=== PATIENT | female | born 1960 | race Caucasian/White ===

== ENCOUNTER → 2017-07-13 12:03 | Outpatient (CLI) | payer OTHER, SELFPAY ==
[2017-07-13 12:30] LABS: Basophils % 0.5 % (0.1-2.0); Eosinophils # 0.1 K/mm3 (0.0-0.4); Hematocrit 41.3 % (37.0-47.0); Hemoglobin 13.8 g/dL (12.2-16.2); Lymphocytes % 30.8 K/mm3 (10-50); Mean Corpuscular HGB Conc 33.4 g/dL (31.8-35.4); Mean Corpuscular Hemoglobin 30.6 pg (27.0-31.2); Mean Corpuscular Volume 91.6 fl (81-99); Monocytes # 0.4 K/mm3 (0.1-1.0); Monocytes % 10.6 % (1.7-9.3); Neutrophils # 1.9 K/mm3 (1.8-7.8); Platelet Count 224 K/mm3 (142-424); Red Blood Count 4.51 M/mm3 (4.20-5.40); Red Cell Distribution Width 12.8 % (11.5-17.5); White Blood Count 3.4 K/mm3 (4.8-10.8)
[2017-07-13 15:01] LABS: Alanine Aminotransferase 35 U/L (12-78); Albumin Level 4.2 gm/dL (3.4-5.0); Albumin/Globulin Ratio 1.5 (1.1-1.8); Alkaline Phosphatase 48 U/L (46-116); Anion Gap 11.4 mEq/L (5-15); Aspartate Amino Transferase 16 U/L (15-37); Bilirubin,Total 0.5 mg/dL (0.2-1.0); Blood Urea Nitrogen 19 mg/dL (7-18); Calcium 9.2 mg/dL (8.5-10.1); Carbon Dioxide 30 mmol/L (21.0-32.0); Chloride 105 mmol/L (98-107); Creatinine,Serum 0.75 mg/dL (0.55-1.02); Estimated Glomerular Filt Rate 79 ml/min (>60); GFR (African American) 96 ML/MIN (>60); Globulin 2.8 gm/dl (1.3-3.2); Glucose 97 mg/dL (74-106); Potassium 4.4 mmoL/L (3.5-5.1); Sodium 142 mmol/L (136-145)
== END ==
PROVIDERS: PCP Internal Medicine; Visit Provider Internal Medicine
DX: G35 Multiple sclerosis (principal)
CPT/HCPCS: 36415; 80053; 85025

== ENCOUNTER → 2021-03-17 18:43 | Outpatient (CLI) | payer OTHER, SELFPAY ==
[2021-03-17 19:17] LABS: Basophils % 0.7 % (0.1-2.0); Eosinophils # 0.1 K/mm3 (0.0-0.4); Eosinophils % 0.9 % (0.1-12.0); Hematocrit 43.1 % (37.0-47.0); Hemoglobin 14.5 g/dL (12.2-16.2); Lymphocytes # 0.9 K/mm3 (0.7-4.5); Lymphocytes % 17.7 % (10-50); Mean Corpuscular HGB Conc 33.6 g/dL (31.8-35.4); Mean Corpuscular Hemoglobin 31.1 pg (27.0-31.2); Mean Corpuscular Volume 92.5 fl (81-99); Mean Platelet Volume 9.4 fl (7.4-10.4); Monocytes # 0.4 K/mm3 (0.1-1.0); Neutrophils # 3.5 K/mm3 (1.8-7.8); Neutrophils % 71.6 % (37.0-80.0); Platelet Count 269 K/mm3 (142-424); Red Blood Count 4.66 M/mm3 (4.20-5.40); White Blood Count 4.9 K/mm3 (4.8-10.8)
[2021-03-17 21:32] LABS: Chloride 96 mmol/L (98-107)
[2021-03-17 21:33] LABS: Potassium 3.4 mmoL/L (3.5-5.1); Sodium 139 mmol/L (136-145)
[2021-03-17 21:35] LABS: Alanine Aminotransferase 18 U/L (12-78); Alkaline Phosphatase 53 U/L (38-126); Aspartate Amino Transferase 23 U/L (14-36); Bilirubin,Total 0.3 mg/dl (0.2-1.3); Blood Urea Nitrogen 16 mg/dl (7-17); Estimated Glomerular Filt Rate 63 ml/min (>60); GFR (African American) 77 ML/MIN (>60)
[2021-03-17 21:36] LABS: Albumin Level 4.5 g/dl (3.5-5.0); Albumin/Globulin Ratio 1.8 (1.1-1.8); Anion Gap 15.4 mEq/L (5-15); Calcium 9.6 mg/dl (8.4-10.2); Carbon Dioxide 31 mmol/L (22.0-30.0); Globulin 2.5 g/dL (1.3-3.2); Glucose 88 mg/dl (74-100)
[2021-03-17 22:17] LABS: Thyroid Stimulating Hormone 1.82 uIU/mL (0.465-4.68)
[2021-03-17 22:28] LABS: Hemoglobin A1C 5.8 % (4.0-6.0)
[2021-03-17 23:10] LABS: Vitamin B12 200 pg/mL (239-931)
== END ==
PROVIDERS: Visit Provider Internal Medicine
DX: G35 Multiple sclerosis (principal); E78.5 Hyperlipidemia, unspecified; E55.9 Vitamin D deficiency, unspecified; R60.9 Edema, unspecified; N39.0 Urinary tract infection, site not specified; M54.50 Low back pain, unspecified; B02.29 Other postherpetic nervous system involvement
CPT/HCPCS: 80053; 82607; 82746; 83036; 84443; 85025; 87086; 87088; 87186

== ENCOUNTER → 2021-06-15 12:14 | Outpatient (CLI) | payer OTHER, SELFPAY ==
[2021-06-15 14:58] LABS: Basophils % 0.9 % (0.1-2.0); Eosinophils # 0.1 K/mm3 (0.0-0.4); Eosinophils % 1.7 % (0.1-12.0); Hematocrit 42.2 % (37.0-47.0); Hemoglobin 13.9 g/dL (12.2-16.2); Lymphocytes # 0.9 K/mm3 (0.7-4.5); Lymphocytes % 19.9 % (10-50); Mean Corpuscular HGB Conc 32.9 g/dL (31.8-35.4); Mean Corpuscular Hemoglobin 30.6 pg (27.0-31.2); Mean Corpuscular Volume 93.1 fl (81-99); Monocytes # 0.4 K/mm3 (0.1-1.0); Monocytes % 9.3 % (1.7-9.3); Neutrophils % 68.2 % (37.0-80.0); Platelet Count 273 K/mm3 (142-424); Red Blood Count 4.54 M/mm3 (4.20-5.40); Red Cell Distribution Width 13.6 % (11.5-17.5); White Blood Count 4.4 K/mm3 (4.8-10.8)
[2021-06-15 15:01] LABS: Chloride 95 mmol/L (98-107); Potassium 3.9 mmoL/L (3.5-5.1); Sodium 134 mmol/L (136-145)
[2021-06-15 15:04] LABS: Alanine Aminotransferase 16 U/L (12-78); Albumin Level 4.6 g/dl (3.5-5.0); Alkaline Phosphatase 43 U/L (38-126); Anion Gap 8.9 mEq/L (5-15); Aspartate Amino Transferase 28 U/L (14-36); Bilirubin,Total 0.4 mg/dl (0.2-1.3); Blood Urea Nitrogen 25 mg/dl (7-17); Carbon Dioxide 34 mmol/L (22.0-30.0); Estimated Glomerular Filt Rate 63 ml/min (>60); GFR (African American) 77 ML/MIN (>60); Globulin 2.3 g/dL (1.3-3.2); Total Protein,Serum 6.9 g/dl (6.3-8.2)
[2021-06-15 15:05] LABS: Calcium 9.6 mg/dl (8.4-10.2); Glucose 84 mg/dl (74-100)
[2021-06-15 16:03] LABS: INR 0.95 (0.9-1.1); Prothrombin Time 10.8 seconds (10.1-12.5)
== END ==
PROVIDERS: Visit Provider Internal Medicine
DX: G35 Multiple sclerosis (principal); G60.9 Hereditary and idiopathic neuropathy, unspecified; E53.8 Deficiency of other specified B group vitamins; R53.82 Chronic fatigue, unspecified
CPT/HCPCS: 80053; 85025; 85610; 85730

== ENCOUNTER → 2022-01-05 11:40 | Outpatient (CLI) | payer OTHER, SELFPAY ==
[2022-01-05 12:08] LABS: Basophils % 0.8 % (0.1-2.0); Eosinophils # 0.1 K/mm3 (0.0-0.4); Eosinophils % 1.2 % (0.1-12.0); Hematocrit 44.4 % (37.0-47.0); Hemoglobin 14.5 g/dL (12.2-16.2); Lymphocytes % 19.8 % (10-50); Mean Corpuscular HGB Conc 32.6 g/dL (31.8-35.4); Mean Corpuscular Hemoglobin 30.4 pg (27.0-31.2); Mean Corpuscular Volume 93.2 fl (81-99); Mean Platelet Volume 9.5 fl (7.4-10.4); Monocytes # 0.4 K/mm3 (0.1-1.0); Monocytes % 7.1 % (1.7-9.3); Neutrophils # 3.7 K/mm3 (1.8-7.8); Platelet Count 305 K/mm3 (142-424); Red Blood Count 4.77 M/mm3 (4.20-5.40); Red Cell Distribution Width 13.8 % (11.5-17.5); White Blood Count 5.2 K/mm3 (4.8-10.8)
[2022-01-05 12:47] LABS: Alanine Aminotransferase 21 U/L (12-78); Albumin Level 4.4 g/dl (3.5-5.0); Albumin/Globulin Ratio 1.8 (1.1-1.8); Alkaline Phosphatase 58 U/L (38-126); Anion Gap 12.4 mEq/L (5-15); Aspartate Amino Transferase 26 U/L (14-36); Bilirubin,Total 0.2 mg/dl (0.2-1.3); Blood Urea Nitrogen 17 mg/dl (7-17); Calcium 10.1 mg/dl (8.4-10.2); Carbon Dioxide 28 mmol/L (22.0-30.0); Chloride 103 mmol/L (98-107); Chol/HDL Ratio 4.6 (1-3.5); Cholesterol 279 mg/dl (140-200); Estimated Glomerular Filt Rate 56 ml/min (>60); GFR (African American) 68 ML/MIN (>60); Globulin 2.4 g/dL (1.3-3.2); Glucose 114 mg/dl (74-100); HDL Cholesterol 61 mg/dl (40-60); Potassium 3.4 mmoL/L (3.5-5.1); Sodium 140 mmol/L (136-145); Total Protein,Serum 6.8 g/dl (6.3-8.2); Triglycerides 240 mg/dl (30-150); VLDL Cholesterol 48 mg/dL (0-40)
[2022-01-05 13:36] LABS: Vitamin B12 > 1000 pg/mL (239-931)
[2022-01-06 15:21] LABS: Direct LDL Cholesterol 175 mg/dL (100-129)
== END ==
PROVIDERS: PCP Internal Medicine; Visit Provider Internal Medicine
DX: G35 Multiple sclerosis (principal); R53.82 Chronic fatigue, unspecified; E53.8 Deficiency of other specified B group vitamins; R23.8 Other skin changes; E78.5 Hyperlipidemia, unspecified; G60.9 Hereditary and idiopathic neuropathy, unspecified
CPT/HCPCS: 36415; 80053; 80061; 82607; 85025

== ENCOUNTER → 2022-02-14 12:43 | Outpatient (CLI) | payer OTHER, SELFPAY | PROVIDERS: PCP Internal Medicine; Visit Provider Internal Medicine | DX: N39.0 Urinary tract infection, site not specified (principal); B96.1 Klebsiella pneumoniae [K. pneumoniae] as the cause of diseases classified elsewhere | CPT/HCPCS: 87086; 87088; 87186 ==

== ENCOUNTER → 2022-09-28 12:06 | Outpatient (CLI) | payer OTHER, SELFPAY ==
[2022-09-28 14:16] LABS: Basophils % 0.6 % (0.1-2.0); Eosinophils # 0.1 K/mm3 (0.0-0.4); Eosinophils % 1.8 % (0.1-12.0); Hematocrit 42.8 % (37.0-47.0); Hemoglobin 14.2 g/dL (12.2-16.2); Lymphocytes # 1.1 K/mm3 (0.7-4.5); Lymphocytes % 20.4 % (10-50); Mean Corpuscular HGB Conc 33.1 g/dL (31.8-35.4); Mean Corpuscular Hemoglobin 30.6 pg (27.0-31.2); Mean Corpuscular Volume 92.3 fl (81-99); Mean Platelet Volume 10.4 fl (7.4-10.4); Monocytes # 0.5 K/mm3 (0.1-1.0); Monocytes % 8.9 % (1.7-9.3); Neutrophils # 3.7 K/mm3 (1.8-7.8); Neutrophils % 68.3 % (37.0-80.0); Platelet Count 284 K/mm3 (142-424); Red Blood Count 4.64 M/mm3 (4.20-5.40); Red Cell Distribution Width 13.8 % (11.5-17.5); White Blood Count 5.4 K/mm3 (4.8-10.8)
[2022-09-28 14:20] LABS: Alanine Aminotransferase 49 U/L (12-78); Albumin Level 4.3 g/dl (3.5-5.0); Albumin/Globulin Ratio 1.9 (1.1-1.8); Alkaline Phosphatase 53 U/L (38-126); Anion Gap 16.5 mEq/L (5-15); Aspartate Amino Transferase 48 U/L (14-36); Bilirubin,Total 0.6 mg/dl (0.2-1.3); Blood Urea Nitrogen 18 mg/dl (7-17); Calcium 9.2 mg/dl (8.4-10.2); Carbon Dioxide 32 mmol/L (22.0-30.0); Chloride 92 mmol/L (98-107); Chol/HDL Ratio 4.7 (1-3.5); Cholesterol 242 mg/dl (140-200); Estimated Glomerular Filt Rate 63 ml/min (>60); GFR (African American) 76 ML/MIN (>60); Globulin 2.3 g/dL (1.3-3.2); Glucose 102 mg/dl (74-100); HDL Cholesterol 52 mg/dl (40-60); Potassium 3.5 mmoL/L (3.5-5.1); Sodium 137 mmol/L (136-145); Total Protein,Serum 6.6 g/dl (6.3-8.2); Triglycerides 240 mg/dl (30-150); VLDL Cholesterol 48 mg/dL (0-40)
[2022-09-28 14:31] LABS: Direct LDL Cholesterol 160.69 mg/dL (100-129)
[2022-09-28 15:10] LABS: Vitamin B12 225 pg/mL (239-931)
[2022-09-28 22:36] LABS: Thyroid Stimulating Hormone 1.66 uIU/mL (0.465-4.68)
== END ==
PROVIDERS: PCP Internal Medicine; Visit Provider Internal Medicine
DX: E55.9 Vitamin D deficiency, unspecified (principal); E78.5 Hyperlipidemia, unspecified; E53.8 Deficiency of other specified B group vitamins; G60.9 Hereditary and idiopathic neuropathy, unspecified; G35 Multiple sclerosis; R53.82 Chronic fatigue, unspecified
CPT/HCPCS: 80053; 80061; 82306; 82607; 84443; 85025

== ENCOUNTER 2023-03-19 12:04 | Emergency (ER) | payer MEDICARE, SELFPAY ==
[2023-03-19 12:06] VITALS: BP 163/78; PULSE 89; RESP 18; TEMP 36.8; O2SAT 97; BMI 27.4
--- NOTE | 2023-03-19 12:10 | PC.NURSE ---
DR PALACIOS AT BEDSIDE
--- NOTE | 2023-03-19 12:31 | HMH.EDGENADL ---
Discharge Plan Disposition Patient Disposition: Home, Self-Care Prescriptions Prescriptions: New ketoconazole 2 % shampoo 1 applic topical Q14D Qty: 120 0RF triamcinolone acetonide 0.1 % ointment 1 applic topical BID Qty: 453.6 0RF No Action Tecfidera 240 mg capsule,delayed release(DR/EC) 240 mg PO BID acyclovir 800 MG tablet 800 mg PO 5XDAY 7 Days Qty: 35 0RF Referrals Follow up/Referrals: Rosette Bose MD [Referring] - See instructions Provider,MD Chelsea [Primary Care Provider] - See instructions Woody De Anda DO [Staff Physician] - See instructions Activity Restrictions/Add. Instructions Additional Instructions/Restrictions: At this time it was felt you are safe to be discharged home. If new or worsening symptoms please do not hesitate to return the emergency department. Please call and schedule an appointment with Dr. De Anda to establish care this week for continued prolonged care. Please use your medication as prescribed. If we are able to secure a dermatology appointment we will contact you tomorrow. Clinical Impressions Clinical Impression: Psoriasis Instructions Patient Instructions: DI for Psoriasis Discharge ED Provider: Tray Fitzgerald General Adult HPI General Chief complaint: Skin/Abscess/Foreign Body Stated complaint: right swollen foot, blisters Time Seen by Provider: 03/19/23 12:10 Mode of Arrival: Wheelchair Limitations: No Limitations Description of Symptoms (Recalled from ER Triage Doc. by RN): PT REPORTS RASH THAT STARTED ON BLE, STARTED AROUND ANKLES AND HAS SPREAD UP LEGS. REPORTS RASH TO FOREARMS AND SOME ON TRUNK. SWELLING TO RIGHT LE THAT STARTED THIS AM. RASH DOES ITCH History of Present Illness HPI narrative: Patient is a 62-year-old female with past medical history of previous diagnosis of multiple sclerosis, not currently on any medications who presents emergency department for evaluation of rash. Onset was subacute, over the last 2 weeks patient has had a eruption that began about her bilateral ankles after shaving and spread proximally up her legs to her thighs, involvement of the extensor surfaces of her arms. Originally they were erythematous and itchy, there has been progressive scaling of the bilateral lower extremities, swelling of the right ankle. Due to persistent symptoms she presents here for continued evaluation. Patient denies new detergents, new clothes, new medications, other acute complaints at this time. Related Data Home Medications Medication Instructions Recorded Confirmed dimethyl fumarate 240 mg 240 mg PO BID 03/22/18 03/22/18 capsule,delayed release (Tecfidera) Previous Rx's Medication Instructions Recorded acyclovir 800 mg tablet 800 mg PO 5XDAY 7 days #35 tabs 02/03/19 ketoconazole 2 % shampoo 1 applic topical Q14D #120 mL 03/19/23 triamcinolone acetonide 0.1 % 1 applic topical BID #453.6 grams 03/19/23 topical ointment Allergies Allergy/AdvReac Type Severity Reaction Status Date / Time No Known Allergies Allergy Verified 03/22/18 11:25 [facility] Disclaimer: The information contained in this section may have been updated after the patient was seen, as this information can be updated by other users. Social History Smoking Status: Never smoker alcohol intake: current current occupational status: disabled Travel in the last 8 weeks: None ROS Obtained: Yes Systems reviewed as appropriate & no additional complaints except as documented Physical Exam General General appearance: alert and in no apparent distress Head Head exam: atraumatic and normocephalic Eye Eye exam: Present PERRL and EOMI ENT ENT exam: Present mucous membranes moist Neck Neck exam: Present normal inspection Chest Chest inspection: Present normal inspection and symmetric chest wall rise Respiratory Respiratory exam: Absent respiratory distress Cardiovascular Cardiovascular exam: Present regular rate and normal rhy
[2023-03-19 12:54] LABS: Basophils % 0.4 % (0.1-2.0); Eosinophils # 0.5 K/mm3 (0.0-0.4); Eosinophils % 6.2 % (0.1-12.0); Hematocrit 38.9 % (37.0-47.0); Hemoglobin 13.7 g/dL (12.2-16.2); Lymphocytes # 1.6 K/mm3 (0.7-4.5); Lymphocytes % 21.9 % (10-50); Mean Corpuscular HGB Conc 35.2 g/dL (31.8-35.4); Mean Corpuscular Volume 93.9 fl (81-99); Mean Platelet Volume 8.3 fl (7.4-10.4); Monocytes # 0.4 K/mm3 (0.1-1.0); Monocytes % 5.9 % (1.7-9.3); Neutrophils # 4.8 K/mm3 (1.8-7.8); Neutrophils % 65.4 % (37.0-80.0); Platelet Count 280 K/mm3 (142-424); Red Blood Count 4.15 M/mm3 (4.20-5.40); Red Cell Distribution Width 13.7 % (11.5-17.5); White Blood Count 7.4 K/mm3 (4.8-10.8)
[2023-03-19 13:00] VITALS: BP 140/82; PULSE 86; RESP 18; O2SAT 96
[2023-03-19 13:02] LABS: Alanine Aminotransferase 32 U/L (12-78); Albumin Level 4.1 g/dl (3.5-5.0); Albumin/Globulin Ratio 1.5 (1.1-1.8); Alkaline Phosphatase 44 U/L (38-126); Anion Gap 10.6 mEq/L (5-15); Aspartate Amino Transferase 33 U/L (14-36); Bilirubin,Total 0.2 mg/dl (0.2-1.3); Blood Urea Nitrogen 20 mg/dl (7-17); Calcium 9.2 mg/dl (8.4-10.2); Carbon Dioxide 30 mmol/L (22.0-30.0); Chloride 105 mmol/L (98-107); Creatinine Clearance Estimated 69 mL/min (50-200); Estimated Glomerular Filt Rate 63 ml/min (>60); GFR (African American) 76 ML/MIN (>60); Globulin 2.7 g/dL (1.3-3.2); Glucose 116 mg/dl (74-100); Potassium 3.6 mmoL/L (3.5-5.1); Sodium 142 mmol/L (136-145); Total Protein,Serum 6.8 g/dl (6.3-8.2)
[2023-03-19 13:03] LABS: INR 0.96 (0.9-1.1); Prothrombin Time 10.4 seconds (10.1-12.5)
[2023-03-19 13:51] VITALS: BP 117/72; PULSE 87; O2SAT 97
[2023-03-19 13:51] LABS: Microscopic, Urine URINE MICROSCOPIC (MICROSCOPIC)
[2023-03-19 13:56] LABS: Erythrocyte Sedimentation Rate 112 mm/hr (0-30)
[2023-03-19 13:57] LABS: Appearance,Urine SL CLOUDY (Clear); Bilirubin,Urine Negative (Negative); Blood, Urine Negative (Negative); Color,Urine YELLOW (Yellow); Glucose,Urine (UA) Negative (Negative); Ketones,Urine Negative (Negative); Leukocyte Esterase,Urine 2+ (Negative); Nitrate,Urine Negative (Negative); Protein,Urine Negative (Negative); Specific Gravity, Urine 1.025 (1.005-1.030); Urobilinogen,Urine 0.2 EU/dl (0.2)
[2023-03-19 13:59] VITALS: BP 122/74; PULSE 68; RESP 20; TEMP 36.8; O2SAT 96
[2023-03-19 14:02] VITALS: BP 127/75; PULSE 66; O2SAT 98
[2023-03-19 14:09] LABS: Bacteria,Urine 1+ /lpf
--- NOTE | 2023-03-20 09:18 | PC.NURSE ---
APPOINTMENT MADE FOR DR ASHLEY 05/16/2023 AT 2:10, PT NOTIFIED AT THIS TIME
== END 2023-03-19 14:30 | disposition home or self-care (01) ==
PROVIDERS: Emergency Provider Emergency Medicine
DX: L40.9 Psoriasis, unspecified (principal)
CPT/HCPCS: 80053; 81001; 85025; 85610; 85651; 87086; 96361; 99285

== ENCOUNTER 2024-08-16 09:57 | Outpatient (CLI) | payer MEDICARE, SELFPAY ==
[2024-08-16 14:28] LABS: Basophils % 0.6 % (0.1-2.0); Eosinophils # 0.1 K/mm3 (0.0-0.4); Eosinophils % 2.4 % (0.1-12.0); Hematocrit 42.2 % (37.0-47.0); Lymphocytes # 1.4 K/mm3 (0.7-4.5); Lymphocytes % 28.4 % (10-50); Mean Corpuscular HGB Conc 30.8 g/dL (31.8-35.4); Mean Corpuscular Hemoglobin 26.9 pg (27.0-31.2); Mean Corpuscular Volume 87.4 fl (81-99); Mean Platelet Volume 12.4 fl (7.4-10.4); Monocytes # 0.5 K/mm3 (0.1-1.0); Monocytes % 10.5 % (1.7-9.3); Neutrophils # 2.9 K/mm3 (1.8-7.8); Neutrophils % 57.9 % (37.0-80.0); Platelet Count 288 K/mm3 (142-424); Red Blood Count 4.83 M/mm3 (4.20-5.40); Red Cell Distribution Width 13.1 % (11.5-17.5); White Blood Count 5.1 K/mm3 (4.8-10.8)
[2024-08-16 15:05] LABS: Alanine Aminotransferase 21 U/L (12-78); Albumin Level 3.9 g/dl (3.5-5.0); Albumin/Globulin Ratio 1.7 (1.1-1.8); Alkaline Phosphatase 93 U/L (38-126); Anion Gap 13.7 mEq/L (5-15); Aspartate Amino Transferase 23 U/L (14-36); Bilirubin,Total 0.5 mg/dl (0.2-1.3); Blood Urea Nitrogen 14 mg/dl (7-17); Calcium 10.3 mg/dl (8.4-10.2); Carbon Dioxide 29 mmol/L (22.0-30.0); Chloride 103 mmol/L (98-107); Cholesterol 166 mg/dl (140-200); Estimated Glomerular Filt Rate 84 ml/min (>60); GFR (African American) 101 ML/MIN (>60); Globulin 2.3 g/dL (1.3-3.2); Glucose 89 mg/dl (74-100); HDL Cholesterol 56 mg/dl (40-60); Hemoglobin A1C 5.4 % (4.0-6.0); Potassium 4.7 mmoL/L (3.5-5.1); Sodium 141 mmol/L (136-145); Total Protein,Serum 6.2 g/dl (6.3-8.2); Triglycerides 152 mg/dl (30-150); VLDL Cholesterol 30 mg/dL (0-40)
[2024-08-16 15:16] LABS: Direct LDL Cholesterol 75.89 mg/dL (100-129)
[2024-08-16 15:47] LABS: HIV Combo NEGATIVE (Negative)
[2024-08-16 15:55] LABS: Hepatitis C Ab Qual. W/ RFX NEGATIVE (Negative)
[2024-08-19 11:23] LABS: Anti-Centromere B Antibodies <0.2 AI (0.0-0.9); Anti-DNA (DS) Ab Qn <1 IU/mL (0-9); Anti-Jo-1 <0.2 AI (0.0-0.9); Anti-Smith Antibody <0.2 AI (0.0-0.9); Antichromatin Antibodies <0.2 AI (0.0-0.9); Antiscleroderma-70 Antibodies <0.2 AI (0.0-0.9); RNP Antibodies <0.2 AI (0.0-0.9); Sjogren's Anti-SS-A <0.2 AI (0.0-0.9); Sjogren's Anti-SS-B 1.7 AI (0.0-0.9)
--- OUTSIDE RECORDS SUMMARY | 2024-08-22 19:45 | XMS_ITS | Data Portability ---
Author Organization [facility] Neeraj c, [facility] Address [address] [place] [address] Assessment Encounter Date Assessment Date Assessment LastModified by Organization Details LastModified Time 12/21/2021 12/21/2021 1.Multiple sclerosis, diagnosis made in 2002 ([place]), moved to [place] 2. Followed by Dr. Milton Jones, [facility], last visit in 2020, had MRI 2020 3. Current med Vumerity, on this Rx x 2 or 3 yrs, she stopped Vumerity 10 days ago 4. She says stopped Vumerity because she had a fall 5. Free of exacerbations, Last exacerbation approx 10 years ago, in 2010 or 2011 6. Takes supplemental vitamin D3 Plan 1. I encouraged patient continue care with Dr. Jones 2. I said every MS clinic , every neurology practice is very busy due to shortage of neurologists 3. I encouraged she is in a very good program with very good doctor there is no reason to switch hoping for a less busy practice 4. She needs to make discussion with Dr. Jones about current med Vumerity she says no cost issue/ company provides med for free 5. I encouraged continue vitamin D3 6. No changes needed/ no diagnostic tests needed. 7. I need for appointment here in our clinic [email or web address] Not available 04/03/2022 12:20:44 Plan of Treatment Reminders Order Date Submit Date Provider Last Modified By Organization Details Last Modified Time Details Appointments None record ed. Lab None record ed. Referral None record ed. Procedures None record ed. Surgeries None record ed. Imaging None record ed. Medication Orders None record ed. Patient TargetsNo targets recorded. Patient Instructions Encounter Date Encounter Id Patient Instructions Last Modified By Organization Details Last Modified Time 12/21/2021 [id number] CATEGORY DESCRIPTION MINUTES Prepare to see the patient (e.g. review of tests) Obtain/review separately obtained history Perform medically appropriate exam/evaluation 20 Order medications, tests, or procedures Correspondence Transcriber/educate the patient/family/car egiver 20 Refer/communicate w/other healthcare professionals Document clinical information into health record 10 Non-billable independent interp of results Non-billable care coordination TOTAL TIME 50 [id number] (15-29) 22780 (30-44) 27860 (45-59) 73684 (60-74) 78776 (10-19) 93802 (20-29) 84767 (30-39) 80991 (40-54) [email or web address] Not available 04/03/2022 12:21:41 Reason for Referral None Reported. Problems No Known Problems Procedures Surgical History Date Name Laterality Status Provider Name and Address Organization Details Recorded Time 05/15/19 10 Nipple/areola reconstruction completed [facility] 12/21/2021 10:03:23 05/15/19 09 Nipple/areola reconstruction completed [facility] 12/21/2021 10:03:18 05/15/19 08 Bilateral mastectomy completed [facility] 12/21/2021 10:02:56 05/15/19 07 Total Hysterectomy completed [facility] 12/21/2021 10:02:45 05/15/18 63 Tonsillectomy completed [facility] 12/21/2021 10:02:33 Imaging Results None recorded. Procedure Notes None recorded. Medical Equipment None Reported. Allergies No known drug allergies Medications Name Sig Start Date Stop Date Status Note LastModified by Organization Details LastModified Time triamterene active Not Available Not A vailable Not Available Vitals Date Recorded Body weight Body mass index (BMI) Body height Provider Name and Address Organization Details Last Updated DateTime 12/21/2021 98790.11 g 27.3 kg/m2 167.64 cm [facility] 12/21/2021 09:54:56 Social History Question Answer Notes LastModified by Organizat ion Details LastModified Time Tobacco Smoking Status [facility]/21/2021 10:02:20 What Is Your Level Of Alcohol Consumption? None Information not available 12/21/2021 What Was The Date Of Your Most Recent Tobacco Screening? 12/21/2021 Information not available 12/21/2021 Do You Use Any Illicit Or Recreational Drugs? No Information not available 12/21/2021 Has Tobacco Cessation Counseling Been Provided? No Information not available 12/21/2021 Do You Or Have You Ever Used Any Other Forms Of Tobacco Or Nicotine? No Information not available 12/21/2021 Sex: Unknown Functional Status None recorded. Mental Status None recorded. Family History Relationship Description Onset Age of this Age Resolved Age Notes LastModified by Organization Details LastModified Time Mother Hypertensive disorder Not available 12/21 10:01:19 Mother Diabetes mellitus Not available 12/21 10:01:49 Mother Kidney disease Not available 12/21 10:02:04 Father Heart disease Not available 12/21 10:01:24 Father Diabetes mellitus Not available 12/21 10:01:49 Unspecified Relation Diabetes mellitus GF Not available 12/21 10:01:49 Unspecified Relation Diabetes mellitus GM x2 Not available 12/21 10:01:49 Medical History Condition Response Cancer Y Migraines Y Neurological Problems Y Gynecological HistoryNo gynecological history recorded. Obstetrics History GPAL:G 0 P 0 0 0 0 Immunizations Vaccine Type Date Status Note Provider Nam e and Address Organization Details Recorded Time SARS-COV-2 (COVID-19) vaccine, UNSPECIFIED 07/22/2020 [facility]2021 10:01:03 SARS-COV-2 (COVID-19) vaccine, UNSPECIFIED 03/19/2021 jenny Terrazas [facility] 12/21/2021 10:01:08 Past Encounters Encounter ID Performer Location Encounter Start Date Encounter Closed Date Diagnosis/Indication Diagnosis SNOMED-CT Code Diagnosis ICD10 Code Diagnosis Note [id number] SUSANNAH DELUNA MD NEUROLOGY [address] [place] [address] 12/21/2021 09:32:40 12/21/2021 10:47:26 Multiple sclerosis 72419724 G35 Health Concerns Section Related Observation LastModified by Organization Detai ls LastModified Time None Recorded Concern Status LastModified by Organization Details LastModified Time None Recorded Advance Directives Directive None Recorded Payers Encounter Date Sequence Insurance Name Policy Number Policy Mccloud Covered Member ID Mccloud Member ID Guarantor Name 12/21/2021 1 [place] [id number] Yen Perez [id number] Yen Perez Notes Date Note Type Note Provider Name and Address Organization Details Recorded Time 12/21/2021 text/html initial consult6 1 year old womanseen at the request of Dr. Zan Jackson cc: multiple sclerosis dx in 2002, diagnosis made in [place] to [place] in [place] some time followed with Dr. Madison Jones follows with Dr. Jones at [facility] for 2 [facility] 3 years currently has Vumeritybut she has fallen while on Vumeritywas last seen in April, days ago stopped Vumerity She takes vitamin D last exacerbation was about 10 years ago Vumerity is not working, quit taking itsays she falls over frequently previous meds tried: Avonex, Rebif, Copaxone, Tysabri, Plegridy, Tecfiderashe says switched meds due to exacerbations she says loved Tecfidera, stopped when generic came availablebecame unaffordable cost is difficult issueshe gets Vumerity as free drug from company Last MRI was 2019 in [place] last exacerbation of MS 2010 or 2011 She says her disease improved when her stress level at work decreased 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
--- OUTSIDE RECORDS SUMMARY | 2024-08-22 19:45 | XMS_ITS ---
Author Organization Unknown TREATMENT PLAN Planned Care Start Date Provider Encounter for Check-up [id number] [facility]
--- OUTSIDE RECORDS SUMMARY | 2024-08-22 19:45 | XMS_ITS ---
Laboratory report Created on: August 21, 2024 KD ROBIN : 1960 Sex: Female Author Organization Unknown PROBLEMS Problems List Code Description RESULTS Laboratory Orders Date Order Code Test 2024-08-16 [id number] ANTINUCLEAR AB 9 BY MULTIPLEX Laboratory Results Date LOINC Test Value Unit Reference Range Interpre tation 2024-08-16 5130-0 ANTI-DNA (DS) AB QN <1 IU/ML 0-9 2024-08-16 07749-1 CERAMIC COATER MACHINE ANTIBODIES <0.2 AI 0.0-0.9 2024-08-16 15454-7 LEVI ANTIBODIES <0.2 AI 0.0-0.9 2024-08-16 61701-7 ANTISCLERODERMA- 70 ANTIBODIES <0.2 AI 0.0-0.9 2024-08-16 [id number] SJOGREN'S ANTI-SS-A <0.2 AI 0.0-0.9 2024-08-16 [id number] SJOGREN'S ANTI-SS-B 1.7 AI 0.0-0.9 H 2024-08-16 [id number] ANTICHROMATIN ANTIBODIES <0.2 AI 0.0-0.9 2024-08-16 27950-1 ANTI-MAUREEN-1 <0.2 AI 0.0-0.9 2024-08-16 [id number] ANTI-CENTROMERE B ANTIBODIES <0.2 AI 0.0-0.9
== END 2024-08-16 23:59 | disposition home or self-care (01) ==
LOC: LAB.DROPOF 08-17 10:56
PROVIDERS: PCP Internal Medicine; Visit Provider Internal Medicine
DX: E78.5 Hyperlipidemia, unspecified (principal); R21 Rash and other nonspecific skin eruption; Z13.1 Encounter for screening for diabetes mellitus; R53.83 Other fatigue; R60.9 Edema, unspecified; Z11.4 Encounter for screening for human immunodeficiency virus [HIV]; Z11.59 Encounter for screening for other viral diseases
CPT/HCPCS: 80053; 80061; 83036; 85025; 86225; 86235; 86803; 87389

== ENCOUNTER 2025-02-11 14:25 | Outpatient (CLI) | payer MEDICARE, SELFPAY ==
--- OUTSIDE RECORDS SUMMARY | 2010-06-07 20:00 | XMS_ITS | Continuity of Care Document ---
Author Organization [facility] Address [address] [place] [address] Phone Care Team Providers Care Director Of Marketing Name Role Phone No Information Unavailable Unavailable Advance Directives Directive Yes / No Effective Date File Name No Information Encounters Encounter Description Practice Location Reason(s) For Visit Diagnoses Date Provider Providers Copied on Encounter [facility], [address] [place] [address], [place], [address], [place] tel:[phone] No Location No Information No Information Family History Family Member Type Diagnosis Age At Onset No Information Payers Payer name Insurance type Covered republican ID Authoriza tion(s) No Information Social History Type Description Quantity Date Captured Comments Sex Female Smoking Status No Information Chief Complaint And Reason For Visit No Information Reason For Referral Reason For Referral No Information History Of Present Illness Encounter Date Complaint History Of Prese nt Illness No Information Functional Status Date Functional Assessmen t No Information Instructions Date Instruction Additional Infor mation No Information Assessments Type Assessment Date No Information Patient Care Teams Name Effective Dates (start - stop) Status Members No Information
--- OUTSIDE RECORDS SUMMARY | 2012-02-13 11:45 | XMS_ITS | Continuity of Care Document ---
Author Organization [facility] Address [address] [place] [address] Phone Care Team Providers Care Bicycle Courier Name Role Phone Jerry Amaya MD Unavailable Unavailable Allergies, Adverse Reactions, Alerts Substance Reaction Status Criticality No Known Drug Allergies Active No I nformation Medications Medication Instructions Dosage Effective Dates (start - stop) Status Comments meloxicam 7.5 mg tablet 1 tab po bid x 7-10 days then qd prn - Active Provigil 100 mg tablet - Active Anastrozole - Active BuPROPion HBr - Active Rebif 22 mcg/0.5 mL Sub-Q Syringe - Active Procedures Procedure Date POSTOP FOLLOW-UP VISIT BOOT WALKER SHORT STYLE OR DIABETIC TREATMENT OF TOE FRACTURE X-RAY EXAM OF FOOT OFFICE/OUTPATIENT VISIT, EST DRAIN/INJECT, JOINT/BURSA KENALOG (TRIAMCINOLONE) PER 10 MG MARCAINE 30 ML X-RAY EXAM, KNEE, 4 OR MORE POSTOP FOLLOW-UP VISIT X-RAY EXAM OF ELBOW Advance Directives Directive Yes / No Effective Date File Name No Information Encounters Encounter Description Practice Location Reason(s) For Visit Diagnoses Date Provider Providers Copied on Encounter [facility], [address] [place] [address], [place], [address], [place] tel:[phone] [facility] No Information 1-201 2 Jose Luis Edwards. [address] [place], [place], [id number], [place]. tel:[phone] [facility], [address] [place] [address], [address], [place] tel:[phone] No Location No Information Oct0 1-201 2 Jose Luis Edwards. [address], [place], [id number], [place]. tel:[phone] [facility], [address] [place] [address], [address], [place] tel:[phone] [facility] No Information Sep- 2 2 Jose Luis Edwards. [address], [place], [id number], [place]. tel:[phone] Referring Provider: Jerry Sierra, [address] [place] [address], [address]. tel:[phone] [facility], [address] [place] [address], [address], [place] tel:[phone] [facility] No Information Sep- 0 2 Jose Luis Edwards. [address], [place], [id number], [place]. tel:[phone] [facility], [address] [place] [address], [address], [place] tel:[phone] No Location No Information Sep- 0- 2 No Information OFFICE/OUTPA TIENT VISIT, EST [facility], [address] [place] [address], [address], [place] tel:[phone] [facility] No Information 2 Sarah Meek. [address] [place] [address], [place], [place], [id number], [place]. tel:[phone] Referring Provider: Fantasma Dawson, [address] [place] [address], [place], [address]. tel:[phone] [facility], [address] [place] [address], [place], [address], tel:[phone] [facility] Marco A No Information Miranda Crandall [address] [facility], [place], [place], [id number], . tel:[phone] [facility], [address] [place] [address], [place], [place], [facility], tel:[phone] No Location No Information No Information Family History Family Member Type Diagnosis Age At Onset No Information Payers Payer name Insurance type Covered constitution party ID Willy carmona(s) [facility] Network S [id number] Social History Type Description Quantity Date Captured [...]
--- OUTSIDE RECORDS SUMMARY | 2024-12-10 15:51 | XMS_ITS | Encounter Summary ---
Author Organization [facility] Address [address] [place] [address] Care Team Providers Care [employer] Name Role Phone Pcp, No Primary Care Provider Unavailabl e Reason for Referral * Referral to Case Management (Routine) - Authorized Specialty Diagnoses / Procedures Referred By Sabrina loera Referred To Contact Primary Care Diagnoses Hyperthyroidism Elham Cruz APRN [address] [place] [address] Phone: tel: fax: Referral ID Status Reason Start Date Expiration Date Visits Requested Visits Authorized [id number] Authorized Other Co-Managemen t of Problem 12/27/2024 06/28/2026 1 1 * Consultation (Routine) - Authorized Specialty Diagnoses / Procedures Referred By Sabrina loera Referred To Contact Cardiology Diagnoses Paroxysmal atrial fibrillation (CMS/HCC) Elham Cruz APRN [address] [place] [address] Phone: tel: fax: Referral ID Status Reason Start Date Expiration Date Visits Requested Visits Authorized [id number] Authorized Specialty Services Required 12/27/2024 06/28/2026 1 1 Scheduling Instructions New diagnosed atrial fib * Consultation (Routine) - Closed Specialty Diagnoses / Procedures Referred By Sabrina loera Referred To Contact Neurology Diagnoses Altered mental status, unspecified altered mental status type Cerebral ventriculomegaly MS (multiple sclerosis) Elham Cruz APRN [address] [place] [address] Phone: tel: fax: Referral ID Status Reason Start Date Expiration Date V isits Requested Visits Authorized [id number] Closed Specialty Services Required 12/27/2024 06/28/2026 1 1 Scheduling Instructions For ventriculomegaly and NPH * Consultation (Routine) - Authorized Specialty Diagnoses / Procedures Referred By Contac t Referred To Contact Diagnoses MS (multiple sclerosis) Elham Cruz APRN [address] [place] [address] Phone: tel: fax: Referral ID Status Reason Start Date Expiration Date V isits Requested Visits Authorized [id number] Authorized 12/27/2024 06/28/2026 1 1 * Consultation (Routine) - Authorized Specialty Diagnoses / Procedures Referred By Contac t Referred To Contact Endocrinology Diagnoses Hyperthyroidism Wu Newby MD [address] [place] [address] Phone: tel: fax: Referral ID Status Reason Start Date Expiration Date Visits Requested Visits Authorized [id number] Authorized Specialty Services Required 12/15/2024 06/16/2026 1 1 Scheduling Instructions For Graves disease * Consultation (Routine) - Authorized Specialty Diagnoses / Procedures Referred By Contac t Referred To Contact Neurology Diagnoses Cerebral ventriculomegaly Addie Vazquez, [address] [place] [address] Phone: tel: fax: [facility] [address] [place] [address] Phone: tel: fax: Referral ID Status Reason Start Date Expiration Date Visits Requested Visits Authorized [id number] Authorized Specialty Services Required 12/11/2024 06/12/2026 1 1 Scheduling Instructions Follow-up in NPH clinic with first available appointment Reason for Visit * Reason Comments Altered Mental Status * Auth/Cert (Routine) Specialty Diagnoses / Procedures Referred By Sabrina t Referred To Contact Diagnoses Acute encephalopathy Altered Mental Status and A.fib Addie Vazquez DO [address] [place] [address] Phone: tel: fax: [facility] [address] [place] [address] Phone: tel: Referral ID Status Reason Start Date Expiration Date Visits Re quested Visits Authorized [id number] 1 1 Encounter Details Date Type Department Care Team (Latest Contact Info) Description 12/10/2024 3:51 PM EDT - 12/28/2024 2:40 PM EDT Hospital Encounter [facility] [address] [place] [address] Desi Kent MD [address] [place] [address] Addie Vazquez DO [address] [place] [address] Wu Newby MD [address] [place] [address] Loi Guzman MD [address] [place] [address] Kajal Ferrera MD [address] [place] [address] Erik Caban MD [address] [place] [address] Altered mental status, unspecified altered mental status type (Primary Dx); Hyperthyroidism; Elevated troponin; Cerebral ventriculomegaly; MS (multiple sclerosis) (CMS/HCC); Paroxysmal atrial fibrillation (CMS/HCC) Discharge Disposition: Home or Self Care Social History Tobacco Use Types Packs/Day Years Used Date Smoking Tobacco: Former Cigarettes Smokeless Tobacco: Never Tobacco Cessation:Counseling Given: Not Answered Alcohol Use Standard Drinks/Week Comments Yes 0 (1 standard drink = 0.6 oz pur e alcohol) rarely on social occasions CAGE ASSESSMENT Answer Date Recorded Cage unable to access Not on file 12/10/2024 Maximum number of drinks you had on a given occasion in the last month? 1 drink 12/10/2024 How many alcoholic Beverages do you typically drink in a week? 0 - 7 per week 12/10/2024 Have you ever felt you should CUT down on your d rinking? 0 12/10/2024 Have you been ANNOYED by peo ple criticizing your drinking? 0 12/10/2024 Have you felt GUILTY about your drinking? 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 0 12/10/2024 CAGE Questionnaire Score 0 025 Comments No Sex and Gender Information Value Date Recorded Sex Assigned at Not on file Legal Sex Female 5:41 AM EDT Gender Identity Not on file Sexual Orientation Not on file documented as of this encounter Last Filed Vital Signs Vital Sign Reading Time Taken Comments Blood Pressure 110/57 12/28/2024 12:10 PM EDT Pulse 65 12/28/2024 12:10 PM EDT Temperature 36.7 C (98.1 F) 12/28/2024 12:10 PM EDT Respiratory Rate 15 12/28/2024 12:1 0 PM EDT Oxygen Saturation 99% 12/28/2024 12: 10 PM EDT Inhaled Oxygen Concentration - - Weight 63.5 kg (139 lb 15.9 oz) 12/23/2024 3:00 AM EDT Height 160 cm (5' 3 ) 12/12/2024 5:12 PM EDT Body Mass Index 24.8 12/21/2024 7:36 AM EDT documented in this encounter Functional Status * Calculated C-SSRS Risk Score (Lifetime/Recent) Answer Date of Assessment Author No Risk Indicated 12/28/2024 8:00 AM EDT Cathleen Mason RN * Question Answer Date of Assessment Author 1. Wish to be (Past 1 Month) No 025 8:00 AM Cathleen Kelly, OG 2. Non-Specific Active Suici niurka Thoughts (Past 1 Month) No 12/28/2024 8:00 AM EDT Vivi Bonilla RN 6. Suicidal Behavior (Lifetime) No 8:00 AM EDT Cathleen Bonilla RN documented as of this encounter Medications at Time of Discharge acetaminophen (Tylenol) 325 MG tablet Take 2 tablets by mouth every 8 hours as needed for pain. Under [place] law, monthly prescriptions (30 days) can be refilled at 25 days and three-month prescriptions (90 days) at 80 days. Please contact the insurance company with questions if refills are denied. 12/27/2024 apixaban (Eliquis) 5 MG tablet Take 1 tablet by mouth 2 times a day. 60 tablet 12/27/2024 melatonin tablet Take 2 tablets by mouth at night as needed for sleep. 12/27/2024 methIMAzole (Tapazole) 10 MG tablet Take 1 tablet by mouth 2 times a day. 120 tablet 12/27/2024 propranolol (Inderal) 10 MG tablet Take 1 tablet by mouth 2 times a day. 60 tablet 12/27/2024 senna (Senokot) 8.6 MG tablet Take 1 tablet by mouth nightly. 30 tablet 12/27/2024 traZODone (Desyrel) 50 MG tablet Take 1 tablet by mouth at night as needed for sleep. 14 tablet 12/27/2024 triamcinolone (Kenalog) 0.1 % cream 01/25/2024 documented as of this encounter Miscellaneous Notes * Discharge Summary - Elham Cruz APRN - 12/28/2024 9:00 AM EDT Hospitalization Admit Date/Time: 12/10/2024 3:51 PM Admitting Attending: Addie Vazquez Discharge Date: 12/28/24 Discharge Attending Physician: Kajal Ferrera MD PCP name and Address: Pcp, No [address] [facility] [id number] Referring provider name and address: Irma Rivera PA [address] [place] [address] Chief Concern, Brief History of Present Illness, and Hospital Course Yen Perez is a 64 y.o. female with a history of MS, 2014 bilateral breast cancer with mastectomy 2006 who presented 12/10/2024 to [facility] ED from [facility] for possible Afib. She was at [facility] for AMS initially and was placed on a 72 hour hold. Pt was admitted for medical management ofnew onset Afib likely secondary to hyperthyroidism contributing to her irritability and confusion. MRI from 12/21 showed moderate brain atrophy and out of proportion prominence of the lateral ventricles which might represent a component of normal pressure hydrocephalus. When initially evaluated in hospital by neuropsychology, Ms. Perez did not have medical capacity. Her mental status improved and shepassed capacity examination on 12/27. Chronic Metabolic Encephalopathy -Encephalopathy is likely multifactorial in the setting of untreated NPH and Graves disease. -Presented to [facility] ED from [facility] for AMS and cardiac concerns - MRI (12/21) with and w/o IV contrast showed moderate brain atrophy. Out of proportion prominence ofthe lateral ventricles might represent a component of normal pressure hydrocephalus. -Of note, patient last saw Dr. Jones in 2020. At that time, she had MRI imaging which showed enlarged ventricles. Documentation notes issues with gait instability and cognitive decline at that time. -Ethanol (12/10) level normal -ESR, CRP, procal, PTH, Cortisol, B1, Folate : Normal. UDS: Negative (12/13) - Delirium/fall precautions - Neuropsychology evaluated her on 12/19 and found her memory to be impaired. They reevaluated and recommend she does have capacity back on 12/27 - f/u with neurology as outpatient requested Relapsing - Remitting MS (Multiple Sclerosis) ([facility]) -Reports that she was following Dr. Jones from 2013 to 2020 and then they stopped giving her medication because they told her there was no one else in [place] that treated multiple sclerosis. Shedoes not take any medication at home at this time. -Neurology recommended follow-up with neuro criminal defense attorney for MS Acute non ST-segment elevation myocardial infarction, suspect type 2 -7/29: Initial troponin 122, uptrended to 134, delta 12 -12/10: Collator Operator consulted who said that most likely it is type 2 NSTEMI -12/11: Echo showed normal EF with no acute abnormalities Paroxysmal atrial fibrillation without RVR -likely secondary to acute illness (hyperthyroidism) - VANESSA?DS?-VASc score: 2 - Rate controlled, on propranolol - continue on apixaban - Per Cardiology: Obtain a 14 day Holter monitor on discharge to evaluate for Afib burden. She would like to follow up with Dr. Monsalve in [place] and patient can obtain holter at that time. - Patient to follow up in outpatient cardiology clinic-referral placed - Consider outpatient sleep study to evaluate for underlying sleep apnea Hyperthyroidism - Consulted Endocrinology considering low TSH as this could be the cause of acute confusion - (12/10)TSH <0.01,(12/11)TPO antibodies neg, TSI and TRAB elevated pointing towards Graves disease. - Continue methimazole and she will follow up with Endocrinology outpatient for Graves disease. F/uappt made. Insomnia - trazodone PRN Medication List .. acetaminophen 325 MG tablet Commonly known as: Tylenol Take 2 tablets by mouth every 8 hours as needed for pain. Under [place] law, monthly prescriptions(30 days) can be refilled at 25 days and three-month prescriptions (90 days) at 80 days. Please contact the insurance company with questions if refills are denied. apixaban 5 MG tablet Commonly known as: Eliquis Take 1 tablet by mouth 2 times a day. melatonin tablet Take 2 tablets by mouth at night as needed for sleep. methIMAzole 10 MG tablet Commonly known as: Tapazole Take 1 tablet by mouth 2 times a day. propranolol 10 MG tablet Commonly known as: Inderal Take 1 tablet by mouth 2 times a day. senna 8.6 MG tablet Commonly known as: Senokot Take 1 tablet by mouth nightly. traZODone 50 MG tablet Commonly known as: Desyrel Take 1 tablet by mouth at night as needed for sleep. Where to Get Your Medications These medications were sent to [facility] - [place], [place] - [address] [facility] [address] apixaban 5 MG tablet methIMAzole 10 MG tablet propranolol 10 MG tablet senna 8.6 MG tablet traZODone 50 MG tablet Information about where to get these medications is not yet available Ask your nurse or doctor about these medications acetaminophen 325 MG tablet melatonin tablet Discharge Diagnosis Medical Problems Active and Resolved Hospital Problems Hospital MS (multiple sclerosis) ([facility]) Hyperthyroidism Eczema * (Principal) RESOLVED: Altered mental status RESOLVED: Abnormal finding on urinalysis RESOLVED: Altered mental status, unspecified altered mental status type Outpatient Follow-Up Future Appointments Date Time Provider Department Center 01/23/2025 12:20 PM Minerva Conrad [facility] P[facility] At Discharge Pending Labs Order Current Status Drug Screen, Research Purposes - ED Only Collected (12/10/24 1643) Pertinent Physical Exam At Time of Discharge She is doing well this morning sitting up by the window. Per RN reportedly she slept well. Says shewas hot and woke up sweaty. Vital signs stable. Patient has a PCP she with schedule with. We reviewed all her medications and answered any questions. She is alert, oriented x3, lungs are clear, CV RRR, no edema Spoke with patient's family member Rupinder and she will be picking up patient to take her home today. She will provide patient assistance. We spoke about her needed f/u appointments and would like to have her PCP arrange those in [place]. We also discussed her medications. Discharge Disposition/Condition Disposition: Home Condition: Stable (s/sx potential problems absent or manageable) I spent >30 minutes of patient care and instruction time in preparation for this discharge. * Care Plan - Radha Serrano RN - 12/28/2024 1:07 AM EDT Problem: Adult Inpatient Plan of Care Goal: Plan of Care Review Outcome: Met Flowsheets (Taken 12/28/2024101) Progress: no change Outcome Evaluation: pt is discharged Plan of Care Reviewed With: patient Goal: Patient-Specific Goal (Individualized) Outcome: Met Flowsheets (Taken 12/28/2024101) Patient/Family-Specific Goals (Include Timeframe): pt will have ride in AM Individualized Care Needs: ride home Anxieties, Fears or Concerns: none Note: Pt is discharged Goal: Absence of Hospital-Acquired Illness or Injury Outcome: Met Note: Pt will have no falls this evening Intervention: Identify and Manage Fall Risk Flowsheets (Taken 12/27/2024 1600 by Gabriel Sadler, RN) Safety Promotion/Fall Prevention: activity supervised assistive device/personal items within reach clutter-free environment maintained lighting adjusted room organization consistent nonskid shoes/slippers when out of bed mobility aid in reach safety round/check completed Goal: Optimal Comfort and Wellbeing Outcome: Met Note: Pt is sleeping comfortably, and requests to be left alone until her ride arrives Intervention: Monitor Pain and Promote Comfort Flowsheets (Taken 12/28/2024101) Pain Management Interventions: rest Goal: Readiness for Transition of Care Outcome: Met Note: Pt is discharged Problem: Mobility Impairment Goal: Optimal Mobility Outcome: Met Note: Pt is independent Intervention: Optimize Mobility Flowsheets Taken 12/28/2024101 by Radha Serrano, OG Activity Management: activity encouraged Taken 12/27/2024 1138 by Gabriel Sadler, RN Assistive Device Utilized: front wheel walker Problem: Fall Injury Risk Goal: Absence of Fall and Fall-Related Injury Outcome: Met Note: Pt will not fall before ride arrives Intervention: Promote Injury-Free Environment Flowsheets (Taken 12/27/2024 1600 by Gabriel Sadler, RN) Safety Promotion/Fall Prevention: activity supervised assistive device/personal items within reach clutter-free environment maintained lighting adjusted room organization consistent nonskid shoes/slippers when out of bed mobility aid in reach safety round/check completed Problem: Pain Acute Goal: Optimal Pain Control and Function Outcome: Met Note: Pt states she has no pain Intervention: Prevent or Manage Pain Flowsheets Taken 12/28/2024101 Sensory Stimulation Regulation: care clustered Taken 12/26/2024 2340 Bowel Elimination Promotion: adequate fluid intake promoted ambulation promoted Sleep/Rest Enhancement: awakenings minimized consistent schedule promoted regular sleep/rest pattern promoted room darkened Medication Review/Management: medications reviewed high-risk medications identified Problem: Confusion Acute Goal: Optimal Cognitive Function Outcome: Met Note: Pt is cleared for discharge, awaiting ride, sleeping comfortably Problem: Skin Injury Risk Increased Goal: Skin Health and Integrity Outcome: Met Note: Pt has cream for leg, pt applies herself Intervention: Optimize Skin Protection Flowsheets (Taken 12/28/2024 0102) Activity Management: activity encouraged Head of Bed (HOB) Positioning: HOB at 20 degrees * Elham Hein APRN - 12/27/2024 4:45 PM EDT Images from the original note were not included. [id number] Methimazole WHY is this medicine prescribed? Methimazole is used to treat hyperthyroidism, a condition that occurs when the thyroid gland produces too much thyroid hormone. It is also taken before thyroid surgery or radioactive iodine therapy. This medication is sometimes prescribed for other uses; ask your doctor or pharmacist for more information. HOW should this medicine be used? Methimazole comes as a tablet and usually is taken three times a day, approximately every 8 hours, with food. Follow the directions on your prescription label carefully, and ask your doctor or pharmacist to explain any part you do not understand. What SPECIAL PRECAUTIONS should I follow? Before taking methimazole, ? tell your doctor and pharmacist if you are allergic to methimazole, lactose, or any other drugs. ? tell your doctor and pharmacist what prescription and nonprescription medications, vitamins, nutritional supplements, and herbal products you are taking or plan to take while taking methimazole. Your doctor may need to change the doses of your medications or monitor you carefully for side effects. ? tell your doctor if you have or have ever had any blood disease, such as decreased white blood cells (leukopenia), decreased platelets (thrombocytopenia), or aplastic anemia, or liver disease (hepatitis, jaundice). ? tell your doctor if you are , plan to become , or are breast- feeding. Methimazoleshould not be used during or breast-feeding. If you become while taking methimazole, call your doctor immediately. Methimazole may harm the fetus. ? if you are having surgery, including dental surgery, tell the doctor or dentist that you are taking methimazole. What SPECIAL DIETARY instructions should I follow? Methimazole may cause an upset stomach. Take methimazole with food or milk. What should I do IF I FORGET to take a dose? Take the missed dose as soon as you remember it. However, if it is almost time for the next dose, skip the missed dose and continue your regular dosing schedule at evenly spaced, 8-hour intervals. Donot take a double dose to make up for a missed one. What SIDE EFFECTS can this medicine cause? If you experience any of the following symptoms, call your doctor immediately: ? sore throat ? fever ? headache ? chills ? unusual bleeding or bruising ? right-sided abdominal pain with decreased appetite ? yellowing of the skin or eyes ? skin eruptions If you experience a serious side effect, you or your doctor may send a report to the Food and Drug Administration's (FDA) MedWatch Adverse Event Reporting program online (https://www.fda.gov/Safety/MedWatch) or by phone ( ). What should I know about STORAGE and DISPOSAL of this medication? Keep this medication in the container it came in, tightly closed, and out of reach of children. Store it at room temperature and away from excess heat and moisture (not in the bathroom). Dispose of unneeded medications in a way so that pets, children, and other people cannot take them.Do not flush this medication down the toilet. Use a medicine take-back program. Talk to your pharmacist about take-back programs in your community. Visit the FDA's Safe Disposal of Medicines website h ttps://goo.gl/c4Rm4p for more information. Keep all medication out of sight and reach of children as many containers are not child-resistant. Always lock safety caps. Place the medication in a safe location - one that is up and away and out of their sight and reach. https://www.upandaway.org What should I do in case of OVERDOSE? In case of overdose, call the poison control helpline at . Information is also available online at https://www.poisonhelp.org/help. If the victim has collapsed, had a seizure, has trouble breathing, or can't be awakened, immediately call emergency services at 911. What OTHER INFORMATION should I know? Keep all appointments with your doctor and the laboratory. Do not let anyone else take your medication. Ask your pharmacist any questions you have about refilling your prescription. Keep a written list of all of the prescription and nonprescription (inca-eir-rasdiqi) medicines, vitamins, minerals, and dietary supplements you are taking. Bring this list with you each time you visit a doctor or if you are admitted to the hospital. You should carry the list with you in case of ben rgencies. Brand Name(s): ? Tapazole?? also available generically This report on medications is for your information only, and is not considered individual patient advice. Because of the changing nature of drug information, please consult your physician or pharmacist about specific clinical use. The [employer] [employer] represents that the information provided hereunder was formulated with a reasonable standard of care, and in conformity with professional standards in the field. The [employer] makes no representations or warranties, express or implied, including, but not limited to, any implied warranty of merchantability and/or fitness for a particular purpose, with respect to such information and specifically disclaims all such warranties. Users are advised that decisions regarding drug therapy are complex medical decisions requiring the independent, informed decision of an appropriate health director critical care, and the information is provided for informational purposes only. The entire monograph for a drug should be reviewed for a thorough understanding of the drug's actions, uses and side effects. The [employer] does not endorse or recommend the use of any drug.The information is not a substitute for medical care. AHFS?? Patient Medication Information?. ?? Copyright, 2023. The [employer]??, [address], [address], [place], [place]. All Rights Reserved. Duplication for commercial use must be authorized by [facility]. Selected Revisions: November 26, 2016. AHFS?? Patient Medication Information?. ?? Copyright, 2024 * Justin [employer] - Elham Cruz APRN - 12/27/2024 4:45 PM EDT Images from the original note were not included. [id number] Hyperthyroidism You have been diagnosed with hyperthyroidism. This means you have a thyroid gland that makes too much thyroid hormone. This hormone helps with body growth and metabolism. If you make too much thyroidhormone, many body processes speed up. They may not work right. This can cause symptoms. Hyperthyroidism can be caused by: ? Graves' disease. This is the most common cause. This is when the body?s immune system stimulates the thyroid to make more hormone than is needed. This happens more often in women than in men. ? thyroiditis. This is an inflammation of the thyroid gland. It occurs shortly after childbirth. At first, it causes hyperthyroidism. Over time, it leads to an underactive thyroid gland. This is called hypothyroidism. Symptoms of hyperthyroidism include: ? Nervousness, anxiety, and irritability ? Shaking (tremors) that affects the hands and fingers ? Weight loss even though you have a normal or increased appetite ? Low tolerance to heat ? Sweating more than normal ? Fast or irregular heartbeat, or bounding pulses ? Primary Care Sales Representative or irregular periods ? More frequent bowel movements ? Enlarged thyroid gland (goiter) ? Bulging eyes, double vision, or eye irritation ? Problems sleeping ? Muscle weakness ? Extreme tiredness (fatigue) ? Swelling of the hands, ankles, or feet (older adults only) Your healthcare provider will need to do some tests to see which form of hyperthyroidism you have. The types of treatment are different. Treatment may include taking medicines. For instance, antithyroid medicines may be prescribed. These help lower the amount of thyroid hormone made by the thyroid gland. You may also need to take beta-blockers, which treat symptoms such as shakiness, nervousness,and rapid heart rate. Beta-blockers may be taken until the thyroid hormone levels have improved. Tips for taking medicines are given below. Radioactive iodine treatment or surgery may also be advised. Your healthcare provider will tell youmore about these if needed. Home care Tips for taking medicines ? Take any medicines you?re prescribed as directed. ? Take your medicine at the same time each day. ? Check with your pharmacist or healthcare provider before using any other medicines. This [id number] medicines, vitamins, supplements, and herbs. This will help prevent medicine interactions. ? Use a pillbox labeled with the days of the week. This will help you make sure to take your medicine each day. ? Ask your healthcare provider about any side effects that may occur and when to report them. ? Never stop taking medicines on your own. Your symptoms will come back if you do. General care ? Always talk with your healthcare provider before trying other treatments for your thyroid. ? Tell all of your other healthcare providers that you have hyperthyroidism and what treatment you are receiving. Follow-up care See your healthcare provider for checkups as advised. You'll need regular follow-up tests to check the level of thyroid hormone in your blood. When to get medical care Call your healthcare provider right away if you have any of these: ? New symptoms ? Symptoms return, continue, or get worse even with treatment ? Extreme tiredness ? Puffy hands, face, or feet ? Confusion Call 911 Call 911 if any of these occur: ? Fainting ? Chest pain ? Shortness of breath or trouble breathing Last Reviewed Date: 2024 00:00:00 ?? [id number] [employer]. All rights reserved. This information is not intended as a substitute for professional medical care. Always follow your healthcare professional's instructions. * [facility] - Elham Cruz APRN - 12/27/2024 4:40 PM EDT Images from the original note were not included. [id number] Atrial Fibrillation Atrial fibrillation is a condition in which the heart beats in an irregular pattern. It is the mostcommon abnormal heart rhythm. It is caused by a problem in the heart's electrical pathways within the muscle of the upper chambers of the heart (atria). It can be a sign of heart disease or other health problems that affect the heart. Heart palpitations are a common symptom of atrial fibrillation. This is the feeling that your heartis fluttering, or beating fast, hard, or irregular. When the heart beats too fast, it doesn't pump blood very well. This can cause other symptoms, such as anxiety, fatigue, shortness of breath, chestpain, dizziness, or fainting. Atrial fibrillation may come and go on its own, which is known as paroxysmal atrial fibrillation. It can last from a few hours to a couple of days. Or it may become persistent, lasting for weeks or months at a time. It can even become lifelong (permanent). Some symptoms of atrial fibrillation are hard to notice. For instance, some people develop subtle fatigue. Others notice a reduced ability to exercise. Some people have no symptoms. Atrial fibrillation is more common in older adults. It may be caused by heart disease or other conditions in the body that affect the heart. They include: ? Coronary artery disease (atherosclerosis), sometimes called blocked arteries. ? High blood pressure. ? Disease of the heart valves. ? An enlarged heart. ? Heart failure. Atrial fibrillation can also occur without heart disease because of: ? Overactive thyroid (hyperthyroid). ? Chronic lung disease (COPD, emphysema, or bronchitis). ? Heavy alcohol use. ? Heart stimulants, such as cocaine, amphetamines, diet pills, certain decongestant cold medicines,or nicotine. ? Infection. ? Blood clot in the lung (pulmonary embolus). ? Diabetes. ? Chronic kidney disease. ? Obesity. ? Obstructive sleep apnea. ? Extreme and continued athletic conditioning. ? Certain genetic diseases. Treating or removing these causes will help your treatment for atrial fibrillation. It will also make it less likely for it to come back. Atrial fibrillation can alternate back and forth with another abnormal rhythm called atrial flutter. Atrial flutter is a more regular heart rhythm. It is also linked to an increased risk for stroke. Correct treatment of these arrhythmias can lower your risk for stroke. Home care Follow these guidelines when caring for yourself at home: ? Go back to your usual activities as soon as you are feeling back to normal. ? If you smoke, stop smoking. Contact your doctor or a local stop-smoking program for help. ? Don't use stimulants like alcohol, cocaine, amphetamines, diet pills, certain decongestant cold medicines, or nicotine. ? If your doctor prescribed medicine to stop atrial fibrillation from coming back, take it exactly as directed. Some medicines must be taken every day, not just when you have symptoms. This will helpthem work as they should. ? If you were prescribed a blood-thinning medicine, take it exactly as prescribed. One of these medicines, called warfarin, needs your blood to be tested regularly as advised by your doctor. This will make sure you are getting the dose that is right for you. It also lowers your risk for side effects. You may have been prescribed other blood-thinning medicines that don't need regular testing. Follow-up care Follow up with your doctor as advised. When to get medical care Contact your doctor ifyou have: ? Swelling in the legs that gets worse. ? Unexpected weight gain. Call 911 Calling 911 is the fastest and safest way to get the emergency department. The paramedics can also start treatment on the way to the hospital, if needed. Call 911 or get medical help right away if you have: ? Weakness of an arm, leg, or one side of the face. ? Chest pain. ? Shortness of breath, or feeling that you can't get enough air. ? Feeling lightheaded, faint, or dizzy. ? A heartbeat that is very fast, slow, or irregular compared with your regular heartbeat. ? Uncontrolled bleeding. ? Trouble with speech or vision. ? Extreme drowsiness, confusion, dizziness, or fainting. Last Reviewed Date: 2024 00:00:00 ?? [id number] [employer]. All rights reserved. This information is not intended as a substitute for professional medical care. Always follow your healthcare professional's instructions. * [facility] - Elham Cruz APRN - 12/27/2024 4:38 PM EDT Images from the original note were not included. [id number] Atrial Fibrillation Atrial fibrillation is a condition in which the heart beats in an irregular pattern. It is the mostcommon abnormal heart rhythm. It is caused by a problem in the heart's electrical pathways within the muscle of the upper chambers of the heart (atria). It can be a sign of heart disease or other health problems that affect the heart. Heart palpitations are a common symptom of atrial fibrillation. This is the feeling that your heartis fluttering, or beating fast, hard, or irregular. When the heart beats too fast, it doesn't pump blood very well. This can cause other symptoms, such as anxiety, fatigue, shortness of breath, chestpain, dizziness, or fainting. Atrial fibrillation may come and go on its own, which is known as paroxysmal atrial fibrillation. It can last from a few hours to a couple of days. Or it may become persistent, lasting for weeks or months at a time. It can even become lifelong (permanent). Some symptoms of atrial fibrillation are hard to notice. For instance, some people develop subtle fatigue. Others notice a reduced ability to exercise. Some people have no symptoms. Atrial fibrillation is more common in older adults. It may be caused by heart disease or other conditions in the body that affect the heart. They include: ? Coronary artery disease (atherosclerosis), sometimes called blocked arteries. ? High blood pressure. ? Disease of the heart valves. ? An enlarged heart. ? Heart failure. Atrial fibrillation can also occur without heart disease because of: ? Overactive thyroid (hyperthyroid). ? Chronic lung disease (COPD, emphysema, or bronchitis). ? Heavy alcohol use. ? Heart stimulants, such as cocaine, amphetamines, diet pills, certain decongestant cold medicines,or nicotine. ? Infection. ? Blood clot in the lung (pulmonary embolus). ? Diabetes. ? Chronic kidney disease. ? Obesity. ? Obstructive sleep apnea. ? Extreme and continued athletic conditioning. ? Certain genetic diseases. Treating or removing these causes will help your treatment for atrial fibrillation. It will also make it less likely for it to come back. Atrial fibrillation can alternate back and forth with another abnormal rhythm called atrial flutter. Atrial flutter is a more regular heart rhythm. It is also linked to an increased risk for stroke. Correct treatment of these arrhythmias can lower your risk for stroke. Home care Follow these guidelines when caring for yourself at home: ? Go back to your usual activities as soon as you are feeling back to normal. ? If you smoke, stop smoking. Contact your doctor or a local stop-smoking program for help. ? Don't use stimulants like alcohol, cocaine, amphetamines, diet pills, certain decongestant cold medicines, or nicotine. ? If your doctor prescribed medicine to stop atrial fibrillation from coming back, take it exactly as directed. Some medicines must be taken every day, not just when you have symptoms. This will helpthem work as they should. ? If you were prescribed a blood-thinning medicine, take it exactly as prescribed. One of these medicines, called warfarin, needs your blood to be tested regularly as advised by your doctor. This will make sure you are getting the dose that is right for you. It also lowers your risk for side effects. You may have been prescribed other blood-thinning medicines that don't need regular testing. Follow-up care Follow up with your doctor as advised. When to get medical care Contact your doctor ifyou have: ? Swelling in the legs that gets worse. ? Unexpected weight gain. Call 911 Calling 911 is the fastest and safest way to get the emergency department. The paramedics can also start treatment on the way to the hospital, if needed. Call 911 or get medical help right away if you have: ? Weakness of an arm, leg, or one side of the face. ? Chest pain. ? Shortness of breath, or feeling that you can't get enough air. ? Feeling lightheaded, faint, or dizzy. ? A heartbeat that is very fast, slow, or irregular compared with your regular heartbeat. ? Uncontrolled bleeding. ? Trouble with speech or vision. ? Extreme drowsiness, confusion, dizziness, or fainting. Last Reviewed Date: 2024 00:00:00 ?? [id number] [employer]. All rights reserved. This information is not intended as a substitute for professional medical care. Always follow your healthcare professional's instructions. * Progress Notes - Maura Bailey, PhD - 12/27/2024 2:46 PM EDT Yen Perez is a 64 year-old woman who was admitted to the hospital from [facility] due to A Fib and AMS. Hertreatment team requested a re-evaluation for decisional capacity. Ms. Perez was alert and responsive. She was oriented to person, place, time and situation. Per JAKE/APA medical decision making capacity assessment guidelines, four criteria were assessed, and Ms. Perez was currently: 1. Able to express a choice. 2. Able to demonstrate an understanding of her current medical state. 3. Able to demonstrate an appropriate level of appreciation regarding her current medical state. 4. Able to demonstrate an appropriate level of reasoning ability regarding her current medical treatment. SUMMARY: Yen Perez is a 64 year-old woman whose medical history is significant for MS, and bilateral breast cancer s/p double mastectomy. She is currently being treated for chronic encephalopathy which may be due to untreated NPH or Grave's disease, relapsing/remitting MS, acute NSTEMI type 2, paroxymal A Fib without RVR, hyperthyroidism, insomnia and irritability with paranoia of unknown cause. Ms. Perez stated that she is in the hospital due to confusion, ventricles that were twice the size they should have been, and fluid on her brain. Ms. Perez said that she feels less confused now. Ms. Perez said that she didn't take any medications at home. She said that the MS medication was stopped several years ago because it didn't seem to be helping with symptom control. Ms. Perez said that she will be discharged with medications for her thyroid, something to keep her heart beat from going too fast, and possible medication to prevent blood clots and something for depression. Ms. Perez has a PCP. Ms. Perez said that she needs to use a walker when she is outside her house, but can hold onto furniture and brown in the house. She said that she can do ADLs on her own. Ms. Perez stated that she plans to go home onceshe is discharged. She said that she has friends and family who will help her as needed. She said that she still drives, but generally only drives in [place] and she doesn't drive at night. If she needs to go to [place], she rides with a friend. Ms. ePrez stated that her memory isn't as good as it used to be and she has to write things on her calendar or put up sticky notes so that she doesn't forget appointments or other things. Ms. Perez stated that if she doesn't take the medication that is going to be prescribed to her, her thyroid would go out of wack because it runs fast. She said that her heart beat might also go into a different gear and go too fast as well. Ms. Perez makes a few odd comments and notes in her chart indicate that her nurse has some concerns about her behavior (was packing up clothes and said she was going to work). Ms. Perez denies making these comments. Ms. Perez grasps her current medical state and she understands the potential consequences of decisions she makes. Her current medical decisional capacity is not compromised per JAKE/APA guidelines. Neurobehavioral status exam = 35 minutes. * Care Plan - Gabriel Sadler, RN - 12/27/2024 11:40 AM EDT Problem: Adult Inpatient Plan of Care Goal: Plan of Care Review Outcome: Ongoing, Progressing Flowsheets (Taken 12/27/2024 1138) Progress: improving Outcome Evaluation: patient waiting for placement Plan of Care Reviewed With: patient Goal: Patient-Specific Goal (Individualized) Outcome: Ongoing, Progressing Goal: Absence of Hospital-Acquired Illness or Injury Outcome: Ongoing, Progressing Intervention: Prevent Skin Injury Flowsheets Taken 12/27/2024 1138 Skin Protection: skin sealant/moisture barrier applied Taken 12/27/2024 0800 Body Position: weight shifting Goal: Optimal Comfort and Wellbeing Outcome: Ongoing, Progressing Intervention: Provide Person-Centered Care Flowsheets (Taken 12/27/2024 1138) Trust Relationship/Rapport: care explained questions answered Goal: Readiness for Transition of Care Outcome: Ongoing, Progressing Intervention: Mutually Develop Transition Plan Flowsheets (Taken 12/27/2024 1138) Equipment Currently Used at Home: walker, rolling Current Outpatient/Agency/Support Group: long-term acute care facility Transportation Anticipated: medical transport Transportation Concerns: no car Concerns to be Addressed: decision-making Readmission Within the Last 30 Days: no previous admission in last 30 days Patient/Family Anticipated Services at Transition: mental health services Problem: Mobility Impairment Goal: Optimal Mobility Outcome: Ongoing, Progressing Intervention: Optimize Mobility Flowsheets Taken 12/27/2024 1138 Assistive Device Utilized: front wheel walker Positioning/Transfer Devices: pillows Taken 12/27/2024 0800 Activity Management: activity adjusted per tolerance activity encouraged Problem: Fall Injury Risk Goal: Absence of Fall and Fall-Related Injury Outcome: Ongoing, Progressing Intervention: Promote Injury-Free Environment Flowsheets (Taken 12/27/2024 0800) Safety Promotion/Fall Prevention: activity supervised assistive device/personal items within reach clutter-free environment maintained lighting adjusted mobility aid in reach nonskid shoes/slippers when out of bed room organization consistent safety round/check completed Problem: Pain Acute Goal: Optimal Pain Control and Function Outcome: Ongoing, Progressing Intervention: Develop Pain Management Plan Flowsheets (Taken 12/27/2024 1138) Pain Management Interventions: rest Problem: Confusion Acute Goal: Optimal Cognitive Function Outcome: Ongoing, Progressing Intervention: Minimize Contributing Factors Flowsheets (Taken 12/27/2024 1138) Sensory Stimulation Regulation: care clustered television on Reorientation Measures: clock in view reorientation provided Environment Familiarity/Consistency: daily routine followed Communication Support Strategies: active listening utilized Problem: Skin Injury Risk Increased Goal: Skin Health and Integrity Outcome: Ongoing, Progressing Intervention: Promote and Optimize Oral Intake Flowsheets (Taken 12/26/2024 1117) Oral Nutrition Promotion: rest periods promoted Nutrition Interventions: frequent small meals provided * Progress Notes - Asia Benson - 12/27/2024 11:06 AM EDT [facility] Medicine Progress Note (12/27/2024) Overnight/Subjective Ms. Perez was up walking the hallways when we were on morning rounds dressed in nice clothes. She states that she was able to sleep well last night and is walking around the room and hallways with no issue. She states she ate breakfast last week. She denied any active complaints, needs or pain. When discussing leaving the hospital, she was very adamant on not being placed in a halfway/assisted living/family's house. She grasps her medical condition but is wary about some of her diagnoses. She states she would take her thyroid medication if she was given a prescription. She seemed coherent throughout the conversation, but the nursing staff has worries about her behavior. They statedlast night that she started packing up her stuff and was on her way to work . They were able to convince her to take a shower and get back into bed. Nursing staff this morning states that she thought she saw a flying mushroom with construction across the street. When questioning her about these incidents, she gets very defensive and denies everything stating that the staff is spreading lies. We are planning on having another decisional capacity evaluation done today to assess if she is fitto be discharged home. Review of Systems Review of Systems Constitutional: Negative for activity change and appetite change. Respiratory: Negative for shortness of breath. Cardiovascular: Negative for chest pain. Gastrointestinal: Negative for abdominal pain and constipation. Neurological: Negative for headaches. Objective Temp: [36.4 ??C (97.6 ??F)-36.8 ??C (98.3 ??F)] 36.8 ??C (98.3 ??F) Heart Rate: [64-78] 78 Resp: [16] 16 BP: (100-126)/(59-68) 100/63 SpO2: [91 %-97 %] 96 % Body mass index is 24.8 kg/m??. Intake/Output Summary (Last 24 hours) at 12/27/2024 1106 Last data filed at 12/27/2024 0500 Gross per 24 hour Intake 780 ml Output -- Net 780 ml Physical Exam Constitutional: Appearance: Normal appearance. Cardiovascular: Rate and Rhythm: Normal rate and regular rhythm. Pulses: Normal pulses. Heart sounds: No murmur heard. No friction rub. No gallop. Pulmonary: Effort: Pulmonary effort is normal. Breath sounds: Normal breath sounds. Abdominal: Tenderness: There is no abdominal tenderness. Skin: General: Skin is warm and dry. Neurological: Mental Status: She is alert. Mental status is at baseline. Psychiatric: Attention and Perception: Attention and perception normal. Mood and Affect: Mood normal. Speech: Speech normal. Thought Content: Thought content is paranoid. Recent Labs Lab Results Component Value Date WBC 5.67 12/18/2024 HGB 12.0 12/18/2024 HCT 36.1 12/18/2024 MCV 84 12/18/2024 PLT 224 12/18/2024 Lab Results Component Value Date NA 140 12/18/2024 K 3.9 12/18/2024 CL 105 12/18/2024 CO2 26 12/18/2024 Lab Results Component Value Date GLUCOSE 129 (H) 12/18/2024 BUN 21 12/18/2024 CREATININE 0.74 12/18/2024 BCR 28 12/18/2024 NA 140 12/18/2024 K 3.9 12/18/2024 CL 105 12/18/2024 CO2 26 12/18/2024 ALBUMIN 4.0 12/10/2024 ALKPHOS 79 12/10/2024 BILITOT 0.3 12/10/2024 Lab Results Component Value Date HGBA1C 5.9 (H) 12/10/2024 Current Medications Current Scheduled Medications[1] Current Continuous Medications[2] Current PRN Medications[3] Allergies[4] Assessment and Plan Yen Perez is a 64 y.o. female with a history of MS, 2014 bilateral breast cancer with mastectomy 2006 who presented 12/10/2024 to [facility] ED from [facility] for possible Afib. She was at [facility] for AMS initially and was placed on a 72 hour hold. Upon arrival at the ED she was hemodynamically stable, EKG showed sinus arrhythmia with PACs, no Afib. Pt was altered in ED and labs showed new hyperthyroidism. Pt was admitted for medical management of new onset Afib likely secondary to hyperthyroidism contributing to her irritability and confusion. MRI from 12/21 showed moderate brain atrophy and out of proportion prominence of the lateral ventricles which might represent a component of normal pressure hydrocephalus.Treatment is a RAILROAD CONDUCTOR shunt which she is unable to consent for. When evaluated in hospital by neuropsychology, Ms. Perez grasps her current medical state, but her insight and judgment are impaired. She needs further evaluation to see if she is fit to be discharged home by herself with home health visits. Principal Problem: Altered mental status Active Problems: MS (multiple sclerosis) (CMS/HCC) Abnormal finding on urinalysis Hyperthyroidism Eczema Altered mental status, unspecified altered mental status type Chronic Metabolic Encephalopathy -Encephalopathy is likely multifactorial in the setting of untreated NPH and Graves disease. -Presented to [facility] ED from [facility] for AMS and cardiac concerns - MRI (12/21) with and w/o IV contrast showed moderate brain atrophy. Out of proportion prominence ofthe lateral ventricles might represent a component of normal pressure hydrocephalus. -Of note, patient last saw Dr. Jones in 2020. At that time, she had MRI imaging which showed enlarged ventricles. Documentation notes issues with gait instability and cognitive decline at that time. -Ethanol (12/10) level normal -ESR, CRP, procal, PTH, Cortisol, B1, Folate : Normal. UDS: Negative (12/13) - Delirium/fall precautions - Neuropsychology evaluated her on 12/19 and found her memory to be impaired. They stated that she grasps her current medical state, but her insight and judgment are impaired. Her current medical decisional capacity is compromised per JAKE/APA guidelines. We requested a new evaluation from Neuropsychology yesterday (12/26). - The last IM team requested Neurology for inpatient follow up as outpatient clinic follow up seemsunlikely at this point due to disposition problems. Neurology to decide on RAILROAD CONDUCTOR shunt benefit for NPH. However, pt is unable to make medical decisions about the RAILROAD CONDUCTOR shunt at this time. Relapsing - Remitting MS (Multiple Sclerosis) ([facility] [facility] [place] -Reports that she was following Dr. Jones from 2013 to 2020 and then they stopped giving her medication because they told her there was no one else in [place] that treated multiple sclerosis. Shedoes not take any medication at home. -Neuro consulted in ED (12/10) and performed exam -Neurology recommended follow-up with neuro criminal defense attorney for MS. Neurology said that psychosis withno neurological deficits is unlikely presentation of MS. Acute non ST-segment elevation myocardial infarction, suspect type 2 -12/10: Initial troponin 122, uptrended to 134, delta 12 -12/10: Collator Operator consulted who said that most likely it is type 2 NSTEMI -12/11: Echo showed normal EF with no acute abnormalities -No acute intervention needed at this time Paroxysmal atrial fibrillation without RVR -Cardiology consulted on patient in ED (12/10) and discussed it may be secondary to acute illness (hyperthyroidism) - VANESSA?DS?-VASc score: 2 - Rate controlled, on propranolol - Embolic prevention: ON DOAC - Per Cardiology: Obtain a 14 day Holter monitor on discharge to evaluate for Afib burden - Patient to follow up in outpatient cardiology clinic - Consider outpatient sleep study to evaluate for underlying sleep apnea Hyperthyroidism - Consulted Endocrinology considering low TSH as this could be the cause of acute confusion - (12/10)TSH <0.01,(12/11)TPO antibodies neg, TSI and TRAB elevated pointing towards Graves disease. - Continue methimazole and she will follow up with Endocrinology outpatient for Graves disease -Patient reports no known history of this, but recalled taking medication for her thyroid as a teenbut could not remember what or why. Eczema -Triamcinolone to rash BID Insomnia - Melatonin nightly - Begin trazodone (12/24) to help with insomnia. - Nonpharmacologic sleep orders given. Disposition Not medically ready for discharge, still irritable with paranoia with unknown cause. Discussed w/ nursing and preceptor. I personally spent a total of 30 minutes on this encounter. This time includes face to face with patient, counseling and discussion and/or coordination of care. Asia PINTO-S2 Secure chat via [employer] preferred 12/27/2024 [1] apixaban, 5 mg, Oral, BID hydrOXYzine pamoate, 25 mg, Oral, Once melatonin, 6 mg, Oral, Nightly methIMAzole, 10 mg, Oral, BID propranolol, 10 mg, Oral, BID senna, 8.6 mg, Oral, Nightly triamcinolone, 1 Application, Topical, BID [2] [3] PRN medications: acetaminophen, bisacodyl, traZODone [4] No Known Allergies Cosigned by Elham Cruz APRN at 12/27/2024 5:14 PM EDT Associated attestation - Elham Cruz APRN - 12/27/2024 5:14 PM EDT I saw and evaluated the patient with the medical/CLASSIFICATION ANALYST/PA student. I discussed the case with the medical/CLASSIFICATION ANALYST/PA student and agree with the findings and plan as documented. I personally performed the Examand Medical Decision Making. She is alert and oriented ambulating with rolator in halls. She is happy to know she will get another capacity assessment today. Review of systems negative for dyspnea, chest pain, nausea, constipation, swelling, dizziness Physical exam: Alert and oriented x3, in no distress, lying in bed, HR RRR, Lungs are clear to auscultation, abdomen is soft, active bowel sounds, no peripheral edema Assessment and Plan: Encephalopathy: known hx of enlarging ventricles. Will f/u as outpatient with neuro (referral placed). Unclear at this time if any intervention would prove helpful including shunt placement. Will need to evaluate as outpatient. -repeat capacity evaluation today and patient deemed to have capacity Afib-controlled on propranol, continue Apixaban Hyperthyroidism -we discussed her diagnosis and use of methimazole Will plan for discharge home likely tomorrow. * Care Plan - Radha Serrano RN - 12/26/2024 11:56 PM EDT Problem: Adult Inpatient Plan of Care Goal: Plan of Care Review Outcome: Ongoing, Progressing Flowsheets (Taken 12/26/20242339) Progress: improving Outcome Evaluation: Pt awaiting placement, goal tonight is rest with clustered care Plan of Care Reviewed With: patient Goal: Patient-Specific Goal (Individualized) Outcome: Ongoing, Progressing Flowsheets (Taken 12/26/20242339) Patient/Family-Specific Goals (Include Timeframe): pt will have care clustered, DND 2960-6110 Individualized Care Needs: rest Anxieties, Fears or Concerns: none Goal: Absence of Hospital-Acquired Illness or Injury Outcome: Ongoing, Progressing Intervention: Identify and Manage Fall Risk Flowsheets (Taken 12/26/20242339) Safety Promotion/Fall Prevention: assistive device/personal items within reach clutter-free environment maintained lighting adjusted mobility aid in reach nonskid shoes/slippers when out of bed safety round/check completed room organization consistent Note: Pt is now independent with personal walker, back to baseline Intervention: Prevent Skin Injury Flowsheets (Taken 12/26/20242339) Skin Protection: skin sealant/moisture barrier applied hydrocolloids used Goal: Optimal Comfort and Wellbeing Outcome: Ongoing, Progressing Note: Pt states no pain, wishes to be left to sleep Intervention: Monitor Pain and Promote Comfort Flowsheets (Taken 12/26/20242339) Pain Management Interventions: rest ambulation/increased activity care clustered Note: DND [id number] Goal: Readiness for Transition of Care Outcome: Ongoing, Progressing Note: Pt is medically ready, but requires placement and guardianship Intervention: Mutually Develop Transition Plan Flowsheets (Taken 12/26/20242339) Equipment Needed After Discharge: walker, rolling Equipment Currently Used at Home: walker, rolling Current Outpatient/Agency/Support Group: long-term acute care facility psychiatric facility Anticipated Changes Related to Illness: inability to care for self Transportation Anticipated: medical transport Outpatient/Agency/Support Group Needs: psychiatric facility long-term acute care facility Transportation Concerns: no car Current Discharge Risk: lack of support system/caregiver cognitively impaired psychiatric illness Concerns to be Addressed: discharge planning cognitive/perceptual Readmission Within the Last 30 Days: no previous admission in last 30 days Patient/Family Anticipated Services at Transition: mental health services Patient/Family Anticipates Transition to: other (see comments) Problem: Mobility Impairment Goal: Optimal Mobility Outcome: Ongoing, Progressing Note: Pt is back to baseline, is independent with rolling walker, not hooked to any lines, no IV Problem: Fall Injury Risk Goal: Absence of Fall and Fall-Related Injury Outcome: Ongoing, Progressing Note: Pt is back to baseline independent Intervention: Promote Injury-Free Environment Flowsheets (Taken 12/26/20242339) Safety Promotion/Fall Prevention: assistive device/personal items within reach clutter-free environment maintained lighting adjusted mobility aid in reach nonskid shoes/slippers when out of bed safety round/check completed room organization consistent Problem: Pain Acute Goal: Optimal Pain Control and Function Outcome: Ongoing, Progressing Note: Pt states no pain Intervention: Prevent or Manage Pain Flowsheets (Taken 12/26/20242339) Sensory Stimulation Regulation: care clustered visual stimulation minimized tactile stimulation minimized quiet environment promoted auditory stimulation minimized lighting decreased Bowel Elimination Promotion: adequate fluid intake promoted ambulation promoted Sleep/Rest Enhancement: awakenings minimized consistent schedule promoted regular sleep/rest pattern promoted room darkened Medication Review/Management: medications reviewed high-risk medications identified Note: Pt has night light, DND 9859-9925 Problem: Confusion Acute Goal: Optimal Cognitive Function Outcome: Ongoing, Not Progressing Note: Pt seems to be in and out of confusion. Pt understands most medications she takes. Pt educated on how a single tylenol does not cause overdose. Pt refused and stated she felt fine. Pt states only crazy people take Trazadone, but pt was re-educated on it being a sleep med. Intervention: Minimize Contributing Factors Flowsheets (Taken 12/26/20242339) Sensory Stimulation Regulation: care clustered visual stimulation minimized tactile stimulation minimized quiet environment promoted auditory stimulation minimized lighting decreased Reorientation Measures: clock in view glasses use encouraged reorientation provided Environment Familiarity/Consistency: daily routine followed familiar objects from home provided personal clothing/items utilized Communication Support Strategies: active listening utilized actively observed nonverbal cues extra time allowed for response nonconfrontational techniques utilized nonverbal strategies used simple statements used Problem: Skin Injury Risk Increased Goal: Skin Health and Integrity Outcome: Ongoing, Progressing Note: Pt has some healing scrapes on legs, pt states its from hospital razors. Informed pt we have shaving cream, and can assist in their use. Pt declined. Pt applied cream to skin, and states it feels better. Intervention: Optimize Skin Protection Flowsheets (Taken 12/26/2024 8510) Activity Management: activity adjusted per tolerance activity encouraged ambulated in room ambulated to bathroom back to bed up ad michelle Pressure Reduction Techniques: frequent weight shift encouraged Skin Protection: skin sealant/moisture barrier applied hydrocolloids used Head of Bed (HOB) Positioning: HOB at 20 degrees * Progress Notes - Asia Benson - 12/26/2024 12:12 PM EDT [facility] Medicine Progress Note (12/26/2024) Overnight/Subjective Ms. Perez was sitting comfortably in bed after having breakfast this morning. She states that she wasable to sleep well last night and is walking around the room and hallways with no issue. She deniedany active complaints, needs or pain. When discussing leaving the hospital, she was very adamant on not being placed in a halfway/assisted living/family's house. She is very paranoid that the people in her community, including her family, are interested in spreading gossip about her around her hometown. Her friend, Yen, is takingcare of her finances while she is in the hospital. She grasps her medical condition but is wary about some of her diagnoses. She denies having a.fib and we are concerned she would not take her medication for that. She states that she gets confused sometimes, but when she is in familiar places she does not. She seemed coherent throughout most of the conversation, but then stated at the end that she was talking to a nurse who worked for the [employer] sports teams. The nurse and staff around did not know who she was talking about. She then became frustrated that we were not understanding her. She is interested in having another decisional capacity evaluation to assess if she is fit to be discharged home. Review of Systems Review of Systems Constitutional: Negative for activity change and appetite change. Respiratory: Negative for shortness of breath. Cardiovascular: Negative for chest pain. Gastrointestinal: Negative for abdominal pain and constipation. Neurological: Negative for headaches. Objective Temp: [36.6 ??C (97.9 ??F)-36.8 ??C (98.3 ??F)] 36.8 ??C (98.3 ??F) Heart Rate: [62-76] 65 Resp: [16-18] 17 BP: (112-144)/(61-73) 113/61 SpO2: [94 %-96 %] 95 % Body mass index is 24.8 kg/m??. Intake/Output Summary (Last 24 hours) at 12/26/2024 1212 Last data filed at 12/26/2024 0800 Gross per 24 hour Intake 840 ml Output -- Net 840 ml Physical Exam Constitutional: Appearance: Normal appearance. Cardiovascular: Rate and Rhythm: Normal rate and regular rhythm. Pulses: Normal pulses. Heart sounds: No murmur heard. No friction rub. No gallop. Pulmonary: Effort: Pulmonary effort is normal. Breath sounds: Normal breath sounds. Abdominal: Palpations: Abdomen is soft. Tenderness: There is no abdominal tenderness. Musculoskeletal: General: Swelling present. Skin: General: Skin is warm and dry. Neurological: Mental Status: She is alert. Mental status is at baseline. Psychiatric: Attention and Perception: Attention and perception normal. Mood and Affect: Mood normal. Speech: Speech normal. Thought Content: Thought content is paranoid. Recent Labs Lab Results Component Value Date WBC 5.67 12/18/2024 HGB 12.0 12/18/2024 HCT 36.1 12/18/2024 MCV 84 12/18/2024 PLT 224 12/18/2024 Lab Results Component Value Date NA 140 12/18/2024 K 3.9 12/18/2024 CL 105 12/18/2024 CO2 26 12/18/2024 Lab Results Component Value Date GLUCOSE 129 (H) 12/18/2024 BUN 21 12/18/2024 CREATININE 0.74 12/18/2024 BCR 28 12/18/2024 NA 140 12/18/2024 K 3.9 12/18/2024 CL 105 12/18/2024 CO2 26 12/18/2024 ALBUMIN 4.0 12/10/2024 ALKPHOS 79 12/10/2024 BILITOT 0.3 12/10/2024 Lab Results Component Value Date HGBA1C 5.9 (H) 12/10/2024 Current Medications Current Scheduled Medications[1] Current Continuous Medications[2] Current PRN Medications[3] Allergies[4] Assessment and Plan Yen Perez is a 64 y.o. female with a history of MS, 2014 bilateral breast cancer with mastectomy 2006 who presented 12/10/2024 to [facility] ED from [facility] for possible Afib. She was at [facility] for AMS initially and was placed on a 72 hour hold. Upon arrival at the ED she was hemodynamically stable, EKG showed sinus arrhythmia with PACs, no Afib. Pt was altered in ED and labs showed new hyperthyroidism. Pt was admitted for medical management of new onset Afib likely secondary to hyperthyroidism contributing to her irritability and confusion. MRI from 12/21 showed moderate brain atrophy and out of proportion prominence of the lateral ventricles which might represent a component of normal pressure hydrocephalus.Treatment is a RAILROAD CONDUCTOR shunt which she is unable to consent for. When evaluated in hospital by neuropsychology, Ms. Perez grasps her current medical state, but her insight and judgment are impaired. She needs further evaluation to see if she is fit to be discharged home by herself with home health visits. Principal Problem: Altered mental status Active Problems: MS (multiple sclerosis) (CMS/HCC) Abnormal finding on urinalysis Hyperthyroidism Eczema Altered mental status, unspecified altered mental status type Chronic Metabolic Encephalopathy -Encephalopathy is likely multifactorial in the setting of untreated NPH and Graves disease. -Presented to [facility] ED from [facility] for AMS and cardiac concerns -CT head reported (12/10): Enlarged ventricles including lateral, third, and fourth ventricles. Prominence of the sulci. Enlarged ventricles may be due to volume loss. Possibility of normal pressure hydrocephalus could not be excluded. - MRI (12/21) with and w/o IV contrast showed moderate brain atrophy. Out of proportion prominence ofthe lateral ventricles might represent a component of normal pressure hydrocephalus. Mild to moderate white matter disease, nonspecific but likely representing chronic small vessel ischemia. -Of note, patient last saw Dr. Jones in 2020. At that time, she had MRI imaging which showed enlarged ventricles. Documentation notes issues with gait instability and cognitive decline at that time. -CXR (12/10) negative for acute findings -Ethanol (12/10) level normal -Resp panel (12/10) negative -ESR, CRP, procal, PTH, Cortisol, B1, Folate : Normal. UDS: Negative (12/13) - Delirium/fall precautions - Avoid anticholinergics, antihistamines, benzodiazepines, and opioids if able - Neuropsychology evaluated her on 12/19 and found her memory to be impaired. They stated that she grasps her current medical state, but her insight and judgment are impaired. Her current medical decisional capacity is compromised per JAKE/APA guidelines. We requested a new evaluation from Neuropsychology today (12/26). - The last IM team requested Neurology for inpatient follow up as outpatient clinic follow up seemsunlikely at this point due to disposition problems. Neurology to decide on RAILROAD CONDUCTOR shunt benefit for NPH. However, pt is unable to make medical decisions about the RAILROAD CONDUCTOR shunt at this time. Relapsing - Remitting MS (Multiple Sclerosis) ([facility] [place] -Reports that she was following Dr. Jones from 2013 to 2020 and then they stopped giving her medication because they told her there was no one else in [place] that treated multiple sclerosis. Shedoes not take any medication at home. -Neuro consulted in ED (12/10) and performed exam -Neurology recommended follow-up with neuro criminal defense attorney for MS. Neurology said that psychosis withno neurological deficits is unlikely presentation of MS. Acute non ST-segment elevation myocardial infarction, suspect type 2 -12/10: Initial troponin 122, uptrended to 134, delta 12 -12/10: Collator Operator consulted who said that most likely it is type 2 NSTEMI -12/11: Echo showed normal EF with no acute abnormalities -No acute intervention needed at this time Paroxysmal atrial fibrillation without RVR -Cardiology consulted on patient in ED (12/10) and discussed it may be secondary to acute illness (hyperthyroidism) - VANESSA?DS?-VASc score: 2 - Rate controlled, on propranolol - Embolic prevention: ON DOAC - Per Cardiology: Obtain a 14 day Holter monitor on discharge to evaluate for Afib burden - Patient to follow up in outpatient cardiology clinic - Consider outpatient sleep study to evaluate for underlying sleep apnea Hyperthyroidism - Consulted Endocrinology considering low TSH as this could be the cause of acute confusion - (12/10)TSH <0.01,(12/11)TPO antibodies neg, TSI and TRAB elevated pointing towards Graves disease. - Continue methimazole and she will follow up with Endocrinology outpatient for Graves disease -Patient reports no known history of this Eczema -Triamcinolone to rash BID Insomnia - Per nursing staff, pt is continuously up and down throughout the night. - Melatonin nightly - Begin trazodone (12/24) to help with insomnia. - Nonpharmacologic sleep orders given. Disposition Not medically ready for discharge, still irritable with paranoia with unknown cause. Patient has no close family. She has few cousins and a close friend who lives nearby, Yen Collins. Friend stated that she has had gait instability for about a month as well as dementia. Patient's cousin, Rupinder, may be interested in obtaining guardianship, but would not be able to take Ms. Perez home. She requests to be sent to her home and does not want to be placed in a facility. Neuropsychology is evaluating her again today about her decisional capacity. Discussed w/ nursing and preceptor. I personally spent a total of 50 minutes on this encounter. This time includes face to face with patient, counseling and discussion and/or coordination of care. Asia PINTO-S2 Secure chat via [employer] preferred 12/26/2024 [1] apixaban, 5 mg, Oral, BID hydrOXYzine pamoate, 25 mg, Oral, Once melatonin, 6 mg, Oral, Nightly methIMAzole, 10 mg, Oral, BID propranolol, 10 mg, Oral, BID senna, 8.6 mg, Oral, Nightly sodium chloride, 10 mL, Intravenous, q12h triamcinolone, 1 Application, Topical, BID [2] [3] PRN medications: acetaminophen, bisacodyl, Insert peripheral IV AND Saline lock IV AND sodium chloride AND sodium chloride, traZODone [4] No Known Allergies Cosigned by Elham Cruz APRN at 12/26/2024 4:44 PM EDT Associated attestation - Elham Cruz APRN - 12/26/2024 4:44 PM EDT I saw and evaluated the patient with the medical/CLASSIFICATION ANALYST/PA student. I discussed the case with the medical/CLASSIFICATION ANALYST/PA student and agree with the findings and plan as documented. I personally performed the Examand Medical Decision Making. Patient seems to have insight into her medical problems and history. Though she denies having atrial fibrillation but says I have had it in the past . Believes she was started on a medication for her thyroid when she was in her teens but very briefly and was taken off it. Tells me she was brought to [facility] as the police were convinced by a natural gas engineer that she was lost but adamant she was not. 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 Review of systems negative for dyspnea, chest pain, nausea, constipation, swelling, dizziness Physical exam: Alert and oriented x3, in no distress, lying in bed, HR RRR, Lungs are clear to auscultation, abdomen is soft, active bowel sounds, no peripheral edema Assessment and Plan: Encephalopathy: report of wandering confusion prior to admission and known hx of enlarging ventricles. Will f/u as outpatient with neuro. Unclear at this time if any intervention would prove helpful including shunt placement. Will need to evaluate as outpatient. -I think at this point given her improvement another capacity evaluation is acceptable Afib-controlled on propranol, continue Apixaban Hyperthyroidism -we discussed her diagnosis and use of methimazole * Care Plan - Gabriel Sadler RN - 12/26/2024 11:19 AM EDT Problem: Adult Inpatient Plan of Care Goal: Plan of Care Review Outcome: Ongoing, Progressing Flowsheets (Taken 12/26/2024 111) Progress: improving Outcome Evaluation: Patient will remain free of injury and find placement Plan of Care Reviewed With: patient Goal: Patient-Specific Goal (Individualized) Outcome: Ongoing, Progressing Goal: Absence of Hospital-Acquired Illness or Injury Outcome: Ongoing, Progressing Intervention: Prevent Skin Injury Flowsheets Taken 12/26/2024 1117 Skin Protection: protective footwear used Taken 12/26/2024 0900 Body Position: weight shifting Goal: Optimal Comfort and Wellbeing Outcome: Ongoing, Progressing Intervention: Monitor Pain and Promote Comfort Flowsheets (Taken 12/26/2024 1117) Pain Management Interventions: rest care clustered Goal: Readiness for Transition of Care Outcome: Ongoing, Progressing Intervention: Mutually Develop Transition Plan Flowsheets (Taken 12/26/2024 111) Equipment Currently Used at Home: walker, rolling Transportation Concerns: no car Readmission Within the Last 30 Days: no previous admission in last 30 days Problem: Mobility Impairment Goal: Optimal Mobility Outcome: Ongoing, Progressing Problem: Fall Injury Risk Goal: Absence of Fall and Fall-Related Injury Outcome: Ongoing, Progressing Intervention: Promote Injury-Free Environment Flowsheets (Taken 12/26/2024 0900) Safety Promotion/Fall Prevention: activity supervised assistive device/personal items within reach clutter-free environment maintained fall prevention program maintained mobility aid in reach nonskid shoes/slippers when out of bed room organization consistent safety round/check completed toileting scheduled Problem: Pain Acute Goal: Optimal Pain Control and Function Outcome: Ongoing, Progressing Intervention: Develop Pain Management Plan Flowsheets (Taken 12/26/2024 1117) Pain Management Interventions: rest care clustered Problem: Confusion Acute Goal: Optimal Cognitive Function Outcome: Ongoing, Progressing Intervention: Minimize Contributing Factors Flowsheets (Taken 12/26/2024 1117) Sensory Stimulation Regulation: care clustered Reorientation Measures: clock in view reorientation provided Environment Familiarity/Consistency: daily routine followed Communication Support Strategies: active listening utilized Problem: Skin Injury Risk Increased Goal: Skin Health and Integrity Outcome: Ongoing, Progressing Intervention: Promote and Optimize Oral Intake Flowsheets (Taken 12/26/2024 1117) Oral Nutrition Promotion: rest periods promoted Nutrition Interventions: frequent small meals provided * Consults - Kaelyn White RN - 12/26/2024 9:30 AM EDTAssociated Order(s): IP CONSULT TO BEHAVIORAL HEALTH SPECIALIST [facility] consult completed: 72 hour hold. No issues were identified at time of assessment * Progress Notes - Anshu Clark - 12/26/2024 8:51 AM EDT Case Management Adult Progress Note Yen Perez 64 y.o. female CSN: [id number] Admission: 12/10/2024 3:51 PM Primary Problem: Altered mental status Anticipated Discharge Date: TBD Plan of care reviewed with pt's care team; and per MD, pt is medically ready for discharge pending guardianship and placement. SW was provided a phone number by Yen Collins for a Cousin Name Rupinder Perez, Contact Information [phone]. Rupinder informed SW that she would discuss with her father which is patient brother about guardianship. Rupinder informed SW that she would informed SW if they are able to do guardianship or if patient would need a state guardian. SW has also informed [facility] SW in case patient would need state guardianship. SW will continue to follow-up with pt's MD and care team on their progress and discharge plan. ZAMZAM Grace, BILLING DEPARTMENT SUPERVISOR Senior Business Risk Consultant/Case Management [facility] [[email or web address]] * Consults - Ludivina Alfred RD - 12/26/2024 8:14 AM EDT Adult Nutrition Evaluation Note Yen Perez 64 y.o. female CSN: [id number] Room/Bed 130/130A Nutrition evaluation type: follow-up Reason for evaluation: Hospital course: 64 y/o F presented from [facility] for possible Afib. On 72 hour hold d/t trying to leave hospital with AMS. Lacks decisional capacity per neuro psych. Past medical/ surgical history: Past Medical History[1] Surgical History[2] Social history: Additional comments: 12/26: Pt seen at bedside. Endorses a good appetite. Doesn't really drink milk, prefers they not be sent on meal trays. No N/V/D/C. Reports having BM today. Vitals and Basic Assessment: BP: 112/62 Temp: 36.7 ??C (98.1 ??F) Oxygen Therapy: None (Room air) [place] Coma Scale Score: 14 Kal Scale Score: 20 Eloy/Cubbin Pressure Risk Score: 44 Most Recent BM Date: 12/25/24 GI Symptoms: None Edema: Right lower extremity Allergies: no known allergies Medications: Current Scheduled Medications[3] Current Continuous Medications[4] Current PRN Medications[5] Labs: Lab Results Component Value Date GLUCOSE 129 (H) 12/18/2024 CALCIUM 9.2 12/18/2024 NA 140 12/18/2024 K 3.9 12/18/2024 CO2 26 12/18/2024 CL 105 12/18/2024 BUN 21 12/18/2024 CREATININE 0.74 12/18/2024 MG 2.0 12/10/2024 HGBA1C 5.9 (H) 12/10/2024 Anthropometrics: Height: 160 cm (5' 3 ) Weight: 63.5 kg (139 lb 15.9 oz) BMI (Calculated): 24.8 Weight Evaluation: Overweight (BMI 25-29.9) [place] Body Weight (kg): 52.2 Percent [place] Body Weight: 125 Estimated Needs: Metabolic Cart Study Results: Current Nutrition Intake: Diet Supplements: Boost Plus Diet Order: Adult Diet Diet Texture: Regular Percent Meals Eaten (%): 95% avg x 10 meal intakes Diet Experience and Nutrition History: Diet Education Provided: Will monitor Pertinent home medications: none listed Spiritism needs: Nutrition Focused Physical Exam: Physical exam performed on (date): 12/13/24, 12/26/24 Temples (muscles): None Clavicle (muscle): None Shoulder (muscle): None Interosseous (muscle): None Calf (muscle): None Orbital (fat): None Triceps (fat): None Assessment of Malnutrition: Malnutrition Identified: No Nutrition Problem: Predicted suboptimal energy intake related to AMS as evidenced by reportedly missing meals. Status of Nutrition Diagnosis: Resolved No nutritional problem at this time. Nutrition Interventions and Recommendations: - Continue regular diet as tolerated - Pt preference to not receive milk on meal trays - Discontinuing Boost d/t excellent PO intakes Nutrition Monitoring and Goals: - Pt will tolerate >75% avg of meal intakes - Pt will maintain weight this admission Acuity Level: [address], LD [1] Past Medical History: Diagnosis Date Eczema Multiple sclerosis (CMS/HCC) [2] History reviewed. No pertinent surgical history. [3] apixaban, 5 mg, Oral, BID hydrOXYzine pamoate, 25 mg, Oral, Once melatonin, 6 mg, Oral, Nightly methIMAzole, 10 mg, Oral, BID propranolol, 10 mg, Oral, BID senna, 8.6 mg, Oral, Nightly sodium chloride, 10 mL, Intravenous, q12h triamcinolone, 1 Application, Topical, BID [4] [5] PRN medications: acetaminophen, bisacodyl, Insert peripheral IV AND Saline lock IV AND sodium chloride AND sodium chloride, traZODone * Care Plan - Kaelyn Canales - 12/25/2024 11:55 PM EDT Problem: Adult Inpatient Plan of Care Goal: Plan of Care Review Outcome: Ongoing, Progressing Flowsheets Taken 12/25/2024 1422 by Evelia Sinha RN Progress: improving Taken 12/21/2024 1235 by Magda Quintanilla RN Plan of Care Reviewed With: patient Taken 12/21/2024 0441 by Elham Tineo RN Outcome Evaluation: Patient will be able to find placement post discharge from the hospital Goal: Patient-Specific Goal (Individualized) Outcome: Ongoing, Progressing Flowsheets (Taken 12/25/20241999) Patient/Family-Specific Goals (Include Timeframe): Patient will remain injury and fall free throughout shift. Individualized Care Needs: safety Anxieties, Fears or Concerns: none stated Goal: Absence of Hospital-Acquired Illness or Injury Outcome: Ongoing, Progressing Intervention: Identify and Manage Fall Risk Flowsheets (Taken 12/25/20241999) Safety Promotion/Fall Prevention: activity supervised clutter-free environment maintained fall prevention program maintained lighting adjusted mobility aid in reach nonskid shoes/slippers when out of bed room organization consistent safety round/check completed Intervention: Prevent Skin Injury Flowsheets Taken 12/25/2024 2200 by Kaelyn Canales Body Position: weight shifting Taken 12/25/2024 1200 by Evelia Sinha RN Skin Protection: protective footwear used Intervention: Prevent and Manage VTE (Venous Thromboembolism) Risk Flowsheets (Taken 12/25/2024 1600 by Evelia Sinha RN) VTE Prevention/Management: medication Intervention: Prevent Infection Flowsheets (Taken 12/22/2024 1159 by Magda Quintanilla RN) Infection Prevention: environmental surveillance performed equipment surfaces disinfected hand hygiene promoted personal protective equipment utilized rest/sleep promoted Goal: Optimal Comfort and Wellbeing Outcome: Ongoing, Progressing Intervention: Monitor Pain and Promote Comfort Flowsheets (Taken 12/19/2024 0612 by Heriberto Poe RN) Pain Management Interventions: medication (see MAR) rest quiet environment facilitated Intervention: Provide Person-Centered Care Flowsheets (Taken 12/21/2024 1235 by Magda Quintanilla RN) Trust Relationship/Rapport: empathic listening provided emotional support provided questions answered questions encouraged Goal: Readiness for Transition of Care Outcome: Ongoing, Progressing Intervention: Mutually Develop Transition Plan Flowsheets Taken 12/22/2024 1159 by Magda Quintanilla RN Equipment Currently Used at Home: walker, rolling Taken 12/21/2024 1235 by Magda Quintanilla RN Anticipated Changes Related to Illness: none Transportation Concerns: no car Concerns to be Addressed: no discharge needs identified Readmission Within the Last 30 Days: no previous admission in last 30 days Offered/Gave Vendor List: no Taken 12/17/2024 0852 by Olamide Lucero RN Transportation Anticipated: other (see comments) Patient/Family Anticipates Transition to: other (see comments) Taken 12/15/2024 0959 by Magda Quintanilla RN Equipment Needed After Discharge: walker, rollator Taken 12/13/2024 2312 by Michelle Junior RN Patient/Family Anticipated Services at Transition: mental health services Problem: Mobility Impairment Goal: Optimal Mobility Outcome: Ongoing, Progressing Intervention: Optimize Mobility Flowsheets Taken 12/25/20241999 by Kaelyn Canales Activity Management: activity adjusted per tolerance activity encouraged ambulated in room Taken 12/25/2024 1000 by Evelia Sinha RN Assistive Device Utilized: four wheel walker Taken 12/22/20242229 by Delano Nash, OG Positioning/Transfer Devices: pillows Problem: Fall Injury Risk Goal: Absence of Fall and Fall-Related Injury Outcome: Ongoing, Progressing Intervention: Identify and Manage Contributors Flowsheets (Taken 12/22/20242229 by Delano Nash, RN) Medication Review/Management: medications reviewed Self-Care Promotion: independence encouraged BADL personal objects within reach Intervention: Promote Injury-Free Environment Flowsheets (Taken 12/25/20241999) Safety Promotion/Fall Prevention: activity supervised clutter-free environment maintained fall prevention program maintained lighting adjusted mobility aid in reach nonskid shoes/slippers when out of bed room organization consistent safety round/check completed Problem: Pain Acute Goal: Optimal Pain Control and Function Outcome: Ongoing, Progressing Intervention: Optimize Psychosocial Wellbeing Flowsheets Taken 12/22/2024 1159 by Magda Quintanilla RN Diversional Activities: television Taken 12/21/2024 1235 by Magda Quintanilla RN Supportive Measures: self-care encouraged self-responsibility promoted Taken 12/14/2024 2251 by Michelle Junior RN Spiritual Activities Assistance: personal rituals encouraged Intervention: Develop Pain Management Plan Flowsheets (Taken 12/19/2024 0612 by Heriberto Poe RN) Pain Management Interventions: medication (see MAR) rest quiet environment facilitated Intervention: Prevent or Manage Pain Flowsheets Taken 12/22/2024 223 by Delano Nash RN Sensory Stimulation Regulation: care clustered quiet environment promoted Medication Review/Management: medications reviewed Taken 12/21/2024 0441 by Elham Tineo RN Sleep/Rest Enhancement: awakenings minimized consistent schedule promoted Taken 12/16/2024 0007 by Michelle Junior RN Bowel Elimination Promotion: adequate fluid intake promoted Problem: Confusion Acute Goal: Optimal Cognitive Function Outcome: Ongoing, Progressing Intervention: Minimize Contributing Factors Flowsheets (Taken 12/22/20242229 by Delano Nash RN) Sensory Stimulation Regulation: care clustered quiet environment promoted Reorientation Measures: clock in view reorientation provided Environment Familiarity/Consistency: daily routine followed Communication Support Strategies: active listening utilized Problem: Skin Injury Risk Increased Goal: Skin Health and Integrity Outcome: Ongoing, Progressing Intervention: Optimize Skin Protection Flowsheets Taken 12/25/20241999 by Kaelyn Canales Activity Management: activity adjusted per tolerance activity encouraged ambulated in room Taken 12/25/2024 1600 by Evelia Sinha RN Head of Bed (HOB) Positioning: HOB elevated Taken 12/25/2024 1200 by Evelia Sinha RN Skin Protection: protective footwear used Intervention: Promote and Optimize Oral Intake Flowsheets (Taken 12/24/2024 0159 by Marilee Brunson RN) Oral Nutrition Promotion: rest periods promoted physical activity promoted * Progress Notes - Meghann Fu - 12/25/2024 11:00 AM EDT Art Therapy Note Session Information: IM Order: Yes Consult Requested By: Physician/ PA Reason for IM Consult: Emotional Symptoms Contact Location: Inpatient room Type of Contact: Initial visit Patient Communication: Art Therapy Comments: Pt declined services stating she is not interested in art, but when AT reported pt could be taken off the list pt declined to be taken off. Pt requested AT return to check in, in a week or two . AT reported to pt that AT attempts to come around once per week if possible. Pt stated, Come back in 2 weeks . AT made note of this request. Art Therapy Plan of Care: Will return at another time * Progress Notes - Asia Benson - 12/25/2024 10:45 AM EDT [facility] Medicine Progress Note (12/25/2024) Overnight/Subjective Ms. Perez was sitting comfortably in bed and was waiting for breakfast this morning. She states that she was able to sleep well last night and had to go around and ask for coffee this morning. She denied any active complaints, needs or pain. She states she had a bowel movement last night, and that she is able to get up and down to the bathroom without needing assistance. She says her friend came and visited her yesterday, and she seems to be in better spirits than previously. Review of Systems Review of Systems Constitutional: Negative for activity change and appetite change. Respiratory: Negative for shortness of breath. Cardiovascular: Negative for chest pain. Gastrointestinal: Negative for abdominal pain and constipation. Neurological: Negative for headaches. Objective Temp: [36.7 ??C (98 ??F)-36.8 ??C (98.3 ??F)] 36.7 ??C (98 ??F) Heart Rate: [65-94] 65 Resp: [16-18] 18 BP: (103-142)/(58-70) 109/61 SpO2: [94 %-96 %] 95 % Body mass index is 24.8 kg/m??. Intake/Output Summary (Last 24 hours) at 12/25/2024 1046 Last data filed at 12/25/2024 0000 Gross per 24 hour Intake 350 ml Output -- Net 350 ml Physical Exam Constitutional: Appearance: Normal appearance. Cardiovascular: Rate and Rhythm: Normal rate and regular rhythm. Pulses: Normal pulses. Heart sounds: No murmur heard. No friction rub. No gallop. Pulmonary: Effort: Pulmonary effort is normal. Breath sounds: Normal breath sounds. Abdominal: Palpations: Abdomen is soft. Tenderness: There is no abdominal tenderness. Musculoskeletal: General: Swelling present. Skin: General: Skin is warm and dry. Neurological: Mental Status: She is alert. Mental status is at baseline. Psychiatric: Attention and Perception: Attention normal. Mood and Affect: Mood normal. Speech: Speech normal. Behavior: Behavior normal. Behavior is cooperative. Recent Labs Lab Results Component Value Date WBC 5.67 12/18/2024 HGB 12.0 12/18/2024 HCT 36.1 12/18/2024 MCV 84 12/18/2024 PLT 224 12/18/2024 Lab Results Component Value Date NA 140 12/18/2024 K 3.9 12/18/2024 CL 105 12/18/2024 CO2 26 12/18/2024 Lab Results Component Value Date GLUCOSE 129 (H) 12/18/2024 BUN 21 12/18/2024 CREATININE 0.74 12/18/2024 BCR 28 12/18/2024 NA 140 12/18/2024 K 3.9 12/18/2024 CL 105 12/18/2024 CO2 26 12/18/2024 ALBUMIN 4.0 12/10/2024 ALKPHOS 79 12/10/2024 BILITOT 0.3 12/10/2024 Lab Results Component Value Date HGBA1C 5.9 (H) 12/10/2024 Current Medications Current Scheduled Medications[1] Current Continuous Medications[2] Current PRN Medications[3] Allergies[4] Assessment and Plan Yen Perez is a 64 y.o. female with a history of MS, 2014 bilateral breast cancer with mastectomy 2006 who presented 12/10/2024 to [facility] ED from [facility] for possible Afib. She was at [facility] for AMS initially and was placed on a 72 hour hold. Upon arrival at the ED she was hemodynamically stable, EKG showed sinus arrhythmia with PACs, no Afib. Pt was altered in ED and labs showed new hyperthyroidism. Pt was admitted for medical management of new onset Afib likely secondary to hyperthyroidism contributing to her irritability and confusion. MRI from 12/21 showed moderate brain atrophy and out of proportion prominence of the lateral ventricles which might represent a component of normal pressure hydrocephalus.Treatment is a RAILROAD CONDUCTOR shunt which she is unable to consent for. When evaluated in hospital by neuropsychology, Ms. Perez grasps her current medical state, but her insight and judgment are impaired. She needs state guardianship as she does not have decisional capacity. Principal Problem: Altered mental status Active Problems: MS (multiple sclerosis) (CMS/HCC) Abnormal finding on urinalysis Hyperthyroidism Eczema Altered mental status, unspecified altered mental status type Chronic Metabolic Encephalopathy -Encephalopathy is likely multifactorial in the setting of untreated NPH and Graves disease. -Presented to [facility] ED from [facility] for AMS and cardiac concerns -CT head reported (12/10): Enlarged ventricles including lateral, third, and fourth ventricles. Prominence of the sulci. Enlarged ventricles may be due to volume loss. Possibility of normal pressure hydrocephalus could not be excluded. - MRI (12/21) with and w/o IV contrast showed moderate brain atrophy. Out of proportion prominence ofthe lateral ventricles might represent a component of normal pressure hydrocephalus. Mild to moderate white matter disease, nonspecific but likely representing chronic small vessel ischemia. -Of note, patient last saw Dr. Jones in 2020. At that time, she had MRI imaging which showed enlarged ventricles. Documentation notes issues with gait instability and cognitive decline at that time. -CXR (12/10) negative for acute findings -Ethanol (12/10) level normal -Resp panel (12/10) negative -ESR, CRP, procal, PTH, Cortisol, B1, Folate : Normal. UDS: Negative (12/13) - Delirium/fall precautions - Avoid anticholinergics, antihistamines, benzodiazepines, and opioids if able - Neuropsychology evaluated her on 12/19 and found her memory to be impaired. They stated that she grasps her current medical state, but her insight and judgment are impaired. Her current medical decisional capacity is compromised per JAKE/APA guidelines. - The last IM team requested Neurology for inpatient follow up as [facility] due to disposition problems. Neurology to decide on RAILROAD CONDUCTOR shunt benefit for NPH. However, pt is unable to make medical decisions about the RAILROAD CONDUCTOR shunt at this time. Relapsing - Remitting MS (Multiple Sclerosis) ([facility]) -Reports that she was following Dr. Jones from 2013 to 2020 and then they stopped giving her medication because they told her there was no one else in [place] that treated multiple sclerosis. Shedoes not take any medication at home. -Neuro consulted in ED (12/10) and performed exam -Neurology recommended follow-up with neuro criminal defense attorney for MS. Neurology said that psychosis withno neurological deficits is unlikely presentation of MS. Acute non ST-segment elevation myocardial infarction, suspect type 2 -12/10: Initial troponin 122, uptrended to 134, delta 12 -12/10: Collator Operator consulted who said that most likely it is type 2 NSTEMI -12/11: Echo showed normal EF with no acute abnormalities -No acute intervention needed at this time Paroxysmal atrial fibrillation without RVR -Cardiology consulted on patient in ED (12/10) and discussed it may be secondary to acute illness (hyperthyroidism) - VANESSA?DS?-VASc score: 2 - Rate controlled, on propranolol - Embolic prevention: ON DOAC - Per Cardiology: Obtain a 14 day Holter monitor on discharge to evaluate for Afib burden - Patient to follow up in outpatient cardiology clinic - Consider outpatient sleep study to evaluate for underlying sleep apnea Abnormal finding on Urinalysis -UA (12/10) suggestive of infection, s/p 3 doses of ceftriaxone with mixed urinary milagros on culturesas it was contaminated Hyperthyroidism - Consulted Endocrinology considering low TSH as this could be the cause of acute confusion - (12/10)TSH <0.01,(12/11)TPO antibodies neg, TSI and TRAB elevated pointing towards Graves disease. - Continue methimazole and she will follow up with Endocrinology outpatient for Graves disease -Patient reports no known history of this Eczema -Triamcinolone to rash BID Insomnia - Per nursing staff, pt is continuously up and down throughout the night. - Melatonin nightly - Begin trazodone (12/24) to help with insomnia. - Nonpharmacologic sleep orders given. Disposition Not medically ready for discharge, still irritable and previous paranoia with unknown cause. Patient has no close family. She has few cousins and a close friend who lives nearby, Yen Collins. Friend stated that she has had gait instability for about a month as well as dementia. Patient's cousin, Rupinder, may be interested in obtaining guardianship. We are waiting for SW to confirm if this could be an option instead of pursuing state guardianship. For now ruling out medical case of personality change, irritability and paranoia. Discussed w/ nursing and preceptor. I personally spent a total of 30 minutes on this encounter. This time includes face to face with patient, counseling and discussion and/or coordination of care. Asia PINTO-S2 Secure chat via [employer] preferred 12/25/2024 [1] apixaban, 5 mg, Oral, BID hydrOXYzine pamoate, 25 mg, Oral, Once melatonin, 6 mg, Oral, Nightly methIMAzole, 10 mg, Oral, BID propranolol, 10 mg, Oral, BID senna, 8.6 mg, Oral, Nightly sodium chloride, 10 mL, Intravenous, q12h triamcinolone, 1 Application, Topical, BID [2] [3] PRN medications: acetaminophen, bisacodyl, Insert peripheral IV AND Saline lock IV AND sodium chloride AND sodium chloride, traZODone [4] No Known Allergies Cosigned by Elham Cruz APRN at 12/25/2024 2:07 PM EDT Associated attestation - Elham Cruz APRN - 12/25/2024 2:07 PM EDT I saw and evaluated the patient with the medical/CLASSIFICATION ANALYST/PA student. I discussed the case with the medical/CLASSIFICATION ANALYST/PA student and agree with the findings and plan as documented. I personally performed the Examand Medical Decision Making. Patient in good mood feeling well today. Asking about breakfast and it showed up as we were leaving. She had no complaints. Ambulating. +BM yesterday. Review of systems negative for dyspnea, chest pain, nausea, constipation, swelling, dizziness Physical exam: Alert and oriented x3, in no distress, lying in bed, HR RRR, Lungs are clear to auscultation, abdomen is soft, active bowel sounds, no peripheral edema Assessment and Plan: Encephalopathy: appears chronic as reports of wandering confusion hx and enlarging ventricles. Willf/u as outpatient with neuro. Unclear at this time if any intervention would prove helpful including shunt placement. Will need to evaluate as outpatient. Afib-controlled on propranol, continue Apixaban Rupinder called and all questions answered. Time Spent: I personally spent a total of 50 minutes on this encounter. This time includes face to face with patient, counseling and discussion and/or coordination of care. Specifically, this time was spent examining patient, counseling on treatments and risk of no treatment, as well as reviewing old records. Discussing over the phone coordination of care with family, including guardianship. * Care Plan - Marilee Brunson RN - 12/25/2024 12:43 AM EDT Problem: Adult Inpatient Plan of Care Goal: Plan of Care Review Outcome: Ongoing, Progressing Flowsheets Taken 12/22/2024 1159 by Magda Quintanilla RN Progress: improving Taken 12/21/2024 1235 by Magda Quintanilla RN Plan of Care Reviewed With: patient Taken 12/21/2024 0441 by Elham Tineo RN Outcome Evaluation: Patient will be able to find placement post discharge from the hospital Note: Pt will be free from fall during my shift Goal: Patient-Specific Goal (Individualized) Outcome: Ongoing, Progressing Flowsheets (Taken 12/25/2024 0000) Patient/Family-Specific Goals (Include Timeframe): Pt will remain free from falls throughout entireshift Individualized Care Needs: Safety Anxieties, Fears or Concerns: none stated Goal: Absence of Hospital-Acquired Illness or Injury Outcome: Ongoing, Progressing Intervention: Identify and Manage Fall Risk Flowsheets (Taken 12/25/2024 0000) Safety Promotion/Fall Prevention: activity supervised Intervention: Prevent Skin Injury Flowsheets Taken 12/25/2024 0000 by Marilee Brunson RN Body Position: sitting up in bed weight shifting Taken 12/23/2024 1400 by Amena Hess RN Skin Protection: protective footwear used Intervention: Prevent and Manage VTE (Venous Thromboembolism) Risk Flowsheets (Taken 12/25/2024 0000) VTE Prevention/Management: medication Intervention: Prevent Infection Flowsheets (Taken 12/22/2024 1159 by Magda Quintanilla RN) Infection Prevention: environmental surveillance performed equipment surfaces disinfected hand hygiene promoted personal protective equipment utilized rest/sleep promoted Goal: Optimal Comfort and Wellbeing Outcome: Ongoing, Progressing Intervention: Monitor Pain and Promote Comfort Flowsheets (Taken 12/19/2024 0612 by Heriberto Poe, RN) Pain Management Interventions: medication (see MAR) rest quiet environment facilitated Intervention: Provide Person-Centered Care Flowsheets (Taken 12/21/2024 1235 by Magda Quintanilla, RN) Trust Relationship/Rapport: empathic listening provided emotional support provided questions answered questions encouraged Goal: Readiness for Transition of Care Outcome: Ongoing, Progressing Intervention: Mutually Develop Transition Plan Flowsheets Taken 12/22/2024 1159 by Magda Quintanilla RN Equipment Currently Used at Home: walker, rolling Taken 12/21/2024 1235 by Magda Quintanilla RN Anticipated Changes Related to Illness: none Transportation Concerns: no car Concerns to be Addressed: no discharge needs identified Readmission Within the Last 30 Days: no previous admission in last 30 days Offered/Gave Vendor List: no Taken 12/17/2024 0852 by Olamide Lucero RN Transportation Anticipated: other (see comments) Patient/Family Anticipates Transition to: other (see comments) Taken 12/15/2024 0959 by Magda Quintanilla RN Equipment Needed After Discharge: walker, rollator Taken 12/13/2024 2312 by Michelle Junior RN Patient/Family Anticipated Services at Transition: mental health services Problem: Mobility Impairment Goal: Optimal Mobility Outcome: Ongoing, Progressing Intervention: Optimize Mobility Flowsheets Taken 12/25/2024 0000 by Marilee Brunson RN Activity Management: activity adjusted per tolerance Assistive Device Utilized: four wheel walker Taken 12/22/20242229 by Delano Nash, RN Positioning/Transfer Devices: pillows Problem: Fall Injury Risk Goal: Absence of Fall and Fall-Related Injury Outcome: Ongoing, Progressing Intervention: Identify and Manage Contributors Flowsheets (Taken 12/22/20242229 by Delano Nash, RN) Medication Review/Management: medications reviewed Self-Care Promotion: independence encouraged BADL personal objects within reach Intervention: Promote Injury-Free Environment Flowsheets (Taken 12/25/2024 0000) Safety Promotion/Fall Prevention: activity supervised Problem: Pain Acute Goal: Optimal Pain Control and Function Outcome: Ongoing, Progressing Intervention: Optimize Psychosocial Wellbeing Flowsheets Taken 12/22/2024 1159 by Magda Quintanilla RN Diversional Activities: television Taken 12/21/2024 1235 by Magda Quintanilla RN Supportive Measures: self-care encouraged self-responsibility promoted Taken 12/14/2024 2251 by Michelle Junior RN Spiritual Activities Assistance: personal rituals encouraged Intervention: Develop Pain Management Plan Flowsheets (Taken 12/19/2024 0612 by Heriberto Poe RN) Pain Management Interventions: medication (see MAR) rest quiet environment facilitated Intervention: Prevent or Manage Pain Flowsheets Taken 12/22/2024 2230 by Delano Nash RN Sensory Stimulation Regulation: care clustered quiet environment promoted Medication Review/Management: medications reviewed Taken 12/21/2024 0441 by Elham Tineo RN Sleep/Rest Enhancement: awakenings minimized consistent schedule promoted Taken 12/16/2024 0007 by Michelle Junior RN Bowel Elimination Promotion: adequate fluid intake promoted Problem: Confusion Acute Goal: Optimal Cognitive Function Outcome: Ongoing, Progressing Intervention: Minimize Contributing Factors Flowsheets (Taken 12/22/2024 223 by Delano Nash RN) Sensory Stimulation Regulation: care clustered quiet environment promoted Reorientation Measures: clock in view reorientation provided Environment Familiarity/Consistency: daily routine followed Communication Support Strategies: active listening utilized Problem: Skin Injury Risk Increased Goal: Skin Health and Integrity Outcome: Ongoing, Progressing Intervention: Optimize Skin Protection Flowsheets Taken 12/25/2024 0000 by Marilee Brunson RN Activity Management: activity adjusted per tolerance Head of Bed (HOB) Positioning: HOB elevated Taken 12/23/2024 1400 by Amena Hess RN Skin Protection: protective footwear used Intervention: Promote and Optimize Oral Intake Flowsheets (Taken 12/24/2024 0159) Oral Nutrition Promotion: rest periods promoted physical activity promoted * Progress Notes - Asia Benson - 12/24/2024 1:09 PM EDT [facility] Medicine Progress Note (12/24/2024) Overnight/Subjective We met Ms. Perez on morning rounds. She was sitting comfortably in bed and was pleasant to talk with.She states that she was able to sleep well last night and had about 10 cups of coffee this morning.She denied any active complaints, needs or pain. She discussed that she has never gotten lost in her hometown, but has gotten lost in cities she was unfamiliar with. She seemed aware of her past medical conditions like her diagnosis of MS. When discussing with the nursing staff, they stated that she was up and down all night, had only 2-3 cups of coffee, and thought she had gotten her period when she had an episode of urinary incontinence. They requested changing her vitals to q8h and adding medication to supplement the melatonin to help her with sleep. Review of Systems Review of Systems Constitutional: Negative for fever. Respiratory: Negative for shortness of breath. Cardiovascular: Negative for chest pain. Gastrointestinal: Negative for abdominal pain and nausea. Musculoskeletal: Positive for arthralgias. Neurological: Negative for dizziness, light-headedness and headaches. Objective Temp: [36.4 ??C (97.6 ??F)-37.1 ??C (98.8 ??F)] 36.7 ??C (98 ??F) Heart Rate: [66-107] 69 Resp: [16-18] 18 BP: (108-128)/(53-74) 126/58 SpO2: [91 %-95 %] 95 % Body mass index is 24.8 kg/m??. Intake/Output Summary (Last 24 hours) at 12/24/2024 1309 Last data filed at 12/24/2024 0900 Gross per 24 hour Intake 670 ml Output -- Net 670 ml Physical Exam Constitutional: Appearance: Normal appearance. Eyes: Comments: Bilateral watery eyes Cardiovascular: Rate and Rhythm: Normal rate and regular rhythm. Pulses: Normal pulses. Heart sounds: No murmur heard. No friction rub. No gallop. Pulmonary: Effort: Pulmonary effort is normal. Breath sounds: Normal breath sounds. Abdominal: Palpations: Abdomen is soft. Musculoskeletal: General: No swelling. Skin: General: Skin is warm and dry. Neurological: Mental Status: She is alert. Psychiatric: Attention and Perception: Attention normal. Mood and Affect: Mood normal. Speech: Speech normal. Behavior: Behavior normal. Thought Content: Thought content normal. Recent Labs Lab Results Component Value Date WBC 5.67 12/18/2024 HGB 12.0 12/18/2024 HCT 36.1 12/18/2024 MCV 84 12/18/2024 PLT 224 12/18/2024 Lab Results Component Value Date NA 140 12/18/2024 K 3.9 12/18/2024 CL 105 12/18/2024 CO2 26 12/18/2024 Lab Results Component Value Date GLUCOSE 129 (H) 12/18/2024 BUN 21 12/18/2024 CREATININE 0.74 12/18/2024 BCR 28 12/18/2024 NA 140 12/18/2024 K 3.9 12/18/2024 CL 105 12/18/2024 CO2 26 12/18/2024 ALBUMIN 4.0 12/10/2024 ALKPHOS 79 12/10/2024 BILITOT 0.3 12/10/2024 Lab Results Component Value Date HGBA1C 5.9 (H) 12/10/2024 Current Medications Current Scheduled Medications[1] Current Continuous Medications[2] Current PRN Medications[3] Allergies[4] Assessment and Plan Yen Perez is a 64 y.o. female with a history of MS, 2014 bilateral breast cancer with mastectomy 2006 who presented 12/10/2024 to [facility] ED from [facility] for possible Afib. She was at [facility] for AMS initially and was placed on a 72 hour hold. Upon arrival at the ED she was hemodynamically stable, EKG showed sinus arrhythmia with PACs, no Afib. Pt was altered in ED and labs showed new hyperthyroidism. Pt was admitted for medical management of new onset Afib likely secondary to hyperthyroidism contributing her irritability and confusion. MRI from 12/21 showed moderate brain atrophyand out of proportion prominence of the lateral ventricles might represent a component of normal pre ssure hydrocephalus.Treatment is a RAILROAD CONDUCTOR shunt which she is unable to consent for. When evaluated in hospital by neuropsychology, Ms. Perez grasps her current medical state, but her insight and judgment are impaired. Her current medical decisional capacity is compromised per JAKE/APA guidelines. She needs state guardianship as she does not have decisional capacity. Principal Problem: Altered mental status Active Problems: MS (multiple sclerosis) (CMS/HCC) Abnormal finding on urinalysis Hyperthyroidism Eczema Altered mental status, unspecified altered mental status type Chronic Metabolic Encephalopathy -Encephalopathy is likely multifactorial in the setting of untreated NPH and Graves disease. -Presented to [facility] ED from [facility] for AMS and cardiac concerns -CT head reported (12/10): Enlarged ventricles including lateral, third, and fourth ventricles. Prominence of the sulci. Enlarged ventricles may be due to volume loss. Possibility of normal pressure hydrocephalus could not be excluded. - MRI (12/21) with and w/o IV contrast showed moderate brain atrophy. Out of proportion prominence ofthe lateral ventricles might represent a component of normal pressure hydrocephalus. Mild to moderate white matter disease, nonspecific but likely representing chronic small vessel ischemia. -Of note, patient last saw Dr. Jones in 2020. At that time, she had MRI imaging which showed enlarged ventricles. Documentation notes issues with gait instability and cognitive decline at that time. -CXR (12/10) negative for acute findings -Ethanol (12/10) level normal -Resp panel (12/10) negative -ESR, CRP, procal, PTH, Cortisol, B1, Folate : Normal. UDS: Negative (12/13) - Delirium/fall precautions - Avoid anticholinergics, antihistamines, benzodiazepines, and opioids if able - Neuropsychology evaluated her on 12/19 and found her memory to be impaired. They stated that she grasps her current medical state, but her insight and judgment are impaired. Her current medical decisional capacity is compromised per JAKE/APA guidelines. - The last IM team requested Neurology for inpatient follow up as outpatient clinic follow up seemsunlikely at this point due to disposition problems. Neurology to decide on RAILROAD CONDUCTOR shunt benefit for NPH. However, pt is unable to make medical decisions about the RAILROAD CONDUCTOR shunt at this time. Relapsing - Remitting MS (Multiple Sclerosis) (CMS/HCC) -Reports that she was following Dr. Jones from 2013 to 2020 and then they stopped giving her medication because they told her there was no one else in [place] that treated multiple sclerosis. Shedoes not take any medication at home. -Neuro consulted in ED (12/10) and performed exam -Neurology recommended follow-up with neuro criminal defense attorney for MS. Neurology said that psychosis withno neurological deficits is unlikely presentation of MS. Acute non ST-segment elevation myocardial infarction, suspect type 2 -12/10: Initial troponin 122, uptrended to 134, delta 12 -12/10: Collator Operator consulted who said that most likely it is type 2 NSTEMI -12/11: Echo showed normal EF with no acute abnormalities -No acute intervention needed at this time Paroxysmal atrial fibrillation without RVR -Cardiology consulted on patient in ED (12/10) and discussed it may be secondary to acute illness (hyperthyroidism) - VANESSA?DS?-VASc score: 2 - Rate controlled, on propranolol - Embolic prevention: ON DOAC - Per Cardiology: Obtain a 14 day Holter monitor on discharge to evaluate for Afib burden - Patient to follow up in outpatient cardiology clinic - Consider outpatient sleep study to evaluate for underlying sleep apnea Abnormal finding on Urinalysis -UA (12/10) suggestive of infection, s/p 3 doses of ceftriaxone with mixed urinary milagros on culturesas it was contaminated Hyperthyroidism - Consulted Endocrinology considering low TSH as this could be the cause of acute confusion - (12/10)TSH <0.01,(12/11)TPO antibodies neg, TSI and TRAB elevated pointing towards Graves disease. - Continue methimazole and she will follow up with Endocrinology outpatient for Graves disease -Patient reports no known history of this Eczema -Triamcinolone to rash BID Insomnia - Per nursing staff, pt is continuously up and down throughout the night. - Melatonin nightly - Begin trazodone (12/24) to help with insomnia. - Nonpharmacologic sleep orders given. Disposition Not medically ready for discharge, still irritable and paranoia with unknown cause. Patient has no close family. She has few cousins and a close friend who lives nearby, [place]. Friend stated that she has had gait instability for about a month as well as dementia. Considering she has no family makes it a complicated case if she does not have capacity and can't be discharged home alone. We will unfortunately have to get state guardianship and decide plan of care. For now ruling out medical case of personality change, irritability and paranoia. Discussed w/ nursing and preceptor. I personally spent a total of 60 minutes on this encounter. This time includes face to face with patient, counseling and discussion and/or coordination of care. Asia Benson PA-S2 Secure chat via [employer] preferred 12/24/2024 [1] apixaban, 5 mg, Oral, BID hydrOXYzine pamoate, 25 mg, Oral, Once melatonin, 6 mg, Oral, Nightly methIMAzole, 10 mg, Oral, BID propranolol, 10 mg, Oral, BID senna, 8.6 mg, Oral, Nightly sodium chloride, 10 mL, Intravenous, q12h triamcinolone, 1 Application, Topical, BID [2] [3] PRN medications: acetaminophen, bisacodyl, Insert peripheral IV AND Saline lock IV AND sodium chloride AND sodium chloride [4] No Known Allergies Cosigned by Ita Warner APRN at 12/24/2024 4:37 PM EDT Associated attestation - Ita Wanrer APRN - 12/24/2024 4:37 PM EDT I saw and evaluated the patient with the medical/CLASSIFICATION ANALYST/PA student. I discussed the case with the medical/CLASSIFICATION ANALYST/PA student and agree with the findings and plan as documented. I personally performed the Examand Medical Decision Making. Ms. Perez reports she is doing well. She has no specific physical complaints. She seems to have limited insight into her situation. At times, she has clear, goal- focused conversation. At other times, it seems she is confabulating. Per nursing, at times she will do things like get her purse and shoes and say she is going somewhere, but she is easily redirectable. General: no apparent distress; well-groomed Skin: warm and dry Respiratory: even and unlabored respirations Extremities: no cyanosis, clubbing, edema Neuro: alert and conversant Psych: appropriate mood and behavior Chronic encephalopathy--Progressive per collateral report. Suspect this is mostly in setting of NPH. Since it sounds like she has had cognitive changes, gait instability, and MRI changes as far back as 2020, she may not have optimal reversibility of symptoms with a shunt. Furthermore, she does not have a consenting green party for treatment at this time. Will need to ensure close neurology follow-up atdischarge for both NPH and MS. SW looking into guardianship/placement. * Care Plan - Amena Hess RN - 12/24/2024 10:02 AM EDT Problem: Adult Inpatient Plan of Care Goal: Plan of Care Review Outcome: Ongoing, Progressing Flowsheets Taken 12/22/2024 1159 by Magda Quintanilla, RN Progress: improving Taken 12/21/2024 1235 by Magda Quintanilla RN Plan of Care Reviewed With: patient Taken 12/21/2024 0441 by Elham Tineo RN Outcome Evaluation: Patient will be able to find placement post discharge from the hospital Goal: Patient-Specific Goal (Individualized) Outcome: Ongoing, Progressing Flowsheets (Taken 12/24/2024 08) Patient/Family-Specific Goals (Include Timeframe): Pt will remain free from falls throughout entireshift Individualized Care Needs: Safety Anxieties, Fears or Concerns: none stated Goal: Absence of Hospital-Acquired Illness or Injury Outcome: Ongoing, Progressing Intervention: Identify and Manage Fall Risk Flowsheets (Taken 12/24/2024 08) Safety Promotion/Fall Prevention: activity supervised Intervention: Prevent Skin Injury Flowsheets Taken 12/24/2024 0800 Body Position: sitting up in bed weight shifting Taken 12/23/2024 1400 Skin Protection: protective footwear used Intervention: Prevent and Manage VTE (Venous Thromboembolism) Risk Flowsheets (Taken 12/24/2024 0800) VTE Prevention/Management: medication Intervention: Prevent Infection Flowsheets (Taken 12/22/2024 1159 by Magda Quintanilla, RN) Infection Prevention: environmental surveillance performed equipment surfaces disinfected hand hygiene promoted personal protective equipment utilized rest/sleep promoted Goal: Optimal Comfort and Wellbeing Outcome: Ongoing, Progressing Intervention: Monitor Pain and Promote Comfort Flowsheets (Taken 12/19/2024 0612 by Heriberto Poe, RN) Pain Management Interventions: medication (see MAR) rest quiet environment facilitated Intervention: Provide Person-Centered Care Flowsheets (Taken 12/21/2024 1235 by Magda Quintanilla RN) Trust Relationship/Rapport: empathic listening provided emotional support provided questions answered questions encouraged Goal: Readiness for Transition of Care Outcome: Ongoing, Progressing Intervention: Mutually Develop Transition Plan Flowsheets Taken 12/22/2024 1159 by Magda Quintanilla RN Equipment Currently Used at Home: walker, rolling Taken 12/21/2024 1235 by Magda Quintanilla RN Anticipated Changes Related to Illness: none Transportation Concerns: no car Concerns to be Addressed: no discharge needs identified Readmission Within the Last 30 Days: no previous admission in last 30 days Offered/Gave Vendor List: no Taken 12/17/2024 0852 by Olamide Lucero RN Transportation Anticipated: other (see comments) Patient/Family Anticipates Transition to: other (see comments) Taken 12/15/2024 0959 by Magda Quintanilla RN Equipment Needed After Discharge: walker, rollator Taken 12/13/2024 2312 by Michelle Junior RN Patient/Family Anticipated Services at Transition: mental health services Problem: Mobility Impairment Goal: Optimal Mobility Outcome: Ongoing, Progressing Intervention: Optimize Mobility Flowsheets Taken 12/24/2024 0800 by Amena Hess RN Activity Management: activity adjusted per tolerance Assistive Device Utilized: four wheel walker Taken 12/22/20242229 by Delano Nash RN Positioning/Transfer Devices: pillows Problem: Fall Injury Risk Goal: Absence of Fall and Fall-Related Injury Outcome: Ongoing, Progressing Intervention: Identify and Manage Contributors Flowsheets (Taken 12/22/2024 2230 by Delano Nash, OG) Medication Review/Management: medications reviewed Self-Care Promotion: independence encouraged BADL personal objects within reach Intervention: Promote Injury-Free Environment Flowsheets (Taken 12/24/2024 0800) Safety Promotion/Fall Prevention: activity supervised Problem: Pain Acute Goal: Optimal Pain Control and Function Outcome: Ongoing, Progressing Intervention: Optimize Psychosocial Wellbeing Flowsheets Taken 12/22/2024 1159 by Magda Quintanilla RN Diversional Activities: television Taken 12/21/2024 1235 by Magda Quintanilla RN Supportive Measures: self-care encouraged self-responsibility promoted Taken 12/14/2024 225 by Michelle Junior RN Spiritual Activities Assistance: personal rituals encouraged Intervention: Develop Pain Management Plan Flowsheets (Taken 12/19/2024 0612 by Heriberto Poe RN) Pain Management Interventions: medication (see MAR) rest quiet environment facilitated Intervention: Prevent or Manage Pain Flowsheets Taken 12/22/20242229 by Delano Nash RN Sensory Stimulation Regulation: care clustered quiet environment promoted Medication Review/Management: medications reviewed Taken 12/21/2024 0441 by Elham Tineo, RN Sleep/Rest Enhancement: awakenings minimized consistent schedule promoted Taken 12/16/2024 0007 by Michelle Junior RN Bowel Elimination Promotion: adequate fluid intake promoted Problem: Confusion Acute Goal: Optimal Cognitive Function Outcome: Ongoing, Progressing Intervention: Minimize Contributing Factors Flowsheets (Taken 12/22/20242229 by Delano Nash RN) Sensory Stimulation Regulation: care clustered quiet environment promoted Reorientation Measures: clock in view reorientation provided Environment Familiarity/Consistency: daily routine followed Communication Support Strategies: active listening utilized Problem: Skin Injury Risk Increased Goal: Skin Health and Integrity Outcome: Ongoing, Progressing Intervention: Optimize Skin Protection Flowsheets Taken 12/24/2024 0800 Activity Management: activity adjusted per tolerance Head of Bed (HOB) Positioning: HOB elevated Taken 12/23/2024 1400 Skin Protection: protective footwear used Intervention: Promote and Optimize Oral Intake Flowsheets (Taken 12/24/2024 0159 by Marilee Brunson RN) Oral Nutrition Promotion: rest periods promoted physical activity promoted * Care Plan - Marilee Brunson RN - 12/24/2024 2:02 AM EDT Problem: Adult Inpatient Plan of Care Goal: Plan of Care Review Outcome: Ongoing, Progressing Flowsheets Taken 12/22/2024 1159 by Magda Quintanilla RN Progress: improving Taken 12/21/2024 1235 by Magda Quintanilla RN Plan of Care Reviewed With: patient Taken 12/21/2024 044 by Elham Tineo RN Outcome Evaluation: Patient will be able to find placement post discharge from the hospital Note: Pt will be free from injury during my shift Goal: Patient-Specific Goal (Individualized) Outcome: Ongoing, Progressing Flowsheets (Taken 12/24/2024 0000) Patient/Family-Specific Goals (Include Timeframe): Pt will remain free from falls throughout entireshift Individualized Care Needs: Safety Anxieties, Fears or Concerns: none stated Goal: Absence of Hospital-Acquired Illness or Injury Outcome: Ongoing, Progressing Intervention: Identify and Manage Fall Risk Flowsheets (Taken 12/24/2024 0000) Safety Promotion/Fall Prevention: activity supervised Intervention: Prevent Skin Injury Flowsheets Taken 12/24/2024 0000 by Marilee Brunson RN Body Position: sitting up in bed weight shifting Taken 12/23/2024 1400 by Amena Hess RN Skin Protection: protective footwear used Intervention: Prevent and Manage VTE (Venous Thromboembolism) Risk Flowsheets (Taken 12/24/2024 0000) VTE Prevention/Management: medication Intervention: Prevent Infection Flowsheets (Taken 12/22/2024 1159 by Magda Quintanilla RN) Infection Prevention: environmental surveillance performed equipment surfaces disinfected hand hygiene promoted personal protective equipment utilized rest/sleep promoted Goal: Optimal Comfort and Wellbeing Outcome: Ongoing, Progressing Intervention: Monitor Pain and Promote Comfort Flowsheets (Taken 12/19/2024 0612 by Heriberto Poe RN) Pain Management Interventions: medication (see MAR) rest quiet environment facilitated Intervention: Provide Person-Centered Care Flowsheets (Taken 12/21/2024 1235 by Magda Quintanilla RN) Trust Relationship/Rapport: empathic listening provided emotional support provided questions answered questions encouraged Goal: Readiness for Transition of Care Outcome: Ongoing, Progressing Intervention: Mutually Develop Transition Plan Flowsheets Taken 12/22/2024 1159 by Magda Quintanilla RN Equipment Currently Used at Home: walker, rolling Taken 12/21/2024 1235 by Magda Quintanilla RN Anticipated Changes Related to Illness: none Transportation Concerns: no car Concerns to be Addressed: no discharge needs identified Readmission Within the Last 30 Days: no previous admission in last 30 days Offered/Gave Vendor List: no Taken 12/17/2024 3880 by Olamide Lucero RN Transportation Anticipated: other (see comments) Patient/Family Anticipates Transition to: other (see comments) Taken 12/15/2024 0959 by Magda Quintanilla RN Equipment Needed After Discharge: walker, rollator Taken 12/13/2024 2312 by Michelle Junior RN Patient/Family Anticipated Services at Transition: mental health services Problem: Mobility Impairment Goal: Optimal Mobility Outcome: Ongoing, Progressing Intervention: Optimize Mobility Flowsheets Taken 12/24/2024 0000 by Marilee Brunson RN Activity Management: activity adjusted per tolerance Assistive Device Utilized: four wheel walker Taken 12/22/20242229 by Delano Nash RN Positioning/Transfer Devices: pillows Problem: Fall Injury Risk Goal: Absence of Fall and Fall-Related Injury Outcome: Ongoing, Progressing Intervention: Identify and Manage Contributors Flowsheets (Taken 12/22/20242229 by Delano Nash, RN) Medication Review/Management: medications reviewed Self-Care Promotion: independence encouraged BADL personal objects within reach Intervention: Promote Injury-Free Environment Flowsheets (Taken 12/24/2024 0000) Safety Promotion/Fall Prevention: activity supervised Problem: Pain Acute Goal: Optimal Pain Control and Function Outcome: Ongoing, Progressing Intervention: Optimize Psychosocial Wellbeing Flowsheets Taken 12/22/2024 1159 by Magda Quintanilla RN Diversional Activities: television Taken 12/21/2024 1235 by Magda Quintanilla RN Supportive Measures: self-care encouraged self-responsibility promoted Taken 12/14/2024 2251 by Michelle Junior RN Spiritual Activities Assistance: personal rituals encouraged Intervention: Develop Pain Management Plan Flowsheets (Taken 12/19/2024 0612 by Heriberto Poe RN) Pain Management Interventions: medication (see MAR) rest quiet environment facilitated Intervention: Prevent or Manage Pain Flowsheets Taken 12/22/20242229 by Delano Nash RN Sensory Stimulation Regulation: care clustered quiet environment promoted Medication Review/Management: medications reviewed Taken 12/21/2024 0441 by Elham Tineo RN Sleep/Rest Enhancement: awakenings minimized consistent schedule promoted Taken 12/16/2024 0007 by Michelle Junior RN Bowel Elimination Promotion: adequate fluid intake promoted Problem: Confusion Acute Goal: Optimal Cognitive Function Outcome: Ongoing, Progressing Intervention: Minimize Contributing Factors Flowsheets (Taken 12/22/20242229 by Delano Nash RN) Sensory Stimulation Regulation: care clustered quiet environment promoted Reorientation Measures: clock in view reorientation provided Environment Familiarity/Consistency: daily routine followed Communication Support Strategies: active listening utilized Problem: Skin Injury Risk Increased Goal: Skin Health and Integrity Outcome: Ongoing, Progressing Intervention: Optimize Skin Protection Flowsheets Taken 12/24/2024 0000 by Marilee Brunson RN Activity Management: activity adjusted per tolerance Head of Bed (HOB) Positioning: HOB elevated Taken 12/23/2024 1400 by Amena Hess RN Skin Protection: protective footwear used Intervention: Promote and Optimize Oral Intake Flowsheets (Taken 12/24/2024 0159) Oral Nutrition Promotion: rest periods promoted physical activity promoted * Progress Notes - Loi Guzman MD - 12/23/2024 4:16 PM EDT Images from the original note were not included. [facility] Medicine Inpatient Progress Note Patient: Yen Perez PCP: Sneha, No Date: 12/23/2024 Length of stay: 11 days Subjective Seen and examined at the bedside. Patient was sitting comfortably. Denied any active complaints or needs. Appeared tangential and did not have insight into her medical problems No other acute complaints Objective INPATENT MEDICATIONS Current Medications[1] ALLERGIES Allergies[2] 24 HOUR VITALS Temp: [36.3 ??C (97.4 ??F)-36.8 ??C (98.3 ??F)] 36.8 ??C (98.2 ??F) Heart Rate: [61-107] 107 Resp: [16-18] 18 BP: (101-132)/(55-70) 114/68 INTAKE/OUTPUT Intake/Output Summary (Last 24 hours) at 12/23/2024 1616 Last data filed at 12/23/2024 0800 Gross per 24 hour Intake 480 ml Output -- Net 480 ml Physical Exam - GENERAL: No acute distress. Well-nourished. Pleasantly confused, paranoia, elated mood, speech isfast - EYES: EOMI. Anicteric. No exophthalmos - HENT: Moist mucous membranes. No scleral icterus. No cervical lymphadenopathy. No palpable thyroid - PULMONARY: Clear to auscultation bilaterally. No accessory muscle use. - CARDIOVASCULAR: Regular rate and rhythm. No murmur. No JVD. - ABDOMEN: Soft, non-tender and non-distended. No palpable masses. - MSK: No edema. Non-tender.? - SKIN: No rashes or lesions. Warm. - NEUROLOGIC: Alert and oriented x 4. No focal neurological deficits. CN II-XII grossly intact, butnot individually tested. - PSYCHIATRIC: Semi Cooperative. Not appropriate mood and affect. Review of Systems REVIEW OF LABORATORY DATA Lab Results Component Value Date WBC 5.67 12/18/2024 HGB 12.0 12/18/2024 HCT 36.1 12/18/2024 MCV 84 12/18/2024 PLT 224 12/18/2024 Lab Results Component Value Date GLUCOSE 129 (H) 12/18/2024 CALCIUM 9.2 12/18/2024 NA 140 12/18/2024 K 3.9 12/18/2024 CO2 26 12/18/2024 CL 105 12/18/2024 BUN 21 12/18/2024 CREATININE 0.74 12/18/2024 Lab Results Component Value Date ALT 17 12/10/2024 AST 20 12/10/2024 ALKPHOS 79 12/10/2024 BILITOT 0.3 12/10/2024 No results found for: INR , PROTIME , PTT REVIEW OF IMAGING STUDIES MR Head w and wo IV Contrast Narrative: CLINICAL INDICATION: Mental status change, unknown cause TECHNIQUE: Multiplanar multiecho sequences were performed through the brain utilizing T1 and T2 weighting, as well as either axial susceptibility weighted or gradient echo sequences, and axial diffusion weighted images. Imaging was performed with and without contrast administration: 6 mL of Gadavist. COMPARISON: CT head from 12/18/2024 FINDINGS: Diagnostic Quality: Mildly limited by motion.. No definite acute areas of ischemia on diffusion-weighted images or areas of hemorrhage on susceptibility-weighted images. The montes-white matter differentiation is within normal limits. Moderate prominence of the cerebral sulci and moderate to severe enlargement of the lateral ventricles is redemonstrated, no significantly changed. Patchy and other confluent areas of hyperintense T2 signal in the subcortical and periventricular white matter are noted and patchy signal within the barb is also demonstrated, nonspecific but likelychronic small vessel ischemia. The intracranial flow voids appear within normal limits. No definite extra-axial lesions are seen. There are no definite areas of abnormal enhancement. The orbits appear unremarkable except for prior lens surgery, note that evaluation is limited by motion. Impression: 1. No definite acute ischemic or hemorrhagic changes. No definite areas of abnormal enhancement. 2. Moderate brain atrophy. Out of proportion prominence of the lateral ventricles might represent acomponent of normal pressure hydrocephalus. Correlate clinically. 3. Mild to moderate white matter disease, nonspecific but likely representing chronic small vessel ischemia. CRITICAL RESULT: No. COMMUNICATION: Per this written report. Drafted by Kendall Barber MD on 12/21/2024 6:43 PM Final report signed by Kendall Barber MD on 12/21/2024 6:49 PM REVIEW OF PROCEDURES Assessment and Plan: 64 y.o. year-old female with PMH of MS, 2013 and bilateral breast cancer with mastectomy 2006, who was sent her to [facility] ED from [facility] or possible AFib. Patient was admitted to [facility] for AMS initially and was on a 72 hour hold. No history of psych disorders per patient. In ED, hemodynamically stable. EKG showed sinus arrhythmia with PACs, no AFib. Patient was orientedto person, time and place but was altered. Labs showed new hyperthyroidism. CT head reported: Enlarged ventricles including lateral, third, and fourth ventricles. Prominence of the sulci. Enlarged ventricles may be due to volume loss. Also had elevated troponin with significant delta of 12. No ischemic EKG changes. Cardiology was consulted Her only known medical history is multiple sclerosis reports that she was following Dr. Jones from 2013 to 2020 and then they stopped giving her medication because they told her there was no one else in [place] that treated multiple sclerosis. She does not take any medication at home. Denies alcohol or drug use and has not smoked for the past 9 years. Admitted for medical management of New onset Afib likely secondary to hyperthyroidism: Graves disease contributing to her irritability and confusion. MRI completed successfully and shows signs of NPHand brain atrophy. Altered mental status in presence of NPH with concerns for urinary tract infection/Graves disease/Psychosis/ MS -Imroved -Presented to [facility] ED from [facility] for AMS and cardiac concerns -CT head reported: Enlarged ventricles including lateral, third, and fourth ventricles. Prominence of the sulci. Enlarged ventricles may be due to volume loss. Possibility of normal pressure hydrocephalus could not be excluded. - MRI- Moderate brain atrophy. Out of proportion prominence of the lateral ventricles might represent a component of normal pressure hydrocephalus. Mild to moderate white matter disease, nonspecific but likely representing chronic small vessel ischemia. -Of note, patient last saw Dr. Jones in 2020. At that time, she had MRI imaging which showed enlarged ventricles. Documentation notes issues with gait instability and cognitive decline at that time. -CXR negative for acute findings -Ethanol level normal -Resp panel negative -Neurology consulted who recommended outpatient MRI head with and without contrast and follow up inNPH clinic. Also recommended follow-up with neuro criminal defense attorney for MS. Neurology said that psychosis with no neurological deficits is unlikely presentation of MS -UA suggestive of infection, s/p 3 doses of ceftriaxone with mixed urinary milagros on cultures as it was contaminated -ESR, CRP, procal, PTH, Cortisol, B1, Folate : Normal. UDS: Negative - Consulted Endocrinology considering low TSH as this could be the cause of acute confusion - TPO antibodies neg, TSI and TRAB elevated pointing towards Graves disease. Plan: - Delirium/fall precautions - Avoid anticholinergics, antihistamines, benzodiazepines, and opioids if able - Continue methimazole and she will follow up with Endocrinology outpatient for Graves disease -Will exclude psychiatric causes of her paranoia and irritability and continue to treat for Graves disease -Since she lives alone will talk to about safe discharge planning, currently lacks capacity and no family to take her. - Requested Neurology for inpatient follow up as outpatient clinic follow up seems unlikely at thispoint due to disposition problems. Neurology to decide on RAILROAD CONDUCTOR shunt benefit. Acute non ST-segment elevation myocardial infarction, suspect type 2 -Initial troponin 122, uptrended to 134, delta 12 -Collator Operator consulted who said that most likely it is type 2 NSTEMI -Echo showed normal EF with no acute abnormalities -No acute intervention needed Paroxysmal atrial fibrillation without RVR -Cardiology consulted on patient in ED and recommendations as below: - May be secondary to acute illness (hyperthyroidism) - VANESSA?DS?-VASc score: 2 - Rate controlled, on propranolol - Embolic prevention: ON DOAC - Per Cardiology: Obtain a 14 day Holter monitor on discharge to evaluate for Afib burden - Patient to follow up in cardiology clinic - Consider outpatient sleep study to evaluate for underlying sleep apnea Graves disease -Could also be contributing to encephalopathy -Patient reports no known history of this -TSH <0.01, TSI and TRAB elevated showing Graves disease -On methimazole per Endocrinology #Relapsing-Remitting Multiple Sclerosis -Neuro consulted in ED and performed exam Plan: -Needs to have appointment made with Neuro immunology outpatient to continue to follow -No neurological deficits with psychosis unlikely sec to MS as per Neurology although she does haveworsening gait Chronic Medical Conditions: #) Eczema Plan: -Triamcinolone to rash bid Patient has no close family. She has few cousins and a close friend who lives nearby. Primary contact is friend who told me that patient had gait instability for a few months. She also had dementia. She would go to christianity on weekdays, get lost in her own home town. Considering she has no family makes it a complicated case if she does not have capacity and can't be discharged home alone. We will unfortunately have to get state guardianship and decide plan of care. For now ruling out medical caseof personality change, irritability and paranoia Inpatient Checklist: - Antimicrobial de-escalation: s/p Ceftriaxone x 3 - Bowel regimen: Senna - Code status: Full Code - Diet: regular - DVT prophylaxis: Apixaban - Electrolytes: Replete PRN - Ulcer prophylaxis: N/A - Disposition: Not medically ready, still irritable and paranoia with unknown cause CODE STATUS: Full Code EMERGENCY CONTACT: Extended Emergency Contact Information Primary Emergency Contact: Yen Collins Mobile Relation: Friend Dr. Guzman food science professor Hospitalist Medicine All images were reviewed. All changes discussed with consultants. Outside records reviewed as applicable. Secure chat preferred. Assessment & Plan Altered mental status MS (multiple sclerosis) (CMS/FORMERLY [facility]) Abnormal finding on urinalysis Hyperthyroidism Eczema Altered mental status, unspecified altered mental status type [1] Current Facility-Administered Medications: acetaminophen (Tylenol) tablet 650 mg, 650 mg, Oral, q8h PRN, Loi Guzman MD apixaban (Eliquis) tablet 5 mg, 5 mg, Oral, BID, Loi Guzman MD, 5 mg at 12/23/24 0826 bisacodyl (Dulcolax) EC tablet 10 mg, 10 mg, Oral, Daily PRN, Amanda Maddox APRN melatonin tablet 6 mg, 6 mg, Oral, Nightly, Wu Newby MD, 6 mg at 12/22/24 213 methIMAzole (Tapazole) tablet 10 mg, 10 mg, Oral, BID, Wu Newby MD, 10 mg at 12/23/24 08 propranolol (Inderal) tablet 10 mg, 10 mg, Oral, BID, Wu Newby MD, 10 mg at 12/23/24 08 senna (Senokot) tablet 8.6 mg, 8.6 mg, Oral, Nightly, Wu Newby MD, 8.6 mg at 12/22/24 213 Insert peripheral IV, , , Once AND Saline lock IV, , , Once AND sodium chloride 0.9 % flush10 mL, 10 mL, Intravenous, q12h, 10 mL at 12/22/24 1044 AND sodium chloride 0.9 % flush 10 mL, 10 mL, Intravenous, PRN, Amanda Maddox, BUFFING AND POLISHING WHEEL REPAIRER, 10 mL at 12/13/24 0838 triamcinolone (Kenalog) 0.1 % cream 1 Application, 1 Application, Topical, BID, Amanda Maddox, BUFFING AND POLISHING WHEEL REPAIRER, 1 Application at 12/23/24 1059 [2] No Known Allergies * Progress Notes - Analilia Hill - 12/23/2024 1:54 PM EDT Music Therapy Note Subjective: Patient Presented: Reclining in bed Initial Behavioral Presentation: Neutral Intrasession Behavioral Presentation: Neutral, Positive After Disposition/ Affect: Positive Treatment Goals & Interventions: Increase: Autonomy & control, Supportive environment, Socialization, Self-expression Decrease: Confusion, Impact of length of stay Music Therapy Interventions: Choice making, Information recall, Music-based discussion, Reminiscing Communications: Methods: Verbalizations Responses: Making choices, Positive comments about the music, Indifference, Memories Behavioral Observations: Responses: Active Listening, Engaging in discussion, Eye contact, Making choices, Smiling, Reminiscing Engagement Level: Active Engagement Musical Responses: Musical Responses: Mouthing lyrics Comments: Comments: Pt hesitantly accepted MT session and stated, I will be a good audience and clap for you. MT-BC provided treatment based education about MT services; pt acknowledged understanding. Pt shared about her long hospitalization and briefly discussed her frustration with losing her autonomy. Pt suggested MT sing and play oldies. While MT-BC played and sang songs chosen by pt, pt occasionally mouthed the lyrics and expressed much enjoyment of the music. Pt stated, I'm sorry I can not give you anything. I have a remberto to my name. Pt reminised about moving here 12 years ago after a divorce and indicated she is still in touch with her step daughter. Pt smiled briefly while recalling memories, especially when talking about her former two cats. Pt initiated end of session due to needing to use the bathroom. Pt stated, I am really glad you stopped by. Length of Visit: Length of Visit: 38 min Plan of Care: Plan of Care: Continue to address above goals and additional goals as appropriate during hospitalization * Care Plan - Amena Hess RN - 12/23/2024 11:37 AM EDT Problem: Adult Inpatient Plan of Care Goal: Plan of Care Review Outcome: Ongoing, Progressing Flowsheets Taken 12/22/2024 1159 by Magda Quintanilla RN Progress: improving Taken 12/21/2024 1235 by Magda Quintanilla RN Plan of Care Reviewed With: patient Taken 12/21/2024 0441 by Elham Tineo RN Outcome Evaluation: Patient will be able to find placement post discharge from the hospital Goal: Patient-Specific Goal (Individualized) Outcome: Ongoing, Progressing Flowsheets (Taken 12/23/2024 08) Patient/Family-Specific Goals (Include Timeframe): Pt will remain free from falls throughout entireshift Individualized Care Needs: Safety Anxieties, Fears or Concerns: none stated Goal: Absence of Hospital-Acquired Illness or Injury Outcome: Ongoing, Progressing Intervention: Identify and Manage Fall Risk Flowsheets (Taken 12/23/2024 0800) Safety Promotion/Fall Prevention: activity supervised Intervention: Prevent Skin Injury Flowsheets Taken 12/23/2024 08 by Amena Hess RN Body Position: sitting up in bed weight shifting Taken 12/22/2024 1159 by Magda Quintanilla RN Skin Protection: protective footwear used Intervention: Prevent and Manage VTE (Venous Thromboembolism) Risk Flowsheets (Taken 12/23/2024 0800) VTE Prevention/Management: medication Intervention: Prevent Infection Flowsheets (Taken 12/22/2024 1159 by Magda Quintanilla RN) Infection Prevention: environmental surveillance performed equipment surfaces disinfected hand hygiene promoted personal protective equipment utilized rest/sleep promoted Goal: Optimal Comfort and Wellbeing Outcome: Ongoing, Progressing Intervention: Monitor Pain and Promote Comfort Flowsheets (Taken 12/19/2024 0612 by Heriberto Poe RN) Pain Management Interventions: medication (see MAR) rest quiet environment facilitated Intervention: Provide Person-Centered Care Flowsheets (Taken 12/21/2024 1235 by Magda Quintanilla RN) Trust Relationship/Rapport: empathic listening provided emotional support provided questions answered questions encouraged Goal: Readiness for Transition of Care Outcome: Ongoing, Progressing Intervention: Mutually Develop Transition Plan Flowsheets Taken 12/22/2024 1159 by Magda Quintanilla RN Equipment Currently Used at Home: walker, rolling Taken 12/21/2024 1235 by Magda Quintanilla RN Anticipated Changes Related to Illness: none Transportation Concerns: no car Concerns to be Addressed: no discharge needs identified Readmission Within the Last 30 Days: no previous admission in last 30 days Offered/Gave Vendor List: no Taken 12/17/2024 0852 by Olamide Lucero RN Transportation Anticipated: other (see comments) Patient/Family Anticipates Transition to: other (see comments) Taken 12/15/2024 0959 by Magda Quintanilla RN Equipment Needed After Discharge: walker, rollator Taken 12/13/2024 2312 by Michelle Junior RN Patient/Family Anticipated Services at Transition: mental health services Problem: Mobility Impairment Goal: Optimal Mobility Outcome: Ongoing, Progressing Intervention: Optimize Mobility Flowsheets Taken 12/23/2024 08 by Amena Hess RN Activity Management: activity adjusted per tolerance Assistive Device Utilized: four wheel walker Taken 12/22/20242229 by Delano Nash RN Positioning/Transfer Devices: pillows Problem: Fall Injury Risk Goal: Absence of Fall and Fall-Related Injury Outcome: Ongoing, Progressing Intervention: Identify and Manage Contributors Flowsheets (Taken 12/22/20242229 by Delano Nash, RN) Medication Review/Management: medications reviewed Self-Care Promotion: independence encouraged BADL personal objects within reach Intervention: Promote Injury-Free Environment Flowsheets (Taken 12/23/2024 0800) Safety Promotion/Fall Prevention: activity supervised Problem: Pain Acute Goal: Optimal Pain Control and Function Outcome: Ongoing, Progressing Intervention: Optimize Psychosocial Wellbeing Flowsheets Taken 12/22/2024 1159 by Magda Quintanilla RN Diversional Activities: television Taken 12/21/2024 1235 by Magda Quintanilla RN Supportive Measures: self-care encouraged self-responsibility promoted Taken 12/14/2024 2251 by Michelle Junior RN Spiritual Activities Assistance: personal rituals encouraged Intervention: Develop Pain Management Plan Flowsheets (Taken 12/19/2024 0612 by Heriberto Poe, OG) Pain Management Interventions: medication (see MAR) rest quiet environment facilitated Intervention: Prevent or Manage Pain Flowsheets Taken 12/22/20242229 by Delano Nash RN Sensory Stimulation Regulation: care clustered quiet environment promoted Medication Review/Management: medications reviewed Taken 12/21/2024 0441 by Elham Tineo, OG Sleep/Rest Enhancement: awakenings minimized consistent schedule promoted Taken 12/16/2024 0007 by Michelle Junior RN Bowel Elimination Promotion: adequate fluid intake promoted Problem: Confusion Acute Goal: Optimal Cognitive Function Outcome: Ongoing, Progressing Intervention: Minimize Contributing Factors Flowsheets (Taken 12/22/20242229 by Delano Nash RN) Sensory Stimulation Regulation: care clustered quiet environment promoted Reorientation Measures: clock in view reorientation provided Environment Familiarity/Consistency: daily routine followed Communication Support Strategies: active listening utilized * Progress Notes - Maria R Babin RN - 12/23/2024 10:09 AM EDT Case Management Adult Progress Note Yen Perez 64 y.o. female CSN: [id number] Admission: 12/10/2024 3:51 PM Primary Problem: Altered mental status Anticipated Discharge Date: TBD Discussed with multidsicplinary team, per attending phyisician dr. Guzman pt is not medically readyto d/c. Discussed referral to [facility] as pt is pending improvement in cognition and will need decisional capacity re-eval once appropriate. Pt does not have any family that is able or willing to provide c are/assistance for the pt. RN CM will continue to follow and assist with d/c plan and as needed. Maria R Babin RN * Care Plan - Delano Nash RN - 12/22/2024 10:31 PM EDT Problem: Adult Inpatient Plan of Care Goal: Patient-Specific Goal (Individualized) Outcome: Ongoing, Progressing Flowsheets (Taken 12/22/20241999) Patient/Family-Specific Goals (Include Timeframe): pt will remain free from injury through shift using frequent rounding Individualized Care Needs: safety Anxieties, Fears or Concerns: none stated Problem: Mobility Impairment Goal: Optimal Mobility Outcome: Ongoing, Progressing Intervention: Optimize Mobility Flowsheets (Taken 12/22/20242229) Activity Management: activity adjusted per tolerance Assistive Device Utilized: front wheel walker Positioning/Transfer Devices: pillows Problem: Fall Injury Risk Goal: Absence of Fall and Fall-Related Injury Outcome: Ongoing, Progressing Intervention: Identify and Manage Contributors Flowsheets (Taken 12/22/20242229) Medication Review/Management: medications reviewed Self-Care Promotion: independence encouraged BADL personal objects within reach Intervention: Promote Injury-Free Environment Flowsheets (Taken 12/22/20242229) Safety Promotion/Fall Prevention: activity supervised Problem: Confusion Acute Goal: Optimal Cognitive Function Outcome: Ongoing, Progressing Intervention: Minimize Contributing Factors Flowsheets (Taken 12/22/20242229) Sensory Stimulation Regulation: care clustered quiet environment promoted Reorientation Measures: clock in view reorientation provided Environment Familiarity/Consistency: daily routine followed Communication Support Strategies: active listening utilized * Progress Notes - Loi Guzman MD - 12/22/2024 2:18 PM EDT Images from the original note were not included. [facility] Medicine Inpatient Progress Note Patient: Yen Perez PCP: Yen Hoover Date: 12/22/2024 Length of stay: 10 days Subjective Seen and examined at the bedside. Patient was sitting comfortably. Denied any active complaints or needs. Appeared tangential and did not have insight into her medical problems No other acute complaints Objective INPATENT MEDICATIONS Current Medications[1] ALLERGIES Allergies[2] 24 HOUR VITALS Temp: [36.4 ??C (97.5 ??F)-36.9 ??C (98.4 ??F)] 36.9 ??C (98.4 ??F) Heart Rate: [62-80] 80 Resp: [16-18] 16 BP: (94-138)/(53-65) 105/64 INTAKE/OUTPUT Intake/Output Summary (Last 24 hours) at 12/22/2024 1418 Last data filed at 12/22/2024 0800 Gross per 24 hour Intake 580 ml Output -- Net 580 ml Physical Exam - GENERAL: No acute distress. Well-nourished. Pleasantly confused, paranoia, elated mood, speech isfast - EYES: EOMI. Anicteric. No exophthalmos - HENT: Moist mucous membranes. No scleral icterus. No cervical lymphadenopathy. No palpable thyroid - PULMONARY: Clear to auscultation bilaterally. No accessory muscle use. - CARDIOVASCULAR: Regular rate and rhythm. No murmur. No JVD. - ABDOMEN: Soft, non-tender and non-distended. No palpable masses. - MSK: No edema. Non-tender.? - SKIN: No rashes or lesions. Warm. - NEUROLOGIC: Alert and oriented x 4. No focal neurological deficits. CN II-XII grossly intact, butnot individually tested. - PSYCHIATRIC: Semi Cooperative. Not appropriate mood and affect. Review of Systems REVIEW OF LABORATORY DATA Lab Results Component Value Date WBC 5.67 12/18/2024 HGB 12.0 12/18/2024 HCT 36.1 12/18/2024 MCV 84 12/18/2024 PLT 224 12/18/2024 Lab Results Component Value Date GLUCOSE 129 (H) 12/18/2024 CALCIUM 9.2 12/18/2024 NA 140 12/18/2024 K 3.9 12/18/2024 CO2 26 12/18/2024 CL 105 12/18/2024 BUN 21 12/18/2024 CREATININE 0.74 12/18/2024 Lab Results Component Value Date ALT 17 12/10/2024 AST 20 12/10/2024 ALKPHOS 79 12/10/2024 BILITOT 0.3 12/10/2024 No results found for: INR , PROTIME , PTT REVIEW OF IMAGING STUDIES MR Head w and wo IV Contrast Narrative: CLINICAL INDICATION: Mental status change, unknown cause TECHNIQUE: Multiplanar multiecho sequences were performed through the brain utilizing T1 and T2 weighting, as well as either axial susceptibility weighted or gradient echo sequences, and axial diffusion weighted images. Imaging was performed with and without contrast administration: 6 mL of Gadavist. COMPARISON: CT head from 12/18/2024 FINDINGS: Diagnostic Quality: Mildly limited by motion.. No definite acute areas of ischemia on diffusion-weighted images or areas of hemorrhage on susceptibility-weighted images. The montes-white matter differentiation is within normal limits. Moderate prominence of the cerebral sulci and moderate to severe enlargement of the lateral ventricles is redemonstrated, no significantly changed. Patchy and other confluent areas of hyperintense T2 signal in the subcortical and periventricular white matter are noted and patchy signal within the barb is also demonstrated, nonspecific but likelychronic small vessel ischemia. The intracranial flow voids appear within normal limits. No definite extra-axial lesions are seen. There are no definite areas of abnormal enhancement. The orbits appear unremarkable except for prior lens surgery, note that evaluation is limited by motion. Impression: 1. No definite acute ischemic or hemorrhagic changes. No definite areas of abnormal enhancement. 2. Moderate brain atrophy. Out of proportion prominence of the lateral ventricles might represent acomponent of normal pressure hydrocephalus. Correlate clinically. 3. Mild to moderate white matter disease, nonspecific but likely representing chronic small vessel ischemia. CRITICAL RESULT: No. COMMUNICATION: Per this written report. Drafted by Kendall Barber MD on 12/21/2024 6:43 PM Final report signed by Kendall Barber MD on 12/21/2024 6:49 PM REVIEW OF PROCEDURES Assessment and Plan: 64 y.o. year-old female with PMH of MS, 2013 and bilateral breast cancer with mastectomy 2006, who was sent her to [facility] ED from [facility] or possible AFib. Patient was admitted to [facility] for AMS initially and was on a 72 hour hold. No history of psych disorders per patient. In ED, hemodynamically stable. EKG showed sinus arrhythmia with PACs, no AFib. Patient was orientedto person, time and place but was altered. Labs showed new hyperthyroidism. CT head reported: Enlarged ventricles including lateral, third, and fourth ventricles. Prominence of the sulci. Enlarged ventricles may be due to volume loss. Also had elevated troponin with significant delta of 12. No ischemic EKG changes. Cardiology was consulted Her only known medical history is multiple sclerosis reports that she was following Dr. Jones from 2013 to 2020 and then they stopped giving her medication because they told her there was no one else in [place] that treated multiple sclerosis. She does not take any medication at home. Denies alcohol or drug use and has not smoked for the past 9 years. Admitted for medical management of New onset Afib likely secondary to hyperthyroidism: Graves disease contributing to her irritability and confusion. MRI completed successfully. Altered mental status in presence of NPH with concerns for urinary tract infection/Graves disease/Psychosis/ MS -Imroved -Presented to [facility] ED from [facility] for AMS and cardiac concerns -CT head reported: Enlarged ventricles including lateral, third, and fourth ventricles. Prominence of the sulci. Enlarged ventricles may be due to volume loss. Possibility of normal pressure hydrocephalus could not be excluded. - MRI- Moderate brain atrophy. Out of proportion prominence of the lateral ventricles might represent a component of normal pressure hydrocephalus. Mild to moderate white matter disease, nonspecific but likely representing chronic small vessel ischemia. -Of note, patient last saw Dr. Jones in 2020. At that time, she had MRI imaging which showed enlarged ventricles. Documentation notes issues with gait instability and cognitive decline at that time. -CXR negative for acute findings -Ethanol level normal -Resp panel negative -Neurology consulted who recommended outpatient MRI head with and without contrast and follow up inNPH clinic. Also recommended follow-up with neuro criminal defense attorney for MS. Neurology said that psychosis with no neurological deficits is unlikely presentation of MS -UA suggestive of infection, s/p 3 doses of ceftriaxone with mixed urinary milagros on cultures as it was contaminated -ESR, CRP, procal, PTH, Cortisol, B1, Folate : Normal. UDS: Negative - Consulted Endocrinology considering low TSH as this could be the cause of acute confusion - TPO antibodies neg, TSI and TRAB elevated pointing towards Graves disease. Plan: - Delirium/fall precautions - Avoid anticholinergics, antihistamines, benzodiazepines, and opioids if able - Continue methimazole and she will follow up with Endocrinology outpatient for Graves disease -Will exclude psychiatric causes of her paranoia and irritability and continue to treat for Graves disease -Since she lives alone will talk to CM about safe discharge planning, currently lacks capacity and no family to take her. Acute non ST-segment elevation myocardial infarction, suspect type 2 -Initial troponin 122, uptrended to 134, delta 12 -Collator Operator consulted who said that most likely it is type 2 NSTEMI -Echo showed normal EF with no acute abnormalities -No acute intervention needed Paroxysmal atrial fibrillation without RVR -Cardiology consulted on patient in ED and recommendations as below: - May be secondary to acute illness (hyperthyroidism) - VANESSA?DS?-VASc score: 2 - Rate controlled, on propranolol - Embolic prevention: ON DOAC - Per Cardiology: Obtain a 14 day Holter monitor on discharge to evaluate for Afib burden - Patient to follow up in cardiology clinic - Consider outpatient sleep study to evaluate for underlying sleep apnea Graves disease -Could also be contributing to encephalopathy -Patient reports no known history of this -TSH <0.01, TSI and TRAB elevated showing Graves disease -On methimazole per Endocrinology #Relapsing-Remitting Multiple Sclerosis -Neuro consulted in ED and performed exam Plan: -Needs to have appointment made with Neuro immunology outpatient to continue to follow -No neurological deficits with psychosis unlikely sec to MS as per Neurology although she does haveworsening gait Chronic Medical Conditions: #) Eczema Plan: -Triamcinolone to rash bid Patient has no close family. She has few cousins and a close friend who lives nearby. Primary contact is friend who told me that patient had gait instability for a few months. She also had dementia. She would go to christianity on weekdays, get lost in her own home town. Considering she has no family makes it a complicated case if she does not have capacity and can't be discharged home alone. We will unfortunately have to get state guardianship and decide plan of care. For now ruling out medical caseof personality change, irritability and paranoia Inpatient Checklist: - Antimicrobial de-escalation: s/p Ceftriaxone x 3 - Bowel regimen: Senna - Code status: Full Code - Diet: regular - DVT prophylaxis: Apixaban - Electrolytes: Replete PRN - Ulcer prophylaxis: N/A - Disposition: Not medically ready, still irritable and paranoia with unknown cause CODE STATUS: Full Code EMERGENCY CONTACT: Extended Emergency Contact Information Primary Emergency Contact: Yen Collins Mobile Relation: Friend Dr. Guzman food science professor Hospitalist Medicine All images were reviewed. All changes discussed with consultants. Outside records reviewed as applicable. Secure chat preferred. Assessment & Plan Altered mental status MS (multiple sclerosis) (CMS/HCC) Abnormal finding on urinalysis Hyperthyroidism Eczema Altered mental status, unspecified altered mental status type [1] Current Facility-Administered Medications: acetaminophen (Tylenol) tablet 650 mg, 650 mg, Oral, q8h PRN, Loi Guzman MD apixaban (Eliquis) tablet 5 mg, 5 mg, Oral, BID, Loi Guzman MD, 5 mg at 12/22/24913 bisacodyl (Dulcolax) EC tablet 10 mg, 10 mg, Oral, Daily PRN, Amanda Maddox, BU[employer]ING [employer]ING WHEEL REPAIRER melatonin tablet 6 mg, 6 mg, Oral, Nightly, Wu Newby MD, 6 mg at 12/21/242021 methIMAzole (Tapazole) tablet 10 mg, 10 mg, Oral, BID, Wu Newby MD, 10 mg at 12/22/24913 propranolol (Inderal) tablet 10 mg, 10 mg, Oral, BID, Wu Newby MD, 10 mg at 12/22/24913 senna (Senokot) tablet 8.6 mg, 8.6 mg, Oral, Nightly, Wu Newby MD, 8.6 mg at 12/21/242021 Insert peripheral IV, , , Once AND Saline lock IV, , , Once AND sodium chloride 0.9 % flush10 mL, 10 mL, Intravenous, q12h, 10 mL at 12/22/24 1044 AND sodium chloride 0.9 % flush 10 mL, 10 mL, Intravenous, PRN, Amanda Maddox, [employer]ING [employer]ING WHEEL REPAIRER, 10 mL at 12/13/24 0838 triamcinolone (Kenalog) 0.1 % cream 1 Application, 1 Application, Topical, BID, VarshaAmanda gallegos, BU[employer]ING AND [employer]ING WHEEL REPAIRER, 1 Application at 12/22/24 0915 [2] No Known Allergies * Care Plan - Magda Quintanilla RN - 12/22/2024 12:03 PM EDT Problem: Adult Inpatient Plan of Care Goal: Plan of Care Review Outcome: Ongoing, Progressing Flowsheets Taken 12/22/2024 115 Progress: improving Taken 12/21/2024 1235 Plan of Care Reviewed With: patient Goal: Patient-Specific Goal (Individualized) Outcome: Ongoing, Progressing Flowsheets (Taken 12/22/2024 08) Patient/Family-Specific Goals (Include Timeframe): patient will remain free from injury throughout shift Individualized Care Needs: safety Anxieties, Fears or Concerns: denies Goal: Absence of Hospital-Acquired Illness or Injury Outcome: Ongoing, Progressing Intervention: Identify and Manage Fall Risk Flowsheets (Taken 12/22/2024 08) Safety Promotion/Fall Prevention: activity supervised assistive device/personal items within reach clutter-free environment maintained fall prevention program maintained lighting adjusted mobility aid in reach nonskid shoes/slippers when out of bed room organization consistent Intervention: Prevent Skin Injury Flowsheets Taken 12/22/2024 115 Skin Protection: protective footwear used Taken 12/22/2024799 Body Position: sitting up in bed Intervention: Prevent and Manage VTE (Venous Thromboembolism) Risk Flowsheets (Taken 12/22/2024 115) VTE Prevention/Management: SCDs (sequential compression devices) off patient refused intervention Intervention: Prevent Infection Flowsheets (Taken 12/22/2024 115) Infection Prevention: environmental surveillance performed equipment surfaces disinfected hand hygiene promoted personal protective equipment utilized rest/sleep promoted Goal: Optimal Comfort and Wellbeing Outcome: Ongoing, Progressing Intervention: Monitor Pain and Promote Comfort Flowsheets (Taken 12/22/2024 1159) Pain Management Interventions: care clustered emotional support pillow support provided position adjusted Intervention: Provide Person-Centered Care Flowsheets (Taken 12/21/2024 1235) Trust Relationship/Rapport: empathic listening provided emotional support provided questions answered questions encouraged Goal: Readiness for Transition of Care Outcome: Ongoing, Progressing Intervention: Mutually Develop Transition Plan Flowsheets Taken 12/22/2024 1159 Equipment Currently Used at Home: walker, rolling Taken 12/21/2024 1235 Readmission Within the Last 30 Days: no previous admission in last 30 days Problem: Mobility Impairment Goal: Optimal Mobility Outcome: Ongoing, Progressing Intervention: Optimize Mobility Flowsheets Taken 12/22/2024 0800 Activity Management: activity adjusted per tolerance ambulated in room ambulated to bathroom Taken 12/21/2024 1235 Positioning/Transfer Devices: pillows repositioning sheet Problem: Fall Injury Risk Goal: Absence of Fall and Fall-Related Injury Outcome: Ongoing, Progressing Intervention: Identify and Manage Contributors Flowsheets (Taken 12/22/2024 1159) Medication Review/Management: medications reviewed Self-Care Promotion: independence encouraged BADL personal objects within reach meal set-up provided Intervention: Promote Injury-Free Environment Flowsheets (Taken 12/22/2024 0800) Safety Promotion/Fall Prevention: activity supervised assistive device/personal items within reach clutter-free environment maintained fall prevention program maintained lighting adjusted mobility aid in reach nonskid shoes/slippers when out of bed room organization consistent Problem: Pain Acute Goal: Optimal Pain Control and Function Outcome: Ongoing, Progressing Intervention: Optimize Psychosocial Wellbeing Flowsheets Taken 12/22/2024 1159 Diversional Activities: television Taken 12/21/2024 1235 Supportive Measures: self-care encouraged self-responsibility promoted Intervention: Develop Pain Management Plan Flowsheets (Taken 12/22/2024 1159) Pain Management Interventions: care clustered emotional support pillow support provided position adjusted Intervention: Prevent or Manage Pain Flowsheets (Taken 12/22/2024 1159) Sensory Stimulation Regulation: care clustered quiet environment promoted television on Medication Review/Management: medications reviewed Problem: Confusion Acute Goal: Optimal Cognitive Function Outcome: Ongoing, Progressing Intervention: Minimize Contributing Factors Flowsheets (Taken 12/22/2024 1159) Sensory Stimulation Regulation: care clustered quiet environment promoted television on Reorientation Measures: clock in view reorientation provided Environment Familiarity/Consistency: daily routine followed Communication Support Strategies: active listening utilized * Care Plan - Delano Nash RN - 12/21/2024 11:04 PM EDT Problem: Adult Inpatient Plan of Care Goal: Patient-Specific Goal (Individualized) Outcome: Ongoing, Progressing Flowsheets (Taken 12/21/20241999) Patient/Family-Specific Goals (Include Timeframe): pt will remain free from injury through shift using frequent rounding Individualized Care Needs: safety Anxieties, Fears or Concerns: none stated Problem: Fall Injury Risk Goal: Absence of Fall and Fall-Related Injury Outcome: Ongoing, Progressing Intervention: Identify and Manage Contributors Flowsheets (Taken 12/21/20242302) Medication Review/Management: medications reviewed Self-Care Promotion: independence encouraged BADL personal objects within reach Intervention: Promote Injury-Free Environment Flowsheets (Taken 12/21/2024 2303) Safety Promotion/Fall Prevention: activity supervised Problem: Confusion Acute Goal: Optimal Cognitive Function Outcome: Ongoing, Progressing Intervention: Minimize Contributing Factors Flowsheets (Taken 12/21/20242302) Sensory Stimulation Regulation: care clustered lighting decreased quiet environment promoted Reorientation Measures: clock in view reorientation provided Environment Familiarity/Consistency: daily routine followed familiar objects from home provided Communication Support Strategies: active listening utilized * Care Plan - Magda Quintanilla RN - 12/21/2024 12:40 PM EDT Problem: Adult Inpatient Plan of Care Goal: Plan of Care Review Outcome: Ongoing, Progressing Flowsheets (Taken 12/21/2024 1235) Progress: improving Plan of Care Reviewed With: patient Goal: Patient-Specific Goal (Individualized) Outcome: Ongoing, Progressing Flowsheets (Taken 12/21/2024 0845) Patient/Family-Specific Goals (Include Timeframe): provide education on MRI procedure before patient goes during shift Individualized Care Needs: educate r/t MRI Anxieties, Fears or Concerns: concerns with MRI procedure Goal: Absence of Hospital-Acquired Illness or Injury Outcome: Ongoing, Progressing Intervention: Identify and Manage Fall Risk Flowsheets (Taken 12/21/2024 0845) Safety Promotion/Fall Prevention: activity supervised assistive device/personal items within reach clutter-free environment maintained fall prevention program maintained lighting adjusted mobility aid in reach nonskid shoes/slippers when out of bed room organization consistent safety round/check completed toileting scheduled Goal: Optimal Comfort and Wellbeing Outcome: Ongoing, Progressing Intervention: Monitor Pain and Promote Comfort Flowsheets (Taken 12/21/2024 1235) Pain Management Interventions: medication (see MAR) quiet environment facilitated relaxation techniques promoted pillow support provided Intervention: Provide Person-Centered Care Flowsheets (Taken 12/21/2024 1235) Trust Relationship/Rapport: empathic listening provided emotional support provided questions answered questions encouraged Goal: Readiness for Transition of Care Outcome: Ongoing, Progressing Intervention: Mutually Develop Transition Plan Flowsheets (Taken 12/21/2024 1235) Anticipated Changes Related to Illness: none Transportation Concerns: no car Concerns to be Addressed: no discharge needs identified Readmission Within the Last 30 Days: no previous admission in last 30 days Offered/Gave Vendor List: no Problem: Mobility Impairment Goal: Optimal Mobility Outcome: Ongoing, Progressing Intervention: Optimize Mobility Flowsheets (Taken 12/21/2024 1235) Activity Management: activity adjusted per tolerance Positioning/Transfer Devices: pillows repositioning sheet Problem: Fall Injury Risk Goal: Absence of Fall and Fall-Related Injury Outcome: Ongoing, Progressing Intervention: Identify and Manage Contributors Flowsheets (Taken 12/21/2024 1235) Medication Review/Management: medications reviewed Self-Care Promotion: independence encouraged BADL personal objects within reach Intervention: Promote Injury-Free Environment Flowsheets (Taken 12/21/2024 0845) Safety Promotion/Fall Prevention: activity supervised assistive device/personal items within reach clutter-free environment maintained fall prevention program maintained lighting adjusted mobility aid in reach nonskid shoes/slippers when out of bed room organization consistent safety round/check completed toileting scheduled Problem: Pain Acute Goal: Optimal Pain Control and Function Outcome: Ongoing, Progressing Intervention: Optimize Psychosocial Wellbeing Flowsheets (Taken 12/21/2024 1235) Supportive Measures: self-care encouraged self-responsibility promoted Diversional Activities: television Intervention: Develop Pain Management Plan Flowsheets (Taken 12/21/2024 1235) Pain Management Interventions: medication (see MAR) quiet environment facilitated relaxation techniques promoted pillow support provided Intervention: Prevent or Manage Pain Flowsheets (Taken 12/21/2024 123) Sensory Stimulation Regulation: care clustered lighting decreased quiet environment promoted television on Medication Review/Management: medications reviewed Problem: Confusion Acute Goal: Optimal Cognitive Function Outcome: Ongoing, Progressing Intervention: Minimize Contributing Factors Flowsheets (Taken 12/21/2024 123) Sensory Stimulation Regulation: care clustered lighting decreased quiet environment promoted television on Environment Familiarity/Consistency: daily routine followed Communication Support Strategies: active listening utilized * Progress Notes - Loi Guzman MD - 12/21/2024 11:23 AM EDT Images from the original note were not included. [facility] Medicine Inpatient Progress Note Patient: Yen Perez PCP: Yen Hoover Date: 12/21/2024 Length of stay: 9 days Subjective Seen and examined at the bedside. Patient was sitting comfortably. Denied any active complaints or needs. Appeared tangential and did not have insight into her medical problems Mri findings shared with the patient No other acute complaints Objective INPATENT MEDICATIONS Current Medications[1] ALLERGIES Allergies[2] 24 HOUR VITALS Temp: [36.4 ??C (97.6 ??F)-36.9 ??C (98.5 ??F)] 36.6 ??C (97.9 ??F) Heart Rate: [60-82] 60 Resp: [16-20] 18 BP: (106-132)/(53-71) 106/53 INTAKE/OUTPUT Intake/Output Summary (Last 24 hours) at 12/21/2024 1123 Last data filed at 12/20/20241999 Gross per 24 hour Intake 480 ml Output -- Net 480 ml Physical Exam - GENERAL: No acute distress. Well-nourished. Pleasantly confused, paranoia, elated mood, speech isfast - EYES: EOMI. Anicteric. No exophthalmos - HENT: Moist mucous membranes. No scleral icterus. No cervical lymphadenopathy. No palpable thyroid - PULMONARY: Clear to auscultation bilaterally. No accessory muscle use. - CARDIOVASCULAR: Regular rate and rhythm. No murmur. No JVD. - ABDOMEN: Soft, non-tender and non-distended. No palpable masses. - MSK: No edema. Non-tender.? - SKIN: No rashes or lesions. Warm. - NEUROLOGIC: Alert and oriented x 4. No focal neurological deficits. CN II-XII grossly intact, butnot individually tested. - PSYCHIATRIC: Semi Cooperative. Not appropriate mood and affect. Review of Systems REVIEW OF LABORATORY DATA Lab Results Component Value Date WBC 5.67 12/18/2024 HGB 12.0 12/18/2024 HCT 36.1 12/18/2024 MCV 84 12/18/2024 PLT 224 12/18/2024 Lab Results Component Value Date GLUCOSE 129 (H) 12/18/2024 CALCIUM 9.2 12/18/2024 NA 140 12/18/2024 K 3.9 12/18/2024 CO2 26 12/18/2024 CL 105 12/18/2024 BUN 21 12/18/2024 CREATININE 0.74 12/18/2024 Lab Results Component Value Date ALT 17 12/10/2024 AST 20 12/10/2024 ALKPHOS 79 12/10/2024 BILITOT 0.3 12/10/2024 No results found for: INR , PROTIME , PTT REVIEW OF IMAGING STUDIES Imaging MRI Procedure Not Performed This procedure was not performed. Procedure: MR HEAD W AND WO IV CONTRAST Reason: Other Patient needs to be A&O for MRI due to FB in abd/pelvis. REVIEW OF PROCEDURES Assessment and Plan: 64 y.o. year-old female with PMH of MS, 2013 and bilateral breast cancer with mastectomy 2006, who was sent her to [facility] ED from [facility] or possible AFib. Patient was admitted to [facility] for AMS initially and was on a 72 hour hold. No history of psych disorders per patient. In ED, hemodynamically stable. EKG showed sinus arrhythmia with PACs, no AFib. Patient was orientedto person, time and place but was altered. Labs showed new hyperthyroidism. CT head reported: Enlarged ventricles including lateral, third, and fourth ventricles. Prominence of the sulci. Enlarged ventricles may be due to volume loss. Also had elevated troponin with significant delta of 12. No ischemic EKG changes. Cardiology was consulted Her only known medical history is multiple sclerosis reports that she was following Dr. Jones from 2013 to 2020 and then they stopped giving her medication because they told her there was no one else in [place] that treated multiple sclerosis. She does not take any medication at home. Denies alcohol or drug use and has not smoked for the past 9 years. Admitted for medical management of New onset Afib likely secondary to hyperthyroidism: Graves disease contributing to her irritability and confusion. MRI completed successfully. Altered mental status in presence of NPH with concerns for urinary tract infection/Graves disease/Psychosis/ MS -Imroved -Presented to [facility] ED from [facility] for AMS and cardiac concerns -CT head reported: Enlarged ventricles including lateral, third, and fourth ventricles. Prominence of the sulci. Enlarged ventricles may be due to volume loss. Possibility of normal pressure hydrocephalus could not be excluded. -Of note, patient last saw Dr. Jones in 2020. At that time, she had MRI imaging which showed enlarged ventricles. Documentation notes issues with gait instability and cognitive decline at that time. -CXR negative for acute findings -Ethanol level normal -Resp panel negative -Neurology consulted who recommended outpatient MRI head with and without contrast and follow up inNPH clinic. Also recommended follow-up with neuro criminal defense attorney for MS. Neurology said that psychosis with no neurological deficits is unlikely presentation of MS -UA suggestive of infection, s/p 3 doses of ceftriaxone with mixed urinary milagros on cultures as it was contaminated -ESR, CRP, procal, PTH, Cortisol, B1, Folate : Normal. UDS: Negative - Consulted Endocrinology considering low TSH as this could be the cause of acute confusion - TPO antibodies neg, TSI and TRAB elevated pointing towards Graves disease. Plan: - Delirium/fall precautions - Avoid anticholinergics, antihistamines, benzodiazepines, and opioids if able - Continue methimazole and she will follow up with Endocrinology outpatient for Graves disease -Will exclude psychiatric causes of her paranoia and irritability and continue to treat for Graves disease -Since she lives alone will talk to CM about safe discharge planning, currently lacks capacity and no family to take her. Acute non ST-segment elevation myocardial infarction, suspect type 2 -Initial troponin 122, uptrended to 134, delta 12 -Collator Operator consulted who said that most likely it is type 2 NSTEMI -Echo showed normal EF with no acute abnormalities -No acute intervention needed Paroxysmal atrial fibrillation without RVR -Cardiology consulted on patient in ED and recommendations as below: - May be secondary to acute illness (hyperthyroidism) - VANESSA?DS?-VASc score: 2 - Rate controlled, on propranolol - Embolic prevention: ON DOAC - Per Cardiology: Obtain a 14 day Holter monitor on discharge to evaluate for Afib burden - Patient to follow up in cardiology clinic - Consider outpatient sleep study to evaluate for underlying sleep apnea Graves disease -Could also be contributing to encephalopathy -Patient reports no known history of this -TSH <0.01, TSI and TRAB elevated showing Graves disease -On methimazole per Endocrinology #Relapsing-Remitting Multiple Sclerosis -Neuro consulted in ED and performed exam Plan: -Needs to have appointment made with Neuro immunology outpatient to continue to follow -No neurological deficits with psychosis unlikely sec to MS as per Neurology although she does haveworsening gait Chronic Medical Conditions: #) Eczema Plan: -Triamcinolone to rash bid Patient has no close family. She has few cousins and a close friend who lives nearby. Primary contact is friend who told me that patient had gait instability for a few months. She also had dementia. She would go to christianity on weekdays, get lost in her own home town. Considering she has no family makes it a complicated case if she does not have capacity and can't be discharged home alone. We will unfortunately have to get state guardianship and decide plan of care. For now ruling out medical caseof personality change, irritability and paranoia Inpatient Checklist: - Antimicrobial de-escalation: s/p Ceftriaxone x 3 - Bowel regimen: Senna - Code status: Full Code - Diet: regular - DVT prophylaxis: Apixaban - Electrolytes: Replete PRN - Ulcer prophylaxis: N/A - Disposition: Not medically ready, still irritable and paranoia with unknown cause CODE STATUS: Full Code EMERGENCY CONTACT: Extended Emergency Contact Information Primary Emergency Contact: Yen Collins Mobile Relation: Friend Dr. Guzman food science professor Hospitalist Medicine All images were reviewed. All changes discussed with consultants. Outside records reviewed as applicable. Secure chat preferred. Assessment & Plan Altered mental status MS (multiple sclerosis) (CMS/HCC) Abnormal finding on urinalysis Hyperthyroidism Eczema Altered mental status, unspecified altered mental status type [1] Current Facility-Administered Medications: acetaminophen (Tylenol) tablet 650 mg, 650 mg, Oral, q8h, Amnada Maddox APRN, 650 mg at 12/12/242021 [Held by provider] apixaban (Eliquis) tablet 5 mg, 5 mg, Oral, BID, Wu Newby MD, 5 mg at 12/19/242047 bisacodyl (Dulcolax) EC tablet 10 mg, 10 mg, Oral, Daily PRN, Amanda Maddox APRN melatonin tablet 6 mg, 6 mg, Oral, Nightly, Wu Newby MD, 6 mg at 12/20/242116 methIMAzole (Tapazole) tablet 10 mg, 10 mg, Oral, BID, Wu Newby MD, 10 mg at 12/21/24902 OLANZapine (ZyPREXA) tablet 5 mg, 5 mg, Oral, q8h PRN, Loi Guzman MD, 5 mg at propranolol (Inderal) tablet 10 mg, 10 mg, Oral, BID, Wu Newby MD, 10 mg at 12/21/24902 senna (Senokot) tablet 8.6 mg, 8.6 mg, Oral, Nightly, Wu Newby MD, 8.6 mg at 12/20/242116 Insert peripheral IV, , , Once AND Saline lock IV, , , Once AND sodium chloride 0.9 % flush10 mL, 10 mL, Intravenous, q12h, 10 mL at 12/21/24 0949 AND sodium chloride 0.9 % flush 10 mL, 10 mL, Intravenous, PRN, Amanda Maddox APRN, 10 mL at 12/13/24 0838 triamcinolone (Kenalog) 0.1 % cream 1 Application, 1 Application, Topical, BID, Amanda Maddox APRN, 1 Application at 12/21/24 0906 [2] No Known Allergies * Care Plan - Elham Tineo RN - 12/21/2024 4:44 AM EDT Problem: Adult Inpatient Plan of Care Goal: Plan of Care Review Outcome: Ongoing, Progressing Flowsheets (Taken 12/21/2024440) Progress: improving Outcome Evaluation: Patient will be able to find placement post discharge from the hospital Plan of Care Reviewed With: patient Goal: Patient-Specific Goal (Individualized) Outcome: Ongoing, Progressing Goal: Absence of Hospital-Acquired Illness or Injury Outcome: Ongoing, Progressing Goal: Optimal Comfort and Wellbeing Outcome: Ongoing, Progressing Goal: Readiness for Transition of Care Outcome: Ongoing, Progressing Problem: Mobility Impairment Goal: Optimal Mobility Outcome: Ongoing, Progressing Intervention: Optimize Mobility Flowsheets Taken 12/21/2024440 Positioning/Transfer Devices: pillows repositioning sheet Taken 12/21/2024 020 Activity Management: activity adjusted per tolerance Note: Patient will be able to ambulate independently safely before discharge from hospital Problem: Fall Injury Risk Goal: Absence of Fall and Fall-Related Injury Outcome: Ongoing, Progressing Intervention: Identify and Manage Contributors Flowsheets (Taken 12/21/2024440) Medication Review/Management: medications reviewed Self-Care Promotion: independence encouraged BADL personal objects within reach BADL personal routines maintained Note: Patient will remain free of falls during hospital stay Problem: Pain Acute Goal: Optimal Pain Control and Function Outcome: Ongoing, Progressing Intervention: Prevent or Manage Pain Flowsheets (Taken 12/21/2024440) Sensory Stimulation Regulation: auditory stimulation minimized care clustered Sleep/Rest Enhancement: awakenings minimized consistent schedule promoted Medication Review/Management: medications reviewed Note: Patient's pain will meet the patient' stated pain goal by the end of this shift Problem: Confusion Acute Goal: Optimal Cognitive Function Outcome: Ongoing, Progressing Intervention: Minimize Contributing Factors Flowsheets (Taken 12/21/2024440) Sensory Stimulation Regulation: auditory stimulation minimized care clustered Environment Familiarity/Consistency: daily routine followed Communication Support Strategies: active listening utilized Note: Patient will remain alert and oriented x4 during hospital stay * Care Plan - Olamide Lucero RN - 12/20/2024 4:35 PM EDT Problem: Adult Inpatient Plan of Care Goal: Plan of Care Review Outcome: Ongoing, Progressing Flowsheets Taken 12/20/2024 1633 by Olamide Lucero RN Progress: improving Taken 12/20/2024 0450 by Marilee Brunson RN Outcome Evaluation: pt free from injury while on my shift Taken 12/15/2024 0959 by Magda Quintanilla RN Plan of Care Reviewed With: patient Goal: Patient-Specific Goal (Individualized) Outcome: Ongoing, Progressing Flowsheets (Taken 12/20/2024 1600) Patient/Family-Specific Goals (Include Timeframe): pt will remain free of injury and falls throughout shift Individualized Care Needs: safety and comfort Anxieties, Fears or Concerns: none stated Goal: Absence of Hospital-Acquired Illness or Injury Outcome: Ongoing, Progressing Intervention: Identify and Manage Fall Risk Flowsheets (Taken 12/20/2024 1600) Safety Promotion/Fall Prevention: activity supervised assistive device/personal items within reach clutter-free environment maintained fall prevention program maintained lighting adjusted mobility aid in reach nonskid shoes/slippers when out of bed room organization consistent safety round/check completed Intervention: Prevent Skin Injury Flowsheets Taken 12/20/2024 1600 by Olamide Lucero RN Body Position: weight shifting Taken 12/18/2024 1444 by Harsha Dixon RN Skin Protection: incontinence pads utilized Intervention: Prevent and Manage VTE (Venous Thromboembolism) Risk Flowsheets (Taken 12/20/2024 1600) VTE Prevention/Management: bilateral SCDs (sequential compression devices) off Intervention: Prevent Infection Flowsheets (Taken 12/16/2024 0007 by Michelle Junior RN) Infection Prevention: rest/sleep promoted hand hygiene promoted Goal: Optimal Comfort and Wellbeing Outcome: Ongoing, Progressing Intervention: Monitor Pain and Promote Comfort Flowsheets (Taken 12/19/2024 0612 by Heriberto Poe, OG) Pain Management Interventions: medication (see MAR) rest quiet environment facilitated Intervention: Provide Person-Centered Care Flowsheets (Taken 12/19/2024 06 by Heriberto Poe, RN) Trust Relationship/Rapport: care explained reassurance provided emotional support provided questions answered Goal: Readiness for Transition of Care Outcome: Ongoing, Progressing Intervention: Mutually Develop Transition Plan Flowsheets Taken 12/17/2024 0852 by Olamide Lucero RN Transportation Anticipated: other (see comments) Concerns to be Addressed: denies needs/concerns at this time Patient/Family Anticipates Transition to: other (see comments) Taken 12/16/20246 by Michelle Junior RN Equipment Currently Used at Home: walker, rolling Transportation Concerns: no car Taken 12/15/2024 0959 by Magda Quintanilla RN Equipment Needed After Discharge: walker, rollator Readmission Within the Last 30 Days: no previous admission in last 30 days Taken 12/14/20242250 by Michelle Junior RN Anticipated Changes Related to Illness: inability to care for self Taken 12/13/2024 231 by Michelle Junior RN Patient/Family Anticipated Services at Transition: mental health services Problem: Mobility Impairment Goal: Optimal Mobility Outcome: Ongoing, Progressing Intervention: Optimize Mobility Flowsheets Taken 12/20/2024 1600 by Olamide Lucero RN Activity Management: activity adjusted per tolerance activity encouraged Taken 12/20/2024 06 by Dilcia Mendoza Assistive Device Utilized: four wheel walker Taken 12/16/20246 by Michelle Junior RN Positioning/Transfer Devices: in use pillows Problem: Fall Injury Risk Goal: Absence of Fall and Fall-Related Injury Outcome: Ongoing, Progressing Intervention: Identify and Manage Contributors Flowsheets (Taken 12/16/20246 by Michelle Junior RN) Medication Review/Management: medications reviewed Self-Care Promotion: independence encouraged BADL personal objects within reach Intervention: Promote Injury-Free Environment Flowsheets (Taken 12/20/2024 1600) Safety Promotion/Fall Prevention: activity supervised assistive device/personal items within reach clutter-free environment maintained fall prevention program maintained lighting adjusted mobility aid in reach nonskid shoes/slippers when out of bed room organization consistent safety round/check completed Problem: Pain Acute Goal: Optimal Pain Control and Function Outcome: Ongoing, Progressing Intervention: Optimize Psychosocial Wellbeing Flowsheets Taken 12/16/20246 by Michelle Junior RN Supportive Measures: active listening utilized verbalization of feelings encouraged positive reinforcement provided relaxation techniques promoted self-care encouraged decision-making supported Diversional Activities: television Taken 12/14/20242250 by Michelle Junior RN Spiritual Activities Assistance: personal rituals encouraged Intervention: Develop Pain Management Plan Flowsheets (Taken 12/19/2024611 by Heriberto Poe RN) Pain Management Interventions: medication (see MAR) rest quiet environment facilitated Intervention: Prevent or Manage Pain Flowsheets Taken 12/19/2024611 by Heriberto Poe RN Sleep/Rest Enhancement: noise level reduced awakenings minimized room darkened regular sleep/rest pattern promoted Taken 12/16/2024 000 by Michelle Junior RN Sensory Stimulation Regulation: auditory stimulation minimized visual stimulation minimized quiet environment promoted Bowel Elimination Promotion: adequate fluid intake promoted Medication Review/Management: medications reviewed Problem: Confusion Acute Goal: Optimal Cognitive Function Outcome: Ongoing, Progressing Intervention: Minimize Contributing Factors Flowsheets Taken 12/19/2024611 by Heriberto Poe RN Reorientation Measures: clock in view glasses use encouraged reorientation provided Taken 12/16/20246 by Michelle Junior RN Sensory Stimulation Regulation: auditory stimulation minimized visual stimulation minimized quiet environment promoted Environment Familiarity/Consistency: personal clothing/items utilized Communication Support Strategies: active listening utilized * Progress Notes - Loi Guzman MD - 12/20/2024 1:00 PM EDT Images from the original note were not included. [facility] Medicine Inpatient Progress Note Patient: Yen Perez PCP: Sneha, No Date: 12/20/2024 Length of stay: 8 days Subjective Seen and examined at the bedside. Patient was sitting comfortably. Denied any active complaints or needs. Appeared tangential and did not have insight into her medical problems Allowed inspection and palpation for gluteal foreign body Foreign body could not be palpated Pt could not recall injury despite retaining good long and short term memory Objective INPATENT MEDICATIONS Current Medications[1] ALLERGIES Allergies[2] 24 HOUR VITALS Temp: [36.4 ??C (97.6 ??F)-36.9 ??C (98.5 ??F)] 36.8 ??C (98.2 ??F) Heart Rate: [59-82] 81 Resp: [18-20] 18 BP: (111-132)/(62-71) 132/67 INTAKE/OUTPUT Intake/Output Summary (Last 24 hours) at 12/20/2024 2349 Last data filed at 12/20/20241999 Gross per 24 hour Intake 600 ml Output -- Net 600 ml Physical Exam - GENERAL: No acute distress. Well-nourished. Pleasantly confused, paranoia, elated mood, speech isfast - EYES: EOMI. Anicteric. No exophthalmos - HENT: Moist mucous membranes. No scleral icterus. No cervical lymphadenopathy. No palpable thyroid - PULMONARY: Clear to auscultation bilaterally. No accessory muscle use. - CARDIOVASCULAR: Regular rate and rhythm. No murmur. No JVD. - ABDOMEN: Soft, non-tender and non-distended. No palpable masses. - MSK: No edema. Non-tender.? - SKIN: No rashes or lesions. Warm. - NEUROLOGIC: Alert and oriented x 4. No focal neurological deficits. CN II-XII grossly intact, butnot individually tested. - PSYCHIATRIC: Semi Cooperative. Not appropriate mood and affect. Review of Systems REVIEW OF LABORATORY DATA Lab Results Component Value Date WBC 5.67 12/18/2024 HGB 12.0 12/18/2024 HCT 36.1 12/18/2024 MCV 84 12/18/2024 PLT 224 12/18/2024 Lab Results Component Value Date GLUCOSE 129 (H) 12/18/2024 CALCIUM 9.2 12/18/2024 NA 140 12/18/2024 K 3.9 12/18/2024 CO2 26 12/18/2024 CL 105 12/18/2024 BUN 21 12/18/2024 CREATININE 0.74 12/18/2024 Lab Results Component Value Date ALT 17 12/10/2024 AST 20 12/10/2024 ALKPHOS 79 12/10/2024 BILITOT 0.3 12/10/2024 No results found for: INR , PROTIME , PTT REVIEW OF IMAGING STUDIES Imaging MRI Procedure Not Performed This procedure was not performed. Procedure: MR HEAD W AND WO IV CONTRAST Reason: Other Patient needs to be A&O for MRI due to FB in abd/pelvis. REVIEW OF PROCEDURES Assessment and Plan: 64 y.o. year-old female with PMH of MS, 2013 and bilateral breast cancer with mastectomy 2006, who was sent her to [facility] ED from [facility] or possible AFib. Patient was admitted to [facility] for AMS initially and was on a 72 hour hold. No history of psych disorders per patient. In ED, hemodynamically stable. EKG showed sinus arrhythmia with PACs, no AFib. Patient was orientedto person, time and place but was altered. Labs showed new hyperthyroidism. CT head reported: Enlarged ventricles including lateral, third, and fourth ventricles. Prominence of the sulci. Enlarged ventricles may be due to volume loss. Also had elevated troponin with significant delta of 12. No ischemic EKG changes. Cardiology was consulted Her only known medical history is multiple sclerosis reports that she was following Dr. Jones from 2013 to 2020 and then they stopped giving her medication because they told her there was no one else in [place] that treated multiple sclerosis. She does not take any medication at home. Denies alcohol or drug use and has not smoked for the past 9 years. Admitted for medical management of New onset Afib likely secondary to hyperthyroidism: Graves disease contributing to her irritability and confusion. MRI could not be performed due to rads noting a density in her right side pelvis, Radiology in agreement to perform MRI as pt is alert enough to report pain and discomfort 12/20. Altered mental status in presence of NPH with concerns for urinary tract infection/Graves disease/Psychosis/ MS -Imroved -Presented to [facility] ED from [facility] for AMS and cardiac concerns -CT head reported: Enlarged ventricles including lateral, third, and fourth ventricles. Prominence of the sulci. Enlarged ventricles may be due to volume loss. Possibility of normal pressure hydrocephalus could not be excluded. -Of note, patient last saw Dr. Jones in 2020. At that time, she had MRI imaging which showed enlarged ventricles. Documentation notes issues with gait instability and cognitive decline at that time. -CXR negative for acute findings -Ethanol level normal -Resp panel negative -Neurology consulted who recommended outpatient MRI head with and without contrast and follow up inNPH clinic. Also recommended follow-up with neuro criminal defense attorney for MS. Neurology said that psychosis with no neurological deficits is unlikely presentation of MS -UA suggestive of infection, s/p 3 doses of ceftriaxone with mixed urinary milagros on cultures as it was contaminated -ESR, CRP, procal, PTH, Cortisol, B1, Folate : Normal. UDS: Negative - Consulted Endocrinology considering low TSH as this could be the cause of acute confusion - TPO antibodies neg, TSI and TRAB elevated pointing towards Graves disease. Plan: - Delirium/fall precautions - Avoid anticholinergics, antihistamines, benzodiazepines, and opioids if able - Continue methimazole and she will follow up with Endocrinology outpatient for Graves disease -Will exclude psychiatric causes of her paranoia and irritability and continue to treat for Graves disease -Since she lives alone will talk to CM about safe discharge planning, currently lacks capacity and no family to take her. Acute non ST-segment elevation myocardial infarction, suspect type 2 -Initial troponin 122, uptrended to 134, delta 12 -Collator Operator consulted who said that most likely it is type 2 NSTEMI -Echo showed normal EF with no acute abnormalities -No acute intervention needed Paroxysmal atrial fibrillation without RVR -Cardiology consulted on patient in ED and recommendations as below: - May be secondary to acute illness (hyperthyroidism) - VANESSA?DS?-VASc score: 2 - Rate controlled, on propranolol - Embolic prevention: ON DOAC - Per Cardiology: Obtain a 14 day Holter monitor on discharge to evaluate for Afib burden - Patient to follow up in cardiology clinic - Consider outpatient sleep study to evaluate for underlying sleep apnea Graves disease -Could also be contributing to encephalopathy -Patient reports no known history of this -TSH <0.01, TSI and TRAB elevated showing Graves disease -On methimazole per Endocrinology #Relapsing-Remitting Multiple Sclerosis -Neuro consulted in ED and performed exam Plan: -Needs to have appointment made with Neuro immunology outpatient to continue to follow -No neurological deficits with psychosis unlikely sec to MS as per Neurology although she does haveworsening gait Chronic Medical Conditions: #) Eczema Plan: -Triamcinolone to rash bid Patient has no close family. She has few cousins and a close friend who lives nearby. Primary contact is friend who told me that patient had gait instability for a few months. She also had dementia. She would go to christianity on weekdays, get lost in her own home town. Considering she has no family makes it a complicated case if she does not have capacity and can't be discharged home alone. We will unfortunately have to get state guardianship and decide plan of care. For now ruling out medical caseof personality change, irritability and paranoia Inpatient Checklist: - Antimicrobial de-escalation: s/p Ceftriaxone x 3 - Bowel regimen: Senna - Code status: Full Code - Diet: regular - DVT prophylaxis: Apixaban - Electrolytes: Replete PRN - Ulcer prophylaxis: N/A - Disposition: Not medically ready, still irritable and paranoia with unknown cause CODE STATUS: Full Code EMERGENCY CONTACT: Extended Emergency Contact Information Primary Emergency Contact: Yen Collins Mobile Relation: Friend Dr. Guzman food science professor Hospitalist Medicine All images were reviewed. All changes discussed with consultants. Outside records reviewed as applicable. Secure chat preferred. Assessment & Plan Altered mental status MS (multiple sclerosis) (CMS/HCC) Abnormal finding on urinalysis Hyperthyroidism Eczema Altered mental status, unspecified altered mental status type [1] Current Facility-Administered Medications: acetaminophen (Tylenol) tablet 650 mg, 650 mg, Oral, q8h, Amanda Maddox APRN, 650 mg at 12/12/242021 [Held by provider] apixaban (Eliquis) tablet 5 mg, 5 mg, Oral, BID, Wu Newby MD, 5 mg at 12/19/242047 bisacodyl (Dulcolax) EC tablet 10 mg, 10 mg, Oral, Daily PRN, Amanda Maddox APRN melatonin tablet 6 mg, 6 mg, Oral, Nightly, Wu Newby MD, 6 mg at 12/20/242116 methIMAzole (Tapazole) tablet 10 mg, 10 mg, Oral, BID, Wu Newby MD, 10 mg at 12/20/242116 propranolol (Inderal) tablet 10 mg, 10 mg, Oral, BID, Wu Newby MD, 10 mg at 12/20/242116 senna (Senokot) tablet 8.6 mg, 8.6 mg, Oral, Nightly, Wu Newby MD, 8.6 mg at 12/20/242116 Insert peripheral IV, , , Once AND Saline lock IV, , , Once AND sodium chloride 0.9 % flush10 mL, 10 mL, Intravenous, q12h, 10 mL at 12/20/242119 AND sodium chloride 0.9 % flush 10 mL, 10 mL, Intravenous, PRN, Amanda Maddox APRN, 10 mL at 08/01/25 0838 triamcinolone (Kenalog) 0.1 % cream 1 Application, 1 Application, Topical, BID, Amanda Maddox, BU[employer]ING [employer] WHEEL REPAIRER, 1 Application at 12/20/24 0917 [2] No Known Allergies * Progress Notes - Maria R Babin RN - 12/20/2024 11:13 AM EDT Case Management Adult Progress Note Yen Perez 64 y.o. female CSN: [id number] Admission: 12/10/2024 3:51 PM Primary Problem: Altered mental status Anticipated Discharge Date: TBD Pt was yesterday evaluated by neuropsych for decisional capacity and per their eval pt's current medical decisional capacity is compromised per JAKE/APA guidelines. Discussed with team, per attending physician dr. Guzman pt not medically ready. Per team pt has broken needle in pelvis that might needto be removed during this hospital stay so pt can have MRI of head. The plan is for pt to have decisional capacity re-eval. CM roofing supervisor aware of need for SW assistance in this case. RN CM will continue to follow and assist with d/c plan and as needed. Maria R Babin RN * Consults - Mago Church RD - 12/20/2024 9:49 AM EDT Adult Nutrition Evaluation Note Yen Perez 64 y.o. female CSN: [id number] Room/Bed 130/130A Nutrition evaluation type: follow-up Reason for evaluation: Hospital course: 64 y/o F presented from [facility] for possible Afib. On 72 hour hold d/t trying to leave hospital with AMS. Past medical/ surgical history: Past Medical History[1] Surgical History[2] Social history: Additional comments: 12/20: Visited pt in room this AM. Pt reports having a good appetite, no complaints or concerns at this time. Vitals and Basic Assessment: BP: 117/67 Temp: 36.6 ??C (97.8 ??F) Oxygen Therapy: None (Room air) [place] Coma Scale Score: 14 Kal Scale Score: 20 Most Recent BM Date: 12/17/24 (per pt report) GI Symptoms: None Edema: Right lower extremity, Left lower extremity Allergies: no known allergies Medications: Current Scheduled Medications[3] Current Continuous Medications[4] Current PRN Medications[5] Labs: Lab Results Component Value Date GLUCOSE 129 (H) 12/18/2024 CALCIUM 9.2 12/18/2024 NA 140 12/18/2024 K 3.9 12/18/2024 CO2 26 12/18/2024 CL 105 12/18/2024 BUN 21 12/18/2024 CREATININE 0.74 12/18/2024 MG 2.0 12/10/2024 HGBA1C 5.9 (H) 12/10/2024 Anthropometrics: Height: 160 cm (5' 3 ) Weight: 59.7 kg (131 lb 9.8 oz) BMI (Calculated): 23.32 Weight Evaluation: Overweight (BMI 25-29.9) [place] Body Weight (kg): 52.2 Percent [place] Body Weight: 125 Estimated Needs: Metabolic Cart Study Results: Current Nutrition Intake: Diet Supplements: Boost Plus Diet Order: Adult Diet Diet Texture: Regular Percent Meals Eaten (%): 77% x 1 week Diet Experience and Nutrition History: Diet Education Provided: Will monitor Pertinent home medications: none listed Spiritism needs: Nutrition Focused Physical Exam: Physical exam performed on (date): 12/13/24 Temples (muscles): None Clavicle (muscle): None Shoulder (muscle): None Interosseous (muscle): None Calf (muscle): None Orbital (fat): None Triceps (fat): None Assessment of Malnutrition: Malnutrition Identified: No Nutrition Problem: Predicted suboptimal energy intake related to AMS as evidenced by reportedly missing meals. Status of Nutrition Diagnosis: Resolved Nutrition Interventions and Recommendations: - Continue regular diet as tolerated - Boost Plus BID for supplementation Nutrition Monitoring and Goals: - Pt will tolerate >75% avg of meal intakes - Pt will maintain weight this admission Acuity Level: 1 Mago Pinedo, VISH, LD [1] Past Medical History: Diagnosis Date Eczema Multiple sclerosis (CMS/HCC) [2] History reviewed. No pertinent surgical history. [3] acetaminophen, 650 mg, Oral, q8h [Held by provider] apixaban, 5 mg, Oral, BID melatonin, 6 mg, Oral, Nightly methIMAzole, 10 mg, Oral, BID propranolol, 10 mg, Oral, BID senna, 8.6 mg, Oral, Nightly sodium chloride, 10 mL, Intravenous, q12h triamcinolone, 1 Application, Topical, BID [4] [5] PRN medications: bisacodyl, Insert peripheral IV AND Saline lock IV AND sodium chlorideAND sodium chloride * Care Plan - Marilee Brunson RN - 12/20/2024 4:51 AM EDT Problem: Adult Inpatient Plan of Care Goal: Plan of Care Review Outcome: Ongoing, Progressing Flowsheets Taken 12/20/2024 045 by Marilee Brunson Outcome Evaluation: pt free from injury while on my shift Taken 12/19/2024 0612 by Heriberto Poe RN Progress: no change Taken 12/15/2024 0959 by Magda Quintanilla RN Plan of Care Reviewed With: patient Goal: Patient-Specific Goal (Individualized) Outcome: Ongoing, Progressing Flowsheets (Taken 12/20/2024448) Patient/Family-Specific Goals (Include Timeframe): pt will remain free of injury and falls throughout shift Individualized Care Needs: safety and comfort Anxieties, Fears or Concerns: none stated Goal: Absence of Hospital-Acquired Illness or Injury Outcome: Ongoing, Progressing Intervention: Identify and Manage Fall Risk Flowsheets (Taken 12/20/2024448) Safety Promotion/Fall Prevention: activity supervised assistive device/personal items within reach clutter-free environment maintained fall prevention program maintained lighting adjusted mobility aid in reach nonskid shoes/slippers when out of bed room organization consistent safety round/check completed Intervention: Prevent Skin Injury Flowsheets Taken 12/20/2024 044 by Marilee Brunson Body Position: weight shifting Taken 12/18/2024 1444 by Harsha Dixon, RN Skin Protection: incontinence pads utilized Intervention: Prevent and Manage VTE (Venous Thromboembolism) Risk Flowsheets (Taken 12/20/2024 0449) VTE Prevention/Management: bilateral SCDs (sequential compression devices) off Intervention: Prevent Infection Flowsheets (Taken 12/16/20246 by Michelle Junior, OG) Infection Prevention: rest/sleep promoted hand hygiene promoted Goal: Optimal Comfort and Wellbeing Outcome: Ongoing, Progressing Intervention: Monitor Pain and Promote Comfort Flowsheets (Taken 12/19/2024611 by Heriberto Poe, RN) Pain Management Interventions: medication (see MAR) rest quiet environment facilitated Intervention: Provide Person-Centered Care Flowsheets (Taken 12/19/2024611 by Heriberto Poe, RN) Trust Relationship/Rapport: care explained reassurance provided emotional support provided questions answered Goal: Readiness for Transition of Care Outcome: Ongoing, Progressing Intervention: Mutually Develop Transition Plan Flowsheets Taken 12/17/2024 0852 by Olamide Lucero RN Transportation Anticipated: other (see comments) Concerns to be Addressed: denies needs/concerns at this time Patient/Family Anticipates Transition to: other (see comments) Taken 12/16/20246 by Michelle Junior RN Equipment Currently Used at Home: walker, rolling Transportation Concerns: no car Taken 12/15/2024 0959 by Magda Quintanilla RN Equipment Needed After Discharge: walker, rollator Readmission Within the Last 30 Days: no previous admission in last 30 days Taken 12/14/2024 2251 by Michelle Junior, OG Anticipated Changes Related to Illness: inability to care for self Taken 12/13/2024 2312 by Michelle Junior, OG Patient/Family Anticipated Services at Transition: mental health services Problem: Mobility Impairment Goal: Optimal Mobility Outcome: Ongoing, Progressing Intervention: Optimize Mobility Flowsheets Taken 12/20/2024448 by Marilee Brunson Activity Management: activity adjusted per tolerance activity encouraged Assistive Device Utilized: front wheel walker Taken 12/16/20246 by Michelle Junior RN Positioning/Transfer Devices: in use pillows Problem: Fall Injury Risk Goal: Absence of Fall and Fall-Related Injury Outcome: Ongoing, Progressing Intervention: Identify and Manage Contributors Flowsheets (Taken 12/16/20246 by Michelle Junior, RN) Medication Review/Management: medications reviewed Self-Care Promotion: independence encouraged BADL personal objects within reach Intervention: Promote Injury-Free Environment Flowsheets (Taken 12/20/2024 0449) Safety Promotion/Fall Prevention: activity supervised assistive device/personal items within reach clutter-free environment maintained fall prevention program maintained lighting adjusted mobility aid in reach nonskid shoes/slippers when out of bed room organization consistent safety round/check completed Problem: Pain Acute Goal: Optimal Pain Control and Function Outcome: Ongoing, Progressing Intervention: Optimize Psychosocial Wellbeing Flowsheets Taken 12/16/20246 by Michelle Junior RN Supportive Measures: active listening utilized verbalization of feelings encouraged positive reinforcement provided relaxation techniques promoted self-care encouraged decision-making supported Diversional Activities: television Taken 12/14/20242250 by Michelle Junior RN Spiritual Activities Assistance: personal rituals encouraged Intervention: Develop Pain Management Plan Flowsheets (Taken 12/19/2024611 by Heriberto Poe RN) Pain Management Interventions: medication (see MAR) rest quiet environment facilitated Intervention: Prevent or Manage Pain Flowsheets Taken 12/19/2024611 by Heriberto Poe RN Sleep/Rest Enhancement: noise level reduced awakenings minimized room darkened regular sleep/rest pattern promoted Taken 12/16/20246 by Michelle Junior RN Sensory Stimulation Regulation: auditory stimulation minimized visual stimulation minimized quiet environment promoted Bowel Elimination Promotion: adequate fluid intake promoted Medication Review/Management: medications reviewed Problem: Confusion Acute Goal: Optimal Cognitive Function Outcome: Ongoing, Progressing Intervention: Minimize Contributing Factors Flowsheets Taken 12/19/2024611 by Heriberto Poe RN Reorientation Measures: clock in view glasses use encouraged reorientation provided Taken 12/16/20246 by Michelle Junior RN Sensory Stimulation Regulation: auditory stimulation minimized visual stimulation minimized quiet environment promoted Environment Familiarity/Consistency: personal clothing/items utilized Communication Support Strategies: active listening utilized * Progress Notes - Maura Bailey, PhD - 12/19/2024 3:26 PM EDT Yen Perez is a 64 year-old woman who was admitted to the hospital from [facility] due to possible A Fib andAMS. She was referred by her treatment team for a decisional capacity evaluation. Ms. Perez was alert and responsive. She was oriented to person, place, time and situation. Per JAKE/APA medical decision making capacity assessment guidelines, four criteria were assessed, and Ms. Perez was currently: 1. Able to express a choice. 2. Able to demonstrate an understanding of her current medical state. 3. Unable to demonstrate an appropriate level of appreciation regarding her current medical state. 4. Unable to demonstrate an appropriate level of reasoning ability regarding her current medical treatment. SUMMARY: Yen Perez is a 64 year-old woman whose medical history is significant for MS and bilateral breast cancer with mastectomy. She is currently being treated for AMS with concern for UTI, Grave's disease/psychosis/MS, Type 2 NSTEMI, a fib without RVR, Grave's disease and relapsing-remitting MS. Ms. Perez stated that she is in the hospital because a police worker decided that she shouldn't be out after mi dnight. She said that the doctors are trying to find out what is wrong with her. She said that theyeliminated heart problems and are now looking at her thyroid. Asked Ms. Perez if she remembered goingto [facility] and she said that she was there, but that she did not have any problems with remembering whoshe was or where she lives. She denies any psychiatric history. Ms. Perez said that she doesn't take a ny medications at home, walks with a walker and completes ADLs on her own. Ms. Perez said that she can go home once she leaves the hospital. Asked Ms. Perez about MS and she said that she stopped taking medication because her neurologist said that there weren't any other neurologists to send her to. I asked her if she wanted a referral to a neurologist and she said she didn't. She later stated that the psychiatrist who had talked to her earlier today told her she was going to see a neurologist, gregorioluda didn't know what that meant. Ms. Perez said that she is not interested in MS medications because she doesn't see the benefit of them and feels that they have caused her to have memory problems. Asked her if the psychiatrist had given her a MoCA (showed her what it looked like) and she said that they had. She said that her memory is a problem, but when asked how she coped with it, she said that she didn't know what I meant. Explained further and she said that she doesn't really deal with memory problems and that is just life . Notes in her chart indicate that her friend has been concerned about Ms. Perez and that her memory is increasingly impaired. Asked Ms. Perez why there was a sign on Mus[employer] Sne[employer] for no sharp objects. She said that she didn't know, but that it wasn't just her, it was everyone. There were no other rooms that had that sign on the door. Ms. Perez grasps her current medical state, but her insight and judgment are impaired. Her current medical decisional capacity is compromised per JAKE/APA guidelines. Neurobehavioral status exam = 35 minutes. * Progress Notes - Loi Guzman MD - 12/19/2024 3:14 PM EDT Images from the original note were not included. [facility] Medicine Inpatient Progress Note Patient: Yen Perez PCP: Yen Hoover Date: 12/19/2024 Length of stay: 7 days Subjective Seen and examined at the bedside. Patient was sitting comfortably. Denied any active complaints or needs. Appeared tangential and did not have insight into her medical problems Objective INPATENT MEDICATIONS Current Medications[1] ALLERGIES Allergies[2] 24 HOUR VITALS Temp: [36.3 ??C (97.4 ??F)-36.7 ??C (98.1 ??F)] 36.4 ??C (97.6 ??F) Heart Rate: [61-86] 72 Resp: [17] 17 BP: (92-113)/(51-65) 112/51 INTAKE/OUTPUT Intake/Output Summary (Last 24 hours) at 12/19/2024 1514 Last data filed at 12/18/2024 1700 Gross per 24 hour Intake 240 ml Output -- Net 240 ml Physical Exam - GENERAL: No acute distress. Well-nourished. Pleasantly confused, paranoia, elated mood, speech isfast - EYES: EOMI. Anicteric. No exophthalmos - HENT: Moist mucous membranes. No scleral icterus. No cervical lymphadenopathy. No palpable thyroid - PULMONARY: Clear to auscultation bilaterally. No accessory muscle use. - CARDIOVASCULAR: Regular rate and rhythm. No murmur. No JVD. - ABDOMEN: Soft, non-tender and non-distended. No palpable masses. - MSK: No edema. Non-tender.? - SKIN: No rashes or lesions. Warm. - NEUROLOGIC: Alert and oriented x 4. No focal neurological deficits. CN II-XII grossly intact, butnot individually tested. - PSYCHIATRIC: Semi Cooperative. Not appropriate mood and affect. Review of Systems REVIEW OF LABORATORY DATA Lab Results Component Value Date WBC 5.67 12/18/2024 HGB 12.0 12/18/2024 HCT 36.1 12/18/2024 MCV 84 12/18/2024 PLT 224 12/18/2024 Lab Results Component Value Date GLUCOSE 129 (H) 12/18/2024 CALCIUM 9.2 12/18/2024 NA 140 12/18/2024 K 3.9 12/18/2024 CO2 26 12/18/2024 CL 105 12/18/2024 BUN 21 12/18/2024 CREATININE 0.74 12/18/2024 Lab Results Component Value Date ALT 17 12/10/2024 AST 20 12/10/2024 ALKPHOS 79 12/10/2024 BILITOT 0.3 12/10/2024 No results found for: INR , PROTIME , PTT REVIEW OF IMAGING STUDIES XR Pelvis 1 or 2 Views Narrative: CLINICAL INDICATION: mri clearance. concern for metal needle on previous scan. non palpable on exam TECHNIQUE: XR PELVIS 1 OR 2 VIEWS COMPARISON: None. FINDINGS: Linear radiopaque density overlying the right obturator ring with subtle break centrally. Moderate osteoarthrosis of the bilateral hips. Pelvic ring appears grossly intact. Femoral heads are well-seated within the acetabulum. Impression: Radiopaque metallic appearing density overlying the right obturator ring with subtle central break could represent foreign body such as broken needle. CRITICAL RESULT: No. COMMUNICATION: Per this written report. Drafted by Paolo Lovelace on 12/19/2024 12:02 PM Final report signed by Paolo Lovelace on 12/19/2024 12:03 PM REVIEW OF PROCEDURES Assessment and Plan: 64 y.o. year-old female with PMH of MS, 2013 and bilateral breast cancer with mastectomy 2006, who was sent her to [facility] ED from [facility] or possible AFib. Patient was admitted to [facility] for AMS initially and was on a 72 hour hold. No history of psych disorders per patient. In ED, hemodynamically stable. EKG showed sinus arrhythmia with PACs, no AFib. Patient was orientedto person, time and place but was altered. Labs showed new hyperthyroidism. CT head reported: Enlarged ventricles including lateral, third, and fourth ventricles. Prominence of the sulci. Enlarged ventricles may be due to volume loss. Also had elevated troponin with significant delta of 12. No ischemic EKG changes. Cardiology was consulted Her only known medical history is multiple sclerosis reports that she was following Dr. Jones from 2013 to 2020 and then they stopped giving her medication because they told her there was no one else in [place] that treated multiple sclerosis. She does not take any medication at home. Denies alcohol or drug use and has not smoked for the past 9 years. Admitted for medical management of New onset Afib likely secondary to hyperthyroidism: Graves disease contributing to her irritability and confusion. MRI could not be performed due to rads noting a density in her right side pelvis Altered mental status with concerns for urinary tract infection/Graves disease/Psychosis/ MS -Presented to [facility] ED from [facility] for AMS and cardiac concerns -CT head reported: Enlarged ventricles including lateral, third, and fourth ventricles. Prominence of the sulci. Enlarged ventricles may be due to volume loss. Possibility of normal pressure hydrocephalus could not be excluded. -Of note, patient last saw Dr. Jones in 2020. At that time, she had MRI imaging which showed enlarged ventricles. Documentation notes issues with gait instability and cognitive decline at that time. -CXR negative for acute findings -Ethanol level normal -Resp panel negative -Neurology consulted who recommended outpatient MRI head with and without contrast and follow up inNPH clinic. Also recommended follow-up with neuro criminal defense attorney for MS. Neurology said that psychosis with no neurological deficits is unlikely presentation of MS -UA suggestive of infection, s/p 3 doses of ceftriaxone with mixed urinary milagros on cultures as it was contaminated -ESR, CRP, procal, PTH, Cortisol, B1, Folate : Normal. UDS: Negative - Consulted Endocrinology considering low TSH as this could be the cause of acute confusion - TPO antibodies neg, TSI and TRAB elevated pointing towards Graves disease. Plan: - Delirium/fall precautions - Avoid anticholinergics, antihistamines, benzodiazepines, and opioids if able - Continue methimazole and she will follow up with Endocrinology outpatient for Graves disease -Will exclude psychiatric causes of her paranoia and irritability and continue to treat for Graves disease -Since she lives alone will talk to CM about safe discharge planning Acute non ST-segment elevation myocardial infarction, suspect type 2 -Initial troponin 122, uptrended to 134, delta 12 -Collator Operator consulted who said that most likely it is type 2 NSTEMI -Echo showed normal EF with no acute abnormalities -No acute intervention needed Paroxysmal atrial fibrillation without RVR -Cardiology consulted on patient in ED and recommendations as below: - May be secondary to acute illness (hyperthyroidism) - VANESSA?DS?-VASc score: 2 - Rate controlled, on propranolol - Embolic prevention: ON DOAC - Per Cardiology: Obtain a 14 day Holter monitor on discharge to evaluate for Afib burden - Patient to follow up in cardiology clinic - Consider outpatient sleep study to evaluate for underlying sleep apnea Graves disease -Could also be contributing to encephalopathy -Patient reports no known history of this -TSH <0.01, TSI and TRAB elevated showing Graves disease -On methimazole per Endocrinology #Relapsing-Remitting Multiple Sclerosis -Neuro consulted in ED and performed exam Plan: -Needs to have appointment made with Neuro immunology outpatient to continue to follow -No neurological deficits with psychosis unlikely sec to MS as per Neurology although she does haveworsening gait Chronic Medical Conditions: #) Eczema Plan: -Triamcinolone to rash bid Patient has no close family. She has few cousins and a close friend who lives nearby. Primary contact is friend who told me that patient had gait instability for a few months. She also had dementia. She would go to christianity on weekdays, get lost in her own home town. Considering she has no family makes it a complicated case if she does not have capacity and can't be discharged home alone. We will unfortunately have to get state guardianship and decide plan of care. For now ruling out medical caseof personality change, irritability and paranoia Inpatient Checklist: - Antimicrobial de-escalation: s/p Ceftriaxone x 3 - Bowel regimen: Senna - Code status: Full Code - Diet: regular - DVT prophylaxis: Apixaban - Electrolytes: Replete PRN - Ulcer prophylaxis: N/A - Disposition: Not medically ready, still irritable and paranoia with unknown cause CODE STATUS: Full Code EMERGENCY CONTACT: Extended Emergency Contact Information Primary Emergency Contact: Yen Collins Mobile Relation: Friend Dr. Guzman food science professor Hospitalist Medicine All images were reviewed. All changes discussed with consultants. Outside records reviewed as applicable. Secure chat preferred. Assessment & Plan Altered mental status MS (multiple sclerosis) (CMS/HCC) Abnormal finding on urinalysis Hyperthyroidism Eczema Altered mental status, unspecified altered mental status type [1] Current Facility-Administered Medications: acetaminophen (Tylenol) tablet 650 mg, 650 mg, Oral, q8h, Amanda Maddox APRN, 650 mg at 12/12/242021 apixaban (Eliquis) tablet 5 mg, 5 mg, Oral, BID, Wu Newby MD, 5 mg at 12/19/24823 bisacodyl (Dulcolax) EC tablet 10 mg, 10 mg, Oral, Daily PRN, Amanda Maddox APRN melatonin tablet 6 mg, 6 mg, Oral, Nightly, Wu Newby MD, 6 mg at 12/18/242148 methIMAzole (Tapazole) tablet 10 mg, 10 mg, Oral, BID, Wu Newby MD, 10 mg at 12/19/24823 propranolol (Inderal) tablet 10 mg, 10 mg, Oral, BID, Wu Newby MD, 10 mg at 12/19/24823 senna (Senokot) tablet 8.6 mg, 8.6 mg, Oral, Nightly, Wu Newby MD, 8.6 mg at 12/18/242148 Insert peripheral IV, , , Once AND Saline lock IV, , , Once AND sodium chloride 0.9 % flush10 mL, 10 mL, Intravenous, q12h, 10 mL at 12/19/24 0741 AND sodium chloride 0.9 % flush 10 mL, 10 mL, Intravenous, PRN, Amanda Maddox BUFFING AND POLISHING WHEEL REPAIRER, 10 mL at 12/13/24 0838 triamcinolone (Kenalog) 0.1 % cream 1 Application, 1 Application, Topical, BID, Amanda Maddox, BUFFING AND POLISHING WHEEL REPAIRER, 1 Application at 12/19/24 0827 [2] No Known Allergies * Progress Notes - Maria R Babin RN - 12/19/2024 1:24 PM EDT Case Management Adult Progress Note Yen Perez 64 y.o. female CSN: [id number] Admission: 12/10/2024 3:51 PM Primary Problem: Altered mental status Anticipated Discharge Date: TBD Discussed with multidsicplinary team, per attending phyisician dr. Guzman pt is not medically readyto d/c. The plan is for pt to be evaluated by neuropscy for decisional capacity. RN CM visited with the pt discuss d/c plan. At the time of the visit pt was able to answer all the questions appropriately and even went to the BR independently using her rollator that was at bedside. Pt reported that she has been living alone for over 30 years and is planning on d/c home once medically appropriate.Team updated. RN CM will continue to follow and assist with d/c plan and as needed. Maria R Babin RN * Progress Notes - Cassidy Layne MD - 12/19/2024 7:18 AM EDT Images from the original note were not included. Psychiatry Consult Follow Up Note 12/19/2024 Subjective Subjective: Overnight events documented include: None reported. PRNs received: No psychotropic prns required. Patient has been seen by PT. They signed off, noting that her gate is rigid with no loss of balance, and able to perform all mobility independently. Patient has also been seen by OT, and they feel there is no indication for skilled OT at this time. Primary team believes the patient's altered mental status is related to UTI v. Graves v. MS. They are continuing to treat with methimazole. The patient is scheduled for outpatient follow-up with endocrinology for Graves. Neurology consulted and wants her to follow-up in NPH clinic, and a neuroimmunologist for her MS. Patient unable to get MRI due to due to a broken needle in pelvis. Cardiology consulted and feel that the patient's arrhythmia is related to underlying hyperthyroidism. They recommend continued treatment with DOAC for embolic prevention and propanalol for rate control. Patient was seen and evaluated this morning. She was up walking from the bathroom at the time afterjust getting dressed. Mood was described as okay . Said she's been eating and sleeping well. Endorses no new concerns today. Discussed plan for day and answered all questions. Denied SI/HI/AVH. Patient was pleasant and actively participated when with her Tariq Cognitive Assessment (MOCA) this afternoon. She scored a 26/30 with deficits noted in visuospatial areas likely due to patient not having her glasses. She also had trouble with the memory section, only recalling 2/5 words after 5min. Vitals stable No relevant labs Patient's past medical, surgical, and social history has been reviewed. Objective Objective: Visit Vitals BP 106/62 Pulse 64 Temp 36.3 ??C (97.4 ??F) Ht 1.6 m (5' 3 ) Wt 59.7 kg (131 lb 9.8 oz) SpO2 95% BMI 23.31 kg/m?? Mental Status Exam: Appearance: appears stated age, wearing hospital attire, good hygiene Attitude: cooperative, interested in treatment Eye Contact: appropriate Speech: appropriate rate and volume, non-pressured Involuntary Movements: absent Psychomotor Activity: no significant depression or agitation Level of Consciousness: alert and attentive Memory: impaired Mood: okay Affect: congruent with stated mood, full range Thought Process: linear, organized, goal-directed Thought Content: no overt delusions, not responding to internal stimuli AVH: denied SI: denied HI: denied Insight: fair Judgment: fair Current Scheduled Medications[1] Current PRN Medications[2] Labs in last 24 hours: No results found for this or any previous visit (from the past 24 hours). Encounter Date: 12/10/24 EKG now - STAT (adult) Result Value EKG DIAGNOSIS CLASS Abnormal Ventricular Rate 94 Atrial Rate 94 WV Interval 162 QRSD Interval 90 QT Interval 372 QTC Interval 465 P Woodruff 24 R Woodruff 13 T Wave Woodruff 61 Diagnosis Sinus rhythm with premature atrial complexes Diagnosis Cannot rule out Septal infarct , age undetermined Diagnosis Abnormal ECG Diagnosis Diagnosis Confirmed by Adalid Betancourt ([id number]) on 12/10/2024 6:30:42 PM *Note: Due to a large number of results and/or encounters for the requested time period, some results have not been displayed. A complete set of results can be found in Results Review. ANTIPSYCHOTIC MONITORING TOOL Current antipsychotic(s): Olanzapine and None Glucose parameters: Lab Results Component Value Date HGBA1C 5.9 (H) 12/10/2024 Lab Results Component Value Date GLUCOSE 129 (H) 12/18/2024 GLUCOSE 96 12/14/2024 Concern for diabetes? Pending further work-up, deferred to primary team Lipid parameters: Lab Results Component Value Date CHOL 169 12/10/2024 HDL 56 12/10/2024 LDLCALC 94 12/10/2024 TRIG 107 12/10/2024 Fasting lipid panel? N/A Current antidiabetic: N/A Current antilipemic: N/A Blood pressure parameters: BP REVIEW BP (ultimate) 12/19/2024 3:47 AM 106/62 12/19/2024 3:46 AM 92/53 12/19/2024 12:01 AM 110/65 12/18/2024 8:05 PM 113/62 Concern for hypertension? No Weight parameters: Height: 160 cm (5' 3 ) Height Method: Estimated Weight: 59.7 kg (131 lb 9.8 oz) Weight Method: Bed scale BMI (Calculated): 23.32 Current antihypertensive: N/A QTc: 465 EKG Date/Time: 12/10/24 Patient is aged 40-75y and LDL between 70-190 without diabetes, therefore 10-year ASCVD risk calculated below: The ASCVD Risk score (Trisha TEE, et al., 2019) failed to calculate for the following reasons: Risk score cannot be calculated because patient has a medical history suggesting prior/existing ASCVD Patient will require deferment to primary team for further discussion concerning antilipemic therapy when indicated. Clinical indication for treatment of metabolic concerns pertaining to ongoing antipsychotic use wasdeferred to primary treatment team for further discussion. Assessment/Plan Diagnoses: Delirium -r/o MNCD Medical Diagnoses: Problem List[3] Risk Assessment: Patient is not currently at an acutely elevated risk of harm to self or others given denies SI/HI/AVH. Patient is not demonstrating ANY suicidal intent, DOES appear to be able to control impulsivity,and IS NOT exhibiting any psychiatric symptom burden impacting safety/daily functioning. They currently affirm lack of specific plan. It should be noted that this patient is at a chronically elevated risk at baseline due to the following exhibited risk factors NOT modifiable by hospitalization demonstrated in their history divorcedand living alone. The patient does, however, exhibit the following strengths/protective factors: samuel m/cooperative, denying access to firearms, able to identify reasons for living, and future-oriented, exercising self direction, attempting to realize one's potential, cultural/spiritual anglican involvement, access to housing, and good interpersonal relationships and supports. No risk factors modifiable by psychiatric hospitalization were identified on evaluation. Involuntary hospitalization on a 72 hour hold for safety, further psychiatric evaluation, and crisis stabilization is not currently indicated. Patient is not holdable under KRS as she does not meet ALL hold criteria: having a mental illness, being an acute risk of harm to self or others, reasonable expectation of benefit from admission, AND inpatient being least restrictive means of treatment. Formulation: Yen Perez is a 64 y.o. female with a PMHx of MS, 2013 and bilateral breast cancer with mastectomy 2006 and no reported psychiatric hx who presented to [facility] via police from street with concerns of AMS and transferred 12/10/2024 to Internal Medicine for continued management of Afib. Psychiatry was consulted for medication recommendations and risk assessment regarding due to reported paranoia, elated mood, and pressured speech. Psychiatric history significant for no reported prior hospitalizations for medication trials. Recent psychosocial stressors of hospitalization. Most likely diagnosis at thistime is multifactorial delirium due to graves disease, recent UTI, MS, and ventriculomegaly with concern for possible NPH. Per collateral patient has been more unsteady on her feet and has had multiple episodes of urinary incontinence. Cannot rule out new metastatic cancer contributing with historyof bilateral breast cancer. Delirium improved today. Cannot rule out Major Neurocognitive Disorder,given recent memory concerns per collateral and although patient reports no memory concerns, later reports being frustrated at herself a lot recently due to not being able to remember certain things.MOCA was administered 12/19/24 patient scored a 26/30. While encouraging, this is not enough to rule out an underlying neurocognitive process contributing to her symptoms. There is low concern for primary psychotic disorder at this time given patients age, no previous psych history, and collateral. Recommendations: - Patient unable to get MRI due to due to a broken needle in pelvis - Can use Zyprexa 5 mg q6hr PO or IM PRN for acute agitation, should offer PO first - Avoid concurrent use of IM Zyprexa and parenteral benzodiazepines as there is a drug-drug interaction that increases the risk for respiratory depression. - Continue delirium precautions Delirium Precautions: - Delirium can persist for days, weeks, to months after precipitating incident regardless of treatment of underlying etiology, if identified. Recommend delirium precautions as follows: - While there is a black box warning for the use of antipsychotics in geriatric patients with MNCD,delirium is also associated with increased risk of all-cause mortality. Therefore, the benefit of short-term anti-psychotic use outweighs the risks and may be used for treatment of delirium when usedjudiciously. - Please enforce strict maintenance of sleep-wake cycle. Keep the patient awake as able during daylight hours and please keep curtains open. At night dim lights, TV off if possible and minimize interruptions. Schedule Melatonin 3-6mg at bedtime, which has been shown to be beneficial in delirium andpromote sleep cycle regularity. - Cluster care when possible at night including sleep-friendly vital signs (once overnight in earlyevening/bedtime) if safe/medically stable - Please minimize the use of restraints as restraints may worsen delirium. - Provide frequent reorientation - Employ early and frequent mobility (especially during the day) including up to chair for meals - Ensure patient has access to glasses/hearing aids as needed - Maintain appropriate fluid and electrolyte levels, strict I/O monitoring as appropriate - Make comfort PRNs available for pain and constipation - Encourage presence of loved ones at bedside - Minimize use of deliriogenic medications including benzodiazepines, anticholinergics and antihistaminergics - Psychiatry will sign off at this time. Thank you for allowing us to contribute to your patient's care. We are available for any additional assistance if needed. This patient was staffed with and seen by attending psychiatrist, Dr. Ledesma, who agrees with the assessment and plan. Ricardo Chandler, MS4 I saw and evaluated the patient with the medical student. I discussed the case with the medical student and agree with the findings and plan as documented. Edits were made to the documentation as appropriate. Cassidy Layne MD PGY-2 Psychiatry [employer] Note to patient: The Century Cures Act makes medical notes like these available to patients inthe interest of transparency. However, be advised this is a medical document. It is intended as peer to peer communication. It is written in medical language and may contain abbreviations or verbiagethat are unfamiliar. It may appear blunt or direct. Medical documents are intended to carry relevant information, facts as evident, and the clinical opinion of the practitioner. [1] acetaminophen, 650 mg, Oral, q8h apixaban, 5 mg, Oral, BID melatonin, 6 mg, Oral, Nightly methIMAzole, 10 mg, Oral, BID propranolol, 10 mg, Oral, BID senna, 8.6 mg, Oral, Nightly Insert peripheral IV, , , Once AND Saline lock IV, , , Once AND sodium chloride, 10 mL, Intravenous, q12h AND sodium chloride, 10 mL, Intravenous, PRN triamcinolone, 1 Application, Topical, BID [2] PRN medications: bisacodyl, Insert peripheral IV AND Saline lock IV AND sodium chlorideAND sodium chloride [3] Patient Active Problem List Diagnosis Altered mental status MS (multiple sclerosis) ([facility]) Abnormal finding on urinalysis Hyperthyroidism Eczema Altered mental status, unspecified altered mental status type Cosigned by Ludivina Ledesma MD at 12/20/2024 3:28 PM EDT Associated attestation - Ludivina Ledesma MD - 12/20/2024 3:28 PM EDT I saw and evaluated the patient. I discussed the case with the medical student and resident/fellow and agree with the findings and plan as documented. I personally participated in the management of the patient. * Care Plan - Heriberto Poe RN - 12/19/2024 6:16 AM EDT Problem: Adult Inpatient Plan of Care Goal: Plan of Care Review Outcome: Ongoing, Progressing Flowsheets Taken 12/19/2024611 by Heriberto Poe RN Progress: no change Taken 12/15/2024958 by Magda Quintanilla RN Plan of Care Reviewed With: patient Goal: Patient-Specific Goal (Individualized) Outcome: Ongoing, Progressing Flowsheets (Taken 12/18/20242104) Patient/Family-Specific Goals (Include Timeframe): Patient will sleep through the night with minimal disturbances/interruptions Individualized Care Needs: Safety and comfort Anxieties, Fears or Concerns: Getting to go home Goal: Absence of Hospital-Acquired Illness or Injury Outcome: Ongoing, Progressing Intervention: Identify and Manage Fall Risk Flowsheets (Taken 12/19/2024611) Safety Promotion/Fall Prevention: clutter-free environment maintained activity supervised Intervention: Prevent Skin Injury Flowsheets Taken 12/19/2024611 by Heriberto Poe RN Body Position: neutral head position neutral body alignment foot of bed elevated Taken 12/18/2024 1444 by Harsha Dixon RN Skin Protection: incontinence pads utilized Intervention: Prevent and Manage VTE (Venous Thromboembolism) Risk Flowsheets (Taken 12/17/20241999 by Kaelyn Canales) VTE Prevention/Management: medication Intervention: Prevent Infection Flowsheets (Taken 12/16/20246 by Michelle Junior RN) Infection Prevention: rest/sleep promoted hand hygiene promoted Goal: Optimal Comfort and Wellbeing Outcome: Ongoing, Progressing Intervention: Monitor Pain and Promote Comfort Flowsheets (Taken 12/19/2024611) Pain Management Interventions: medication (see MAR) rest quiet environment facilitated Intervention: Provide Person-Centered Care Flowsheets (Taken 12/19/2024611) Trust Relationship/Rapport: care explained reassurance provided emotional support provided questions answered Goal: Readiness for Transition of Care Outcome: Ongoing, Progressing Intervention: Mutually Develop Transition Plan Flowsheets Taken 12/17/2024851 by Olamide Lucero RN Concerns to be Addressed: denies needs/concerns at this time Patient/Family Anticipates Transition to: other (see comments) Taken 12/16/20246 by Michelle Junior, RN Equipment Currently Used at Home: walker, rolling Transportation Concerns: no car Taken 12/15/2024958 by Magda Quintanilla RN Readmission Within the Last 30 Days: no previous admission in last 30 days Taken 12/14/2024 225 by Michelle Junior RN Anticipated Changes Related to Illness: inability to care for self Taken 12/13/20242311 by Michelle Junior RN Patient/Family Anticipated Services at Transition: mental health services Problem: Mobility Impairment Goal: Optimal Mobility Outcome: Ongoing, Progressing Intervention: Optimize Mobility Flowsheets Taken 12/19/2024611 by Heriberto Poe RN Activity Management: ambulated to bathroom up ad michelle sitting, edge of bed Taken 12/19/2024 0300 by Mariposa Elkins Assistive Device Utilized: front wheel walker Taken 12/16/20246 by Michelle Junior RN Positioning/Transfer Devices: in use pillows Problem: Fall Injury Risk Goal: Absence of Fall and Fall-Related Injury Outcome: Ongoing, Progressing Intervention: Identify and Manage Contributors Flowsheets (Taken 12/16/20246 by Michelle Junior RN) Medication Review/Management: medications reviewed Self-Care Promotion: independence encouraged BADL personal objects within reach Intervention: Promote Injury-Free Environment Flowsheets (Taken 12/19/2024611) Safety Promotion/Fall Prevention: clutter-free environment maintained activity supervised Problem: Pain Acute Goal: Optimal Pain Control and Function Outcome: Ongoing, Progressing Intervention: Optimize Psychosocial Wellbeing Flowsheets Taken 12/16/20246 by Michelle Junior RN Supportive Measures: active listening utilized verbalization of feelings encouraged positive reinforcement provided relaxation techniques promoted self-care encouraged decision-making supported Diversional Activities: television Taken 12/14/20242250 by Michelle Junior RN Spiritual Activities Assistance: personal rituals encouraged Intervention: Develop Pain Management Plan Flowsheets (Taken 12/19/2024611) Pain Management Interventions: medication (see MAR) rest quiet environment facilitated Intervention: Prevent or Manage Pain Flowsheets Taken 12/19/2024611 by Heriberto Poe RN Sleep/Rest Enhancement: noise level reduced awakenings minimized room darkened regular sleep/rest pattern promoted Taken 12/16/20246 by Michelle Junior RN Sensory Stimulation Regulation: auditory stimulation minimized visual stimulation minimized quiet environment promoted Bowel Elimination Promotion: adequate fluid intake promoted Medication Review/Management: medications reviewed Problem: Confusion Acute Goal: Optimal Cognitive Function Outcome: Ongoing, Progressing Intervention: Minimize Contributing Factors Flowsheets Taken 12/19/2024 0612 by Heriberto Poe RN Reorientation Measures: clock in view glasses use encouraged reorientation provided Taken 12/16/20246 by Michelle Junior RN Sensory Stimulation Regulation: auditory stimulation minimized visual stimulation minimized quiet environment promoted Environment Familiarity/Consistency: personal clothing/items utilized Communication Support Strategies: active listening utilized * Care Plan - Harsha Dixon RN - 12/18/2024 2:46 PM EDT Problem: Adult Inpatient Plan of Care Goal: Plan of Care Review Outcome: Ongoing, Progressing Flowsheets Taken 12/16/20246 by Michelle Junior RN Progress: no change Taken 12/15/2024 0959 by Magda Quintanilla RN Plan of Care Reviewed With: patient Goal: Patient-Specific Goal (Individualized) Outcome: Ongoing, Progressing Flowsheets (Taken 12/18/2024 1100) Patient/Family-Specific Goals (Include Timeframe): pt will remain free from falls and injuries thisshift Individualized Care Needs: safety Anxieties, Fears or Concerns: none stated Goal: Absence of Hospital-Acquired Illness or Injury Outcome: Ongoing, Progressing Intervention: Identify and Manage Fall Risk Flowsheets (Taken 12/18/2024 0800) Safety Promotion/Fall Prevention: activity supervised assistive device/personal items within reach clutter-free environment maintained fall prevention program maintained lighting adjusted mobility aid in reach nonskid shoes/slippers when out of bed room organization consistent safety round/check completed toileting scheduled Intervention: Prevent Skin Injury Flowsheets Taken 12/18/2024 1444 Skin Protection: incontinence pads utilized Taken 12/18/2024 1400 Body Position: weight shifting Intervention: Prevent and Manage VTE (Venous Thromboembolism) Risk Flowsheets (Taken 12/17/20241999 by Kaelyn Canales) VTE Prevention/Management: medication Intervention: Prevent Infection Flowsheets (Taken 12/16/20246 by Michelle Junior RN) Infection Prevention: rest/sleep promoted hand hygiene promoted Goal: Optimal Comfort and Wellbeing Outcome: Ongoing, Progressing Intervention: Monitor Pain and Promote Comfort Flowsheets (Taken 12/18/2024 1444) Pain Management Interventions: rest Intervention: Provide Person-Centered Care Flowsheets (Taken 12/16/20246 by Michelle Junior, RN) Trust Relationship/Rapport: care explained reassurance provided thoughts/feelings acknowledged empathic listening provided Goal: Readiness for Transition of Care Outcome: Ongoing, Progressing Intervention: Mutually Develop Transition Plan Flowsheets Taken 12/16/20246 by Michelle Junior, RN Equipment Currently Used at Home: walker, rolling Taken 12/15/2024 0959 by Magda Quintanilla RN Readmission Within the Last 30 Days: no previous admission in last 30 days Problem: Mobility Impairment Goal: Optimal Mobility Outcome: Ongoing, Progressing Intervention: Optimize Mobility Flowsheets Taken 12/18/2024 1444 by Harsha Dixon, RN Assistive Device Utilized: front wheel walker Taken 12/18/2024 08 by Harsha Dixon, RN Activity Management: activity adjusted per tolerance Taken 12/16/20246 by Michelle Junior RN Positioning/Transfer Devices: in use pillows Problem: Fall Injury Risk Goal: Absence of Fall and Fall-Related Injury Outcome: Ongoing, Progressing Intervention: Identify and Manage Contributors Flowsheets (Taken 12/16/20246 by Michelle Junior, OG) Medication Review/Management: medications reviewed Self-Care Promotion: independence encouraged BADL personal objects within reach Intervention: Promote Injury-Free Environment Flowsheets (Taken 12/18/2024 08) Safety Promotion/Fall Prevention: activity supervised assistive device/personal items within reach clutter-free environment maintained fall prevention program maintained lighting adjusted mobility aid in reach nonskid shoes/slippers when out of bed room organization consistent safety round/check completed toileting scheduled Problem: Pain Acute Goal: Optimal Pain Control and Function Outcome: Ongoing, Progressing Intervention: Optimize Psychosocial Wellbeing Flowsheets (Taken 12/16/20246 by Michelle Junior, RN) Supportive Measures: active listening utilized verbalization of feelings encouraged positive reinforcement provided relaxation techniques promoted self-care encouraged decision-making supported Diversional Activities: television Intervention: Develop Pain Management Plan Flowsheets (Taken 12/18/2024 1444) Pain Management Interventions: rest Intervention: Prevent or Manage Pain Flowsheets (Taken 12/16/20246 by Michelle Junior, RN) Bowel Elimination Promotion: adequate fluid intake promoted Sleep/Rest Enhancement: awakenings minimized noise level reduced Medication Review/Management: medications reviewed Problem: Confusion Acute Goal: Optimal Cognitive Function Outcome: Ongoing, Progressing Intervention: Minimize Contributing Factors Flowsheets (Taken 12/16/20246 by Michelle Junior RN) Sensory Stimulation Regulation: auditory stimulation minimized visual stimulation minimized quiet environment promoted Reorientation Measures: clock in view Environment Familiarity/Consistency: personal clothing/items utilized Communication Support Strategies: active listening utilized * Progress Notes - Loi Guzman MD - 12/18/2024 1:25 PM EDT Images from the original note were not included. [facility] Medicine Inpatient Progress Note Patient: Yen Perez PCP: Yen Hoover Date: 12/18/2024 Length of stay: 6 days Subjective Seen and examined at the bedside. Patient was sitting comfortably. Denied any active complaints or needs. Appeared tangential and did not have insight into her medical problems Objective INPATENT MEDICATIONS Current Medications[1] ALLERGIES Allergies[2] 24 HOUR VITALS Temp: [36.2 ??C (97.2 ??F)-36.8 ??C (98.3 ??F)] 36.8 ??C (98.3 ??F) Heart Rate: [58-83] 64 Resp: [16-19] 16 BP: (93-121)/(46-78) 107/62 INTAKE/OUTPUT Intake/Output Summary (Last 24 hours) at 12/18/2024 1325 Last data filed at 12/17/2024 2121 Gross per 24 hour Intake 710 ml Output -- Net 710 ml Physical Exam - GENERAL: No acute distress. Well-nourished. Pleasantly confused, paranoia, elated mood, speech isfast - EYES: EOMI. Anicteric. No exophthalmos - HENT: Moist mucous membranes. No scleral icterus. No cervical lymphadenopathy. No palpable thyroid - PULMONARY: Clear to auscultation bilaterally. No accessory muscle use. - CARDIOVASCULAR: Regular rate and rhythm. No murmur. No JVD. - ABDOMEN: Soft, non-tender and non-distended. No palpable masses. - MSK: No edema. Non-tender.? - SKIN: No rashes or lesions. Warm. - NEUROLOGIC: Alert and oriented x 4. No focal neurological deficits. CN II-XII grossly intact, butnot individually tested. - PSYCHIATRIC: Semi Cooperative. Not appropriate mood and affect. Review of Systems REVIEW OF LABORATORY DATA Lab Results Component Value Date WBC 5.67 12/18/2024 HGB 12.0 12/18/2024 HCT 36.1 12/18/2024 MCV 84 12/18/2024 PLT 224 12/18/2024 Lab Results Component Value Date GLUCOSE 129 (H) 12/18/2024 CALCIUM 9.2 12/18/2024 NA 140 12/18/2024 K 3.9 12/18/2024 CO2 26 12/18/2024 CL 105 12/18/2024 BUN 21 12/18/2024 CREATININE 0.74 12/18/2024 Lab Results Component Value Date ALT 17 12/10/2024 AST 20 12/10/2024 ALKPHOS 79 12/10/2024 BILITOT 0.3 12/10/2024 No results found for: INR , PROTIME , PTT REVIEW OF IMAGING STUDIES XR Abdomen 1 View Narrative: CLINICAL INDICATION: MRI clearance TECHNIQUE: Supine radiograph of the abdomen. COMPARISON: None. FINDINGS: Large retained stool throughout the colon. The bowel gas pattern is nonobstructive. There is a linear radiodensity measuring about 2.8 cm overlying the right femoral region concerning for retained needle or catheter. Impression: A 2.8 cm linear radiodensity overlying the right inguinal region concerning for retained needle or wire. CRITICAL RESULT: No. COMMUNICATION: Per this written report. Drafted by Maribell Ibarra MD on 12/17/2024 9:01 PM Final report signed by Maribell Ibarra MD on 12/17/2024 9:02 PM REVIEW OF PROCEDURES Assessment and Plan: 64 y.o. year-old female with PMH of MS, 2013 and bilateral breast cancer with mastectomy 2006, who was sent her to [facility] ED from [facility] or possible AFib. Patient was admitted to [facility] for AMS initially and was on a 72 hour hold. No history of psych disorders per patient. In ED, hemodynamically stable. EKG showed sinus arrhythmia with PACs, no AFib. Patient was orientedto person, time and place but was altered. Labs showed new hyperthyroidism. CT head reported: Enlarged ventricles including lateral, third, and fourth ventricles. Prominence of the sulci. Enlarged ventricles may be due to volume loss. Also had elevated troponin with significant delta of 12. No ischemic EKG changes. Cardiology was consulted Her only known medical history is multiple sclerosis reports that she was following Dr. Jones from 2013 to 2020 and then they stopped giving her medication because they told her there was no one else in [place] that treated multiple sclerosis. She does not take any medication at home. Denies alcohol or drug use and has not smoked for the past 9 years. Admitted for medical management of New onset Afib likely secondary to hyperthyroidism: Graves disease contributing to her irritability and confusion. MRI could not be performed due to rads noting a density in her right side pelvis Altered mental status with concerns for urinary tract infection/Graves disease/Psychosis/ MS -Presented to [facility] ED from [facility] for AMS and cardiac concerns -CT head reported: Enlarged ventricles including lateral, third, and fourth ventricles. Prominence of the sulci. Enlarged ventricles may be due to volume loss. Possibility of normal pressure hydrocephalus could not be excluded. -Of note, patient last saw Dr. Jones in 2020. At that time, she had MRI imaging which showed enlarged ventricles. Documentation notes issues with gait instability and cognitive decline at that time. -CXR negative for acute findings -Ethanol level normal -Resp panel negative -Neurology consulted who recommended outpatient MRI head with and without contrast and follow up in[facility] clinic. Also recommended follow-up with neuro criminal defense attorney for MS. Neurology said that psychosis with no neurological deficits is unlikely presentation of MS -UA suggestive of infection, s/p 3 doses of ceftriaxone with mixed urinary milagros on cultures as it was contaminated -ESR, CRP, procal, PTH, Cortisol, B1, Folate : Normal. UDS: Negative - Consulted Endocrinology considering low TSH as this could be the cause of acute confusion - TPO antibodies neg, TSI and TRAB elevated pointing towards Graves disease. Plan: - Delirium/fall precautions - Avoid anticholinergics, antihistamines, benzodiazepines, and opioids if able - Continue methimazole and she will follow up with Endocrinology outpatient for Graves disease -Will exclude psychiatric causes of her paranoia and irritability and continue to treat for Graves disease -Since she lives alone will talk to CM about safe discharge planning Acute non ST-segment elevation myocardial infarction, suspect type 2 -Initial troponin 122, uptrended to 134, delta 12 -Collator Operator consulted who said that most likely it is type 2 NSTEMI -Echo showed normal EF with no acute abnormalities -No acute intervention needed Paroxysmal atrial fibrillation without RVR -Cardiology consulted on patient in ED and recommendations as below: - May be secondary to acute illness (hyperthyroidism) - VANESSA?DS?-VASc score: 2 - Rate controlled, on propranolol - Embolic prevention: ON DOAC - Per Cardiology: Obtain a 14 day Holter monitor on discharge to evaluate for Afib burden - Patient to follow up in cardiology clinic - Consider outpatient sleep study to evaluate for underlying sleep apnea Graves disease -Could also be contributing to encephalopathy -Patient reports no known history of this -TSH <0.01, TSI and TRAB elevated showing Graves disease -On methimazole per Endocrinology #Relapsing-Remitting Multiple Sclerosis -Neuro consulted in ED and performed exam Plan: -Needs to have appointment made with Neuro immunology outpatient to continue to follow -No neurological deficits with psychosis unlikely sec to MS as per Neurology although she does haveworsening gait Chronic Medical Conditions: #) Eczema Plan: -Triamcinolone to rash bid Patient has no close family. She has few cousins and a close friend who lives nearby. Primary contact is friend who told me that patient had gait instability for a few months. She also had dementia. She would go to christianity on weekdays, get lost in her own home town. Considering she has no family makes it a complicated case if she does not have capacity and can't be discharged home alone. We will unfortunately have to get state guardianship and decide plan of care. For now ruling out medical caseof personality change, irritability and paranoia Inpatient Checklist: - Antimicrobial de-escalation: s/p Ceftriaxone x 3 - Bowel regimen: Senna - Code status: Full Code - Diet: regular - DVT prophylaxis: Apixaban - Electrolytes: Replete PRN - Ulcer prophylaxis: N/A - Disposition: Not medically ready, still irritable and paranoia with unknown cause CODE STATUS: Full Code EMERGENCY CONTACT: Extended Emergency Contact Information Primary Emergency Contact: Yen Collins Mobile Relation: Friend Dr. Guzman food science professor Hospitalist Medicine All images were reviewed. All changes discussed with consultants. Outside records reviewed as applicable. Secure chat preferred. Assessment & Plan Altered mental status MS (multiple sclerosis) (CMS/HCC) Abnormal finding on urinalysis Hyperthyroidism Eczema Altered mental status, unspecified altered mental status type [1] Current Facility-Administered Medications: acetaminophen (Tylenol) tablet 650 mg, 650 mg, Oral, q8h, Amanda Maddox, BUFFING AND POLISHING WHEEL REPAIRER, 650 mg at 12/12/242021 apixaban (Eliquis) tablet 5 mg, 5 mg, Oral, BID, Wu Newby MD, 5 mg at 12/18/24918 bisacodyl (Dulcolax) EC tablet 10 mg, 10 mg, Oral, Daily PRN, Amanda Maddox [employer] WHEEL REPAIRER melatonin tablet 6 mg, 6 mg, Oral, Nightly, Wu Newby MD, 6 mg at 12/17/242115 methIMAzole (Tapazole) tablet 10 mg, 10 mg, Oral, BID, Wu Newby MD, 10 mg at 12/18/24919 propranolol (Inderal) tablet 10 mg, 10 mg, Oral, BID, Wu Newby MD, 10 mg at 12/18/24918 senna (Senokot) tablet 8.6 mg, 8.6 mg, Oral, Nightly, Wu Newby MD, 8.6 mg at 12/17/242115 Insert peripheral IV, , , Once AND Saline lock IV, , , Once AND sodium chloride 0.9 % flush10 mL, 10 mL, Intravenous, q12h, 10 mL at 12/18/24919 AND sodium chloride 0.9 % flush 10 mL, 10 mL, Intravenous, PRN, Amanda Maddox, [employer] WHEEL REPAIRER, 10 mL at 12/13/24837 triamcinolone (Kenalog) 0.1 % cream 1 Application, 1 Application, Topical, BID, Amanda Maddox, [employer] WHEEL REPAIRER, 1 Application at 12/18/24919 [2] No Known Allergies * Care Plan - Kaelyn Canales - 12/18/2024 3:04 AM EDT Problem: Adult Inpatient Plan of Care Goal: Plan of Care Review Outcome: Ongoing, Progressing Flowsheets Taken 12/16/20246 by Michelle Junior RN Progress: no change Taken 12/15/2024 0959 by Magda Quintanilla RN Plan of Care Reviewed With: patient Goal: Patient-Specific Goal (Individualized) Outcome: Ongoing, Progressing Flowsheets (Taken 12/17/20241999) Patient/Family-Specific Goals (Include Timeframe): Patient will remain injury and fall free throughout shift. Patient will be redirected when presenting as confused. Individualized Care Needs: safety Anxieties, Fears or Concerns: Patient wants to leave and doesn't understand why she is here. Goal: Absence of Hospital-Acquired Illness or Injury Outcome: Ongoing, Progressing Intervention: Identify and Manage Fall Risk Flowsheets (Taken 12/17/20241999) Safety Promotion/Fall Prevention: activity supervised assistive device/personal items within reach clutter-free environment maintained fall prevention program maintained lighting adjusted mobility aid in reach nonskid shoes/slippers when out of bed room organization consistent safety round/check completed Intervention: Prevent Skin Injury Flowsheets Taken 12/17/2024 1600 by Olamide Lucero RN Body Position: weight shifting Taken 12/16/20246 by Michelle Junior RN Skin Protection: transparent dressing maintained Intervention: Prevent and Manage VTE (Venous Thromboembolism) Risk Flowsheets (Taken 12/17/20241999) VTE Prevention/Management: medication Intervention: Prevent Infection Flowsheets (Taken 12/16/20246 by Michelle Junior RN) Infection Prevention: rest/sleep promoted hand hygiene promoted Goal: Optimal Comfort and Wellbeing Outcome: Ongoing, Progressing Intervention: Monitor Pain and Promote Comfort Flowsheets (Taken 12/16/2024 0500 by Michelle Junior, OG) Pain Management Interventions: care clustered pillow support provided Intervention: Provide Person-Centered Care Flowsheets (Taken 12/16/20246 by Michelle Junior, OG) Trust Relationship/Rapport: care explained reassurance provided thoughts/feelings acknowledged empathic listening provided Goal: Readiness for Transition of Care Outcome: Ongoing, Progressing Intervention: Mutually Develop Transition Plan Flowsheets Taken 12/17/2024 0852 by Olamide Lucero RN Transportation Anticipated: other (see comments) Concerns to be Addressed: denies needs/concerns at this time Patient/Family Anticipates Transition to: other (see comments) Taken 12/16/20246 by iMchelle Junior RN Equipment Currently Used at Home: walker, rolling Transportation Concerns: no car Taken 12/15/2024 0959 by Magda Quintanilla RN Equipment Needed After Discharge: walker, rollator Readmission Within the Last 30 Days: no previous admission in last 30 days Taken 12/14/20242250 by Michelle Junior RN Anticipated Changes Related to Illness: inability to care for self Taken 12/13/2024 231 by Michelle Junior RN Patient/Family Anticipated Services at Transition: mental health services Problem: Mobility Impairment Goal: Optimal Mobility Outcome: Ongoing, Progressing Intervention: Optimize Mobility Flowsheets Taken 12/17/20241999 by Kaelyn Canales Activity Management: activity adjusted per tolerance activity encouraged ambulated in peguero Taken 12/17/2024 1030 by Olamide Lucero RN Assistive Device Utilized: front wheel walker Taken 12/16/20246 by Michelle Junior RN Positioning/Transfer Devices: in use pillows Problem: Fall Injury Risk Goal: Absence of Fall and Fall-Related Injury Outcome: Ongoing, Progressing Intervention: Identify and Manage Contributors Flowsheets (Taken 12/16/20246 by Michelle Junior RN) Medication Review/Management: medications reviewed Self-Care Promotion: independence encouraged BADL personal objects within reach Intervention: Promote Injury-Free Environment Flowsheets (Taken 12/17/20241999) Safety Promotion/Fall Prevention: activity supervised assistive device/personal items within reach clutter-free environment maintained fall prevention program maintained lighting adjusted mobility aid in reach nonskid shoes/slippers when out of bed room organization consistent safety round/check completed Problem: Pain Acute Goal: Optimal Pain Control and Function Outcome: Ongoing, Progressing Intervention: Optimize Psychosocial Wellbeing Flowsheets Taken 12/16/20246 by Michelle Junior RN Supportive Measures: active listening utilized verbalization of feelings encouraged positive reinforcement provided relaxation techniques promoted self-care encouraged decision-making supported Diversional Activities: television Taken 12/14/20242250 by Michelle Junior RN Spiritual Activities Assistance: personal rituals encouraged Intervention: Develop Pain Management Plan Flowsheets (Taken 12/16/2024 0500 by Michelle Junior, RN) Pain Management Interventions: care clustered pillow support provided Intervention: Prevent or Manage Pain Flowsheets (Taken 12/16/2024 000 by Michelle Junior, RN) Sensory Stimulation Regulation: auditory stimulation minimized visual stimulation minimized quiet environment promoted Bowel Elimination Promotion: adequate fluid intake promoted Sleep/Rest Enhancement: awakenings minimized noise level reduced Medication Review/Management: medications reviewed Problem: Confusion Acute Goal: Optimal Cognitive Function Outcome: Ongoing, Progressing Intervention: Minimize Contributing Factors Flowsheets (Taken 12/16/2024 000 by Michelle Junior, RN) Sensory Stimulation Regulation: auditory stimulation minimized visual stimulation minimized quiet environment promoted Reorientation Measures: clock in view Environment Familiarity/Consistency: personal clothing/items utilized Communication Support Strategies: active listening utilized * Progress Notes - Vamshi June - 12/17/2024 1:53 PM EDT Physical Therapy Evaluation Patient Name: Yen Perez Today's Date: 12/17/2024 PT Discharge Recommendations: Home with assistance (assist as needed) Equipment Recommended: Rollator History Yen Perez is 64 y.o. female admitted 12/10/2024 for work-up of Altered mental status. Problem List Active Hospital Problems Diagnosis Date Noted Altered mental status, unspecified altered mental status type 12/12/2024 Altered mental status 12/10/2024 MS (multiple sclerosis) ([facility]) 12/10/2024 Abnormal finding on urinalysis 12/10/2024 Hyperthyroidism 12/10/2024 Eczema 12/10/2024 Procedures Past Medical History Patient has a past medical history of Eczema and Multiple sclerosis (CMS/[facility]ER[facility]). Past Surgical History Patient has no past surgical history on file. Precautions Left Lower Extremity Weight Bearing Status: Weight Bearing as Tolerated Right Lower Extremity Weight Bearing Status: Weight Bearing as Tolerated Left Upper Extremity Weight Bearing Status : Weight bearing as tolerated Right Upper Extremity Weight Bearing Status : Weight bearing as tolerated Medical Precautions: Fall precautions Subjective Yen Perez is a 64 y/o female who presents to [facility] with AMS. Participants in Care Family/Caregiver Present: No Presentation Oxygen Therapy: None (Room air) Lines and Tubes: Intravenous access Pre-Session: Head of bed elevated, Lines intact Post-Session: Head of bed elevated, Lines intact, Call light in reach, RN notified, Bed alarm (zone1, 2, 3) Post-Session Comments: Patient positioned for comfort and left with all needs within reach Home Living/Set-up Lives With: Alone Home Type: House Home Adaptive Equipment: None Home Layout: One level Bathroom: Toilet: Standard Bathroom: Accessibility: Accessible Prior Level of Function Receives Help From: No assist required prior to admission Level of Mobility: Ambulatory- community Mobility Morrow: Independent gait without device History of Falls: No ADL Performance: Independent Patient/Family Goals Patient stated desire to return home Objective Pain Patient reported no pain when asked. Delirium Screening RASS: Alert and calm Confusion Assessment Method-ICU (CAM-ICU/PCAM-ICU) Feature 3: Altered Level of Consciousness: Negative Cognition Overall Cognitive Status: Within Functional Limits Arousal/Alertness: Appropriate responses to stimuli Mood/Behavior: Alert Orientation Level: Oriented X4 Single Step Commands: Consistently Multi-Step Commands: Consistently Method of Communication: Verbal Right Upper Extremity Examination RUE Assessment: Within Functional Limits Manual Muscle Testing - RUE: Within functional limits Left Upper Extremity Examination LUE ROM Assessment LUE Assessment: Within Functional Limits Manual Muscle Testing - LUE Manual Muscle Testing - LUE: Within functional limits Right Lower Extremity Examination RLE ROM Assessment RLE Assessment: Within Functional Limits Manual Muscle Testing - RLE Manual Muscle Testing - RLE: Within functional limits Left Lower Extremity Examination LLE Assessment: Within Functional Limits Manual Muscle Testing: Within functional limits Bed Mobility Bed Mobility Exam: Scooting/Bridging Level of Morrow: Independent Bed Mobility Exam: Supine to Sit Level of Morrow: Independent Bed Mobility Exam: Sit to Supine Level of Morrow: Independent Transfers Transfer Exam: Sit to stand Level of Morrow: Modified independence Assistive Device: Rollator Transfer Exam: Stand to Sit Level of Morrow: Modified independence Assistive Device: Rollator Ambulation Device: Rollator Assistance: Modified independent Distance : 340 ft. Ambulation Comments: Patient demonstrates decreased natalee and gait speed with no loss of balance Therapeutic Activity ( 12 minutes) Patient participated in education regarding role of therapy services, discharge recommendations, transfers and balance activities with physical therapist after assessment. Standardized Assessments Standardized Assessments Standardized Assessments: AMPA 6-Clicks Mobility Assessment AMPA 6-Clicks Mobility Assessment Difficulty patient has turning over in bed (including adjusting bedclothes, sheets, and blankets)?:None Difficulty patient has sitting down on and standing up from a chair with arms (wheelchair, bedside commode, etc.)?: None Difficulty patient has moving from lying on back to sitting on the side of the bed?: None How much help does the patient need moving to and from a bed to a chair (including a wheelchair)?: None How much help does the patient need to walk in hospital room?: A little How much help does the patient need climbing 3-5 steps with a railing?: A little [facility] 6-Clicks Mobility Assessment Total : 22 Standardized Assessments Standardized Assessments Standardized Assessments: [facility] 6-Clicks Mobility Assessment [facility] 6-Clicks Mobility Assessment Difficulty patient has turning over in bed (including adjusting bedclothes, sheets, and blankets)?:None Difficulty patient has sitting down on and standing up from a chair with arms (wheelchair, bedside commode, etc.)?: None Difficulty patient has moving from lying on back to sitting on the side of the bed?: None How much help does the patient need moving to and from a bed to a chair (including a wheelchair)?: None How much help does the patient need to walk in hospital room?: A little How much help does the patient need climbing 3-5 steps with a railing?: A little [facility] 6-Clicks Mobility Assessment Total : 22 No data recorded Assessment Patient observed to have rigid gait with no overt loss of balance, and able to perform all mobilitywith independently and does not require acute PT need at this time. PT to sign off, please reconsult if needs arise. Impairments: Impaired locomotion Eval Complexity History Profile: 1 - 2 personal factors and/or comorbidities Clinical Presentation: Evolving clinical presentation with changing characteristics Clinical Decision Making: Moderate complexity PT Recommendations Discharge Destination: Home with assistance (assist as needed) Discharge Equipment: Rollator Plan Patient no longer demonstrates need for inpatient physical therapy services. Patient to be discharged from physical therapy. Written by Vamshi June on 12/17/24 at 1:53 PM. * Progress Notes - Janette Garza - 12/17/2024 10:38 AM EDT Occupational Therapy Evaluation and Discharge Patient Name: Yen Perez Today's Date: 12/17/2024 OT Discharge Recommendations: Home Equipment Recommended: Rollator History Yen Perez is 64 y.o. female admitted 12/10/2024 for work-up of Altered mental status. Problem List Active Hospital Problems Diagnosis Date Noted Altered mental status, unspecified altered mental status type 12/12/2024 Altered mental status 12/10/2024 MS (multiple sclerosis) ([facility]) 12/10/2024 Abnormal finding on urinalysis 12/10/2024 Hyperthyroidism 12/10/2024 Eczema 12/10/2024 Procedures Past Medical History Patient has a past medical history of Eczema and Multiple sclerosis ([facility]). Past Surgical History Patient has no past surgical history on file. Precautions Left Lower Extremity Weight Bearing Status: Weight Bearing as Tolerated Right Lower Extremity Weight Bearing Status: Weight Bearing as Tolerated Left Upper Extremity Weight Bearing Status : Weight bearing as tolerated Right Upper Extremity Weight Bearing Status : Weight bearing as tolerated Subjective Agreeable to participation Participants in Care Family/Caregiver Present: No Presentation Oxygen Therapy: None (Room air) Lines and Tubes: Intravenous access Pre-Session: Head of bed elevated, Lines intact Post-Session: Head of bed elevated, Lines intact, Call light in reach, RN notified, Bed alarm (zone1, 2, 3) Home Living/Set-up Lives With: Alone Home Type: House Home Adaptive Equipment: None Home Layout: One level Bathroom: Accessibility: Accessible Prior Level of Function Receives Help From: No assist required prior to admission Level of Mobility: Ambulatory- community Mobility Morrow: Independent gait without device History of Falls: No ADL Performance: Independent Patient/Family Goals Statement agreeable to participation Objective Pain None reported this session Delirium Screening RASS: Alert and calm Confusion Assessment Method-ICU (CAM-ICU/PCAM-ICU) Feature 3: Altered Level of Consciousness: Negative Cognition Overall Cognitive Status: Within Functional Limits Arousal/Alertness: Appropriate responses to stimuli Mood/Behavior: Alert Orientation Level: Oriented X4 Single Step Commands: Consistently Multi-Step Commands: Consistently Method of Communication: Verbal Right Upper Extremity Examination RUE ROM Assessment RUE Assessment: Within Functional Limits Manual Muscle Testing - RUE: Within functional limits Left Upper Extremity Examination LUE ROM Assessment LUE Assessment: Within Functional Limits Manual Muscle Testing - LUE: Within functional limits Right Lower Extremity Examination RLE ROM Assessment RLE Assessment: Within Functional Limits Manual Muscle Testing - RLE: Within functional limits Left Lower Extremity Examination LLE ROM Assessment LLE Assessment: Within Functional Limits Manual Muscle Testing: Within functional limits Bed Mobility Bed Mobility Exam: Scooting/Bridging Level of Morrow: Independent Bed Mobility Exam: Supine to Sit Level of Morrow: Independent Bed Mobility Exam: Sit to Supine Level of Morrow: Independent Transfers Transfer Exam: Sit to stand Level of Morrow: Independent Transfer Exam: Stand to Sit Level of Morrow: Independent Toilet Transfer Level of Morrow: Modified independence Type of Transfer: Ambulation, To toilet Assistive Device: Rollator, Grab bar Functional Mobility Device: Rollator Assistance: Modified independent Self-Care Interventions Feeding Feeding Level of Assistance: Independent Grooming Grooming Level of Assistance: Independent Lower Extremity Dressing Sock Level of Assistance: Independent LE Dressing Where Assessed: Edge of bed Toileting Toileting Level of Assistance: Independent Where Assessed: Toilet Standardized Assessments [facility] 6-Click Daily Activities Help from Other: Don/Doff Regular Lower Body Clothings: None Help From Other: Bathing: None Help From Other: Toileting: None Help From Other: Don/Doff Upper Body Clothings: None Help From Other: Grooming: None Help From Other: Eating Meals: None [facility] 6 Click - Daily Activities Score: 24 Assessment Pt presents with no skilled inpatient OT needs at this time. Eval Complexity Occupational Profile: Brief history including review of medical/therapy records relating to presenting problem Clinical Decision Making: Low Overall Eval complexity: Low OT Recommendations Discharge Destination: Home Discharge Equipment: Rollator Plan Patient no longer demonstrates need for inpatient occupational therapy services. Patient to be discharged from occupational therapy. Written by Janette Garza on 12/17/24 at 12:00 PM. * Progress Notes - Wu Newby MD - 12/17/2024 10:16 AM EDT Images from the original note were not included. [facility] Medicine Inpatient Progress Note Patient: Yen Perez PCP: Yen Hoover Date: 12/17/2024 Length of stay: 5 days Subjective Seen and examined at the bedside. Patient was sitting comfortably. Denied any active complaints or needs. Objective INPATENT MEDICATIONS Current Medications[1] ALLERGIES Allergies[2] 24 HOUR VITALS Temp: [36.3 ??C (97.4 ??F)-36.8 ??C (98.3 ??F)] 36.7 ??C (98 ??F) Heart Rate: [62-86] 76 Resp: [17-18] 18 BP: (100-124)/(42-64) 121/46 INTAKE/OUTPUT Intake/Output Summary (Last 24 hours) at 12/17/2024 1736 Last data filed at 12/16/2024 2130 Gross per 24 hour Intake 232 ml Output -- Net 232 ml Physical Exam - GENERAL: No acute distress. Well-nourished. Pleasantly confused, paranoia, elated mood, speech isfast - EYES: EOMI. Anicteric. No exophthalmos - HENT: Moist mucous membranes. No scleral icterus. No cervical lymphadenopathy. No palpable thyroid - PULMONARY: Clear to auscultation bilaterally. No accessory muscle use. - CARDIOVASCULAR: Regular rate and rhythm. No murmur. No JVD. - ABDOMEN: Soft, non-tender and non-distended. No palpable masses. - MSK: No edema. Non-tender.? - SKIN: No rashes or lesions. Warm. - NEUROLOGIC: Alert and oriented x 4. No focal neurological deficits. CN II-XII grossly intact, butnot individually tested. - PSYCHIATRIC: Semi Cooperative. Not appropriate mood and affect. Review of Systems REVIEW OF LABORATORY DATA Lab Results Component Value Date WBC 6.01 12/14/2024 HGB 12.7 12/14/2024 HCT 39.1 12/14/2024 MCV 85 12/14/2024 PLT 222 12/14/2024 Lab Results Component Value Date GLUCOSE 96 12/14/2024 CALCIUM 9.4 12/14/2024 NA 140 12/14/2024 K 4.3 12/14/2024 CO2 23 12/14/2024 CL 108 (H) 12/14/2024 BUN 13 12/14/2024 CREATININE 0.66 12/14/2024 Lab Results Component Value Date ALT 17 12/10/2024 AST 20 12/10/2024 ALKPHOS 79 12/10/2024 BILITOT 0.3 12/10/2024 No results found for: INR , PROTIME , PTT REVIEW OF IMAGING STUDIES Echo, Adult Transthoracic Complete Left Ventricle: The left ventricle is normal size. The left ventricular systolic function is normal. The LVEF is visually estimated at 55 - 60%. The diastolic function is normal. The left ventricular filling pressure is normal. Right Ventricle: The right ventricle is normal in size. The right ventricular systolic function is normal. All cardiac valves were reasonably well interrogated with 2D imaging and/or Doppler assessment and no significant valve regurgitation or stenosis is seen. There is no recent study available for direct [id number] comparison. REVIEW OF PROCEDURES Assessment and Plan: 64 y.o. year-old female with PMH of MS, 2013 and bilateral breast cancer with mastectomy 2006, who was sent her to [facility] ED from [facility] or possible AFib. Patient was admitted to [facility] for AMS initially and was on a 72 hour hold. No history of psych disorders per patient. In ED, hemodynamically stable. EKG showed sinus arrhythmia with PACs, no AFib. Patient was orientedto person, time and place but was altered. Labs showed new hyperthyroidism. CT head reported: Enlarged ventricles including lateral, third, and fourth ventricles. Prominence of the sulci. Enlarged ventricles may be due to volume loss. Also had elevated troponin with significant delta of 12. No ischemic EKG changes. Cardiology was consulted Her only known medical history is multiple sclerosis reports that she was following Dr. Jones from 2013 to 2020 and then they stopped giving her medication because they told her there was no one else in [place] that treated multiple sclerosis. She does not take any medication at home. Denies alcohol or drug use and has not smoked for the past 9 years. Admitted for medical management of New onset Afib likely secondary to hyperthyroidism: Graves disease contributing to her irritability and confusion: Altered mental status with concerns for urinary tract infection/Graves disease/Psychosis/ MS -Presented to [facility] ED from [facility] for AMS and cardiac concerns -CT head reported: Enlarged ventricles including lateral, third, and fourth ventricles. Prominence of the sulci. Enlarged ventricles may be due to volume loss. Possibility of normal pressure hydrocephalus could not be excluded. -Of note, patient last saw Dr. Jones in 2020. At that time, she had MRI imaging which showed enlarged ventricles. Documentation notes issues with gait instability and cognitive decline at that time. -CXR negative for acute findings -Ethanol level normal -Resp panel negative -Neurology consulted who recommended outpatient MRI head with and without contrast and follow up inNPH clinic. Also recommended follow-up with neuro criminal defense attorney for MS. Neurology said that psychosis with no neurological deficits is unlikely presentation of MS -UA suggestive of infection, s/p 3 doses of ceftriaxone with mixed urinary milagros on cultures as it was contaminated -ESR, CRP, procal, PTH, Cortisol, B1, Folate : Normal. UDS: Negative - Consulted Endocrinology considering low TSH as this could be the cause of acute confusion - TPO antibodies neg, TSI and TRAB elevated pointing towards Graves disease. Plan: - Delirium/fall precautions - Avoid anticholinergics, antihistamines, benzodiazepines, and opioids if able - Continue methimazole and she will follow up with Endocrinology outpatient for Graves disease -Will exclude psychiatric causes of her paranoia and irritability and continue to treat for Graves disease -Since she lives alone will talk to CM about safe discharge planning Acute non ST-segment elevation myocardial infarction, suspect type 2 -Initial troponin 122, uptrended to 134, delta 12 -Collator Operator consulted who said that most likely it is type 2 NSTEMI -Echo showed normal EF with no acute abnormalities -No acute intervention needed Paroxysmal atrial fibrillation without RVR -Cardiology consulted on patient in ED and recommendations as below: - May be secondary to acute illness (hyperthyroidism) - VANESSA?DS?-VASc score: 2 - Rate controlled, on propranolol - Embolic prevention: ON DOAC - Per Cardiology: Obtain a 14 day Holter monitor on discharge to evaluate for Afib burden - Patient to follow up in cardiology clinic - Consider outpatient sleep study to evaluate for underlying sleep apnea Graves disease -Could also be contributing to encephalopathy -Patient reports no known history of this -TSH <0.01, TSI and TRAB elevated showing Graves disease -On methimazole per Endocrinology #Relapsing-Remitting Multiple Sclerosis -Neuro consulted in ED and performed exam Plan: -Needs to have appointment made with Neuro immunology outpatient to continue to follow -No neurological deficits with psychosis unlikely sec to MS as per Neurology although she does haveworsening gait Chronic Medical Conditions: #) Eczema Plan: -Triamcinolone to rash bid Patient has no close family. She has few cousins and a close friend who lives nearby. Primary contact is friend who told me that patient had gait instability for a few months. She also had dementia. She would go to christianity on weekdays, get lost in her own home town. Considering she has no family makes it a complicated case if she does not have capacity and can't be discharged home alone. We will unfortunately have to get state guardianship and decide plan of care. For now ruling out medical caseof personality change, irritability and paranoia Inpatient Checklist: - Antimicrobial de-escalation: s/p Ceftriaxone x 3 - Bowel regimen: Senna - Code status: Full Code - Diet: regular - DVT prophylaxis: Apixaban - Electrolytes: Replete PRN - Ulcer prophylaxis: N/A - Disposition: Not medically ready, still irritable and paranoia with unknown cause CODE STATUS: Full Code EMERGENCY CONTACT: Extended Emergency Contact Information Primary Emergency Contact: Yen Collins Mobile Relation: Friend Dr. Wu Newby food science professor Hospitalist Medicine All images were reviewed. All changes discussed with consultants. Outside records reviewed as applicable. Secure chat preferred. Assessment & Plan Altered mental status MS (multiple sclerosis) ([facility]) Abnormal finding on urinalysis Hyperthyroidism Eczema Altered mental status, unspecified altered mental status type [1] Current Facility-Administered Medications: acetaminophen (Tylenol) tablet 650 mg, 650 mg, Oral, q8h, Amanda Maddox BUFFING AND POLISHING WHEEL REPAIRER, 650 mg at 12/12/242021 apixaban (Eliquis) tablet 5 mg, 5 mg, Oral, BID, Wu Newby MD, 5 mg at 12/17/24 0958 bisacodyl (Dulcolax) EC tablet 10 mg, 10 mg, Oral, Daily PRN, Amanda Maddox, BU[employer]ING [employer]ING WHEEL REPAIRER melatonin tablet 6 mg, 6 mg, Oral, Nightly, Wu Newby MD methIMAzole (Tapazole) tablet 10 mg, 10 mg, Oral, BID, Wu Newby MD, 10 mg at 12/17/24 1000 propranolol (Inderal) tablet 10 mg, 10 mg, Oral, BID, Wu Newby MD, 10 mg at 12/17/24 0957 senna (Senokot) tablet 8.6 mg, 8.6 mg, Oral, Nightly, Wu Newby MD, 8.6 mg at 12/16/242049 Insert peripheral IV, , , Once AND Saline lock IV, , , Once AND sodium chloride 0.9 % flush10 mL, 10 mL, Intravenous, q12h, 10 mL at 12/17/24 0744 AND sodium chloride 0.9 % flush 10 mL, 10 mL, Intravenous, PRN, Amanda Maddox, BU[employer]ING [employer]ING WHEEL REPAIRER, 10 mL at 12/13/24 0838 triamcinolone (Kenalog) 0.1 % cream 1 Application, 1 Application, Topical, BID, VarshaAmanda gallegos, BU[employer]ING AND POLISHING WHEEL REPAIRER, 1 Application at 12/17/24 1001 [2] No Known Allergies * Consults - Cassidy Layne MD - 12/17/2024 9:47 AM EDTAssociated Order(s): Inpatient consult to Psychiatry Images from the original note were not included. Initial Psychiatry Evaluation 12/17/24 Inpatient consult to Psychiatry Consult performed by: Cassidy Layne MD Consult ordered by: Wu Newby MD Chief Complaint: AMS Subjective Yen Perez is a 64 y.o. year-old female with PMH MS, 2014 and bilateral breast cancer with [id number], who was sent her to [facility] ED from [facility] for possible AFib. Patient was [facility] 12[facility]09 for AMS and was on a 72 hour hold after being an employee at [employer] employee flagged down a local police worker because the employee was concerned about the patient's well-being and the patient was reportedly confused about her location and asking how to get to the other [employer]. When the officer made contact, the patient was alert but disoriented. She stated she needed to sit down and did not know her name. She told the officer she lived at the other [employer]. EMS was called and then patient was [facility]. She was then transferred to [facility] ED for possible Afib. Psychiatry consulted for evaluation and MR due to reported paranoia, elated mood, and pressured speech. Patient states she doesn't remember exactly why she was out that late at night except that she was going to get gas. She denies any psychiatric history or medication trials and denies current SI/HI/AVH. She denies any memory trouble recently, but then reports that she has been getting frustrated with herself a lot recently because she can't remember things that she wants to tell us such as the hospital she saw the neurologist at. She states the last time she saw the neurologist was 8 year ago and they told her people aren't going into neurology anymore so she states she didn't need to take her medications or see them again. She reports difficulty walking due to her MS, but states it is chronic and reports no changes after stopping treatment. Of note per chart review patient last saw Neurology in 2020 and they were recommending continuing treatment for MS at that time. Stressors: recent hospitalization Supports: denies Access to lethal weapons: denies Collateral: Called patients friend Yen Collins at [phone]. She states that the patient stopped her MS treatments a few years ago because she did not like her doctors because she continue to fall . states that she and the community have been concerned about Yen for months. She states that the patient's memory has become increasingly impaired. She specifically mentioned that the patient will try to attend christianity multiple times per week because she forgets the day of the week. The patient has also tried to go to the bank on Sundays. Ms. Collins also reports that the patient has presented to Ms. Collins's home late at night disoriented and unsteady on her feet. The last time this happened, the patient urinated on herself. Ms. Collins stated that she has a bernal to the patient's home and has found urine in the patient's bed and couch. She reports that the patient has a 1st cousin, Dr. Eric Noyola that works at [employer] who may be able to provide further information. Ms. Collins is amenable to further contact with follow-up questions. Psychiatric Review Of Systems: Sleep: no change Appetite changes: no change Weight changes: no change Energy: no change Anhedonia: absent Guilt: absent Concentration difficulty: absent Anxiety: absent Panic attacks: no Suicidal thoughts: no Homicidal thoughts: no Auditory/visual hallucinations: denies Leilani: absent Past Psychiatric History: Diagnoses: no previous psych hx Medications: no psychiatric medications Outpatient: denies Inpatient: denies Previous suicide attempts: denies Past trauma history: denies Past Medical History[1] Allergies[2] Family History: Psychiatric Diagnoses: unknown Suicides: unknown Social History: Education: Graduate Degree Current living situation: lives alone Family: denies Romantic relationship: denies Employment: Retired Legal history: denies Support system: denies Substance use History: Tobacco Use: denies Alcohol Use: denies History of complicated withdrawal: N/A Recreational Drug Use: denies Medical Review Of Systems: A 14 point review of systems was otherwise negative. Objective Visit Vitals BP 100/62 (BP Location: Right arm, Patient Position: Lying) Pulse 65 Temp 36.8 ??C (98.3 ??F) (Oral) Resp 18 Ht 1.6 m (5' 3 ) Wt 59.7 kg (131 lb 9.8 oz) SpO2 96% BMI 23.31 kg/m?? Smoking Status Former BSA 1.63 m?? Mental Status Evaluation: Appearance: appears stated age, wearing hospital attire, good hygiene Attitude: cooperative, interested in treatment Eye Contact: appropriate Speech: appropriate rate and volume, non-pressured Involuntary Movements: absent Psychomotor Activity: restless Level of Consciousness: alert and attentive Memory: impaired Mood: tired Affect: congruent with stated mood, irritable Thought Process: linear, organized, goal-directed Thought Content: no overt delusions, not responding to internal stimuli AVH: denied SI: denied HI: denied Insight: fair Judgment: fair Physical Exam: General: alert, no acute distress Eyes: extraocular movements intact, conjunctivae clear ENT: external ears normal, oropharynx clear, moist mucus membranes Heart: regular rate and rhythm Lungs: no acute respiratory distress, no audible wheezes or rales Abdomen: soft, non-tender, no guarding Extremities: no clubbing, edema, or cyanosis Skin: warm and well perfused, no rashes or lesions noted over exposed skin Neuro: oriented x4, moving all 4 extremities spontaneously Data: No results found for this or any previous visit (from the past 24 hours). ANTIPSYCHOTIC MONITORING TOOL Current antipsychotic(s): Olanzapine Glucose parameters: Lab Results Component Value Date HGBA1C 5.9 (H) 12/10/2024 Lab Results Component Value Date GLUCOSE 96 12/14/2024 GLUCOSE 94 12/13/2024 Concern for diabetes? Pending further work-up, deferred to primary team Lipid parameters: Lab Results Component Value Date CHOL 169 12/10/2024 HDL 56 12/10/2024 LDLCALC 94 12/10/2024 TRIG 107 12/10/2024 Fasting lipid panel? N/A Current antidiabetic: N/A Current antilipemic: N/A Blood pressure parameters: BP REVIEW BP (ultimate) 12/17/2024 11:58 AM 100/62 12/17/2024 8:24 AM 124/64 12/17/2024 4:34 AM 106/64 12/17/2024 12:33 AM 111/42 Concern for hypertension? Pending further eval, defer to primary team Weight parameters: Height: 160 cm (5' 3 ) Height Method: Estimated Weight: 59.7 kg (131 lb 9.8 oz) Weight Method: Bed scale BMI (Calculated): 23.32 Current antihypertensive: N/A QTc: 12/10/24 EKG Date/Time: 465 Patient is aged 40-75y and LDL between 70-190 without diabetes, therefore 10-year ASCVD risk calculated below: The ASCVD Risk score (Trisha TEE, et al., 2019) failed to calculate for the following reasons: Risk score cannot be calculated because patient has a medical history suggesting prior/existing ASCVD Patient will require deferment to primary team for further discussion concerning antilipemic therapy when indicated. Clinical indication for treatment of metabolic concerns pertaining to ongoing antipsychotic use wasdeferred to primary treatment team for further discussion. Assessment/Plan Diagnoses: Major Neurocognitive Disorder -r/o Delirium Risk Assessment: Patient is not currently at an acutely elevated risk of harm to self or others given denies SI/HI/AVH. Patient is not demonstrating ANY suicidal intent, DOES appear to be able to control impulsivity,and IS NOT exhibiting any psychiatric symptom burden impacting safety/daily functioning. They currently affirm lack of specific plan. It should be noted that this patient is at a chronically elevated risk at baseline due to the following exhibited risk factors NOT modifiable by hospitalization demonstrated in their history: never // and living alone. The patient does, however, exhibit the following strength s/protective factors: calm/cooperative, denying access to firearms, able to identify reasons for living, and future-oriented, exercising self direction, attempting to realize one's potential, cultural/spiritual anglican involvement, access to housing, and good interpersonal relationships and supports. No risk factors modifiable by psychiatric hospitalization were identified on evaluation. Involuntary hospitalization on a 72 hour hold for safety, further psychiatric evaluation, and crisis stabilization is not currently indicated. Patient is not holdable under KRS as she does not meet ALL hold criteria: having a mental illness, being an acute risk of harm to self or others, reasonable expectation of benefit from admission, AND inpatient being least restrictive means of treatment. Formulation: Yen Perez is a 64 y.o. female with a PMHx of MS, 2013 and bilateral breast cancer with mastectomy 2006 and no reported psychiatric hx who presented to [facility] via police from street with concerns of AMS and transferred 12/10/2024 to Internal Medicine for continued management of Afib. Psychiatry was consulted for medication recommendations and risk assessment regarding due to reported paranoia, elated mood, and pressured speech. Psychiatric history significant for no reported prior hospitalizations for medication trials. Recent psychosocial stressors of hospitalization. Most likely diagnosis at thistime is Major Neurocognitive Disorder, given recent memory concerns per collateral and although patient reports no memory concerns, later reports being frustrated at herself a lot recently due to notbeing able to remember certain things. Difficult to exclude multifactorial delirium due to graves disease, recent UTI, MS, and ventriculomegaly with concern for possible NPH. Per collateral patient has been more unsteady on her feet and has had multiple episodes of urinary incontinence. Cannot ruleout new metastatic cancer contributing with history of bilateral breast cancer. There is low concern for primary psychotic disorder at this time given patients age, no previous psych history, and collateral. Recommendations: - would recommend MRI Brain w/ and w/o contrast to rule out metastatic disease - can use Zyprexa 5 mg q6hr PO or IM PRN for acute agitation, should offer PO first - Avoid concurrent use of IM Zyprexa and parenteral benzodiazepines as there is a drug-drug interaction that increases the risk for respiratory depression. Delirium Precautions: - Delirium can persist for days, weeks, to months after precipitating incident regardless of treatment of underlying etiology, if identified. Recommend delirium precautions as follows: - While there is a black box warning for the use of antipsychotics in geriatric patients with MNCD,delirium is also associated with increased risk of all-cause mortality. Therefore, the benefit of short-term anti-psychotic use outweighs the risks and may be used for treatment of delirium when usedjudiciously. - Please enforce strict maintenance of sleep-wake cycle. Keep the patient awake as able during daylight hours and please keep curtains open. At night dim lights, TV off if possible and minimize interruptions. Schedule Melatonin 3-6mg at bedtime, which has been shown to be beneficial in delirium andpromote sleep cycle regularity. - Cluster care when possible at night including sleep-friendly vital signs (once overnight in earlyevening/bedtime) if safe/medically stable - Please minimize the use of restraints as restraints may worsen delirium. - Provide frequent reorientation - Employ early and frequent mobility (especially during the day) including up to chair for meals - Ensure patient has access to glasses/hearing aids as needed - Maintain appropriate fluid and electrolyte levels, strict I/O monitoring as appropriate - Make comfort PRNs available for pain and constipation - Encourage presence of loved ones at bedside - Minimize use of deliriogenic medications including benzodiazepines, anticholinergics and antihistaminergics Psychiatry will continue to follow, will see patient again Recommendations were also directly communicated to first call physician/provider: Dr. Washburn via [employer] chat 72 Hour Hold Initiated: No This patient was staffed with and seen by attending psychiatrist, Dr. Ledesma, who agrees with the assessment and plan. Cassidy Layne MD PGY-2 Psychiatry [facility] Note to patient: The Cures Act makes medical notes like these available to patients inthe interest of transparency. However, be advised this is a medical document. It is intended as peer to peer communication. It is written in medical language and may contain abbreviations or verbiagethat are unfamiliar. It may appear blunt or direct. Medical documents are intended to carry relevant information, facts as evident, and the clinical opinion of the practitioner. [1] Past Medical History: Diagnosis Date Eczema Multiple sclerosis (CMS/HCC) [2] No Known Allergies Cosigned by Ludivina Ledesma MD at 12/18/2024 3:52 PM EDT Associated attestation - Ludivina Ledesma MD - 12/18/2024 3:52 PM EDT I saw and evaluated the patient with the resident/fellow. I discussed the case with the resident/fellow and agree with the findings and plan as documented. * Care Plan - Olamide Lucero RN - 12/17/2024 8:54 AM EDT Problem: Adult Inpatient Plan of Care Goal: Plan of Care Review Outcome: Ongoing, Progressing Flowsheets Taken 12/16/20246 by Michelle Junior RN Progress: no change Taken 12/15/2024 09 by Magda Quintanilla RN Plan of Care Reviewed With: patient Goal: Patient-Specific Goal (Individualized) Outcome: Ongoing, Progressing Flowsheets (Taken 12/17/2024 0852) Patient/Family-Specific Goals (Include Timeframe): Pt will remain free of injury and falls throughout shift Individualized Care Needs: safety and comfort Anxieties, Fears or Concerns: none stated Goal: Absence of Hospital-Acquired Illness or Injury Outcome: Ongoing, Progressing Intervention: Identify and Manage Fall Risk Flowsheets (Taken 12/16/20241999 by Kaelyn Canales) Safety Promotion/Fall Prevention: activity supervised assistive device/personal items within reach clutter-free environment maintained fall prevention program maintained lighting adjusted mobility aid in reach nonskid shoes/slippers when out of bed room organization consistent safety round/check completed Intervention: Prevent Skin Injury Flowsheets Taken 12/17/2024 06 by Kaelyn Canales Body Position: weight shifting Taken 12/16/20246 by Michelle Junior, OG Skin Protection: transparent dressing maintained Intervention: Prevent and Manage VTE (Venous Thromboembolism) Risk Flowsheets (Taken 12/16/20241999 by Kaelyn Canales) VTE Prevention/Management: medication SCDs (sequential compression devices) off Intervention: Prevent Infection Flowsheets (Taken 12/16/20246 by Michelle Junior, OG) Infection Prevention: rest/sleep promoted hand hygiene promoted Goal: Optimal Comfort and Wellbeing Outcome: Ongoing, Progressing Intervention: Monitor Pain and Promote Comfort Flowsheets (Taken 12/16/2024 0500 by Michelle Junior RN) Pain Management Interventions: care clustered pillow support provided Intervention: Provide Person-Centered Care Flowsheets (Taken 12/16/20246 by Michelle Junior, OG) Trust Relationship/Rapport: care explained reassurance provided thoughts/feelings acknowledged empathic listening provided Goal: Readiness for Transition of Care Outcome: Ongoing, Progressing Intervention: Mutually Develop Transition Plan Flowsheets Taken 12/17/2024 0852 by Olamide Lucero RN Transportation Anticipated: other (see comments) Concerns to be Addressed: denies needs/concerns at this time Patient/Family Anticipates Transition to: other (see comments) Taken 12/16/20246 by Michelle Junior RN Equipment Currently Used at Home: walker, rolling Transportation Concerns: no car Taken 12/15/2024 0959 by Magda Quintanilla RN Equipment Needed After Discharge: walker, rollator Readmission Within the Last 30 Days: no previous admission in last 30 days Taken 12/14/2024 2251 by Michelle Junior RN Anticipated Changes Related to Illness: inability to care for self Taken 12/13/2024 2312 by Michelle Junior RN Patient/Family Anticipated Services at Transition: mental health services Problem: Mobility Impairment Goal: Optimal Mobility Outcome: Ongoing, Progressing Intervention: Optimize Mobility Flowsheets Taken 12/16/20241999 by Kaelyn Canales Activity Management: activity adjusted per tolerance activity encouraged ambulated in peguero Taken 12/16/2024 1700 by Donnie Panda, RN Assistive Device Utilized: four wheel walker Taken 12/16/20246 by Michelle Junior, OG Positioning/Transfer Devices: in use pillows Problem: Fall Injury Risk Goal: Absence of Fall and Fall-Related Injury Outcome: Ongoing, Progressing Intervention: Identify and Manage Contributors Flowsheets (Taken 12/16/20246 by Michelle Junior, OG) Medication Review/Management: medications reviewed Self-Care Promotion: independence encouraged BADL personal objects within reach Intervention: Promote Injury-Free Environment Flowsheets (Taken 12/16/20241999 by Kaelyn Canales) Safety Promotion/Fall Prevention: activity supervised assistive device/personal items within reach clutter-free environment maintained fall prevention program maintained lighting adjusted mobility aid in reach nonskid shoes/slippers when out of bed room organization consistent safety round/check completed Problem: Pain Acute Goal: Optimal Pain Control and Function Outcome: Ongoing, Progressing Intervention: Optimize Psychosocial Wellbeing Flowsheets Taken 12/16/20246 by Michelle Junior RN Supportive Measures: active listening utilized verbalization of feelings encouraged positive reinforcement provided relaxation techniques promoted self-care encouraged decision-making supported Diversional Activities: television Taken 12/14/2024 225 by Michelle Junior RN Spiritual Activities Assistance: personal rituals encouraged Intervention: Develop Pain Management Plan Flowsheets (Taken 12/16/2024 0500 by Michelle Junior, OG) Pain Management Interventions: care clustered pillow support provided Intervention: Prevent or Manage Pain Flowsheets (Taken 12/16/20246 by Michelle Junior, OG) Sensory Stimulation Regulation: auditory stimulation minimized visual stimulation minimized quiet environment promoted Bowel Elimination Promotion: adequate fluid intake promoted Sleep/Rest Enhancement: awakenings minimized noise level reduced Medication Review/Management: medications reviewed Problem: Confusion Acute Goal: Optimal Cognitive Function Outcome: Ongoing, Progressing Intervention: Minimize Contributing Factors Flowsheets (Taken 12/16/20246 by Michelle Junior, OG) Sensory Stimulation Regulation: auditory stimulation minimized visual stimulation minimized quiet environment promoted Reorientation Measures: clock in view Environment Familiarity/Consistency: personal clothing/items utilized Communication Support Strategies: active listening utilized * Care Plan - Kaelyn Canales Deann - 12/17/2024 12:26 AM EDT Problem: Adult Inpatient Plan of Care Goal: Plan of Care Review Outcome: Ongoing, Progressing Flowsheets Taken 12/16/20246 by Michelle Junior, OG Progress: no change Taken 12/15/2024958 by Magda Quintanilla RN Plan of Care Reviewed With: patient Goal: Patient-Specific Goal (Individualized) Outcome: Ongoing, Progressing Flowsheets (Taken 12/16/20241999) Patient/Family-Specific Goals (Include Timeframe): Patient will remain injury and fall free thoughout shift. Individualized Care Needs: safety Anxieties, Fears or Concerns: none stated Goal: Absence of Hospital-Acquired Illness or Injury Outcome: Ongoing, Progressing Intervention: Identify and Manage Fall Risk Flowsheets (Taken 12/16/20241999) Safety Promotion/Fall Prevention: activity supervised assistive device/personal items within reach clutter-free environment maintained fall prevention program maintained lighting adjusted mobility aid in reach nonskid shoes/slippers when out of bed room organization consistent safety round/check completed Intervention: Prevent Skin Injury Flowsheets Taken 12/17/2024 0000 by Kaelyn Canales Body Position: weight shifting Taken 12/16/20246 by Michelle Junior RN Skin Protection: transparent dressing maintained Intervention: Prevent and Manage VTE (Venous Thromboembolism) Risk Flowsheets (Taken 12/16/20241999) VTE Prevention/Management: medication SCDs (sequential compression devices) off Intervention: Prevent Infection Flowsheets (Taken 12/16/20246 by Michelle Junior RN) Infection Prevention: rest/sleep promoted hand hygiene promoted Goal: Optimal Comfort and Wellbeing Outcome: Ongoing, Progressing Intervention: Monitor Pain and Promote Comfort Flowsheets (Taken 12/16/2024 0500 by Michelle Junior RN) Pain Management Interventions: care clustered pillow support provided Intervention: Provide Person-Centered Care Flowsheets (Taken 12/16/20246 by Michlele Junior RN) Trust Relationship/Rapport: care explained reassurance provided thoughts/feelings acknowledged empathic listening provided Goal: Readiness for Transition of Care Outcome: Ongoing, Progressing Intervention: Mutually Develop Transition Plan Flowsheets Taken 12/16/20246 by Michelle Junior RN Equipment Currently Used at Home: walker, rolling Transportation Concerns: no car Taken 12/15/2024 0959 by Magda Quintanilla RN Equipment Needed After Discharge: walker, rollator Readmission Within the Last 30 Days: no previous admission in last 30 days Taken 12/14/2024 2251 by Michelle Junior RN Anticipated Changes Related to Illness: inability to care for self Taken 12/13/2024 2312 by Michelle Junior RN Patient/Family Anticipated Services at Transition: mental health services Problem: Mobility Impairment Goal: Optimal Mobility Outcome: Ongoing, Progressing Intervention: Optimize Mobility Flowsheets Taken 12/16/20241999 by Kaelyn Canales Activity Management: activity adjusted per tolerance activity encouraged ambulated in peguero Taken 12/16/2024 1700 by Donnie Panda, RN Assistive Device Utilized: four wheel walker Taken 12/16/20246 by Michelle Junior RN Positioning/Transfer Devices: in use pillows Problem: Fall Injury Risk Goal: Absence of Fall and Fall-Related Injury Outcome: Ongoing, Progressing Intervention: Identify and Manage Contributors Flowsheets (Taken 12/16/20246 by Michelle Junior, OG) Medication Review/Management: medications reviewed Self-Care Promotion: independence encouraged BADL personal objects within reach Intervention: Promote Injury-Free Environment Flowsheets (Taken 12/16/20241999) Safety Promotion/Fall Prevention: activity supervised assistive device/personal items within reach clutter-free environment maintained fall prevention program maintained lighting adjusted mobility aid in reach nonskid shoes/slippers when out of bed room organization consistent safety round/check completed Problem: Pain Acute Goal: Optimal Pain Control and Function Outcome: Ongoing, Progressing Intervention: Optimize Psychosocial Wellbeing Flowsheets Taken 12/16/20246 by Michelle Junior RN Supportive Measures: active listening utilized verbalization of feelings encouraged positive reinforcement provided relaxation techniques promoted self-care encouraged decision-making supported Diversional Activities: television Taken 12/14/2024 225 by Michelle Junior RN Spiritual Activities Assistance: personal rituals encouraged Intervention: Develop Pain Management Plan Flowsheets (Taken 12/16/2024 050 by Michelle Junior RN) Pain Management Interventions: care clustered pillow support provided Intervention: Prevent or Manage Pain Flowsheets (Taken 12/16/20246 by Michelle Junior, OG) Sensory Stimulation Regulation: auditory stimulation minimized visual stimulation minimized quiet environment promoted Bowel Elimination Promotion: adequate fluid intake promoted Sleep/Rest Enhancement: awakenings minimized noise level reduced Medication Review/Management: medications reviewed Problem: Confusion Acute Goal: Optimal Cognitive Function Outcome: Ongoing, Progressing Intervention: Minimize Contributing Factors Flowsheets (Taken 12/16/20246 by Michelle Junior, OG) Sensory Stimulation Regulation: auditory stimulation minimized visual stimulation minimized quiet environment promoted Reorientation Measures: clock in view Environment Familiarity/Consistency: personal clothing/items utilized Communication Support Strategies: active listening utilized * Progress Notes - Maria R Babin RN - 12/16/2024 10:25 AM EDT Case Management Adult Progress Note Yen Perez 64 y.o. female CSN: [id number] Admission: 12/10/2024 3:51 PM Primary Problem: Altered mental status Anticipated Discharge Date: TBD Discussed with multidsicplinary team, per attending phyisician dr. Newby pt is not medically ready to d/c. At this time pt is still presenting confused, pt is requiring sitter at bedside and is currently on 72hrs hold. Per team it is unclear if pt's mentation will improve. The plan is for psych to be consulted for further assistance. Pt does not have EC other than friend at this time, and if mentation does not improve neuropsych consult for decisional capacity might be initiated. CM roofing supervisor is aware of need for SW involvement and possible guardian need. RN CM will continue to follow and assist with d/c plan and as needed. Maria R Babin RN * Progress Notes - Wu Newby MD - 12/16/2024 9:26 AM EDT Images from the original note were not included. [facility] Medicine Inpatient Progress Note Patient: Yen Perez PCP: Sneha, Yen Date: 12/16/2024 Length of stay: 4 days Subjective Seen and examined at the bedside. Patient was sitting comfortably on the bed watching Tv. Denied any active complaints or needs. Her mood was elated and speech was pressured. Nurse told me she did not sleep all night and was agitated and the zyprexa was given. Objective INPATENT MEDICATIONS Current Medications[1] ALLERGIES Allergies[2] 24 HOUR VITALS Temp: [36.3 ??C (97.4 ??F)-37.1 ??C (98.8 ??F)] 36.8 ??C (98.2 ??F) Heart Rate: [59-84] 68 Resp: [16-20] 16 BP: (101-120)/(61-79) 104/61 INTAKE/OUTPUT Intake/Output Summary (Last 24 hours) at 12/16/2024 1526 Last data filed at 12/16/2024 1406 Gross per 24 hour Intake 900 ml Output -- Net 900 ml Physical Exam - GENERAL: No acute distress. Well-nourished. Pleasantly confused, paranoia, elated mood, speech isfast - EYES: EOMI. Anicteric. No exophthalmos - HENT: Moist mucous membranes. No scleral icterus. No cervical lymphadenopathy. No palpable thyroid - PULMONARY: Clear to auscultation bilaterally. No accessory muscle use. - CARDIOVASCULAR: Regular rate and rhythm. No murmur. No JVD. - ABDOMEN: Soft, non-tender and non-distended. No palpable masses. - MSK: No edema. Non-tender.? - SKIN: No rashes or lesions. Warm. - NEUROLOGIC: Alert and oriented x 4. No focal neurological deficits. CN II-XII grossly intact, butnot individually tested. - PSYCHIATRIC: Semi Cooperative. Not appropriate mood and affect. Review of Systems REVIEW OF LABORATORY DATA Lab Results Component Value Date WBC 6.01 12/14/2024 HGB 12.7 12/14/2024 HCT 39.1 12/14/2024 MCV 85 12/14/2024 PLT 222 12/14/2024 Lab Results Component Value Date GLUCOSE 96 12/14/2024 CALCIUM 9.4 12/14/2024 NA 140 12/14/2024 K 4.3 12/14/2024 CO2 23 12/14/2024 CL 108 (H) 12/14/2024 BUN 13 12/14/2024 CREATININE 0.66 12/14/2024 Lab Results Component Value Date ALT 17 12/10/2024 AST 20 12/10/2024 ALKPHOS 79 12/10/2024 BILITOT 0.3 12/10/2024 No results found for: INR , PROTIME , PTT REVIEW OF IMAGING STUDIES Echo, Adult Transthoracic Complete Left Ventricle: The left ventricle is normal size. The left ventricular systolic function is normal. The LVEF is visually estimated at 55 - 60%. The diastolic function is normal. The left ventricular filling pressure is normal. Right Ventricle: The right ventricle is normal in size. The right ventricular systolic function is normal. All cardiac valves were reasonably well interrogated with 2D imaging and/or Doppler assessment and no significant valve regurgitation or stenosis is seen. There is no recent study available for direct [id number] comparison. REVIEW OF PROCEDURES Assessment and Plan: 64 y.o. year-old female with PMH of MS, 2013 and bilateral breast cancer with mastectomy 2006, who was sent her to [facility] ED from [facility] or possible AFib. Patient was admitted to [facility] for AMS initially and was on a 72 hour hold. No history of psych disorders per patient. In ED, hemodynamically stable. EKG showed sinus arrhythmia with PACs, no AFib. Patient was orientedto person, time and place but was altered. Labs showed new hyperthyroidism. CT head reported: Enlarged ventricles including lateral, third, and fourth ventricles. Prominence of the sulci. Enlarged ventricles may be due to volume loss. Also had elevated troponin with significant delta of 12. No ischemic EKG changes. Cardiology was consulted Her only known medical history is multiple sclerosis reports that she was following Dr. Jones from 2013 to 2020 and then they stopped giving her medication because they told her there was no one else in [place] that treated multiple sclerosis. She does not take any medication at home. Denies alcohol or drug use and has not smoked for the past 9 years. Admitted for medical management of New onset Afib likely secondary to hyperthyroidism: Graves disease contributing to her irritability and confusion: Altered mental status with concerns for urinary tract infection/Graves disease/Psychosis/ MS -Presented to [facility] ED from [facility] for AMS and cardiac concerns -CT head reported: Enlarged ventricles including lateral, third, and fourth ventricles. Prominence of the sulci. Enlarged ventricles may be due to volume loss. Possibility of normal pressure hydrocephalus could not be excluded. -Of note, patient last saw Dr. Jones in 2020. At that time, she had MRI imaging which showed enlarged ventricles. Documentation notes issues with gait instability and cognitive decline at that time. -CXR negative for acute findings -Ethanol level normal -Resp panel negative -Neurology consulted who recommended outpatient MRI head with and without contrast and follow up inNPH clinic. Also recommended follow-up with neuro criminal defense attorney for MS. Neurology said that psychosis with no neurological deficits is unlikely presentation of MS -UA suggestive of infection, s/p 3 doses of ceftriaxone with mixed urinary milagros on cultures as it was contaminated -ESR, CRP, procal, PTH, Cortisol, B1, Folate : Normal. UDS: Negative - Consulted Endocrinology considering low TSH as this could be the cause of acute confusion - TPO antibodies neg, TSI and TRAB elevated pointing towards Graves disease. Plan: - Delirium/fall precautions - Avoid anticholinergics, antihistamines, benzodiazepines, and opioids if able - Continue methimazole and she will follow up with Endocrinology outpatient for Graves disease -Will exclude psychiatric causes of her paranoia and irritability and continue to treat for Graves disease -Since she lives alone will talk to CM about safe discharge planning Acute non ST-segment elevation myocardial infarction, suspect type 2 -Initial troponin 122, uptrended to 134, delta 12 -Collator Operator consulted who said that most likely it is type 2 NSTEMI -Echo showed normal EF with no acute abnormalities -No acute intervention needed Paroxysmal atrial fibrillation without RVR -Cardiology consulted on patient in ED and recommendations as below: - May be secondary to acute illness (hyperthyroidism) - VANESSA?DS?-VASc score: 2 - Rate controlled, on propranolol - Rhythm control: In sinus rhythm at the time of evaluation - Embolic prevention: ON DOAC - Per Cardiology: Obtain a 14 day Holter monitor on discharge to evaluate for Afib burden - Patient to follow up in cardiology clinic - Consider outpatient sleep study to evaluate for underlying sleep apnea Graves disease -Could also be contributing to encephalopathy -Patient reports no known history of this -TSH <0.01, TSI and TRAB elevated showing Graves disease -On methimazole per Endocrinology #Relapsing-Remitting Multiple Sclerosis -Neuro consulted in ED and performed exam Plan: -Needs to have appointment made with Neuro immunology outpatient to continue to follow -No neurological deficits with psychosis unlikely sec to MS as per Neurology although she does haveworsening gait Chronic Medical Conditions: #) Eczema Plan: -Triamcinolone to rash bid We will ask Psychiatry and PT/OT to evaluate her and then decide about her plan for discharge depending upon her mentation and needs Inpatient Checklist: - Antimicrobial de-escalation: Ceftriaxone x 3 - Bowel regimen: Senna - Code status: Full Code - Diet: regular - DVT prophylaxis: Apixaban - Electrolytes: Replete PRN - Ulcer prophylaxis: N/A - Disposition: Not medically ready, still irritable and paranoia CODE STATUS: Full Code EMERGENCY CONTACT: Extended Emergency Contact Information Primary Emergency Contact: Yen Collins Mobile Relation: Friend Dr. Wu Newby food science professor Hospitalist Medicine All images were reviewed. All changes discussed with consultants. Outside records reviewed as applicable. Secure chat preferred. Assessment & Plan Altered mental status MS (multiple sclerosis) (CMS/HCC) Abnormal finding on urinalysis Hyperthyroidism Eczema Altered mental status, unspecified altered mental status type [1] Current Facility-Administered Medications: acetaminophen (Tylenol) tablet 650 mg, 650 mg, Oral, q8h, Amanda Maddox APRN, 650 mg at 12/12/242021 apixaban (Eliquis) tablet 5 mg, 5 mg, Oral, BID, Wu Newby MD, 5 mg at 12/16/24 1104 bisacodyl (Dulcolax) EC tablet 10 mg, 10 mg, Oral, Daily PRN, Amanda Maddox APRN methIMAzole (Tapazole) tablet 10 mg, 10 mg, Oral, BID, Wu Newby MD, 10 mg at 12/16/24 110 propranolol (Inderal) tablet 10 mg, 10 mg, Oral, BID, Wu Newby MD, 10 mg at 12/16/24 1104 senna (Senokot) tablet 8.6 mg, 8.6 mg, Oral, Nightly, Wu Newby MD, 8.6 mg at 12/12/242021 Insert peripheral IV, , , Once AND Saline lock IV, , , Once AND sodium chloride 0.9 % flush10 mL, 10 mL, Intravenous, q12h, 10 mL at 12/16/24 1131 AND sodium chloride 0.9 % flush 10 mL, 10 mL, Intravenous, PRN, Amanda Maddox APRN, 10 mL at 12/13/24 0838 triamcinolone (Kenalog) 0.1 % cream 1 Application, 1 Application, Topical, BID, Amanda Maddox APRN, 1 Application at 12/16/24 1131 [2] No Known Allergies * Care Plan - Michelle Junior RN - 12/16/2024 12:11 AM EDT Problem: Adult Inpatient Plan of Care Goal: Plan of Care Review Outcome: Ongoing, Progressing Flowsheets Taken 12/16/20246 by Michelle Junior RN Progress: no change Taken 12/15/2024958 by Magda Quintanilla RN Plan of Care Reviewed With: patient Goal: Patient-Specific Goal (Individualized) Outcome: Ongoing, Progressing Flowsheets (Taken 12/15/20241999) Patient/Family-Specific Goals (Include Timeframe): Patient to remain free from harm/injury for duration of shift Individualized Care Needs: safety Anxieties, Fears or Concerns: none stated Goal: Absence of Hospital-Acquired Illness or Injury Outcome: Ongoing, Progressing Intervention: Identify and Manage Fall Risk Flowsheets (Taken 12/15/20241999) Safety Promotion/Fall Prevention: clutter-free environment maintained activity supervised safety round/check completed Intervention: Prevent Skin Injury Flowsheets Taken 12/16/20246 Skin Protection: transparent dressing maintained Taken 12/16/2024 Body Position: right side-lying Intervention: Prevent and Manage VTE (Venous Thromboembolism) Risk Flowsheets (Taken 12/16/20246) VTE Prevention/Management: education provided Intervention: Prevent Infection Flowsheets (Taken 12/16/20246) Infection Prevention: rest/sleep promoted hand hygiene promoted Goal: Optimal Comfort and Wellbeing Outcome: Ongoing, Progressing Intervention: Monitor Pain and Promote Comfort Flowsheets (Taken 12/16/20246) Pain Management Interventions: rest relaxation techniques promoted position adjusted pillow support provided Intervention: Provide Person-Centered Care Flowsheets (Taken 12/16/20246) Trust Relationship/Rapport: care explained reassurance provided thoughts/feelings acknowledged empathic listening provided Goal: Readiness for Transition of Care Outcome: Ongoing, Progressing Intervention: Mutually Develop Transition Plan Flowsheets (Taken 12/16/20246) Equipment Currently Used at Home: walker, rolling Transportation Concerns: no car Problem: Mobility Impairment Goal: Optimal Mobility Outcome: Ongoing, Progressing Intervention: Optimize Mobility Flowsheets Taken 12/16/20246 Activity Management: activity adjusted per tolerance Positioning/Transfer Devices: in use pillows Taken 12/15/20241999 Assistive Device Utilized: four wheel walker Problem: Fall Injury Risk Goal: Absence of Fall and Fall-Related Injury Outcome: Ongoing, Progressing Intervention: Identify and Manage Contributors Flowsheets (Taken 12/16/20246) Medication Review/Management: medications reviewed Self-Care Promotion: independence encouraged BADL personal objects within reach Intervention: Promote Injury-Free Environment Flowsheets (Taken 12/15/20241999) Safety Promotion/Fall Prevention: clutter-free environment maintained activity supervised safety round/check completed Problem: Pain Acute Goal: Optimal Pain Control and Function Outcome: Ongoing, Progressing Intervention: Optimize Psychosocial Wellbeing Flowsheets (Taken 12/16/20246) Supportive Measures: active listening utilized verbalization of feelings encouraged positive reinforcement provided relaxation techniques promoted self-care encouraged decision-making supported Diversional Activities: television Intervention: Develop Pain Management Plan Flowsheets (Taken 12/16/20246) Pain Management Interventions: rest relaxation techniques promoted position adjusted pillow support provided Intervention: Prevent or Manage Pain Flowsheets (Taken 12/16/20246) Sensory Stimulation Regulation: auditory stimulation minimized visual stimulation minimized quiet environment promoted Bowel Elimination Promotion: adequate fluid intake promoted Sleep/Rest Enhancement: awakenings minimized noise level reduced Medication Review/Management: medications reviewed Problem: Confusion Acute Goal: Optimal Cognitive Function Outcome: Ongoing, Progressing Intervention: Minimize Contributing Factors Flowsheets (Taken 12/16/20246) Sensory Stimulation Regulation: auditory stimulation minimized visual stimulation minimized quiet environment promoted Reorientation Measures: clock in view Environment Familiarity/Consistency: personal clothing/items utilized Communication Support Strategies: active listening utilized * Progress Notes - Thaddeus Raines MD - 12/15/2024 11:58 AM EDT Endocrine Progress Note Subjective Patient seen and examined by Endocrine team. She was walking around the room with sitter. Denied any palpitations, fever, fatigue, or hand tremors. Review of Systems HENT: Negative. Eyes: Negative for visual disturbance. Respiratory: Negative for shortness of breath. Cardiovascular: Negative for chest pain. Gastrointestinal: Negative for constipation, nausea and vomiting. Neurological: Positive for dizziness and light-headedness. Psychiatric/Behavioral: Positive for behavioral problems and confusion. Objective Vitals Temp: [36.4 ??C (97.6 ??F)-36.7 ??C (98 ??F)] 36.7 ??C (98 ??F) Heart Rate: [65-80] 65 Resp: [16-18] 16 BP: (110-134)/(57-66) 120/66 Physical Exam Constitutional: Appearance: Normal appearance. Eyes: Extraocular Movements: Extraocular movements intact. Neck: Comments: No thyromegaly Cardiovascular: Rate and Rhythm: Normal rate. Pulmonary: Effort: Pulmonary effort is normal. Abdominal: General: There is no distension. Tenderness: There is no abdominal tenderness. There is no guarding. Musculoskeletal: Right lower leg: No edema. Left lower leg: No edema. Neurological: Mental Status: She is alert. Psychiatric: Comments: Anxious Results Review {Vanishing Link Review Results :[id number] Latest Reference Range & Units 12/10/24 09:10 12/10/24 17:09 12/10/24 23:08 12/11/24 03:24 Hemoglobin A1C <5.7 % 5.9 (H) TSH 0.40 - 4.20 uIU/mL <0.01 (L) <0.01 (L) T3, Total 87 - 187 ng/dL 264 (H) Free T4 0.8 - 1.7 ng/dL 3.8 (H) 3.8 (H) PTH Intact Total 9 - 77 pg/mL 35 Cortisol Before 10am: 3.7 - 19.4. After 5pm: 2.9 - 17.3 ug/dL 4.30 Component Latest Ref Rng 12/11/2024 TSH Receptor Antibody <=1.75 IU/L 28.80 (H) TSI <=0.54 IU/L 17.60 (H) Assessment & Plan Altered mental status, unspecified altered mental status type Hyperthyroidism 2/2 to Graves disease, stable -TSH <0.01, FT4 3.8, TT3 264 -TRAB elevated to 28 and TSI elevated to 17.6 -patient initially presented from [facility] with concerns for Afib and worsening confusion -after TRAB and TSI returned elevated, pt started on methimazole 10mg BID, her HR has been stable per chart reciew over the past 48 hours, with rates in the 60s-80s PLAN -continue Methimazole 10mg BID at time of discharge. -continue propranolol 10mg BID -ordered placed for follow up with Endocrinology, will continue on MMI 10mg BID until follow up -At this time, I cannot say that the primary chassis driver of her psychosis and altered mental status is primarily driven by her hyperthyroidism. It is possible that her hyperthyroidism acutely worsened herunderlying psychiatry conditions. -No indication to repeat TSH and FT4 until follow up in clinic with Endocrinology Afib -rates controlled -currently on propanolol 10mg BID and Eliquis 5mg BID -Endocrinology will sign off. Please do not hesistate to reach out with any further clarifying questions. Altered mental status -Presented to [facility] ED from [facility] for AMS and cardiac concerns -CT head reported: Enlarged ventricles including lateral, third, and fourth ventricles. Prominence of the sulci. Enlarged ventricles may be due to volume loss. Possibility of normal pressure hydrocephalus could not be excluded. -CXR negative for acute findings -Ethanol level normal -Resp panel negative -recommend Psychiatry consult at this time for further assistance -Endocrinology will sign off. Please do not hesitate to reach out with any further clarifying questions prior to discharge. Thaddeus Raines MD Endocrinology Fellow Pager: [phone], Epic Chat Preferred Cosigned by Yosvany Heart MD at 12/17/2024 1:08 PM EDT Associated attestation - Yosvany Heart MD - 12/17/2024 1:08 PM EDT I saw and evaluated the patient with the resident/fellow. I discussed the case with the resident/fellow and agree with the findings and plan as documented. * Care Plan - Magda Quintanilla RN - 12/15/2024 10:10 AM EDT Problem: Adult Inpatient Plan of Care Goal: Plan of Care Review Outcome: Ongoing, Progressing Flowsheets (Taken 12/15/2024 0923) Progress: no change Plan of Care Reviewed With: patient Goal: Patient-Specific Goal (Individualized) Outcome: Ongoing, Progressing Goal: Absence of Hospital-Acquired Illness or Injury Outcome: Ongoing, Progressing Intervention: Identify and Manage Fall Risk Flowsheets (Taken 12/15/2024958) Safety Promotion/Fall Prevention: activity supervised assistive device/personal items within reach clutter-free environment maintained fall prevention program maintained lighting adjusted mobility aid in reach nonskid shoes/slippers when out of bed safety round/check completed room organization consistent Intervention: Prevent Skin Injury Flowsheets (Taken 12/15/2024958) Body Position: supine Skin Protection: transparent dressing maintained Intervention: Prevent and Manage VTE (Venous Thromboembolism) Risk Flowsheets (Taken 12/15/2024958) VTE Prevention/Management: education provided Intervention: Prevent Infection Flowsheets (Taken 12/15/2024958) Infection Prevention: hand hygiene promoted environmental surveillance performed equipment surfaces disinfected rest/sleep promoted Goal: Optimal Comfort and Wellbeing Outcome: Ongoing, Progressing Intervention: Monitor Pain and Promote Comfort Flowsheets (Taken 12/15/2024958) Pain Management Interventions: ambulation/increased activity diversional activity provided care clustered pillow support provided position adjusted quiet environment facilitated shower Intervention: Provide Person-Centered Care Flowsheets (Taken 12/15/2024958) Trust Relationship/Rapport: care explained questions answered questions encouraged thoughts/feelings acknowledged Goal: Readiness for Transition of Care Outcome: Ongoing, Progressing Intervention: Mutually Develop Transition Plan Flowsheets (Taken 12/15/2024958) Equipment Needed After Discharge: walker, rollator Equipment Currently Used at Home: walker, rollator Readmission Within the Last 30 Days: no previous admission in last 30 days Problem: Mobility Impairment Goal: Optimal Mobility Outcome: Ongoing, Progressing Intervention: Optimize Mobility Flowsheets (Taken 12/15/2024958) Activity Management: ambulated to bathroom Assistive Device Utilized: four wheel walker Positioning/Transfer Devices: pillows repositioning sheet Problem: Fall Injury Risk Goal: Absence of Fall and Fall-Related Injury Outcome: Ongoing, Progressing Intervention: Identify and Manage Contributors Flowsheets (Taken 12/15/2024958) Medication Review/Management: medications reviewed Self-Care Promotion: independence encouraged BADL personal objects within reach Intervention: Promote Injury-Free Environment Flowsheets (Taken 12/15/2024958) Safety Promotion/Fall Prevention: activity supervised assistive device/personal items within reach clutter-free environment maintained fall prevention program maintained lighting adjusted mobility aid in reach nonskid shoes/slippers when out of bed safety round/check completed room organization consistent Problem: Pain Acute Goal: Optimal Pain Control and Function Outcome: Ongoing, Progressing Intervention: Optimize Psychosocial Wellbeing Flowsheets (Taken 12/15/2024958) Supportive Measures: active listening utilized positive reinforcement provided relaxation techniques promoted self-care encouraged self-responsibility promoted verbalization of feelings encouraged Diversional Activities: television Intervention: Develop Pain Management Plan Flowsheets (Taken 12/15/2024958) Pain Management Interventions: ambulation/increased activity diversional activity provided care clustered pillow support provided position adjusted quiet environment facilitated shower Intervention: Prevent or Manage Pain Flowsheets (Taken 12/15/2024958) Sensory Stimulation Regulation: care clustered lighting decreased quiet environment promoted Sleep/Rest Enhancement: consistent schedule promoted noise level reduced natural light exposure provided Medication Review/Management: medications reviewed Problem: Confusion Acute Goal: Optimal Cognitive Function Outcome: Ongoing, Progressing Intervention: Minimize Contributing Factors Flowsheets (Taken 12/15/2024958) Sensory Stimulation Regulation: care clustered lighting decreased quiet environment promoted Reorientation Measures: clock in view glasses use encouraged reorientation provided Environment Familiarity/Consistency: personal clothing/items utilized Communication Support Strategies: active listening utilized * Progress Notes - Wu Newby MD - 12/15/2024 9:20 AM EDT Images from the original note were not included. [facility] Medicine Inpatient Progress Note Patient: Yen Perez PCP: Yen Hoover Date: 12/15/2024 Length of stay: 3 days Subjective Seen and examined at the bedside. Patient was about to for shower when I saw her. She denied any complaints. Her mood was elated, talks fast and she still has paranoia like she was asking if the outside nurse is watching her. Talked to her friend over the phone. He told me that she is friends with her since childhood as patient's sister was in the same read as her. She said that patient is havingissues with her mood and memory for a few months. She has she goes to christianity to 3 times during the week thinking it is a Monday. She denies if she has noticed the patient has told her about any auditory or visual hallucination. He does state that her gait is worsening and a couple of time she has crawled to her the saying that she can not walk. (that she thinks that the patient is not safe at andshould not come back alone as 1 time he was in the gas station asking about where is her home town when someone told her she is already there. Objective INPATENT MEDICATIONS Current Medications[1] ALLERGIES Allergies[2] 24 HOUR VITALS Temp: [36.4 ??C (97.6 ??F)-36.7 ??C (98 ??F)] 36.7 ??C (98 ??F) Heart Rate: [65-80] 65 Resp: [16-18] 16 BP: (110-134)/(57-66) 120/66 INTAKE/OUTPUT Intake/Output Summary (Last 24 hours) at 12/15/2024 1401 Last data filed at 12/15/2024 0925 Gross per 24 hour Intake 1200 ml Output -- Net 1200 ml Physical Exam - GENERAL: No acute distress. Well-nourished. Pleasantly confused, paranoia, elated mood, speech isfast - EYES: EOMI. Anicteric. No exophthalmos - HENT: Moist mucous membranes. No scleral icterus. No cervical lymphadenopathy. No palpable thyroid - PULMONARY: Clear to auscultation bilaterally. No accessory muscle use. - CARDIOVASCULAR: Regular rate and rhythm. No murmur. No JVD. - ABDOMEN: Soft, non-tender and non-distended. No palpable masses. - MSK: No edema. Non-tender.? - SKIN: No rashes or lesions. Warm. - NEUROLOGIC: Alert and oriented x 4. No focal neurological deficits. CN II-XII grossly intact, butnot individually tested. - PSYCHIATRIC: Semi Cooperative. Not appropriate mood and affect. Review of Systems REVIEW OF LABORATORY DATA Lab Results Component Value Date WBC 6.01 12/14/2024 HGB 12.7 12/14/2024 HCT 39.1 12/14/2024 MCV 85 12/14/2024 PLT 222 12/14/2024 Lab Results Component Value Date GLUCOSE 96 12/14/2024 CALCIUM 9.4 12/14/2024 NA 140 12/14/2024 K 4.3 12/14/2024 CO2 23 12/14/2024 CL 108 (H) 12/14/2024 BUN 13 12/14/2024 CREATININE 0.66 12/14/2024 Lab Results Component Value Date ALT 17 12/10/2024 AST 20 12/10/2024 ALKPHOS 79 12/10/2024 BILITOT 0.3 12/10/2024 No results found for: INR , PROTIME , PTT REVIEW OF IMAGING STUDIES Echo, Adult Transthoracic Complete Left Ventricle: The left ventricle is normal size. The left ventricular systolic function is normal. The LVEF is visually estimated at 55 - 60%. The diastolic function is normal. The left ventricular filling pressure is normal. Right Ventricle: The right ventricle is normal in size. The right ventricular systolic function is normal. All cardiac valves were reasonably well interrogated with 2D imaging and/or Doppler assessment and no significant valve regurgitation or stenosis is seen. There is no recent study available for direct [id number] comparison. REVIEW OF PROCEDURES Assessment and Plan: 64 y.o. year-old female with PMH of MS, 2013 and bilateral breast cancer with mastectomy 2006, who was sent her to [facility] ED from [facility] or possible AFib. Patient was admitted to [facility] for AMS initially and was on a 72 hour hold. No history of psych disorders per patient. In ED, hemodynamically stable. EKG showed sinus arrhythmia with PACs, no AFib. Patient was orientedto person, time and place but was altered. Labs showed new hyperthyroidism. CT head reported: Enlarged ventricles including lateral, third, and fourth ventricles. Prominence of the sulci. Enlarged ventricles may be due to volume loss. Also had elevated troponin with significant delta of 12. No ischemic EKG changes. Cardiology was consulted Her only known medical history is multiple sclerosis reports that she was following Dr. Jones from 2013 to 2020 and then they stopped giving her medication because they told her there was no one else in [place] that treated multiple sclerosis. She does not take any medication at home. Denies alcohol or drug use and has not smoked for the past 9 years. Admitted for medical management of New onset Afib likely secondary to hyperthyroidism: Graves disease contributing to her irritability and confusion: Altered mental status with concerns for urinary tract infection/Graves disease/Psychosis/ MS -Presented to [facility] ED from [facility] for AMS and cardiac concerns -CT head reported: Enlarged ventricles including lateral, third, and fourth ventricles. Prominence of the sulci. Enlarged ventricles may be due to volume loss. Possibility of normal pressure hydrocephalus could not be excluded. -Of note, patient last saw Dr. Jones in 2020. At that time, she had MRI imaging which showed enlarged ventricles. Documentation notes issues with gait instability and cognitive decline at that time. -CXR negative for acute findings -Ethanol level normal -Resp panel negative -Neurology consulted who recommended outpatient MRI head with and without contrast and follow up inNPH clinic. Also recommended follow-up with neuro criminal defense attorney for MS. Neurology said that psychosis with no neurological deficits is unlikely presentation of MS -UA suggestive of infection, s/p 3 doses of ceftriaxone with mixed urinary milagros on cultures as it was contaminated -ESR, CRP, procal, PTH, Cortisol, B1, Folate : Normal. UDS: Negative - Consulted Endocrinology considering low TSH as this could be the cause of acute confusion - TPO antibodies neg, TSI and TRAB elevated pointing towards Graves disease. Plan: - Delirium/fall precautions - Avoid anticholinergics, antihistamines, benzodiazepines, and opioids if able - Continue methimazole and she will follow up with Endocrinology outpatient for Graves disease -Will exclude psychiatric causes of her paranoia and irritability and continue to treat for Graves disease -Since she lives alone will talk to CM about safe discharge planning Acute non ST-segment elevation myocardial infarction, suspect type 2 -Initial troponin 122, uptrended to 134, delta 12 -Collator Operator consulted who said that most likely it is type 2 NSTEMI -Echo showed normal EF with no acute abnormalities -No acute intervention needed Paroxysmal atrial fibrillation without RVR -Cardiology consulted on patient in ED and recommendations as below: - May be secondary to acute illness (hyperthyroidism) - VANESSA?DS?-VASc score: 2 - Rate controlled, on propranolol - Rhythm control: In sinus rhythm at the time of evaluation - Embolic prevention: ON DOAC - Per Cardiology: Obtain a 14 day Holter monitor on discharge to evaluate for Afib burden - Patient to follow up in cardiology clinic - Consider outpatient sleep study to evaluate for underlying sleep apnea Graves disease -Could also be contributing to encephalopathy -Patient reports no known history of this -TSH <0.01, TSI and TRAB elevated showing Graves disease -On methimazole per Endocrinology #Relapsing-Remitting Multiple Sclerosis -Neuro consulted in ED and performed exam Plan: -Needs to have appointment made with Neuro immunology outpatient to continue to follow -No neurological deficits with psychosis unlikely sec to MS as per Neurology although she does haveworsening gait Chronic Medical Conditions: #) Eczema Plan: -Triamcinolone to rash bid Talked to her friend over the phone. He told me that she is friends with her since childhood as patient's sister was in the same read as her. She said that patient is having issues with her mood and memory for a few months. She has she goes to christianity to 3 times during the week thinking it is a Monday. She denies if she has noticed the patient has told her about any auditory or visual hallucination. He does state that her gait is worsening and a couple of time she has crawled to her the saying that she can not walk. (that she thinks that the patient is not safe at and should not come back alone as 1 time he was in the gas station asking about where is her home town when someone told her she is already there. Inpatient Checklist: - Antimicrobial de-escalation: Ceftriaxone x 3 - Bowel regimen: Senna - Code status: Full Code - Diet: regular - DVT prophylaxis: Apixaban - Electrolytes: Replete PRN - Ulcer prophylaxis: N/A - Disposition: Not medically ready, still confused CODE STATUS: Full Code EMERGENCY CONTACT: Extended Emergency Contact Information Primary Emergency Contact: Yen Collins Mobile Relation: Friend Dr. Wu Newby food science professor Hospitalist Medicine All images were reviewed. All changes discussed with consultants. Outside records reviewed as applicable. Secure chat preferred. Assessment & Plan Altered mental status MS (multiple sclerosis) (CMS/FORMERLY [facility]) Abnormal finding on urinalysis Hyperthyroidism Eczema Altered mental status, unspecified altered mental status type [1] Current Facility-Administered Medications: acetaminophen (Tylenol) tablet 650 mg, 650 mg, Oral, q8h, Amanda Maddox APRN, 650 mg at 12/12/242021 apixaban (Eliquis) tablet 5 mg, 5 mg, Oral, BID, Wu Newby MD, 5 mg at 12/15/24904 bisacodyl (Dulcolax) EC tablet 10 mg, 10 mg, Oral, Daily PRN, Amanda Maddox, [employer] REPA[employer]ER ipratropium-albuterol (Duo-Neb) 0.5-2.5 mg/3 mL nebulizer solution 3 mL, 3 mL, Nebulization, q6h PRN, Amanda Maddox APRN methIMAzole (Tapazole) tablet 10 mg, 10 mg, Oral, BID, Wu Newby MD, 10 mg at 12/15/24 0907 ondansetron ODT (Zofran-ODT) disintegrating tablet 4 mg, 4 mg, Oral, q6h PRN OR ondansetron (Zofran) injection 4 mg, 4 mg, Intravenous, q6h PRN OR ondansetron (Zofran) 4 MG/5ML solution 4 mg,4 mg, Oral, q6h PRN, Amanda Maddox APRN propranolol (Inderal) tablet 10 mg, 10 mg, Oral, BID, Wu Newby MD, 10 mg at 12/15/24 0905 senna (Senokot) tablet 8.6 mg, 8.6 mg, Oral, Nightly, Wu Newby MD, 8.6 mg at 12/12/242021 Insert peripheral IV, , , Once AND Saline lock IV, , , Once AND sodium chloride 0.9 % flush10 mL, 10 mL, Intravenous, q12h, 10 mL at 12/15/24 0954 AND sodium chloride 0.9 % flush 10 mL, 10 mL, Intravenous, PRN, Amanda Maddox APRN, 10 mL at 12/13/24 0838 triamcinolone (Kenalog) 0.1 % cream 1 Application, 1 Application, Topical, BID, Amadna Maddox APRN, 1 Application at 12/15/24 0909 [2] No Known Allergies * Care Plan - Michelle Junior RN - 12/14/2024 10:54 PM EDT Problem: Adult Inpatient Plan of Care Goal: Plan of Care Review Outcome: Ongoing, Progressing Flowsheets (Taken 12/14/20242250) Progress: no change Plan of Care Reviewed With: patient Goal: Patient-Specific Goal (Individualized) Outcome: Ongoing, Progressing Flowsheets (Taken 12/14/20242099) Patient/Family-Specific Goals (Include Timeframe): Patient will remain free from harm/injury for duration of shift Individualized Care Needs: Defer issues to case management. safety Anxieties, Fears or Concerns: patient is concerned with how she will be returned to her vehicle once she is discharged Goal: Absence of Hospital-Acquired Illness or Injury Outcome: Ongoing, Progressing Intervention: Identify and Manage Fall Risk Flowsheets (Taken 12/14/20242099) Safety Promotion/Fall Prevention: activity supervised lighting adjusted safety round/check completed Intervention: Prevent Skin Injury Flowsheets Taken 12/14/20242250 Skin Protection: transparent dressing maintained Taken 12/14/20242199 Body Position: neutral body alignment neutral head position Intervention: Prevent and Manage VTE (Venous Thromboembolism) Risk Flowsheets (Taken 12/14/20242250) VTE Prevention/Management: education provided Intervention: Prevent Infection Flowsheets (Taken 12/13/20242311) Infection Prevention: rest/sleep promoted environmental surveillance performed hand hygiene promoted Goal: Optimal Comfort and Wellbeing Outcome: Ongoing, Progressing Intervention: Monitor Pain and Promote Comfort Flowsheets (Taken 12/13/20242311) Pain Management Interventions: rest relaxation techniques promoted quiet environment facilitated position adjusted pillow support provided food emotional support Intervention: Provide Person-Centered Care Flowsheets (Taken 12/13/20242311) Trust Relationship/Rapport: care explained choices provided emotional support provided thoughts/feelings acknowledged Goal: Readiness for Transition of Care Outcome: Ongoing, Progressing Intervention: Mutually Develop Transition Plan Flowsheets Taken 12/14/20242250 by Michelle Junior, RN Anticipated Changes Related to Illness: inability to care for self Taken 12/11/20242355 by Deja Meza, RN Equipment Needed After Discharge: walker, rollator Note: Patient has expressed concerns with transportation back to her vehicle upon discharge. Problem: Mobility Impairment Goal: Optimal Mobility Outcome: Ongoing, Progressing Intervention: Optimize Mobility Flowsheets Taken 12/14/20242250 Assistive Device Utilized: four wheel walker Positioning/Transfer Devices: pillows Taken 12/14/20242099 Activity Management: ambulated to bathroom Problem: Fall Injury Risk Goal: Absence of Fall and Fall-Related Injury Outcome: Ongoing, Progressing Intervention: Identify and Manage Contributors Flowsheets (Taken 12/13/20242311) Medication Review/Management: medications reviewed Self-Care Promotion: independence encouraged meal set-up provided Intervention: Promote Injury-Free Environment Flowsheets (Taken 12/14/2024 2100) Safety Promotion/Fall Prevention: activity supervised lighting adjusted safety round/check completed Problem: Pain Acute Goal: Optimal Pain Control and Function Outcome: Ongoing, Progressing Intervention: Optimize Psychosocial Wellbeing Flowsheets (Taken 12/14/20242250) Supportive Measures: mindfulness techniques promoted positive reinforcement provided verbalization of feelings encouraged Diversional Activities: television Spiritual Activities Assistance: personal rituals encouraged Intervention: Develop Pain Management Plan Flowsheets (Taken 12/13/20242311) Pain Management Interventions: rest relaxation techniques promoted quiet environment facilitated position adjusted pillow support provided food emotional support Intervention: Prevent or Manage Pain Flowsheets (Taken 12/13/20242311) Bowel Elimination Promotion: adequate fluid intake promoted Sleep/Rest Enhancement: awakenings minimized noise level reduced regular sleep/rest pattern promoted relaxation techniques promoted room darkened Medication Review/Management: medications reviewed Problem: Confusion Acute Goal: Optimal Cognitive Function Outcome: Ongoing, Progressing Intervention: Minimize Contributing Factors Flowsheets Taken 12/14/20242250 Reorientation Measures: clock in view reorientation provided Taken 12/13/20242311 Sensory Stimulation Regulation: auditory stimulation minimized Communication Support Strategies: active listening utilized * Progress Notes - Wu Newby MD - 12/14/2024 9:38 AM EDT Images from the original note were not included. [facility] Medicine Inpatient Progress Note Patient: Yen Perez PCP: Sneha, No Date: 12/14/2024 Length of stay: 2 days Subjective Seen and examined at the bedside. Patient was sitting comfortably with a sitter watching her. She was watching tv. She says she does not want have any symptoms. She told me she is ready to take a shower today. Objective INPATENT MEDICATIONS Current Medications[1] ALLERGIES Allergies[2] 24 HOUR VITALS Temp: [36.4 ??C (97.6 ??F)-36.9 ??C (98.4 ??F)] 36.4 ??C (97.6 ??F) Heart Rate: [61-93] 77 Resp: [16-18] 18 BP: (110-134)/(58-74) 110/58 INTAKE/OUTPUT Intake/Output Summary (Last 24 hours) at 12/14/2024 1628 Last data filed at 12/13/2024 2200 Gross per 24 hour Intake 476 ml Output 50 ml Net 426 ml Physical Exam - GENERAL: No acute distress. Well-nourished. Pleasantly confused, paranoia - EYES: EOMI. Anicteric. No exophthalmos - HENT: Moist mucous membranes. No scleral icterus. No cervical lymphadenopathy. No palpable thyroid - PULMONARY: Clear to auscultation bilaterally. No accessory muscle use. - CARDIOVASCULAR: Regular rate and rhythm. No murmur. No JVD. - ABDOMEN: Soft, non-tender and non-distended. No palpable masses. - MSK: No edema. Non-tender.? - SKIN: No rashes or lesions. Warm. - NEUROLOGIC: Alert and oriented x 4. No focal neurological deficits. CN II-XII grossly intact, butnot individually tested. - PSYCHIATRIC: Semi Cooperative. Not appropriate mood and affect. Review of Systems REVIEW OF LABORATORY DATA Lab Results Component Value Date WBC 6.01 12/14/2024 HGB 12.7 12/14/2024 HCT 39.1 12/14/2024 MCV 85 12/14/2024 PLT 222 12/14/2024 Lab Results Component Value Date GLUCOSE 96 12/14/2024 CALCIUM 9.4 12/14/2024 NA 140 12/14/2024 K 4.3 12/14/2024 CO2 23 12/14/2024 CL 108 (H) 12/14/2024 BUN 13 12/14/2024 CREATININE 0.66 12/14/2024 Lab Results Component Value Date ALT 17 12/10/2024 AST 20 12/10/2024 ALKPHOS 79 12/10/2024 BILITOT 0.3 12/10/2024 No results found for: INR , PROTIME , PTT REVIEW OF IMAGING STUDIES Echo, Adult Transthoracic Complete Left Ventricle: The left ventricle is normal size. The left ventricular systolic function is normal. The LVEF is visually estimated at 55 - 60%. The diastolic function is normal. The left ventricular filling pressure is normal. Right Ventricle: The right ventricle is normal in size. The right ventricular systolic function is normal. All cardiac valves were reasonably well interrogated with 2D imaging and/or Doppler assessment and no significant valve regurgitation or stenosis is seen. There is no recent study available for direct [id number] comparison. REVIEW OF PROCEDURES Assessment and Plan: 64 y.o. year-old female with PMH of MS, 2013 and bilateral breast cancer with mastectomy 2006, who was sent her to [facility] ED from [facility] or possible AFib. Patient was admitted to [facility] for AMS initially and was on a 72 hour hold. No history of psych disorders per patient. In ED, hemodynamically stable. EKG showed sinus arrhythmia with PACs, no AFib. Patient was orientedto person, time and place but was altered. Labs showed new hyperthyroidism. CT head reported: Enlarged ventricles including lateral, third, and fourth ventricles. Prominence of the sulci. Enlarged ventricles may be due to volume loss. Also had elevated troponin with significant delta of 12. No ischemic EKG changes. Cardiology was consulted Her only known medical history is multiple sclerosis reports that she was following Dr. Jones from 2013 to 2020 and then they stopped giving her medication because they told her there was no one else in [place] that treated multiple sclerosis. She does not take any medication at home. Denies alcohol or drug use and has not smoked for the past 9 years. Admitted for medical management of New onset Afib likely secondary to hyperthyroidism: Graves disease contributing to her irritability and confusion: Altered mental status with concerns for urinary tract infection/Graves disease/Psychosis -Presented to [facility] ED from [facility] for AMS and cardiac concerns -CT head reported: Enlarged ventricles including lateral, third, and fourth ventricles. Prominence of the sulci. Enlarged ventricles may be due to volume loss. Possibility of normal pressure hydrocephalus could not be excluded. -Of note, patient last saw Dr. Jones in 2020. At that time, she had MRI imaging which showed enlarged ventricles. Documentation notes issues with gait instability and cognitive decline at that time. -CXR negative for acute findings -Ethanol level normal -Resp panel negative -Neurology consulted who recommended outpatient MRI head with and without contrast and follow up in[facility] clinic. Also recommend follow-up with neuro criminal defense attorney for MS. Neurology said that psychosis with no neurological deficits is unlikely presentation of MS -UA suggestive of infection, s/p 3 doses of ceftriaxone with mixed urinary milagros on cultures as it was contaminated -ESR, CRP, procal, PTH, Cortisol, B1, Folate : Normal. UDS: Negative - Consulted Endocrinology considering low TSH as this could be the cause of acute confusion - TPO antibodies neg, TSI and TRAB elevated pointing towards Graves disease. Plan: - Delirium/fall precautions - Avoid anticholinergics, antihistamines, benzodiazepines, and opioids if able - As per Endocrinology recommendations: Started methimazole and she will follow up with Endocrinology outpatient for Graves disease -Talked to vice president of finance over the phone. Plan to consult depending on UDS and thyroid tests Acute non ST-segment elevation myocardial infarction, suspect type 2 -Initial troponin 122, uptrended to 134, delta 12 -Collator Operator consulted who said that most likely it is type 2 NSTEMI -Echo showed normal EF with no acute abnormalities -No acute intervention needed Paroxysmal atrial fibrillation without RVR -Cardiology consulted on patient in ED and recommendations as below: - May be secondary to acute illness (hyperthyroidism) - VANESSA?DS?-VASc score: 2 - Rate control: In sinus rhythm at the time of evaluation, Going in and out of Afib - Rhythm control: In sinus rhythm at the time of evaluation - Embolic prevention: Start DOAC - Obtain a 14 day Holter monitor on discharge to evaluate for Afib burden - Patient to follow up in cardiology clinic - Consider outpatient sleep study to evaluate for underlying sleep apnea Graves disease -Could also be contributing to encephalopathy -Patient reports no known history of this -TSH <0.01, TSI and TRAB elevated showing Graves disease -On methimazole #Relapsing-Remitting Multiple Sclerosis -Neuro consulted in ED and performed exam Plan: -Needs to have appointment made with Neuro immunology outpatient to continue to follow -No neurological deficits with psychosis unlikely sec to MS Chronic Medical Conditions: #) Eczema Plan: -Triamcinolone to rash bid Still not able to get a hold of family but we will continue to treat her Graves disease and see howher mentation progresses. Inpatient Checklist: - Antimicrobial de-escalation: Ceftriaxone x 3 - Bowel regimen: Senna - Code status: Full Code - Diet: regular - DVT prophylaxis: Apixaban - Electrolytes: Replete PRN - Ulcer prophylaxis: N/A - Disposition: Not medically ready, still confused CODE STATUS: Full Code EMERGENCY CONTACT: Extended Emergency Contact Information Primary Emergency Contact: Yen Collins Mobile Relation: Friend Dr. Wu Newby food science professor Hospitalist Medicine All images were reviewed. All changes discussed with consultants. Outside records reviewed as applicable. Secure chat preferred. Assessment & Plan Altered mental status MS (multiple sclerosis) (CMS/HCC) Abnormal finding on urinalysis Hyperthyroidism Eczema Altered mental status, unspecified altered mental status type [1] Current Facility-Administered Medications: acetaminophen (Tylenol) tablet 650 mg, 650 mg, Oral, q8h, Amanda Maddox APRN, 650 mg at 12/12/242021 apixaban (Eliquis) tablet 5 mg, 5 mg, Oral, BID, Wu Newby MD, 5 mg at 12/14/24918 bisacodyl (Dulcolax) EC tablet 10 mg, 10 mg, Oral, Daily PRN, Amanda Maddox APRN ipratropium-albuterol (Duo-Neb) 0.5-2.5 mg/3 mL nebulizer solution 3 mL, 3 mL, Nebulization, q6h PRN, Amanda Maddox APRN methIMAzole (Tapazole) tablet 10 mg, 10 mg, Oral, BID, Wu Newby MD, 10 mg at 12/14/24924 ondansetron ODT (Zofran-ODT) disintegrating tablet 4 mg, 4 mg, Oral, q6h PRN OR ondansetron (Zofran) injection 4 mg, 4 mg, Intravenous, q6h PRN OR ondansetron (Zofran) 4 MG/5ML solution 4 mg,4 mg, Oral, q6h PRN, Amanda Maddox APRN propranolol (Inderal) tablet 10 mg, 10 mg, Oral, BID, Wu Newby MD, 10 mg at 12/14/24917 senna (Senokot) tablet 8.6 mg, 8.6 mg, Oral, Nightly, Wu Newby MD, 8.6 mg at 12/12/242021 Insert peripheral IV, , , Once AND Saline lock IV, , , Once AND sodium chloride 0.9 % flush10 mL, 10 mL, Intravenous, q12h, 10 mL at 12/14/24 0920 AND sodium chloride 0.9 % flush 10 mL, 10 mL, Intravenous, PRN, Varsha, Amanda D, BUFFING AND POLISHING WHEEL REPAIRER, 10 mL at 12/13/24 0838 triamcinolone (Kenalog) 0.1 % cream 1 Application, 1 Application, Topical, BID, Varsha, Amanda D, BUFFING [employer]ING WHEEL REPAIRER, 1 Application at 12/14/24 0921 [2] No Known Allergies * Care Plan - Michelle Junior RN - 12/13/2024 11:15 PM EDT Problem: Adult Inpatient Plan of Care Goal: Plan of Care Review 12/13/20242311 by Michelle Junior RN Outcome: Ongoing, Progressing Flowsheets (Taken 12/13/20242311) Progress: no change Plan of Care Reviewed With: patient 12/13/20242310 by Michelle Junior RN Outcome: Ongoing, Progressing Goal: Patient-Specific Goal (Individualized) 12/13/20242311 by Michelle Junior RN Outcome: Ongoing, Progressing Flowsheets (Taken 12/13/20241954) Patient/Family-Specific Goals (Include Timeframe): mixer attendant to remain at bedside. Patient will remain free from harm/injury for duration of shift Individualized Care Needs: safety. Alternative beverages provided. Anxieties, Fears or Concerns: I would like to get a diet coke, I don't like the gavin bernice 12/13/20242310 by Michelle Junior RN Outcome: Ongoing, Progressing Goal: Absence of Hospital-Acquired Illness or Injury 12/13/20242311 by Michelle Junior RN Outcome: Ongoing, Progressing 12/13/20242310 by Michelle Junior RN Outcome: Ongoing, Progressing Intervention: Identify and Manage Fall Risk Flowsheets (Taken 12/13/20241954) Safety Promotion/Fall Prevention: activity supervised fall prevention program maintained lighting adjusted safety round/check completed assistive device/personal items within reach clutter-free environment maintained mobility aid in reach nonskid shoes/slippers when out of bed room organization consistent Intervention: Prevent Skin Injury Flowsheets Taken 12/13/20242311 Skin Protection: transparent dressing maintained Taken 12/13/20242199 Body Position: weight shifting Intervention: Prevent and Manage VTE (Venous Thromboembolism) Risk Flowsheets (Taken 12/13/20242311) VTE Prevention/Management: education provided Intervention: Prevent Infection Flowsheets (Taken 12/13/20242311) Infection Prevention: rest/sleep promoted environmental surveillance performed hand hygiene promoted Goal: Optimal Comfort and Wellbeing 12/13/20242311 by Michelle Junior RN Outcome: Ongoing, Progressing 12/13/20242310 by Michelle Junior RN Outcome: Ongoing, Progressing Intervention: Monitor Pain and Promote Comfort Flowsheets (Taken 12/13/20242311) Pain Management Interventions: rest relaxation techniques promoted quiet environment facilitated position adjusted pillow support provided food emotional support Intervention: Provide Person-Centered Care Flowsheets (Taken 12/13/20242311) Trust Relationship/Rapport: care explained choices provided emotional support provided thoughts/feelings acknowledged Goal: Readiness for Transition of Care 12/13/20242311 by Michelle Junior RN Outcome: Ongoing, Progressing 12/13/20242310 by Michelle Junior RN Outcome: Ongoing, Progressing Intervention: Mutually Develop Transition Plan Flowsheets Taken 12/13/20242311 by Michelle Junior RN Patient/Family Anticipated Services at Transition: mental health services Taken 12/11/20242355 by Deja Meza RN Transportation Concerns: none Problem: Mobility Impairment Goal: Optimal Mobility 12/13/20242311 by Michelle Junior RN Outcome: Ongoing, Progressing 12/13/20242310 by Michelle Junior RN Outcome: Ongoing, Progressing Intervention: Optimize Mobility Flowsheets Taken 12/13/20242311 Assistive Device Utilized: four wheel walker Positioning/Transfer Devices: pillows Taken 12/13/20242199 Activity Management: ambulated to bathroom ambulated in room Problem: Fall Injury Risk Goal: Absence of Fall and Fall-Related Injury 12/13/20242311 by Michelle Junior RN Outcome: Ongoing, Progressing 12/13/20242310 by Michelle Junior RN Outcome: Ongoing, Progressing Intervention: Identify and Manage Contributors Flowsheets (Taken 12/13/20242311) Medication Review/Management: medications reviewed Self-Care Promotion: independence encouraged meal set-up provided Intervention: Promote Injury-Free Environment Flowsheets (Taken 12/13/20241954) Safety Promotion/Fall Prevention: activity supervised fall prevention program maintained lighting adjusted safety round/check completed assistive device/personal items within reach clutter-free environment maintained mobility aid in reach nonskid shoes/slippers when out of bed room organization consistent Problem: Pain Acute Goal: Optimal Pain Control and Function 12/13/20242311 by Michelle Junior RN Outcome: Ongoing, Progressing 12/13/20242310 by Michelle Junior RN Outcome: Ongoing, Progressing Intervention: Optimize Psychosocial Wellbeing Flowsheets (Taken 12/13/20242311) Supportive Measures: active listening utilized verbalization of feelings encouraged relaxation techniques promoted self-care encouraged Diversional Activities: television Spiritual Activities Assistance: personal rituals encouraged Intervention: Develop Pain Management Plan Flowsheets (Taken 12/13/20242311) Pain Management Interventions: rest relaxation techniques promoted quiet environment facilitated position adjusted pillow support provided food emotional support Intervention: Prevent or Manage Pain Flowsheets (Taken 12/13/20242311) Sensory Stimulation Regulation: auditory stimulation minimized Bowel Elimination Promotion: adequate fluid intake promoted Sleep/Rest Enhancement: awakenings minimized noise level reduced regular sleep/rest pattern promoted relaxation techniques promoted room darkened Medication Review/Management: medications reviewed Problem: Confusion Acute Goal: Optimal Cognitive Function 12/13/20242311 by Michelle Junior RN Outcome: Ongoing, Progressing 12/13/20242310 by Michelle Junior RN Outcome: Ongoing, Progressing Intervention: Minimize Contributing Factors Flowsheets (Taken 12/13/20242311) Sensory Stimulation Regulation: auditory stimulation minimized Reorientation Measures: reorientation provided clock in view Communication Support Strategies: active listening utilized * Progress Notes - Wu Newby MD - 12/13/2024 10:10 AM EDT Images from the original note were not included. [facility] Medicine Inpatient Progress Note Patient: Yen Perez PCP: Yen Hoover Date: 12/13/2024 Length of stay: 1 days Subjective Seen and examined at the bedside. Patient was sitting comfortably with a sitter watching her. She was watching tv. She said she is ready to go home but does not know how to get her car. She says she does not want have any symptoms. Explained her about her diagnosis of Graves disease and treatment. Did not look like she had understanding of the situation. Objective INPATENT MEDICATIONS Current Medications[1] ALLERGIES Allergies[2] 24 HOUR VITALS Temp: [36.3 ??C (97.4 ??F)-36.7 ??C (98 ??F)] 36.6 ??C (97.9 ??F) Heart Rate: [66-93] 81 Resp: [16-18] 16 BP: (104-147)/(64-84) 104/64 INTAKE/OUTPUT Intake/Output Summary (Last 24 hours) at 12/13/2024 1540 Last data filed at 12/13/2024 0850 Gross per 24 hour Intake 220 ml Output -- Net 220 ml Physical Exam - GENERAL: No acute distress. Well-nourished. Pleasantly confused, paranoia - EYES: EOMI. Anicteric. No exophthalmos - HENT: Moist mucous membranes. No scleral icterus. No cervical lymphadenopathy. No palpable thyroid - PULMONARY: Clear to auscultation bilaterally. No accessory muscle use. - CARDIOVASCULAR: Regular rate and rhythm. No murmur. No JVD. - ABDOMEN: Soft, non-tender and non-distended. No palpable masses. - MSK: No edema. Non-tender.? - SKIN: No rashes or lesions. Warm. - NEUROLOGIC: Alert and oriented x 4. No focal neurological deficits. CN II-XII grossly intact, butnot individually tested. - PSYCHIATRIC: Semi Cooperative. Not appropriate mood and affect. Review of Systems REVIEW OF LABORATORY DATA Lab Results Component Value Date WBC 5.32 12/13/2024 HGB 11.7 12/13/2024 HCT 35.5 12/13/2024 MCV 85 12/13/2024 PLT 209 12/13/2024 Lab Results Component Value Date GLUCOSE 94 12/13/2024 CALCIUM 9.4 12/13/2024 NA 140 12/13/2024 K 3.5 (L) 12/13/2024 CO2 24 12/13/2024 CL 104 12/13/2024 BUN 17 12/13/2024 CREATININE 0.65 12/13/2024 Lab Results Component Value Date ALT 17 12/10/2024 AST 20 12/10/2024 ALKPHOS 79 12/10/2024 BILITOT 0.3 12/10/2024 No results found for: INR , PROTIME , PTT REVIEW OF IMAGING STUDIES Echo, Adult Transthoracic Complete Left Ventricle: The left ventricle is normal size. The left ventricular systolic function is normal. The LVEF is visually estimated at 55 - 60%. The diastolic function is normal. The left ventricular filling pressure is normal. Right Ventricle: The right ventricle is normal in size. The right ventricular systolic function is normal. All cardiac valves were reasonably well interrogated with 2D imaging and/or Doppler assessment and no significant valve regurgitation or stenosis is seen. There is no recent study available for direct [id number] comparison. REVIEW OF PROCEDURES Assessment and Plan: 64 y.o. year-old female with PMH of MS, 2013 and bilateral breast cancer with mastectomy 2006, who was sent her to [facility] ED from [facility] or possible AFib. Patient was admitted to [facility] for AMS initially and was on a 72 hour hold. No history of psych disorders per patient. In ED, hemodynamically stable. EKG showed sinus arrhythmia with PACs, no AFib. Patient was orientedto person, time and place but was altered. Labs showed new hyperthyroidism. CT head reported: Enlarged ventricles including lateral, third, and fourth ventricles. Prominence of the sulci. Enlarged ventricles may be due to volume loss. Also had elevated troponin with significant delta of 12. No ischemic EKG changes. Cardiology was consulted Her only known medical history is multiple sclerosis reports that she was following Dr. Jones from 2013 to 2020 and then they stopped giving her medication because they told her there was no one else in [place] that treated multiple sclerosis. She does not take any medication at home. Denies alcohol or drug use and has not smoked for the past 9 years. Admitted for medical management of New onset Afib likely secondary to hyperthyroidism contributing to her irritability and confusion: Altered mental status with concerns for urinary tract infection/Hyperthyroidism/Psychosis -Presented to [facility] ED from [facility] for AMS and cardiac concerns -CT head reported: Enlarged ventricles including lateral, third, and fourth ventricles. Prominence of the sulci. Enlarged ventricles may be due to volume loss. Possibility of normal pressure hydrocephalus could not be excluded. -Of note, patient last saw Dr. Jones in 2020. At that time, she had MRI imaging which showed enlarged ventricles. Documentation notes issues with gait instability and cognitive decline at that time. -CXR negative for acute findings -Ethanol level normal -Resp panel negative -Neurology consulted who recommended outpatient MRI head with and without contrast and follow up in[facility] clinic. Also recommend follow-up with neuro criminal defense attorney for MS -UA suggestive of infection, s/p 3 doses of ceftriaxone with mixed urinary milagros on cultures as it was contaminated -ESR, CRP, procal, PTH, Cortisol, B1, Folate : Normal - Consulted Endocrinology considering low TSH this could be the cause of acute confusion - TPO antibodies neg, TSI and TRAB elevated pointing towards Graves disease Plan: - UDS pending (reordered, previous one was not sent) - Delirium/fall precautions - Avoid anticholinergics, antihistamines, benzodiazepines, and opioids if able - Endocrinology recommendations: Start methimazole and follow up with Endocrinology outpatient for Graves disease -Talked to vice president of finance over the phone. Plan to consult depending on UDS and thyroid tests Acute non ST-segment elevation myocardial infarction, suspect type 2 -Initial troponin 122, uptrended to 134, delta 12 -Collator Operator consulted who said that most likely it is type 2 NSTEMI -Echo showed normal EF with no acute abnormalities -No acute intervention needed Paroxysmal atrial fibrillation without RVR -Cardiology consulted on patient in ED and recommendations as below: - May be secondary to acute illness (hyperthyroidism) - VANESSA?DS?-VASc score: 2 - Rate control: In sinus rhythm at the time of evaluation, Going in and out of Afib - Rhythm control: In sinus rhythm at the time of evaluation - Embolic prevention: Start DOAC - Obtain a 14 day Holter monitor on discharge to evaluate for Afib burden - Patient to follow up in cardiology clinic - Consider outpatient sleep study to evaluate for underlying sleep apnea #) Hyperthyroidism -Could also be contributing to encephalopathy -Patient reports no known history of this -TSH <0.01, TSI and TRAB elevated showing Graves disease #) Relapsing-Remitting Multiple Sclerosis -Neuro consulted in ED and performed exam Plan: -Needs to have appointment made with Neuro immunology outpatient to continue to follow Chronic Medical Conditions: #) Eczema Plan: -Triamcinolone to rash bid Still not able to get a hold of family but we will continue to treat her hyperthyroidism and see how her mentation progresses. Inpatient Checklist: - Antimicrobial de-escalation: Ceftriaxone x 3 - Bowel regimen: Senna - Code status: Full Code - Diet: regular - DVT prophylaxis: Apixaban - Electrolytes: Replete PRN - Ulcer prophylaxis: N/A - Disposition: Not medically ready, still confused CODE STATUS: Full Code EMERGENCY CONTACT: Extended Emergency Contact Information Primary Emergency Contact: Yen Collins Mobile Relation: Friend Dr. Wu Newby food science professor Hospitalist Medicine This dictation was prepared using voice recognition software. As a result, errors may occur. When identified, these errors have been corrected. While every attempt is made to correct errors during dictation, errors may still exist. This clinical condition poses an acute threat to life: AMS, psychosis, hyperthyroidism, AFib More than 55 minutes spent on reviewing charts, interpreting labs and imaging, bedside encounter with the patient and discussing with associated specialities. All images were reviewed. All changes discussed with consultants. Outside records reviewed as applicable. Secure chat preferred. Assessment & Plan Altered mental status MS (multiple sclerosis) (CMS/HCC) Abnormal finding on urinalysis Hyperthyroidism Eczema Altered mental status, unspecified altered mental status type [1] Current Facility-Administered Medications: acetaminophen (Tylenol) tablet 650 mg, 650 mg, Oral, q8h, Amanda Maddox APRN, 650 mg at 12/12/242021 apixaban (Eliquis) tablet 5 mg, 5 mg, Oral, BID, Wu Newby MD, 5 mg at 12/13/24 0838 bisacodyl (Dulcolax) EC tablet 10 mg, 10 mg, Oral, Daily PRN, Amanda Maddox APRN ipratropium-albuterol (Duo-Neb) 0.5-2.5 mg/3 mL nebulizer solution 3 mL, 3 mL, Nebulization, q6h PRN, Amanda Maddox APRN methIMAzole (Tapazole) tablet 10 mg, 10 mg, Oral, BID, Wu Newby MD, 10 mg at 12/13/24 1147 ondansetron ODT (Zofran-ODT) disintegrating tablet 4 mg, 4 mg, Oral, q6h PRN OR ondansetron (Zofran) injection 4 mg, 4 mg, Intravenous, q6h PRN OR ondansetron (Zofran) 4 MG/5ML solution 4 mg,4 mg, Oral, q6h PRN, Amanda Maddox APRN propranolol (Inderal) tablet 10 mg, 10 mg, Oral, BID, Wu Newby MD, 10 mg at 12/13/24837 senna (Senokot) tablet 8.6 mg, 8.6 mg, Oral, Nightly, Wu Newby MD, 8.6 mg at 12/12/242021 Insert peripheral IV, , , Once AND Saline lock IV, , , Once AND sodium chloride 0.9 % flush10 mL, 10 mL, Intravenous, q12h, 10 mL at 12/12/242004 AND sodium chloride 0.9 % flush 10 mL, 10 mL, Intravenous, PRN, Amanda Maddox APRN, 10 mL at 12/13/24837 triamcinolone (Kenalog) 0.1 % cream 1 Application, 1 Application, Topical, BID, Amanda Maddox APRN, 1 Application at 12/13/24 08 [2] No Known Allergies * Care Plan - Lui Puente RN - 12/13/2024 10:06 AM EDT Pt alert to self and place, disoriented on time and situation, sitter at bedside. * Consults - Ludivina Alfred RD - 12/13/2024 8:54 AM EDT Adult Nutrition Evaluation Note Yen Perez 64 y.o. female CSN: [id number] Room/Bed 130/130A Nutrition evaluation type: assessment Reason for evaluation: nurse consult Hospital course: 64 y/o F presented from [facility] for possible Afib. On 72 hour hold d/t trying to leave hospital with AMS. Past medical/ surgical history: Past Medical History[1] Surgical History[2] Social history: Additional comments: 12/13: Pt seen at bedside with sitter present. Reports when she receives meal trays, she eats. Repeats it works well when I receive meals. 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 Endorses weight loss but cannot tell me how much. UBW ~150#. No chewing or swallowing difficulties. No N/V. BM yesterday. Vitals and Basic Assessment: BP: 104/64 Temp: 36.6 ??C (97.9 ??F) Oxygen Therapy: None (Room air) [place] Coma Scale Score: 15 Kal Scale Score: 19 Most Recent BM Date: 12/12/24 Edema: Generalized Allergies: no known allergies Medications: Current Scheduled Medications[3] Current Continuous Medications[4] Current PRN Medications[5] Meds were reviewed: Yes Labs: Lab Results Component Value Date GLUCOSE 94 12/13/2024 CALCIUM 9.4 12/13/2024 NA 140 12/13/2024 K 3.5 (L) 12/13/2024 CO2 24 12/13/2024 CL 104 12/13/2024 BUN 17 12/13/2024 CREATININE 0.65 12/13/2024 MG 2.0 12/10/2024 HGBA1C 5.9 (H) 12/10/2024 Anthropometrics: Height: 160 cm (5' 3 ) Weight: 65 kg (143 lb 4.8 oz) BMI (Calculated): 25.39 Weight Evaluation: Overweight (BMI 25-29.9) [place] Body Weight (kg): 52.2 Percent [place] Body Weight: 125 Estimated Needs: Metabolic Cart Study Results: Current Nutrition Intake: Diet Supplements: None Diet Order: Adult Diet Diet Texture: Regular Percent Meals Eaten (%): 33% avg x 3 meal intakes Diet Experience and Nutrition History: Diet Education Provided: Will monitor Pertinent home medications: none listed Spiritism needs: Nutrition Focused Physical Exam: Physical exam performed on (date): 12/13/24 Temples (muscles): None Clavicle (muscle): None Shoulder (muscle): None Interosseous (muscle): None Calf (muscle): None Orbital (fat): None Triceps (fat): None Assessment of Malnutrition: Malnutrition Identified: No Nutrition Problem: Predicted suboptimal energy intake related to AMS as evidenced by reportedly missing meals. Status of Nutrition Diagnosis: New Nutrition Interventions and Recommendations: - Continue regular diet as tolerated - Boost Plus BID for supplementation Nutrition Monitoring and Goals: - Pt will tolerate >75% avg of meal intakes - Pt will maintain weight this admission Acuity Level: [address], LD [1] Past Medical History: Diagnosis Date Eczema Multiple sclerosis (CMS/HCC) [2] History reviewed. No pertinent surgical history. [3] acetaminophen, 650 mg, Oral, q8h apixaban, 5 mg, Oral, BID methIMAzole, 10 mg, Oral, BID propranolol, 10 mg, Oral, BID senna, 8.6 mg, Oral, Nightly sodium chloride, 10 mL, Intravenous, q12h triamcinolone, 1 Application, Topical, BID [4] [5] PRN medications: bisacodyl, ipratropium-albuterol, ondansetron ODT OR ondansetron OR ondansetron, Insert peripheral IV AND Saline lock IV AND sodium chloride AND sodium chloride * Progress Notes - Maria R Babin RN - 12/13/2024 8:13 AM EDT Case Management Adult Progress Note Yen Perez 64 y.o. female CSN: [id number] Admission: 12/10/2024 3:51 PM Primary Problem: Altered mental status Anticipated Discharge Date: TBD Discussed with multidisciplinary team, at this time pt is placed on 72 hrs hold d/t pt trying to leave the hospital yesterday- per attending physician pt has AMS and was not safe for her to leave. D/t complex social situation RN CM requested from CM supervisors SW assistance in this case. RN CARLENE will continue to follow. Maria R Babin RN * Care Plan - Marilee Brunson - 12/13/2024 6:12 AM EDT Problem: Adult Inpatient Plan of Care Goal: Plan of Care Review Outcome: Ongoing, Progressing Flowsheets Taken 12/12/20241324 by Gabriel Sadler, RN Progress: no change Taken 12/11/20242355 by Deja Meza RN Plan of Care Reviewed With: patient Goal: Patient-Specific Goal (Individualized) Outcome: Ongoing, Progressing Flowsheets (Taken 12/12/2024 1900) Patient/Family-Specific Goals (Include Timeframe): pt will remain injury free during my shift Individualized Care Needs: safety Anxieties, Fears or Concerns: wanting to leave Goal: Absence of Hospital-Acquired Illness or Injury Outcome: Ongoing, Progressing Intervention: Identify and Manage Fall Risk Flowsheets (Taken 12/12/2024 1900) Safety Promotion/Fall Prevention: activity supervised clutter-free environment maintained assistive device/personal items within reach fall prevention program maintained lighting adjusted nonskid shoes/slippers when out of bed room organization consistent safety round/check completed Intervention: Prevent Skin Injury Flowsheets Taken 12/12/2024 1900 by Marilee Brunson Body Position: weight shifting Taken 12/12/20241324 by Gabriel Sadler, RN Skin Protection: pulse oximeter probe site changed Intervention: Prevent and Manage VTE (Venous Thromboembolism) Risk Flowsheets (Taken 12/12/2024 1900) VTE Prevention/Management: education provided Intervention: Prevent Infection Flowsheets (Taken 12/11/20242355 by Deja Meza, OG) Infection Prevention: hand hygiene promoted Goal: Optimal Comfort and Wellbeing Outcome: Ongoing, Progressing Intervention: Monitor Pain and Promote Comfort Flowsheets (Taken 12/11/20242355 by Deja Meza, OG) Pain Management Interventions: rest Intervention: Provide Person-Centered Care Flowsheets (Taken 12/11/20242355 by Deja Meza, RN) Trust Relationship/Rapport: care explained Goal: Readiness for Transition of Care Outcome: Ongoing, Progressing Intervention: Mutually Develop Transition Plan Flowsheets (Taken 12/11/20242355 by Deja Meza, RN) Equipment Needed After Discharge: walker, rollator Equipment Currently Used at Home: walker, rollator Anticipated Changes Related to Illness: inability to care for self Transportation Concerns: none Readmission Within the Last 30 Days: no previous admission in last 30 days Patient/Family Anticipated Services at Transition: mental health services Problem: Mobility Impairment Goal: Optimal Mobility Outcome: Ongoing, Progressing Intervention: Optimize Mobility Flowsheets Taken 12/12/2024 1900 by Marilee Brunson Activity Management: activity adjusted per tolerance activity encouraged Taken 12/12/20241324 by Gabriel Sadler, RN Assistive Device Utilized: four wheel walker Positioning/Transfer Devices: pillows Problem: Fall Injury Risk Goal: Absence of Fall and Fall-Related Injury Outcome: Ongoing, Progressing Intervention: Identify and Manage Contributors Flowsheets (Taken 12/11/20242355 by Deja Meza, OG) Medication Review/Management: medications reviewed Self-Care Promotion: BADL personal objects within reach Intervention: Promote Injury-Free Environment Flowsheets (Taken 12/12/2024 1900) Safety Promotion/Fall Prevention: activity supervised clutter-free environment maintained assistive device/personal items within reach fall prevention program maintained lighting adjusted nonskid shoes/slippers when out of bed room organization consistent safety round/check completed Problem: Pain Acute Goal: Optimal Pain Control and Function Outcome: Ongoing, Progressing Intervention: Optimize Psychosocial Wellbeing Flowsheets (Taken 12/12/20241324 by Gabriel Sadler, RN) Supportive Measures: active listening utilized Diversional Activities: television Spiritual Activities Assistance: affirmation provided Intervention: Develop Pain Management Plan Flowsheets (Taken 12/11/20242355 by Deja Meza, OG) Pain Management Interventions: rest Intervention: Prevent or Manage Pain Flowsheets Taken 12/12/20241324 by Gabriel Sadler, RN Sensory Stimulation Regulation: television on Taken 12/11/20242355 by Deja Meza, embedder Review/Management: medications reviewed Problem: Confusion Acute Goal: Optimal Cognitive Function Outcome: Ongoing, Progressing Intervention: Minimize Contributing Factors Flowsheets (Taken 12/12/2024 1325 by Gabriel Sadler, RN) Sensory Stimulation Regulation: television on Reorientation Measures: reorientation provided Environment Familiarity/Consistency: personal clothing/items utilized Communication Support Strategies: active listening utilized * Consults - Alessandro King RN - 12/13/2024 1:30 AM EDT Labs obtained WITHOUT US in the left AC. Specimens labeled, scanned and sent to lab. * Nursing Note - Gabriel Sadler RN - 12/12/2024 4:14 PM EDT Primary RN was called to bedside by patient who was trying to gather her stuff to leave. The MD wasnotified of patient trying to leave and came to bedside at 1338. MD informed patient that it was not safe for her to leave the hospital at this time and that we needed to monitor her heart. Patient was hooked back up to plant anatomist and received meal tray from [employer]. At 1456 primary nurse was informed by the charge nurse that patient was in the [address] trying to leave. MD was notified andplaced patient on a 72 hour hold. At 1459 Patient was in the [address] with bedside sitter and NCT. Patient had sat down in the [address] floor and refused to go back to her room. Patient was cooperative when asked to go into room for medication by RN and other staff. Patient received 0.5 ml iv of Versed once back in room. Patient is now calm and resting on couch with bedside sitter in room. * Francia Ram, FelisaD - 12/12/2024 3:27 PM EDT Images from the original note were not included. [id number] Apixaban IMPORTANT WARNING: If you have atrial fibrillation (a condition in which the heart beats irregularly, increasing the chance of clots forming in the body, and possibly causing strokes) and are taking apixaban to help prevent strokes or serious blood clots, you are at a higher risk of having a stroke after you stop taking this medication. Do not stop taking apixaban without talking to your doctor. Continue to take apixaban even if you feel well. Be sure to refill your prescription before you run out of medication so that you will not miss any doses of apixaban. If you need to stop taking apixaban, your doctor mayprescribe another anticoagulant ('blood thinner') to help prevent a blood clot from forming and causing you to have a stroke. If you have epidural or spinal anesthesia or a spinal puncture while taking a 'blood thinner' such as apixaban, you are at risk of having a blood clot form in or around your spine that could cause you to become paralyzed. Tell your doctor if you have an epidural catheter that is left in your body or have or have ever had repeated epidural or spinal punctures, spinal deformity, or spinal surgery. Tell your doctor and pharmacist if you are taking any of the following: anagrelide (Agrylin??); aspirin and other nonsteroidal anti-inflammatory drugs (NSAIDs) such as ibuprofen (Advil??, Motrin??, others), indomethacin (Indocin??, Tivorbex??), ketoprofen, and naproxen (Aleve??, Anaprox??, others); cilostazol (Pletal??); clopidogrel (Plavix??); dipyridamole (Persantine??); eptifibatide (Integrilin??); heparin; prasugrel (Effient??); ticagrelor (Brilinta??); ticlopidine; tirofiban (Aggrastat??), and warfarin (Coumadin??, Jantoven??). If you experience any of the following symptoms, call your doctor immediately: muscle weakness (especially in your legs and feet), numbness or tingling (especially in your legs), or loss of control of your bowels or bladder. Your doctor or pharmacist will give you the air traffic control specialist's patient information sheet (Medication Guide) when you begin treatment with apixaban and each time you refill your prescription. Read the information carefully and ask your doctor or pharmacist if you have any questions. You can also visit the Food and Drug Administration (FDA) website (https://www.fda.gov/Drugs/DrugSafety/iai505271.htm) or the air traffic control specialist's website to obtain the Medication Guide. Talk to your doctor about the risks of taking apixaban. WHY is this medicine prescribed? Apixaban is used to help prevent strokes or blood clots in people who have atrial fibrillation (a condition in which the heart beats irregularly, increasing the chance of clots forming in the body and possibly causing strokes) that is not caused by heart valve disease. Apixaban is also used to prevent deep vein thrombosis (DVT; a blood clot, usually in the leg) and pulmonary embolism (PE; a bloodclot in the lung) in people who are having hip replacement or knee replacement surgery. Apixaban isalso used to treat DVT and PE and may be continued to prevent DVT and PE from happening again afterthe initial treatment is completed. Apixaban is in a class of medications called factor Xa inhibitor s. It works by blocking the action of a certain natural substance that helps blood clots to form. HOW should this medicine be used? Apixaban comes as a tablet to take by mouth. It is usually taken with or without food twice a day. When apixaban is taken to prevent DVT and PE after hip or knee replacement surgery, the first dose should be taken at least 12 to 24 hours after surgery. Apixaban is usually taken for 35 days after a hip replacement surgery and for 12 days after knee replacement surgery. Take apixaban at around the same times every day. Follow the directions on your prescription label carefully, and ask your doctor or pharmacist to explain any part you do not understand. Take apixaban exactly as directed. Do nottake more or less of it or take it more often than prescribed by your doctor. If you are unable to swallow the tablets, you can crush them and mix with water, apple juice, or applesauce. Swallow the mixture right after you prepare it. Apixaban can also be given in certain types of feeding tubes. Ask your doctor if you should take this medication in your feeding tube. Follow your doctor's directions carefully. Continue to take apixaban even if you feel well. Do not stop taking apixaban without talking to your doctor. If you stop taking apixaban, your risk of a blood clot may increase. Are there OTHER USES for this medicine? This medication may be prescribed for other uses; ask your doctor or pharmacist for more information. What SPECIAL PRECAUTIONS should I follow? Before taking apixaban, ? tell your doctor and pharmacist if you are allergic to apixaban, any other medications, or any ofthe ingredients in apixaban tablets. Ask your pharmacist or check the Medication Guide for a list of the ingredients. ? Tell your doctor and pharmacist what prescription and nonprescription medications, vitamins, nutritional supplements, and herbal products you are taking or plan to take while taking apixaban. Your doctor may need to change the doses of your medications or monitor you carefully for side effects. ? The following nonprescription or herbal products may interact with apixaban: [place]'s wort; aspirin; NSAIDs (such as ibuprofen [Advil??, Motrin??] and naproxen [Aleve??, Naprosyn??]). Be sure to let your doctor and pharmacist know that you are taking these medications before you start taking apixaban. Do not start any of these medications while taking apixaban without discussing with your healthcare provider. ? you should know that apixaban may interact with certain medications that may be used to treat youif you have a stroke or other medical emergency. In case of an emergency, you or a family member should tell the doctor or emergency room staff who treat you that you are taking apixaban. ? tell your doctor if you have an artificial heart valve or if you have heavy bleeding anywhere in your body that cannot be stopped. Your doctor will probably tell you not to take apixaban. ? tell your doctor if you have or have ever had any type of bleeding problem, antiphospholipid syndrome (APS; a condition that causes blood clots), or kidney or liver disease. ? tell your doctor if you are , plan to become , or are . If you become while taking apixaban, call your doctor. ? if you are having surgery, including dental surgery, tell the doctor or dentist that you are taking apixaban. Your doctor may tell you to stop taking apixaban before the surgery or procedure. If you need to stop taking apixaban because you are having surgery, your doctor may prescribe a differentmedication to prevent blood clots during this time. Your doctor will tell you when you should starttaking apixaban again after your surgery. Follow these directions carefully. ? Call your doctor right away if you fall or injure yourself, especially if you hit your head. Yourdoctor may need to check you. What SPECIAL DIETARY instructions should I follow? Unless your doctor tells you otherwise, continue your normal diet. What should I do IF I FORGET to take a dose? Take the missed dose as soon as you remember it. However, if it is almost time for the next dose, skip the missed dose and continue your regular dosing schedule. Do not take a double dose to make up for a missed one. What SIDE EFFECTS can this medicine cause? Some side effects can be serious. If you experience any of these symptoms, call your doctor immediately or get emergency medical treatment: ? bleeding gums ? nosebleeds ? heavy vaginal bleeding ? red, pink, or brown urine ? red or black, tarry stools ? coughing up or vomiting blood or material that looks like coffee grounds ? swelling or joint pain ? headache ? rash ? chest pain or tightness ? swelling of the face or tongue ? trouble breathing ? wheezing ? feeling dizzy or faint Apixaban prevents blood from clotting normally, so it may take longer than usual for you to stop bleeding if you are cut or injured. This medication may also cause you to bruise or bleed more easily.Call your doctor right away if bleeding or bruising is unusual, severe, or cannot be controlled. Apixaban may cause other side effects. Call your doctor if you have any unusual problems while taking this medication. If you experience a serious side effect, you or your doctor may send a report to the Food and Drug Administration's (FDA) MedWatch Adverse Event Reporting program online (https://www.fda.gov/Safety/MedWatch) or by phone ( ). What should I know about STORAGE and DISPOSAL of this medication? Keep this medication in the container it came in, tightly closed, and out of reach of children. Store it at room temperature and away from light, excess heat and moisture (not in the bathroom). Dispose of unneeded medications in a way so that pets, children, and other people cannot take them.Do not flush this medication down the toilet. Use a medicine take-back program. Talk to your pharmacist about take-back programs in your community. Visit the FDA's Safe Disposal of Medicines website h ttps://goo.gl/c4Rm4p for more information. Keep all medication out of sight and reach of children as many containers are not child-resistant. Always lock safety caps. Place the medication in a safe location - one that is up and away and out of their sight and reach. https://www.upandaway.org What should I do in case of OVERDOSE? In case of overdose, call the poison control helpline at . Information is also available online at https://www.poisonhelp.org/help. If the victim has collapsed, had a seizure, has trouble breathing, or can't be awakened, immediately call emergency services at 401. Symptoms of overdose may include the following: ? unusual bleeding or bruising ? red, brown, or pink urine ? red or black, tarry stools ? coughing up or vomiting blood or material that looks like coffee grounds What OTHER INFORMATION should I know? Keep all appointments with your doctor. Do not let anyone else take your medication. Ask your pharmacist any questions you have about refilling your prescription. Keep a written list of all of the prescription and nonprescription (thuc-xwc-zoomutj) medicines, vitamins, minerals, and dietary supplements you are taking. Bring this list with you each time you visit a doctor or if you are admitted to the hospital. You should carry the list with you in case of ben rgencies. Brand Name(s): ? Eliquis?? This report on medications is for your information only, and is not considered individual patient advice. Because of the changing nature of drug information, please consult your physician or pharmacist about specific clinical use. The [employer] represents that the information provided hereunder was formulated with a reasonable standard of care, and in conformity with professional standards in the field. The [employer] makes no representations or warranties, express or implied, including, but not limited to, any implied warranty of merchantability and/or fitness for a particular purpose, with respect to such information and specifically disclaims all such warranties. Users are advised that decisions regarding drug therapy are complex medical decisions requiring the independent, informed decision of an appropriate health director critical care, and the information is provided for informational purposes only. The entire monograph for a drug should be reviewed for a thorough understanding of the drug's actions, uses and side effects. The [employer] does not endorse or recommend the use of any drug.The information is not a substitute for medical care. AHFS?? Patient Medication Information?. ?? Copyright, 2023. The [employer]??, [address], [address], [place], [place]. All Rights Reserved. Duplication for commercial use must be authorized by [facility]. Selected Revisions: June 29, 2024. AHFS?? Patient Medication Information?. ?? Copyright, 2024 * Progress Notes - Maria R Babin RN - 12/12/2024 2:31 PM EDT Case Management Adult Initial Progress Note Yen Perez 64 y.o. female CSN: [id number] Admission: 12/10/2024 3:51 PM Primary Problem: Altered mental status Internal Audit Director reviewed chart and spoke with patient to complete this Initial Case Management Assessment. PCP: Pcp, No Emergency Contact: No emergency contact information on file. Insurance: Primary Visit Coverage Payer Plan Sponsor Code Group Number Group Name MEDICARE MEDICARE A & B Primary Visit Coverage Subscriber Subscriber ID Subscriber Name Subscriber SSN Subscriber Address [id number] Yen Perez [id number] [address] [place] [address] Daily Living Activities: [address] [facility] [address] Current DME: Equipment Currently Used at Home: walker, rollator Anticipated Discharge Date: TBD Patient's Discharge Goal: TBD Assistance Available at Discharge: none Discharge Transport: TBD Follow Up Transport: TBD Home Health / Home Infusion / Outpatient Dialysis Services: n/a Living Will/Advance Directive/Power of Guillotine Trimmer /Guardian: Have you reviewed your Advance Directive and is it valid for this stay?: Yes Advance Directive: Not applicable Information Provided on Healthcare Directives: No Pre-existing DNR/DNI Order: No Patient Requests Assistance: Other (Comment) Additional Comments: Discussed with multidsicplinary team, per attending phyisician dr. Newby pt is not medically ready to d/c. Pt is presenting confused and unable to provide much information. RN CARLENE reviewed pt's chart and found pt's friend as her EC Yen Collins, ph#[phone]. Yen reported that pt lives alone, as well as that she is independent with ADL's and still driving. Yen provided pt's cousin Nicole Yo ph#[phone], RN CM spoke with him, he reported that he has not seen pt in months. Per Yen pt does not have any other family members other than these two cousins. Nicole is stating that he isnot willing to make medical decisions as he is not that close to the pt. Nicole said that he will call his (pt's) other cousin Liliana and have him call this RN CM if he is willing to make medical decisions in pt's behalf. Team aware. [facility] will continue to follow and assist with d/c plan and as needed. Maria R Babin RN * Care Plan - Gabriel Sadler RN - 12/12/2024 1:27 PM EDT Problem: Adult Inpatient Plan of Care Goal: Plan of Care Review 12/12/20241324 by Gabriel Sadler RN Outcome: Ongoing, Progressing Flowsheets Taken 12/12/2024 132 by Gabriel Sadler RN Progress: no change Taken 12/11/2024 2356 by Deja Meza RN Plan of Care Reviewed With: patient 12/12/2024 1323 by Gabriel Sadler RN Outcome: Ongoing, Progressing Flowsheets Taken 12/12/2024 1323 by Gabriel Sadler RN Progress: no change Taken 12/11/2024 2356 by Deja Meza RN Plan of Care Reviewed With: patient Goal: Patient-Specific Goal (Individualized) 12/12/2024 1325 by Gabriel Sadler RN Outcome: Ongoing, Progressing Flowsheets (Taken 12/12/2024 1322) Patient/Family-Specific Goals (Include Timeframe): Patient will remain free of injury during shift Individualized Care Needs: Safety Anxieties, Fears or Concerns: Food and walking 12/12/2024 1323 by Gabriel Sadler RN Outcome: Ongoing, Progressing Flowsheets (Taken 12/12/2024 1322) Patient/Family-Specific Goals (Include Timeframe): Patient will remain free of injury during shift Individualized Care Needs: Safety Anxieties, Fears or Concerns: Food and walking Goal: Absence of Hospital-Acquired Illness or Injury 12/12/2024 1325 by Gabriel Sadler RN Outcome: Ongoing, Progressing 12/12/2024 1323 by Gabriel Sadler RN Outcome: Ongoing, Progressing Intervention: Prevent Skin Injury Flowsheets Taken 12/12/2024 132 Skin Protection: pulse oximeter probe site changed Taken 12/12/2024 0800 Body Position: weight shifting Intervention: Prevent and Manage VTE (Venous Thromboembolism) Risk Flowsheets (Taken 12/12/2024 0800) VTE Prevention/Management: education provided Goal: Optimal Comfort and Wellbeing 12/12/2024 1325 by Gbariel Sadler RN Outcome: Ongoing, Progressing 12/12/2024 1323 by Gabriel Sadler RN Outcome: Ongoing, Progressing Goal: Readiness for Transition of Care 12/12/2024 1325 by Gabriel Sadler RN Outcome: Ongoing, Progressing 12/12/2024 1323 by Gabriel Sadler RN Outcome: Ongoing, Progressing Problem: Mobility Impairment Goal: Optimal Mobility 12/12/2024 1325 by Gabriel Sadler RN Outcome: Ongoing, Progressing 12/12/2024 1323 by Gabriel Sadler RN Outcome: Ongoing, Progressing Intervention: Optimize Mobility 12/12/2024 1325 by Gabriel Sadler RN Flowsheets Taken 12/12/2024 1325 Assistive Device Utilized: four wheel walker Positioning/Transfer Devices: pillows Taken 12/12/2024 0800 Activity Management: activity adjusted per tolerance activity encouraged 12/12/2024 1323 by Gabriel Sadler RN Flowsheets Taken 12/12/2024 132 Positioning/Transfer Devices: pillows Taken 12/12/2024 0800 Activity Management: activity adjusted per tolerance activity encouraged Problem: Fall Injury Risk Goal: Absence of Fall and Fall-Related Injury 12/12/2024 1325 by Sadler, Gabriel D, RN Outcome: Ongoing, Progressing 12/12/2024 1323 by Gabriel Sadler, RN Outcome: Ongoing, Progressing Intervention: Promote Injury-Free Environment 12/12/2024 1325 by Gabriel Sadler, RN Flowsheets (Taken 12/12/2024 0800) Safety Promotion/Fall Prevention: activity supervised clutter-free environment maintained assistive device/personal items within reach fall prevention program maintained lighting adjusted nonskid shoes/slippers when out of bed room organization consistent safety round/check completed 12/12/2024 1323 by Gabriel Sadler, RN Flowsheets (Taken 12/12/2024 0800) Safety Promotion/Fall Prevention: activity supervised clutter-free environment maintained assistive device/personal items within reach fall prevention program maintained lighting adjusted nonskid shoes/slippers when out of bed room organization consistent safety round/check completed Problem: Pain Acute Goal: Optimal Pain Control and Function Outcome: Ongoing, Progressing Intervention: Optimize Psychosocial Wellbeing Flowsheets (Taken 12/12/2024 132) Supportive Measures: active listening utilized Diversional Activities: television Spiritual Activities Assistance: affirmation provided Problem: Confusion Acute Goal: Optimal Cognitive Function Outcome: Ongoing, Progressing Intervention: Minimize Contributing Factors Flowsheets (Taken 12/12/2024 132) Sensory Stimulation Regulation: television on Reorientation Measures: reorientation provided Environment Familiarity/Consistency: personal clothing/items utilized Communication Support Strategies: active listening utilized * Progress Notes - Wu Newby MD - 12/12/2024 10:36 AM EDT Images from the original note were not included. [facility] Medicine Inpatient Progress Note Patient: Yen Perez PCP: Pcp, No Date: 12/12/2024 Length of stay: 0 days Subjective Seen and examined at the bedside. She was very agitated and wanted to leave the hospital. It was initially thought that she is being discharged to do so she did not get the food. She was very angry and said nobody fed her since morning and she just has to leave now. I tried counseling case manager her that we willget the food for you and will try to find the things that you have lost. When she calmed down and sat on her bed Objective INPATENT MEDICATIONS Current Medications[1] ALLERGIES Allergies[2] 24 HOUR VITALS Temp: [36.2 ??C (97.2 ??F)-37 ??C (98.6 ??F)] 36.6 ??C (97.8 ??F) Heart Rate: [55-95] 93 Resp: [18-25] 18 BP: (105-151)/(59-91) 105/59 INTAKE/OUTPUT Intake/Output Summary (Last 24 hours) at 12/12/2024 1646 Last data filed at 12/12/2024 1300 Gross per 24 hour Intake 460 ml Output -- Net 460 ml Physical Exam - GENERAL: No acute distress. Well-nourished. Pleasantly confused, paranoia - EYES: EOMI. Anicteric. No exophthalmos - HENT: Moist mucous membranes. No scleral icterus. No cervical lymphadenopathy. No palpable thyroid - PULMONARY: Clear to auscultation bilaterally. No accessory muscle use. - CARDIOVASCULAR: Regular rate and rhythm. No murmur. No JVD. - ABDOMEN: Soft, non-tender and non-distended. No palpable masses. - MSK: No edema. Non-tender.? - SKIN: No rashes or lesions. Warm. - NEUROLOGIC: Alert and oriented x 4. No focal neurological deficits. CN II-XII grossly intact, butnot individually tested. - PSYCHIATRIC: Semi Cooperative. Not appropriate mood and affect. Review of Systems REVIEW OF LABORATORY DATA Lab Results Component Value Date WBC 5.20 12/12/2024 HGB 12.7 12/12/2024 HCT 38.8 12/12/2024 MCV 85 12/12/2024 PLT 232 12/12/2024 Lab Results Component Value Date GLUCOSE 86 12/12/2024 CALCIUM 9.9 12/12/2024 NA 142 12/12/2024 K 3.9 12/12/2024 CO2 26 12/12/2024 CL 104 12/12/2024 BUN 16 12/12/2024 CREATININE 0.63 12/12/2024 Lab Results Component Value Date ALT 17 12/10/2024 AST 20 12/10/2024 ALKPHOS 79 12/10/2024 BILITOT 0.3 12/10/2024 No results found for: INR , PROTIME , PTT REVIEW OF IMAGING STUDIES Echo, Adult Transthoracic Complete Left Ventricle: The left ventricle is normal size. The left ventricular systolic function is normal. The LVEF is visually estimated at 55 - 60%. The diastolic function is normal. The left ventricular filling pressure is normal. Right Ventricle: The right ventricle is normal in size. The right ventricular systolic function is normal. All cardiac valves were reasonably well interrogated with 2D imaging and/or Doppler assessment and no significant valve regurgitation or stenosis is seen. There is no recent study available for direct [id number] comparison. REVIEW OF PROCEDURES Assessment and Plan: 64 y.o. year-old female with PMH of MS, 2013 and bilateral breast cancer with mastectomy 2006, who was sent her to [facility] ED from [facility] or possible AFib. Patient was admitted to [facility] yesterday for AMS and was on a 72 hour hold. Patient currently denying SI or HI. No history ofpsych disorders per patient. In ED, hemodynamically stable. EKG showed sinus arrhythmia with PACs, no AFib. Patient was orientedto person, time and place but was altered. Labs show new hyperthyroidism. CT head reported: Enlarged ventricles including lateral, third, and fourth ventricles. Prominence of the sulci. Enlarged ventricles may be due to volume loss.Possibility of normal pressure hydrocephalus could not be excluded.Also had elevated troponin with significant delta of 12. . No ischemic EKG changes. Cardiology was consulted Her only known medical history is multiple sclerosis reports that she was following Dr. Jones from 2013 to 2020 and then they stopped giving her medication because they told her there was no one else in [place] that treated multiple sclerosis. She does not take any medication of meaning home. Denies alcohol or drug use and has not smoked for the past 9 years. Admitted for medical management of New onset Afib likely secondary to hyperthyroidism contributing her irritability and confusion Altered mental status with concerns for urinary tract infection/Hyperthyroidism/Psychosis -Presented to [facility] ED from [facility] for AMS and cardiac concerns -CT head reported: Enlarged ventricles including lateral, third, and fourth ventricles. Prominence of the sulci. Enlarged ventricles may be due to volume loss. Possibility of normal pressure hydrocephalus could not be excluded. -Of note, patient last saw Dr. Jones in 2020. At that time, she had MRI imaging which showed enlarged ventricles. Documentation notes issues with gait instability and cognitive decline at that time. -CXR negative for acute findings -Ethanol level normal -Resp panel negative -Neurology consulted who recommended outpatient MRI head with and without contrast and follow up inNPH clinic. Also recommend follow-up with neuro criminal defense attorney for MS -UA suggestive of infection, s/p 3 doses of ceftriaxone with mixed urinary milagros on cultures as it was contaminated -ESR, CRP, procal, PTH, Cortisol, B1, Folate : Normal Plan: - UDS pending (reordered, previous one was not sent) - Delirium/fall precautions - Avoid anticholinergics, antihistamines, benzodiazepines, and opioids if able - Consulted Endocrinology considering low TSH this could be the cause of acute confusion - TPO antibodies neg, TSI and TRAB pending - Will follow-up with Endocrinology recommendations -Talked to vice president of finance over the phone. Plan to consult depending on UDS and thyroid tests Acute non ST-segment elevation myocardial infarction, suspect type 2 -Initial troponin 122, uptrended to 134, delta 12 -Collator Operator consulted who said that most likely it is type 2 NSTEMI -Echo showed normal EF with no acute abnormalities -No acute intervention needed Paroxysmal atrial fibrillation without RVR -Cardiology consulted on patient in ED and recommendations as below: - May be secondary to acute illness (hyperthyroidism) - VANESSA?DS?-VASc score: 2 - Rate control: In sinus rhythm at the time of evaluation, Going in and out of Afib - Rhythm control: In sinus rhythm at the time of evaluation - Embolic prevention: Start DOAC - Obtain a 14 day Holter monitor on discharge to evaluate for Afib burden - Patient to follow up in cardiology clinic - Consider outpatient sleep study to evaluate for underlying sleep apnea #) Hyperthyroidism -Could also be contributing to encephalopathy -Patient reports no known history of this -TSH <0.01 - Consulted Endocrinology who think that she is euthyroid. Awaiting Trab and TSI with UDS #) Relapsing-Remitting Multiple Sclerosis -Neuro consulted in ED and performed exam Plan: -Needs to have appointment made with Neuro immunology outpatient to continue to follow Chronic Medical Conditions: #) Eczema Plan: -Triamcinolone to rash bid Tried calling family but there was no phone number available, data systems manager was able to get a hold of a friend who will be able to get us some information so we can evaluate and teat in a better way. I was informed by nurse that patient is trying to leave. Counseled her and she was still willing togo. Considering she has AMS with no understanding of her disease, can not reason and think about consequences we have thought that it is in her best interest to be on 72 hour hold and if tony be medications to calm her down PRN Inpatient Checklist: - Antimicrobial de-escalation: Ceftriaxone x 3 - Bowel regimen: Senna - Code status: Full Code - Diet: regular - DVT prophylaxis: Apixaban - Electrolytes: Replete PRN - Ulcer prophylaxis: N/A - Disposition: Not medically ready. CODE STATUS: Full Code EMERGENCY CONTACT: Extended Emergency Contact Information Primary Emergency Contact: Yen Collins Mobile Relation: Friend Dr. Wu Newby food science professor Hospitalist Medicine This dictation was prepared using voice recognition software. As a result, errors may occur. When identified, these errors have been corrected. While every attempt is made to correct errors during dictation, errors may still exist. This clinical condition poses an acute threat to life: AMS, psychosis, hyperthyroidism, AFib More than 55 minutes spent on reviewing charts, interpreting labs and imaging, bedside encounter with the patient and discussing with associated specialities. All images were reviewed. All changes discussed with consultants. Outside records reviewed as applicable. Secure chat preferred. Assessment & Plan Altered mental status MS (multiple sclerosis) (CMS/HCC) Abnormal finding on urinalysis Hyperthyroidism Eczema Altered mental status, unspecified altered mental status type [1] Current Facility-Administered Medications: acetaminophen (Tylenol) tablet 650 mg, 650 mg, Oral, q8h, Amanda Maddox, BUFFING AND POLISHING WHEEL REPAIRER, 650 mg at 12/12/24 0621 apixaban (Eliquis) tablet 5 mg, 5 mg, Oral, BID, Wu Newby MD, 5 mg at 12/12/24 0847 bisacodyl (Dulcolax) EC tablet 10 mg, 10 mg, Oral, Daily PRN, Amanda Maddox BUFFING AND POLISHING WHEEL REPAIRER [COMPLETED] midazolam (Versed) injection 0.5 mg, 0.5 mg, Intravenous, Once, 0.5 mg at 12/12/24 1542AND diphenhydrAMINE (Benadryl) injection 50 mg, 50 mg, Intramuscular, Once PRN AND haloperidol lactate (Haldol) injection 5 mg, 5 mg, Intramuscular, Once PRN, Wu Newby MD ipratropium-albuterol (Duo-Neb) 0.5-2.5 mg/3 mL nebulizer solution 3 mL, 3 mL, Nebulization, q6h PRN, Amanda Maddox APRN ondansetron ODT (Zofran-ODT) disintegrating tablet 4 mg, 4 mg, Oral, q6h PRN OR ondansetron (Zofran) injection 4 mg, 4 mg, Intravenous, q6h PRN OR ondansetron (Zofran) 4 MG/5ML solution 4 mg,4 mg, Oral, q6h PRN, Amanda Maddox APRN propranolol (Inderal) tablet 10 mg, 10 mg, Oral, BID, Wu Newby MD, 10 mg at 12/12/24 0846 senna (Senokot) tablet 8.6 mg, 8.6 mg, Oral, Nightly, Wu Newby MD Insert peripheral IV, , , Once AND Saline lock IV, , , Once AND sodium chloride 0.9 % flush10 mL, 10 mL, Intravenous, q12h, 10 mL at 12/12/24 1247 AND sodium chloride 0.9 % flush 10 mL, 10 mL, Intravenous, PRN, Amanda Maddox APRN triamcinolone (Kenalog) 0.1 % cream 1 Application, 1 Application, Topical, BID, Amanda Maddox APRN [2] No Known Allergies * Care Plan - Deja Meza RN - 12/11/2024 11:59 PM EDT Problem: Adult Inpatient Plan of Care Goal: Plan of Care Review Outcome: Ongoing, Progressing Flowsheets Taken 12/11/20242355 by Deja Meza RN Plan of Care Reviewed With: patient Taken 12/11/20242107 by Lucila Milian RN Progress: no change Goal: Patient-Specific Goal (Individualized) Outcome: Ongoing, Progressing Flowsheets (Taken 12/11/20242235) Patient/Family-Specific Goals (Include Timeframe): Patient will remain free of injury this shift Individualized Care Needs: Safety Anxieties, Fears or Concerns: none stated Goal: Absence of Hospital-Acquired Illness or Injury Outcome: Ongoing, Progressing Intervention: Identify and Manage Fall Risk Flowsheets (Taken 12/11/20242355) Safety Promotion/Fall Prevention: activity supervised assistive device/personal items within reach clutter-free environment maintained Intervention: Prevent Skin Injury Flowsheets (Taken 12/11/20242355) Body Position: foot of bed elevated Skin Protection: protective footwear used Intervention: Prevent and Manage VTE (Venous Thromboembolism) Risk Flowsheets (Taken 12/11/20242355) VTE Prevention/Management: education provided Intervention: Prevent Infection Flowsheets (Taken 12/11/20242355) Infection Prevention: hand hygiene promoted Goal: Optimal Comfort and Wellbeing Outcome: Ongoing, Progressing Intervention: Monitor Pain and Promote Comfort Flowsheets (Taken 12/11/20242355) Pain Management Interventions: rest Intervention: Provide Person-Centered Care Flowsheets (Taken 12/11/20242355) Trust Relationship/Rapport: care explained Goal: Readiness for Transition of Care Outcome: Ongoing, Progressing Intervention: Mutually Develop Transition Plan Flowsheets (Taken 12/11/20242355) Equipment Needed After Discharge: walker, rollator Equipment Currently Used at Home: walker, rollator Anticipated Changes Related to Illness: inability to care for self Transportation Concerns: none Readmission Within the Last 30 Days: no previous admission in last 30 days Patient/Family Anticipated Services at Transition: mental health services Problem: Mobility Impairment Goal: Optimal Mobility Outcome: Ongoing, Progressing Intervention: Optimize Mobility Flowsheets (Taken 12/11/20242355) Activity Management: activity adjusted per tolerance Assistive Device Utilized: other (see comments) Positioning/Transfer Devices: pillows Problem: Fall Injury Risk Goal: Absence of Fall and Fall-Related Injury Outcome: Ongoing, Progressing Intervention: Identify and Manage Contributors Flowsheets (Taken 12/11/2024 4715) Medication Review/Management: medications reviewed Self-Care Promotion: BADL personal objects within reach Intervention: Promote Injury-Free Environment Flowsheets (Taken 12/11/2024 7902) Safety Promotion/Fall Prevention: activity supervised assistive device/personal items within reach clutter-free environment maintained * Consults - Tom Rob MD - 12/11/2024 4:09 PM EDTAssociated Order(s): Inpatient consult to Endocrinology Inpatient consult to Endocrinology Consult performed by: Tom Rob MD Consult ordered by: Wu Newby MD Reason for consult: Abnormal Thyroid Studies: Concern for Hyperthyroidism History Of Present Illness Yen Perez is a 64 y.o. female w/PMHx relapsing-remitting MS (followed by Dr. Jones from [id number])and bilateral breast cancer s/p mastectomy 2006 presenting to [facility] from [facility] with concern for possible Afib. Patient was admitted to [facility] Monday for AMS and was on a 72 hour hold after a refinery operator gas plant observed patient's altered mentation and called local federal law clerk. Cardiology evaluated patient at , and noted NSTEMI, likely type 2, paroxysmal afib with RVR. Imaging evaluation included CT head as well as CTA head and neck notable for enlarged ventricles including lateral, third and forth ventricles and prominence of sulci which cannot exclude normal pressure hydrocephalus. UDS pending, ethanol negative. Patient negative for Flu A &B, COVID-19, and RSV as well as Hepatitis B, C, and HIV I&2 Screening. Urine with notable bacteria, nitrite positive, treated with ceftriaxone. Laboratory evaluation included thyroid function studies, including TSH <0.01, FT4 3.8, and TT3 264. Endocrinology was consulted due to concern for hyperthyroidism and concern of association with altered mentation and afib with RVR Per discussion with patient, she recalls being told as a teenager that her thyroid studies were abnormal. However, patient denies any history of known thyroid disorder(s) or treatment. She states that she feels subjectively cold, denies heat intolerance, endorses fatigue. Patient denies appreciableunexplained weight loss, bowel changes, eye pain/sensation of foreign body, tremors. Patient statesthat she has taken biotin in the past, but is not currently. On review of vitals, patient afebrile, normotensive, with no evidence of tachycardia. Review of Systems Review of Systems Constitutional: Positive for fatigue. Negative for unexpected weight change. HENT: Negative for trouble swallowing. Eyes: Negative for pain. Respiratory: Negative for shortness of breath. Cardiovascular: Negative for chest pain. Gastrointestinal: Negative for constipation, diarrhea, nausea and vomiting. Endocrine: Negative for cold intolerance and heat intolerance. Musculoskeletal: Lower leg swelling Neurological: Negative for tremors. Vitals Temp: [36.7 ??C (98 ??F)-36.9 ??C (98.5 ??F)] 36.8 ??C (98.2 ??F) Heart Rate: [79-95] 84 Resp: [14-23] 23 BP: (98-135)/(71-82) 98/82 Physical Exam Constitutional: Appearance: Normal appearance. She is normal weight. HENT: Head: Normocephalic and atraumatic. Nose: Nose normal. Mouth/Throat: Mouth: Mucous membranes are moist. Pharynx: Oropharynx is clear. Eyes: Conjunctiva/sclera: Conjunctivae normal. Neck: Comments: Thyroid nontender, no nodules appreciated Cardiovascular: Rate and Rhythm: Normal rate and regular rhythm. Heart sounds: Normal heart sounds. Pulmonary: Effort: Pulmonary effort is normal. Breath sounds: Normal breath sounds. Abdominal: General: There is no distension. Palpations: Abdomen is soft. Tenderness: There is no abdominal tenderness. There is no guarding. Musculoskeletal: Cervical back: Neck supple. No tenderness. Right lower leg: No edema. Left lower leg: No edema. Skin: General: Skin is warm and dry. Neurological: Mental Status: She is alert and oriented to person, place, and time. Psychiatric: Mood and Affect: Mood normal. Comments: Abnormal behavior Results Review {Vanishing Link Review Results :[id number] Latest Reference Range & Units 12/10/24 09:10 12/10/24 17:09 12/10/24 23:08 12/11/24 03:24 Hemoglobin A1C <5.7 % 5.9 (H) TSH 0.40 - 4.20 uIU/mL <0.01 (L) <0.01 (L) T3, Total 87 - 187 ng/dL 264 (H) Free T4 0.8 - 1.7 ng/dL 3.8 (H) 3.8 (H) PTH Intact Total 9 - 77 pg/mL 35 Cortisol Before 10am: 3.7 - 19.4. After 5pm: 2.9 - 17.3 ug/dL 4.30 (H): Data is abnormally high (L): Data is abnormally low CT Head and CTA head and neck 12/10/2024 FINDINGS: CT Head without: Motion artifact obscures fine detail. No large areas of acute intracranial hemorrhage evident. Ventricles are enlarged. There is prominence of the sulci. No midline shift or mass effect. Low-density changes are present in periventricular region which may represent ischemic gliotic change.. No displaced or depressed calvarial fractures. The visualized paranasal sinuses and mastoid air cells are clear. CTA Head: There is normal vascular anatomy. Scattered atheromatous changes of the cavernous portion of the carotid arteries. There is no evidence of vascular injury, specifically no arterial stenosis, occlusion, dissection, or pseudoaneurysm. The intracranial venous structures are also fairly well opacified and appear unremarkable. CTA Neck: There is normal vascular anatomy. Scattered atheromatous changes. There is no evidence of vascular injury, specifically no arterial stenosis, occlusion, dissection, or pseudoaneurysm. There is no significant stenosis of the ICA origins by NASCET criteria. IMPRESSION: 1. Enlarged ventricles including lateral, third, and fourth ventricles. There is also prominence ofthe sulci. Enlarged ventricles may be due to volume loss. Cannot exclude the possibility of normal pressure hydrocephalus. 2. Normal CTA of the head and neck without evidence of vascular injury. Assessment & Plan Abnormal Thyroid Studies Concern for Hyperthyroidism -TSH <0.01, FT4 3.8, TT3 264 -Patient clinically euthyroid: Normotensive, not currently tachycardic (although placed on propranolol 12/11), Afebrile -No evidence of thyroid enlargement or nodule(s) on exam -Patient endorses prior history of biotin use-although not currently using supplement. NOTE biotin interferes with thyroid study assays (falsely low TSH and elevated FT4 and T3 levels) -TPO antibody negative, awaiting TRAb and TSI Endocrinology will continue to follow along. Please reach out via [employer] Secure Chat with any questions or concerns. Cosigned by Yosvany Heart MD at 12/12/2024 10:28 AM EDT Associated attestation - Yosvany Heart MD - 12/12/2024 10:28 AM EDT I saw and evaluated the patient with the resident/fellow. I discussed the case with the resident/fellow and agree with the findings and plan as documented. * Progress Notes - Wu Newby MD - 12/11/2024 11:35 AM EDT Images from the original note were not included. [facility] Medicine Inpatient Progress Note Patient: Yen Perez PCP: Pcp, No Date: 12/11/2024 Length of stay: 0 days Subjective Seen and examined at the bedside. She was quite irritable and not making sense although alert and oriented. She said she does not know why she is here and she would like a room with a separate shower Objective INPATENT MEDICATIONS Current Medications[1] ALLERGIES Allergies[2] 24 HOUR VITALS Temp: [36.7 ??C (98 ??F)-37 ??C (98.6 ??F)] 36.8 ??C (98.2 ??F) Heart Rate: [79-95] 84 Resp: [14-23] 23 BP: (98-135)/(65-82) 98/82 INTAKE/OUTPUT Intake/Output Summary (Last 24 hours) at 12/11/2024 1516 Last data filed at 12/10/2024 2337 Gross per 24 hour Intake 50 ml Output -- Net 50 ml Physical Exam - GENERAL: No acute distress. Well-nourished. Pleasantly confused - EYES: EOMI. Anicteric. No exophthalmos - HENT: Moist mucous membranes. No scleral icterus. No cervical lymphadenopathy. No palpable thyroid - PULMONARY: Clear to auscultation bilaterally. No accessory muscle use. - CARDIOVASCULAR: Regular rate and rhythm. No murmur. No JVD. - ABDOMEN: Soft, non-tender and non-distended. No palpable masses. - MSK: No edema. Non-tender.? - SKIN: No rashes or lesions. Warm. - NEUROLOGIC: Alert and oriented x 4. No focal neurological deficits. CN II-XII grossly intact, butnot individually tested. - PSYCHIATRIC: Semi Cooperative. Appropriate mood and affect. Review of Systems REVIEW OF LABORATORY DATA Lab Results Component Value Date WBC 5.53 12/11/2024 HGB 11.5 12/11/2024 HCT 34.2 12/11/2024 MCV 84 12/11/2024 PLT 207 12/11/2024 Lab Results Component Value Date GLUCOSE 95 12/11/2024 CALCIUM 9.4 12/11/2024 NA 143 12/11/2024 K 3.6 12/11/2024 CO2 26 12/11/2024 CL 106 12/11/2024 BUN 17 12/11/2024 CREATININE 0.62 12/11/2024 Lab Results Component Value Date ALT 17 12/10/2024 AST 20 12/10/2024 ALKPHOS 79 12/10/2024 BILITOT 0.3 12/10/2024 No results found for: INR , PROTIME , PTT REVIEW OF IMAGING STUDIES Echo, Adult Transthoracic Complete Left Ventricle: The left ventricle is normal size. The left ventricular systolic function is normal. The LVEF is visually estimated at 55 - 60%. The diastolic function is normal. The left ventricular filling pressure is normal. Right Ventricle: The right ventricle is normal in size. The right ventricular systolic function is normal. All cardiac valves were reasonably well interrogated with 2D imaging and/or Doppler assessment and no significant valve regurgitation or stenosis is seen. There is no recent study available for direct [id number] comparison. REVIEW OF PROCEDURES Assessment and Plan: 64 y.o. year-old female with PMH of MS, 2013 and bilateral breast cancer with mastectomy 2006, who was sent her to [facility] ED from [facility] or possible AFib. Patient was admitted to [facility] yesterday for AMS and was on a 72 hour hold. Patient currently denying SI or HI. No history ofpsych disorders per patient. In ED, hemodynamically stable. EKG showed sinus arrhythmia with PACs, no AFib. Patient was orientedto person, time and place but was altered. Labs show new hyperthyroidism. CT head reported: Enlarged ventricles including lateral, third, and fourth ventricles. Prominence of the sulci. Enlarged ventricles may be due to volume loss.Possibility of normal pressure hydrocephalus could not be excluded.Also had elevated troponin with significant delta of 12. . No ischemic EKG changes. Cardiology was consulted Her only known medical history is multiple sclerosis reports that she was following Dr. Jones from 2013 to 2020 and then they stopped giving her medication because they told her there was no one else in [place] that treated multiple sclerosis. She does not take any medication of meaning home. Denies alcohol or drug use and has not smoked for the past 9 years. Admitted for medical management of New onset Afib likely secondary to hyperthyroidism contributing her irritability and confusion Altered mental status with concerns for urinary tract infection/Hyperthyroidism Urinary incontinence -Presented to [facility] ED from [facility] for AMS and cardiac concerns -CT head reported: Enlarged ventricles including lateral, third, and fourth ventricles. Prominence of the sulci. Enlarged ventricles may be due to volume loss. Possibility of normal pressure hydrocephalus could not be excluded. -Of note, patient last saw Dr. Jones in 2020. At that time, she had MRI imaging which showed enlarged ventricles. Documentation notes issues with gait instability and cognitive decline at that time. -CXR negative for acute findings -Ethanol level normal -Resp panel negative -Neurology consulted who recommended outpatient MRI head with and without contrast and follow up inNPH clinic. Also recommend follow-up with neuro criminal defense attorney for MS -UA not really suggestive of infection, s/p 1 dose of ceftriaxone -ESR, CRP, procal, PTH, Cortisol, B1, Folate : Normal Plan: - UDS pending - Delirium/fall precautions - Avoid anticholinergics, antihistamines, benzodiazepines, and opioids if able - Consulted Endocrinology considering low TSH this could be the cause of acute confusion - Ordered total T3 and TPO antibodies and TSI - Will follow-up with Endocrinology recommendations Acute non ST-segment elevation myocardial infarction, suspect type 2 -Initial troponin 122, uptrended to 134, delta 12 -Collator Operator consulted who said that most likely it is type 2 NSTEMI -Echo showed normal EF with no acute abnormalities Paroxysmal atrial fibrillation without RVR -Cardiology consulted on patient in ED and recommendations as below: - May be secondary to acute illness (hyperthyroidism) - VANESSA?DS?-VASc score: 2 - Rate control: In sinus rhythm at the time of evaluation, Going in and out of Afib - Rhythm control: In sinus rhythm at the time of evaluation - Embolic prevention: Start DOAC - Obtain a 14 day Holter monitor on discharge to evaluate for Afib burden - Patient to follow up in cardiology clinic - Consider outpatient sleep study to evaluate for underlying sleep apnea #) Hyperthyroidism -Could also be contributing to encephalopathy -Patient reports no known history of this -TSH <0.01 - Consulted cardiology and awaiting recommendations #) Relapsing-Remitting Multiple Sclerosis -Neuro consulted in ED and performed exam Plan: -Needs to have appointment made with Neuro immunology outpatient to continue to follow Chronic Medical Conditions: #) Eczema Plan: -Triamcinolone to rash bid Inpatient Checklist: - Antimicrobial de-escalation: Ceftriaxone x 1 - Bowel regimen: Senna - Code status: Full Code - Diet: regular - DVT prophylaxis: Apixaban - Electrolytes: Replete PRN - Ulcer prophylaxis: N/A - Disposition: Not medically ready. [facility] home CODE STATUS: Full Code EMERGENCY CONTACT: No emergency contact information on file. Dr. Wu Newby food science professor Hospitalist Medicine This dictation was prepared using voice recognition software. As a result, errors may occur. When identified, these errors have been corrected. While every attempt is made to correct errors during dictation, errors may still exist. All images were reviewed. All changes discussed with consultants. Outside records reviewed as applicable. Secure chat preferred. Assessment & Plan Altered mental status MS (multiple sclerosis) ([facility]) Abnormal finding on urinalysis Hyperthyroidism Eczema [1] Current Facility-Administered Medications: acetaminophen (Tylenol) tablet 650 mg, 650 mg, Oral, q8h, Amanda Maddox, BUFFING AND POLISHING WHEEL REPAIRER, 650 mg at 12/11/24 1417 apixaban (Eliquis) tablet 5 mg, 5 mg, Oral, BID, Wu Newby MD, 5 mg at 12/11/24 1417 bisacodyl (Dulcolax) EC tablet 10 mg, 10 mg, Oral, Daily PRN, Amanda Maddox, BUFFING AND POLISHING WHEEL REPAIRER cefTRIAXone (Rocephin) 1 g in sodium chloride 0.9% 100 mL IVPB (vial adapter required), 1 g, Intravenous, q24h, Wu Newby MD ipratropium-albuterol (Duo-Neb) 0.5-2.5 mg/3 mL nebulizer solution 3 mL, 3 mL, Nebulization, q6h PRN, Amanda Maddox APRN ondansetron ODT (Zofran-ODT) disintegrating tablet 4 mg, 4 mg, Oral, q6h PRN OR ondansetron (Zofran) injection 4 mg, 4 mg, Intravenous, q6h PRN OR ondansetron (Zofran) 4 MG/5ML solution 4 mg,4 mg, Oral, q6h PRN, Amanda Maddox APRN propranolol (Inderal) tablet 10 mg, 10 mg, Oral, BID, Wu Newby MD, 10 mg at 12/11/24 1417 senna (Senokot) tablet 8.6 mg, 8.6 mg, Oral, Nightly, Wu Newby MD Insert peripheral IV, , , Once AND Saline lock IV, , , Once AND sodium chloride 0.9 % flush10 mL, 10 mL, Intravenous, q12h, 10 mL at 12/11/24 1005 AND sodium chloride 0.9 % flush 10 mL, 10 mL, Intravenous, PRN, Amanda Maddox APRN triamcinolone (Kenalog) 0.1 % cream 1 Application, 1 Application, Topical, BID, Amanda Maddox APRN No current outpatient medications on file. [2] No Known Allergies * Hospital Course - Violeta Reagan MD - 12/11/2024 10:14 AM EDT [facility] records 12/09 IDENTIFICATION DATA: Ms. Yen Perez is a 64-year-old , retired, female presenting to [facility] on a citation from [facility]. This represents her 1st [facility] hospitalization. She is soon to be her own guardian. CHIEF COMPLAINT: I was confused, but I'm not now. HISTORY OF PRESENT ILLNESS/ONSET OF ILLNESS: Again, Ms. Yen Perez is a 64-year-old female with no psychiatric history who presents to [facility] on a citation from [facility]. This represents her 1st [facility] hospitalization. The citation reads on 12/09/2024 at approximately 2 a.m., an officer was flagged down at [employer] by an employee in [place] saying there was a female inside possibly experiencingsymptoms of dementia. This employee was concerned about the patient's well-being and the patient was reportedly confused about her location and asking how to get to the other [place]. When the officer made contact, the patient was alert but disoriented. She stated she needed to sit down and didnot know her name. She told the officer she lived at the other [place]. EMS was called and thenpatient was transported to [facility] for further evaluation. She first saw the [facility] who in his report stated that the patient was mildly anxious, but denied homicidal or suicidal ideation, or a history of mental health treatment. The patient reportedly thought that the [facility] tube roller gave her a ride to [facility]. She did not know where she lived and could not provide names of people she knows or family members. She told the [facility] she woke up on 3 consecutive days thinking she was in an unfamiliar place and stated she heard that there were other [facility] in [facility]. Due to her confusion and lack of collateral, patient was referred to this examiner for possible admission. During interview with this examiner, patient was cooperative but irritable. The patient suffers from multiple sclerosis and uses a Rollator at home, however, does not have that here and was using thewall to help her walk. She does have an unsteady gait. The patient says she has not taken her multiple sclerosis medicines for 7 years. She did know that she was at [facility], but seemedvery confused and somewhat irritable about being here. The patient does seem significantly confusedtoday. She could provide the address for her home that she owns is in [place], but says she has been staying at another residence and this was very confusing to this examiner as she stated she knewthe person who owned the home that she was staying in and could not explain why she had not been sleeping at her own home. She had limited explanation for why she was at a [employer] [place] at 2 a.m. last night stating that she needed to get out. She stated that she has no family member and limited friends [place] and could not name any person that we could contact for collateral. She states she takes no medications at this time. She denied SI, HI, AVH, and states she has never had any psychiatric history, suicide attempts, or taken any psychotropic medications. The patient's recent and remote memory is in question at this time, as it appears she is somewhat disoriented and possibly irritated about being disoriented, thoughshe is very well put together, well-kempt, and well dressed. 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 She says she moved back to [place] several years ago, but could not tell me the timeline of this. She did not seem overtly psychotic, but again is very confused today. She also seemed somewhat depressed. PAST PSYCHIATRIC HISTORY: This represents her 1st [facility] hospitalization. She denies previous psychiatric hospitalizations. She denies suicide attempts. She denies ever being on psychotropic medications. CURRENT MEDICATIONS: Patient reports taking no medications in several years. ALLERGIES: NO KNOWN DRUG ALLERGIES. IMMUNIZATIONS: See medical record. SUBSTANCE USE HISTORY: She denies current alcohol, drug, or tobacco use. She was a previous smoker. She quit 8-10 years ago. PAST MEDICAL HISTORY: Significant for history of breast cancer, multiple sclerosis, and bilateral lower extremity edema. SURGICAL HISTORY: Includes bilateral mastectomy, hysterectomy, and tonsillectomy. FAMILY HISTORY: None known. SOCIAL HISTORY: She reportedly has a Masters Degree and is retired. She is . She states shelives in [place], [place], but has trouble stating her address. She states she has no children and limited social support. REVIEW OF SYSTEMS: A 14-point review of systems is performed and was negative. See HPI. VITAL SIGNS: Temperature 97.3, pulse 94, respirations 14, blood pressure 139/80, O2 saturation 80%.MUSCULOSKELETAL: Patient was seen ambulating on the Admissions unit with an antalgic gait. Muscle strength and tone intact in her upper extremities, but decreased in her lower extremities. No evidence of psychomotor abnormalities or EPS/TD. PHYSICAL EXAMINATION SUMMARY: Physical examination was performed in its entirety. Patient has an unsteady antalgic gait. Bilateral lower extremity edema and weakness in her lower extremities. Otherwise, examination was unremarkable. See that in psychiatric admission assessment. MENTAL STATUS EXAMINATION: Ms. Yen Perez is a 64-yearold female who appears her age. She is wellkempt and has good hygiene. She is cooperative for interview. She makes good eye contact. Mood is irritable. Affectflat. Speech has normal rate, rhythm, and volume. She does have some thought blocking today. Thought processes are somewhat disorganized. She is not delusional, grandiose, religiously preoccupied, orresponding to internal stimuli. Denies SI, HI, or AVH. CSSR is negative. Alert and oriented to person and place, but not time. Recent memory is not intact as she cannot remember 3 objects after 5 minutes. Remote memory is intact as she cannot accurately describe past events. Intellectual functioning is educated, based on comprehension and vocabulary. Fund of knowledge is intact as she is aware ofcurrent president. Insight is poor as she is not interested in treatment. Judgment is poor as evidenced by her decisions leading up to hospitalization. DIAGNOSTIC IMPRESSION: 1. Primary: Psychosis, NOS; rule out major neurocognitive disorder. 2. Secondary: Deferred. 3. Medical: Nonacute. ASSESSMENT AND PLAN: 1. Will admit patient to the [place] [address] unitunder the care of the [place] [address] treatment team [address] her under a safety q.15-minute level of supervision with precautions for falls risk. Will place on a regular diet and p.r.n. comfort measures ofacetaminophen, Milk of Magnesia, and Mylanta, as well as p.r.n. olanzapine and Vistaril for agitation and anxiety. 2. Psychosis, NOS. Rule out major neurocognitive disorder. Will begin olanzapine ODT5 mg p.o. q.h.s. for psychosis. * Progress Notes - Violeta Reagan MD - 12/11/2024 7:23 AM EDT Images from the original note were not included. General Neurology Progress Note Subjective NAEON. Pt evaluated at bedside, she is irritable and paranoid but redirectable. Accurately verifies historical health information; was diagnosed with MS, previously treated by Dr. Jones at [facility], has not followed up since 2020. She reports she discontinued a medications due to adverse effects and she doesn't wants to follow up with a neurologist for her MS. She reports some lower extremity weakness, difficulty with balance, need to use a Rolator walker for ambulation has been her baseline for some time. She denies any new weakness, numbness, tingling orvision changes. She reports longstanding occasional nighttime incontinence without new urinary urgency or daytime incontinence. She does not have any increased speech latency, confusion or disorientation. She does make bizarre statements with delusions resistant to reality testing, for example, insisting that the walker in her room with a label stating [facility] is her personal device that she bought and [employer]. She is irritable and confrontational, initially guarded with interviewer, perseverating on coffee. Objective Visit Vitals BP 118/72 (BP Location: Right arm, Patient Position: Sitting) Pulse 90 Temp 36.9 ??C (98.5 ??F) (Oral) SpO2 98% Physical exam Constitutional: in no acute distress, not ill appearing. HENT: normocephalic, non-erythematous oropharynx, anicteric sclera Psychiatric: Irritable, paranoid affect. Delusional thought content. Neurological: Mental Status: The patient is alert and interactive, able to follow commands. Oriented to person, place, and time, Speech: Intact Articulation, Fluent language CN: II - PERRLA, Visual valverde: full III, IV, - EOMI V - Facial sensation intact VII - Brow raise and smile symmetrical VIII - Auditory acuity intact IX, X - Palate elevation symmetric, uvula midline XI - SCM and Trapezius strength intact XII - Tongue protrudes midline Motor: Normal bulk and tone RUE: 5/5 strength LUE: 5/5 strength RLE: 3/5 strength LLE: 4/5 strength Reflexes: Reflexes 2+ Right patellar 3+ lleft patellar. Plantar reflex downgoing. Coordination: No limb ataxia with loneir-lk-ccts or [id number]-bp-[id number]. Gait: Deferred Labs Are significant for nitrites in urine, elevated troponins, elevated TSH Labs in last 18 hours CBC WBC 5.53 Hb 11.5 Plt 207 Hct 34.2 ANC 2.41 INR ??, PTT ??, Anti-Xa ?? BMP Na 143 Cl 106 BUN 17 Glu 95 K 3.6 Co2 26 Cr 0.62 Ca 9.4 iCa ?? Mg ??, Phos ?? Lactate ?? LFT AST ?? AlkPhos ?? T Prot ?? ALK ?? Bili ?? Alb ?? D.Bili ?? Imaging Imaging personally reviewed and interpreted. CT scan notable for cortical atrophy disproportionate to age with proportional ventriculomegaly. XR Chest 1 View Result Date: 12/10/2024 Impression: No acute findings. No focal airspace consolidation. CRITICAL RESULT: No. COMMUNICATION:Per this written report. Preliminary report signed by Ryder Peralta MD on 12/10/2024 7:01 PM By electronically signing this report, I, the attending physician, attest that I have personally reviewed the images/data for the above examination(s) and agree with the final edited report. Drafted by Ryder Peralta MD on 12/10/2024 6:59 PM Final report signed by Lavon Petty MD on 12/10/2024 7:[address] Head wo IV Contrast Result Date: 12/10/2024 Impression: 1. Enlarged ventricles including lateral, third, and fourth ventricles. There is also prominence of the sulci. Enlarged ventricles may be due to volume loss. Cannot exclude the possibility of normal pressure hydrocephalus. 2. Normal CTA of the head and neck without evidence of vascular i njury. CRITICAL RESULT: No. COMMUNICATION: Per this written report. Drafted by Lavon Petty MD on 12/10/2024 6:22 PM Final report signed by Lavon Petty MD on 12/10/2024 6:[address] Angio Head Result Date: 12/10/2024 Impression: 1. Enlarged ventricles including lateral, third, and fourth ventricles. There is also prominence of the sulci. Enlarged ventricles may be due to volume loss. Cannot exclude the possibility of normal pressure hydrocephalus. 2. Normal CTA of the head and neck without evidence of vascular i njury. CRITICAL RESULT: No. COMMUNICATION: Per this written report. Drafted by Lavon Petty MD on 12/10/2024 6:22 PM Final report signed by Lavon Petty MD on 12/10/2024 6:[address] Angio Neck Result Date: 12/10/2024 Impression: 1. Enlarged ventricles including lateral, third, and fourth ventricles. There is also prominence of the sulci. Enlarged ventricles may be due to volume loss. Cannot exclude the possibility of normal pressure hydrocephalus. 2. Normal CTA of the head and neck without evidence of vascular i njury. CRITICAL RESULT: No. COMMUNICATION: Per this written report. Drafted by Lavon Petty MD on 12/10/2024 6:22 PM Final report signed by Lavon Petty MD on 12/10/2024 6:31 PM Assessment/Plan Yen Perez is a 64 y.o. 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 Neurology was consulted for evaluation of altered mentalstatus as well as ventriculomegaly and concern for NPH on CTH. Ddx for her ventriculomegaly include ex vacuo dilation or communicating hydrocephalus such as in NPH. Pt does not report any symptoms of NPH, including dementia-like cognitive decline, urinary incontinence, or magnetic gait, making this diagnosis less likely. She possibly has volume loss from long-standing MS or atrophy which may give the appearance of NPH. This has also been occurring for at least 4 years, so it would be unlikely to explain her current acute psychiatric change. Her current mental status is more consistent with paranoid psychosis, but does not have cognitive delay, which is typically the type of change seen in NPH. She does not have any increased speech latency, waxing/waning, confusion, or disorientation characteristic of encephalopathy. Also on the differential for her psychiatric change includes autoimmune/paraneoplastic encephalitis, but she does nothave seizures, cogwheel rigidity, ataxia or other neurologic deficits that are not better explainedby previous MS flares. She does not have any new acute neurologic deficits that would raise concernfor an acute MS flare. Psychosis 2/2 acute MS flare without other new neurologic deficits is excepti onally rare. This patient would benefit from psychiatric evaluation with outpatient neurologic evaluation of herventriculomegaly and gait issues. She would also benefit from treatment of her hyperthyroidism, as this can cause atrial fibrillation and may contribute to mental status changes in a patient of this a ge. #Ventriculomegaly (POA) #Relapsing-remitting MS (POA) #Wide-based gait (POA) #Acute paranoia (POA) #Hyperthyroidism (POA) #UTI (POA) #Atrial fibrillation (POA) - Muirllo Index 0.43, consistent with ventriculomegaly - Callosal angle 79 degrees Recommendations: - Recommend treatment of hyperthyroidism and UTI as deemed indicated by primary team - Recommend outpatient MRI head with and without contrast and follow-up in NPH clinic at first available appointment. - Could consider inpatient MRI, not discharge-dependent - Recommend outpatient follow-up with NPH clinic after discharge. - Pt declines to follow up with MS clinic at this time, will continue to encourage to follow up with her established MS clinic at [facility] Staffed with general neurology attending - Dr. Orozco. Thank you for the opportunity to participatein the care of this patient. Neurology will sign off. Please page the neurology service pager with quesitons. Violeta Reagan MD Pediatrics, Psychiatry, Child & Adolescent Psychiatry PGY4 Cosigned by Shikha Orozco MD at 12/11/2024 3:32 PM EDT Associated attestation - Shikha Orozco MD - 12/11/2024 3:32 PM EDT I saw and evaluated the patient. I discussed the case with the resident/fellow and agree with the findings and plan as documented. * Consults - Jarrod Cardenas MD - 12/10/2024 11:57 PM EDTAssociated Order(s): Consult to Neurology Images from the original note were not included. 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 Neurology was consulted for evaluation of alteredmental status as well as ventriculomegaly and concern for NPH on CTH. History obtained from patient and from ED staff. Pt reports she was at [facility] since Monday night aftershe was at a gas station late at night talking to the bingo cashier. Reportedly, the bingo cashier was friends with a police worker, and the police worker decided to take her to [facility]. She reports theythought she was confused, but she does not actively report being confused. She has not been admitted to [facility] previously per pt, and she does not have any psychiatric history per pt. She reports occasional confusion, gait instability for the past few months (although on chart review from 2020, there is report of some gait issues back then as well), and occasional falls. She denies urinary incontinence except for occasionally during sleep. She uses a rollator to walk normally. She denies a family history of dementia except for a few family members that are prime candidates for dementia. She denies tremors, magnetic gait, or slow movements. No headaches or vision changes. She denies visual orauditory hallucinations, and no SI/HI. The ventriculomegaly is not new, as she had MRIs performed back in 2020 that also reported enlargedventricles. She reports not being on treatment for MS because there are no MS doctors in [place]. She reports her previous neurologist stopped it. Pt denies drug use. ROS Review of Systems Constitutional: Negative for chills and fever. HENT: Negative for congestion, sore throat and trouble swallowing. Respiratory: Negative for cough and shortness of breath. Cardiovascular: Negative for chest pain and palpitations. Gastrointestinal: Negative for abdominal pain, blood in stool, constipation, diarrhea, nausea and vomiting. Genitourinary: Positive for decreased urine volume. Negative for dysuria and hematuria. Musculoskeletal: Positive for gait problem. Negative for arthralgias. Skin: Negative for rash. Neurological: Negative for dizziness, tremors, seizures, weakness, numbness and headaches. Past Medical and Surgical History Past Medical History[1] Surgical History[2] Family History Family History[3] Social History: reports that she has quit smoking. Her smoking use included cigarettes. She has never used smokeless tobacco. She reports current alcohol use. She reports that she does not use drugs. Allergies: Patient has no known allergies. Home Medications No current outpatient medications Objective Visit Vitals BP 126/75 (Patient Position: Lying) Pulse 79 Temp 36.7 ??C (98 ??F) (Oral) SpO2 98% Physical exam Constitutional: in no acute distress. HENT: normocephalic, non-erythematous oropharynx, anicteric sclera Cardiovascular: Normal rate, appears well perfused Respiratory: symmetric chest expansion, non-labored breathing Gastrointestinal: abdomen is soft, not distended, non-tender Musculoskeletal: no appreciable joint swelling, no appreciable LE warmth or erythema Psychiatric: Irritable, restless, paranoid, cooperative. Would occasionally slap herself in the face during the interview if she said the wrong word. Does not respond to internal stimuli. NEURO: Mental Status: A&O x3, interactive, able to follow commands Speech: Intact Articulation CN 2-12: II - PERRLA, VFs full to confrontation III, IV, - EOMI V - Facial sensation intact VII - Brow raise and smile symmetrical VIII - Auditory acuity intact IX, X - Palate elevation symmetric, uvula midline XI - SCM and Trapezius strength intact XII - Tongue protrudes midline Motor: No cogwheel rigidity or bradykinesia. No tremor. RUE: 5/5 LUE: 5/5 RLE: 5/5 LLE: 4/5 with hip flexion but 5/5 distally Sensory: Decreased pinprick throughout LLE up to mid thigh. Reflexes: 2+ except for 3+ in L patella and 3+ ankle jerk with few beats of clonus. Downgoing Babinski reflex bilaterally. Coordination: no ataxia with [id number] and [id number] testing Cortical: no extinction of visual or tactile sensation with double simultaneous stimulation Gait/Station: Wide based gait. + romberg. Normal step height and step length. Normal arm swing. Labs: Labs personally reviewed and summarized as UTI. CBC: Results from last 7 days Lab Units 12/10/24 1709 12/10/24 0910 WBC 10*3/uL 6.64 6.02 HEMOGLOBIN g/dL 12.2 13.4 HEMATOCRIT % 37.3 41.6 PLATELETS 10*3/uL 229 230 CMP/RFP: Results from last 7 days Lab Units 12/10/24 1709 12/10/24 0910 SODIUM mmol/L 140 143 POTASSIUM mmol/L 3.7 4.0 CHLORIDE mmol/L 103 106 CO2 mmol/L 26 23 BUN mg/dL 22 19 CREATININE mg/dL 0.72 0.62 CALCIUM mg/dL 9.7 9.8 MAGNESIUM mg/dL 2.0 -- ALBUMIN g/dL 4.0 4.0 BILIRUBIN TOTAL mg/dL 0.3 0.4 ALKALINE PHOSPHATASE U/L 79 82 ALT U/L 17 17 AST U/L 20 26 GLUCOSE mg/dL 105* 104* Inflammation: Results from last 7 days Lab Units 12/10/24 2308 SED RATE mm/hr 8 CSF: Results from last 7 days Lab Units 12/10/24 1709 MONOS ABS AUTO 10*3/uL 0.81 Thyroid: Results from last 7 days Lab Units 12/10/24 1709 TSH uIU/mL <0.01* Urinalysis: Results from last 7 days Lab Units 12/10/24 1740 COLOR UA Yellow CLARITY UA Cloudy SPEC GRAV U 1.026 PH UA 5.5 GLUCOSE UA mg/dL Negative BILIRUBIN UA Negative KETONES UA mg/dL Trace* PROTEIN UR mg/dL Trace* BLOOD UA Negative UROBILINOGEN UA mg/dL 1.0 LEUKOCYTES UA Negative NITRITE UA Positive* Urine Microscopy: Results from last 7 days Lab Units 12/10/24 1740 RBC, URINE /HPF 4 - 10* WBC, URINE /HPF 0 - 5 SQUAMOUS /HPF 6 - 10* RTECELLS Present BACTERIA UR HPF Present HYALINE CASTS /LPF 0 - 2 Microbiology/Abx: Antimicrobials Cephalosporins - 3rd Generation Disp Start End cefTRIAXone (Rocephin) 1 g in sodium chloride 0.9% 100 mL IVPB (vial adapter required) (Completed) -- 12/10/2024 12/10/2024 1 g, Intravenous, Once @ 220 mL/hr, Assemble vial with 100 mL NS and BBraun addEase device (green cap). Sodium Disp Start End cefTRIAXone (Rocephin) 1 g in sodium chloride 0.9% 100 mL IVPB (vial adapter required) (Completed) -- 12/10/2024 12/10/2024 1 g, Intravenous, Once @ 220 mL/hr, Assemble vial with 100 mL NS and BBraun addEase device (green cap). Results Procedure Component Value Units Date/Time SARS-CoV-2, Flu A, Flu B, and RSV - Rapid [[id number]] (Normal) Collected: 12/10/24 1709 Order Status: Completed Specimen: Swab from Nasopharynx Updated: 12/10/24 182 SARS CoV-2/COVID-19 RNA PCR Result Not Detected Influenza A Virus PCR Result Not Detected Influenza B Virus PCR Result Not Detected Respiratory Syncytial Virus (RSV) PCR Result Not Detected Narrative: This test is FDA approved for use with nasopharyngeal specimens in Viral Transport Media (VTM). This test is used for clinical purposes. It should not be regarded as investigational or for research. This laboratory is certified under the Clinical Laboratory improvement Amendments of 1988 (CLIA-88 as qualified to perform high complexity clinical laboratory testing. This test was performed on the Xpert Xpress SARS CoV-2 Plus assay test, a PCR- based method. Negative results should be considered presumptive and do not preclude current or future infection obtained through community transmission or other exposures. Negative results must be considered in the context of an individual's recent exposures, history, presence of clinical signs and symptoms consistent with COVID-19. Imaging: I personally viewed the images and they were remarkable for enlarged ventricles with white matter disease throughout. XR Chest 1 View Result Date: 12/10/2024 Impression: No acute findings. No focal airspace consolidation. CRITICAL RESULT: No. COMMUNICATION:Per this written report. Preliminary report signed by Ryder Peralta MD on 12/10/2024 7:01 PM By electronically signing this report, I, the attending physician, attest that I have personally reviewed the images/data for the above examination(s) and agree with the final edited report. Drafted by Ryder Peralta MD on 12/10/2024 6:59 PM Final report signed by Lavon Petty MD on 12/10/2024 7:[address] Head wo IV Contrast Result Date: 12/10/2024 Impression: 1. Enlarged ventricles including lateral, third, and fourth ventricles. There is also prominence of the sulci. Enlarged ventricles may be due to volume loss. Cannot exclude the possibility of normal pressure hydrocephalus. 2. Normal CTA of the head and neck without evidence of vascular i njury. CRITICAL RESULT: No. COMMUNICATION: Per this written report. Drafted by Lavon Petty MD on 12/10/2024 6:22 PM Final report signed by Lavon Petty MD on 12/10/2024 6:[address] Angio Head Result Date: 12/10/2024 Impression: 1. Enlarged ventricles including lateral, third, and fourth ventricles. There is also prominence of the sulci. Enlarged ventricles may be due to volume loss. Cannot exclude the possibility of normal pressure hydrocephalus. 2. Normal CTA of the head and neck without evidence of vascular i njury. CRITICAL RESULT: No. COMMUNICATION: Per this written report. Drafted by Lavon Petty MD on 12/10/2024 6:22 PM Final report signed by Lavon Petty MD on 12/10/2024 6:[address] Angio Neck Result Date: 12/10/2024 Impression: 1. Enlarged ventricles including lateral, third, and fourth ventricles. There is also prominence of the sulci. Enlarged ventricles may be due to volume loss. Cannot exclude the possibility of normal pressure hydrocephalus. 2. Normal CTA of the head and neck without evidence of vascular i njury. CRITICAL RESULT: No. COMMUNICATION: Per this written report. 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 Neurology was consulted for evaluation of alteredmental status as well as ventriculomegaly and concern for NPH on CTH. Ddx for her ventriculomegaly include ex vacuo dilation or communicating hydrocephalus such as in NPH. Pt does not report any symptoms of NPH, including dementia-like cognitive decline, urinary incontinence, and magnetic gait, making this diagnosis less likely. She possibly has volume loss from long-standing MS or atrophy which may give the appearance of NPH. This has also been occurring for at least 4 years, so it would be unlikely to explain her current acute psychiatric change. Her current mental status is more consistentwith paranoia but does not have cognitive delay, which is typically the type of change seen in NPH.Also on the differential for her psychiatric change includes autoimmune/paraneoplastic encephalitis, but she does not have seizures, cogwheel rigidity, ataxia or other neurologic deficits that are not better explained by previous MS flares. This patient would benefit from psychiatric evaluation with outpatient evaluation of her ventriculomegaly and gait issues. She would also benefit from treatment of her hyperthyroidism, as this can cause atrial fibrillation and may contribute to mental statuschanges in a patient of this age. #Ventriculomegaly (POA) #Relapsing-remitting MS (POA) #Wide-based gait (POA) #Acute paranoia (POA) #Hyperthyroidism (POA) #UTI (POA) #Atrial fibrillation (POA) - Murillo Index 0.43, consistent with ventriculomegaly - Callosal angle 79 degrees Recommendations: - No indication for admission to neurology - Recommend evaluation by psychiatry - Recommend treatment of hyperthyroidism and UTI as deemed indicated by primary team - Recommend outpatient MRI head with and without contrast and follow-up in NPH clinic at first available appointment. - Pt should establish care with a neuro-criminal defense attorney for her MS. Recommend outpatient follow-up with neuroimmunology after discharge. Staffed with general neurology attending - Dr. Orozco. Thank you for the opportunity to participatein the care of this patient. Please page the neurology service pager with quesitons. Jarrod Cardenas MD, PGY-2, Neurology Secure Chat/Pager: [phone] 1:57 PM Dictation software disclaimer: Parts of this note was generated using voice dictation software. Although proofread, there may be spelling errors, changes in dictated words, and words inserted which may have been misinterpreted by voice dictation software. Meaning of words may require interpretationin the appropriate context of the sentence and clinical situation. [1] Past Medical History: Diagnosis Date Eczema Multiple sclerosis (CMS/HCC) [2] History reviewed. No pertinent surgical history. [3] Family History Family history unknown: Yes Cosigned by Shikha Orozco MD at 12/11/2024 3:23 PM EDT Associated attestation - Shikha Orozco MD - 12/11/2024 3:23 PM EDT I saw and evaluated the patient. I discussed the case with the resident/fellow and agree with the findings and plan as documented. * H&P - Amanda Maddox APRN - 12/10/2024 9:11 PM EDTAssociated Order(s): Consult to [facility] Images from the original note were not included. Consult to [facility] Consult performed by: Amanda Maddox APRN Consult ordered by: Mariana Cornelisu APRN Reason for consult: Admission for medical management Hospital Medicine History and Physical Chief Complaint: Altered mental status History of Present Illness: Yen Perez is a 64 y.o. year-old female with PMH MS, 2013 and bilateral breast cancer with [id number], who was sent her to [facility] ED from [facility] or possible AFib. Patient was admitted to [facility] yesterday for AMS and was on a 72 hour hold. Patient currently denying SI or HI. Nohistory of psych disorders per patient. In ED, hemodynamically stable. EKG showed sinus arrhythmia with PACs, no AFib. Patient was orientedto person, time and place but was altered. Labs show new hyperthyroidism. CT head reported: Enlarged ventricles including lateral, third, and fourth ventricles. Prominence of the sulci. Enlarged ventricles may be due to volume loss.Possibility of normal pressure hydrocephalus could not be excluded.Also had elevated troponin with significant delta of 12. I have a page out to Cardiology for consult, however patient is asymptomatic and denies any chest pain or shortness of breath at this time. Noischemic EKG changes. On assessment, patient reports that last night she walked to a local gas station and the bingo cashier felt she was confused and may be on drugs or something so she contacted a police worker friend, andthey [facility]. She reports that there, they were concerned about her heart rate sothey sent her here. She denies any chest pain, palpitations or shortness of breath. She reports that on occasion she will have some swelling in her ankles when she does a lot of walking but it goes down at night. She denies any dysuria but reports that she only goes a little at a time when she goesand sometimes have some incontinence while sleeping. Her only known medical history is multiple scle felicia reports that she was following Dr. Jones from 2013 to 2020 and then they stopped giving hermedication because they told her there was no one else in [place] that treated multiple sclerosis. She does not take any medication of meaning home. Denies alcohol or drug use and has not smoked for the past 9 years. Patient has been seen in the ED, history was obtained from patient and supplemented by medical record review. Admitted for medical management. Review of Systems: Review of Systems Constitutional: Positive for activity change and fatigue. Negative for appetite change, chills and fever. HENT: Negative for congestion, mouth sores, nosebleeds, postnasal drip, sinus pressure, sore throatand trouble swallowing. Eyes: Positive for visual disturbance. Negative for photophobia, pain and discharge. Reports intermittent blurred vision Respiratory: Negative for apnea, cough, chest tightness, shortness of breath and wheezing. Cardiovascular: Negative for chest pain, palpitations and leg swelling. Gastrointestinal: Negative for abdominal distention, abdominal pain, blood in stool, constipation, diarrhea, nausea and vomiting. Endocrine: Negative. Allergic/Immunologic: Negative for environmental allergies, food allergies and immunocompromised state. Neurological: Positive for weakness (left leg greater that right). Negative for dizziness, seizures, syncope, speech difficulty and headaches. Psychiatric/Behavioral: Negative for agitation, behavioral problems, dysphoric mood and sleep disturbance. The patient is not nervous/anxious. Past Medical History: Past Medical History[1] Surgical History: Surgical History[2] Family History: Family History[3] Social History: Living: [place] [id number] alone Occupation: Marital Status: Alcohol Use: Recreational Drug Use: reports no history of drug use. Tobacco Use History[4] Travel History: Relevant Travel History: Travel Screening Question Response Have you been in contact with someone who was sick? No / Unsure Do you have any of the following new or worsening symptoms? None of these Have you traveled internationally or domestically in the last month? No Travel History Travel since 11/10/24 No documented travel since 06/29/25 Allergies: Patient has no known allergies. Medications: Current Medications[5] Vital Signs: Visit Vitals BP 126/75 (Patient Position: Lying) Pulse 79 Temp 36.7 ??C (98 ??F) (Oral) Resp 14 Wt 65 kg (143 lb 4.8 oz) SpO2 98% Smoking Status Former Physical Exam: General: well developed, well-nourished female who presents in no apparent distress Physical Exam Vitals and nursing note reviewed. Constitutional: General: She is not in acute distress. Appearance: Normal appearance. HENT: Head: Normocephalic. Right Ear: External ear normal. Left Ear: External ear normal. Mouth/Throat: Mouth: Mucous membranes are moist. Pharynx: Oropharynx is clear. No oropharyngeal exudate. Eyes: Conjunctiva/sclera: Conjunctivae normal. Cardiovascular: Rate and Rhythm: Normal rate and regular rhythm. Pulses: Normal pulses. Dorsalis pedis pulses are 2+ on the right side and 2+ on the left side. Posterior tibial pulses are 2+ on the right side and 2+ on the left side. Heart sounds: Normal heart sounds. Comments: Trace edema ankles and feet Pulmonary: Effort: Pulmonary effort is normal. No respiratory distress. Breath sounds: Normal breath sounds. No wheezing, rhonchi or rales. Abdominal: General: Bowel sounds are normal. There is no distension. Palpations: Abdomen is soft. Tenderness: There is no abdominal tenderness. Skin: Comments: Eczematous rash to BLE Neurological: Mental Status: She is alert and oriented to person, place, and time. GCS: GCS eye subscore is 4. GCS verbal subscore is 5. GCS motor subscore is 6. Cranial Nerves: Cranial nerves 2-12 are intact. Comments: Witnessed Neurology exam Clonus left foot on Neurology exam Psychiatric: Attention and Perception: Attention and perception normal. Mood and Affect: Affect normal. Mood is anxious. Speech: Speech normal. Behavior: Behavior is hyperactive. Thought Content: Thought content normal. Cognition and Memory: Cognition and memory normal. Labs (in last 24 hours): CBC: Lab Results Component Value Date WBC 6.64 12/10/2024 RBC 4.41 12/10/2024 HGB 12.2 12/10/2024 HGB 13.4 12/10/2024 HCT 37.3 12/10/2024 HCT 41.6 12/10/2024 PLT 229 12/10/2024 PLT 230 12/10/2024 MCV 85 12/10/2024 MCH 27.7 12/10/2024 MCHC 32.7 12/10/2024 RDW 13.2 12/10/2024 NRBC 0.0 12/10/2024 Differential: Lab Results Component Value Date WBC 6.64 12/10/2024 NEUTOPHILPCT 55 12/10/2024 LYMPHOPCT 31 12/10/2024 MONOPCT 12 12/10/2024 EOSPCT 1 12/10/2024 Coagulation: No results found for: INR , PT , PTT , CLFGN Inflammatory markers/hemolysis: Lactate: Results from last 7 days Lab Units 12/10/24 1709 LACTATE mmol/L 0.6 Urinalysis with microscopic: Results from last 7 days Lab Units 12/10/24 1740 COLOR UA Yellow SPEC GRAV U 1.026 PH UA 5.5 PROTEIN UR mg/dL Trace* GLUCOSE UA mg/dL Negative KETONES UA mg/dL Trace* LEUKOCYTES UA Negative NITRITE UA Positive* RBC, URINE /HPF 4 - 10* WBC, URINE /HPF 0 - 5 SQUAMOUS /HPF 6 - 10* BACTERIA UR HPF Present Renal: Lab Results Component Value Date NA 140 12/10/2024 K 3.7 12/10/2024 CL 103 12/10/2024 CO2 26 12/10/2024 BUN 22 12/10/2024 CREATININE 0.72 12/10/2024 GLUCOSE 105 (H) 12/10/2024 CALCIUM 9.7 12/10/2024 MG 2.0 12/10/2024 Liver: Lab Results Component Value Date AST 20 12/10/2024 ALT 17 12/10/2024 BILITOT 0.3 12/10/2024 Endocrine: No results found for: PGLU Lab Results Component Value Date HGBA1C 5.9 (H) 12/10/2024 Lab Results Component Value Date TSH <0.01 (L) 12/10/2024 FREET4 3.8 (H) 12/10/2024 Cardiac: Results from last 7 days Lab Units 12/10/24 1923 12/10/24 1709 TROPONIN, HIGH SENSI0 ng/L -- 122* TROPONIN T2 ng/L 134* -- NT PROBNP pg/mL -- 370 Arterial Blood Gas: Lab Results Component Value Date BE 4.3 (H) 12/10/2024 Venous Blood Gas: Lab Results Component Value Date [id number] 31 (H) 12/10/2024 [id number] 52 12/10/2024 PO2VEN 23 (L) 12/10/2024 [id number] 36 (L) 12/10/2024 Microbiology: Results Procedure Component Value Units Date/Time SARS-CoV-2, Flu A, Flu B, and RSV - Rapid [[id number]] (Normal) Collected: 12/10/24 170 Order Status: Completed Specimen: Swab from Nasopharynx Updated: 12/10/241822 SARS CoV-2/COVID-19 RNA PCR Result Not Detected Influenza A Virus PCR Result Not Detected Influenza B Virus PCR Result Not Detected Respiratory Syncytial Virus (RSV) PCR Result Not Detected Narrative: This test is FDA approved for use with nasopharyngeal specimens in Viral Transport Media (VTM). This test is used for clinical purposes. It should not be regarded as investigational or for research. This laboratory is certified under the Clinical Laboratory improvement Amendments of 1988 (CLIA-88 as qualified to perform high complexity clinical laboratory testing. This test was performed on the Xpert Xpress SARS CoV-2 Plus assay test, a PCR- based method. Negative results should be considered presumptive and do not preclude current or future infection obtained through community transmission or other exposures. Negative results must be considered in the context of an individual's recent exposures, history, presence of clinical signs and symptoms consistent with COVID-19. Imaging (in last 24 hours): Personally reviewed and agree with following findings XR Chest 1 View Result Date: 12/10/2024 No acute findings. No focal airspace consolidation. CRITICAL RESULT: No. COMMUNICATION: Per this written report. Preliminary report signed by Ryder Peralta MD on 12/10/2024 7:01 PM By electronically signing this report, I, the attending physician, attest that I have personally reviewed the images/data for the above examination(s) and agree with the final edited report. Drafted by Ryder Peralta MD on 12/10/2024 6:59 PM Final report signed by Lavon Petty MD on 12/10/2024 7:[address] Head wo IV Contrast Result Date: 12/10/2024 1. Enlarged ventricles including lateral, third, and fourth ventricles. There is also prominence ofthe sulci. Enlarged ventricles may be due to volume loss. Cannot exclude the possibility of normal pressure hydrocephalus. 2. Normal CTA of the head and neck without evidence of vascular injury. CRITICAL RESULT: No. COMMUNICATION: Per this written report. Drafted by Lavon Petty MD on 12/10/2024 6:22PM Final report signed by Lavon Petty MD on 12/10/2024 6:[address] Angio Head Result Date: 12/10/2024 1. Enlarged ventricles including lateral, third, and fourth ventricles. There is also prominence ofthe sulci. Enlarged ventricles may be due to volume loss. Cannot exclude the possibility of normal pressure hydrocephalus. 2. Normal CTA of the head and neck without evidence of vascular injury. CRITICAL RESULT: No. COMMUNICATION: Per this written report. Drafted by Lavon Petty MD on 12/10/2024 6:22PM Final report signed by Lavon Petty MD on 12/10/2024 6:[address] Angio Neck Result Date: 12/10/2024 1. Enlarged ventricles including lateral, third, and fourth ventricles. There is also prominence ofthe sulci. Enlarged ventricles may be due to volume loss. Cannot exclude the possibility of normal pressure hydrocephalus. 2. Normal CTA of the head and neck without evidence of vascular injury. CRITICAL RESULT: No. COMMUNICATION: Per this written report. Drafted by Lavon Petty MD on 12/10/2024 6:22PM Final report signed by Lavon Petty MD on 12/10/2024 6:31 PM Assessment and plan: Principal problem: Altered mental status - Principal Problem: Altered mental status Active Problems: MS (multiple sclerosis) (CMS/HCC) Abnormal finding on urinalysis Hyperthyroidism Eczema #) Altered mental status with concerns for urinary tract infection #) Urinary incontinence -Presented to [facility] ED from [facility] for AMS and cardiac concerns -CT head reported: Enlarged ventricles including lateral, third, and fourth ventricles. Prominence of the sulci. Enlarged ventricles may be due to volume loss.Possibility of normal pressure hydrocephalus could not be excluded. -Of note, patient last saw Dr. Jones in 2020. At that time, she had MRI imaging which showed enlarged ventricles. Documentation notes issues with gait instability and cognitive decline at that time. - LFTs: T. Bili: 0.3, AST: 20, ALT: 17, Alk Phos: 79 - WBC: , Lactate: 0.6, - Cr: @LLVAL18(CREATININE) - VBG: pH: 7.38 Co2: 52 o2: 23 (L) HCO3: 31 (H) - Na: 140 K: 3.7 - UA: Protein: Trace (A), Ketones: Trace (A), Glucose: Negative, Blood: Negative, Leuks: Negative, Nitrites: Positive (A), WBC: 0 - 5 -CXR negative for acute findings -Ethanol level normal -Resp panel negative -Neurology did consult in ED and recommendations noted below: -She is altered but is not encephalopathic, more paranoid and irritable. She would not sit still when I was in the room with her. Her picture is not explained by the hydrocephalus which could also befrom volume loss and not NPH, and she doesn't have the clinical symptoms of NPH so far. That would cause a dementia like picture which is not what this is. She has a significant hyperthyroidism, which can explain her Afib and cause other issues in an older lady. Looks like a possible UTI also. We are recommending an outpatient MRI head with and without contrast and a referral to the [facility] at[facility] available Plan: -1 gm Rocephin IV given while awaiting culture -Consult Psych in am for concern for underlying mental health issues. - UDS pending - ESR, CRP, procal, PTH, Cortisol, B1, Folate pending - Neuro checks q4 hr - Delirium/fall precautions - Avoid anticholinergics, antihistamines, benzodiazepines, and opioids if able - Neurology to follow Acute non ST-segment elevation myocardial infarction, suspect type 2 -Initial troponin 122, uptrended to 134, delta 12 -Cardiology consulted on patient in ED and recommendations as below: -Cannot rule out acute myocardial injury unrelated to ischemia, possibly secondary to atrial fibrillation - Initial troponin 122, uptrended to 134, delta 12, can stop trending troponins - Anticoagulation/DAPT not indicated - Can hold on statin initiation - Beta blockade not indicated - Please obtain echocardiogram - Patient does not require admission to the inpatient cardiology service and no further investigation is indicated Paroxysmal atrial fibrillation without RVR -Cardiology consulted on patient in ED and recommendations as below: - May be secondary to acute illness (hyperthyroidism) - VANESSA?DS?-VASc score: 2 - Rate control: In sinus rhythm at the time of evaluation - Rhythm control: In sinus rhythm at the time of evaluation - Embolic prevention: Start therapeutic enoxaparin - Please obtain a 14 day Holter monitor on discharge to evaluate for Afib burden - Patient to follow up in cardiology clinic - Consider outpatient sleep study to evaluate for underlying sleep apnea #) Hyperthyroidism -Could also be contributing to encephalopathy -Patient reports no known history of this -TSH <0.01 -A1c normal at 5.8 Plan: -Consult Endocrinology in am -Will need to be followed outpatient #) Relapsing-Remitting Multiple Sclerosis -Neuro consulted in ED and performed exam Plan: -Needs to have appointment made with Neurology outpatient to continue to follow Chronic Medical Conditions: #) Eczema Plan: -Triamcinolone to rash bid Fluids: po Electrolytes: Continue to monitor and replace as appropriate Diet: Adult diet Diet texture: Regular DVT prophylaxis: Heparin prophylaxis Code status: Full Code Amanda Maddox APRN Department of Internal Medicine Division of [facility] Medicine Secure chat preferred [1] Past Medical History: Diagnosis Date Eczema Multiple sclerosis (CMS/HCC) [2] History reviewed. No pertinent surgical history. [3] Family History Family history unknown: Yes [4] Tobacco Use Smoking Status Former Types: Cigarettes Smokeless Tobacco Never [5] Current Facility-Administered Medications: acetaminophen (Tylenol) tablet 650 mg, 650 mg, Oral, q8h, Amanda Maddox APRN bisacodyl (Dulcolax) EC tablet 10 mg, 10 mg, Oral, Daily PRN, Amanda Maddox APRN cefTRIAXone (Rocephin) 1 g in sodium chloride 0.9% 100 mL IVPB (vial adapter required), 1 g, Intravenous, Once, Amanda Maddox APRN, Last Rate: 220 mL/hr at 12/10/24 2308, 1 g at 12/10/24 2308 heparin (porcine) injection 5,000 Units, 5,000 Units, Subcutaneous, q8h ISH, Amanda Maddox APRN, 5,000 Units at 12/10/24 2235 ipratropium-albuterol (Duo-Neb) 0.5-2.5 mg/3 mL nebulizer solution 3 mL, 3 mL, Nebulization, q6h PRN, Amanda Maddox APRN ondansetron ODT (Zofran-ODT) disintegrating tablet 4 mg, 4 mg, Oral, q6h PRN OR ondansetron (Zofran) injection 4 mg, 4 mg, Intravenous, q6h PRN OR ondansetron (Zofran) 4 MG/5ML solution 4 mg,4 mg, Oral, q6h PRN, Amanda Maddox APRN Insert peripheral IV, , , Once AND Saline lock IV, , , Once AND sodium chloride 0.9 % flush10 mL, 10 mL, Intravenous, q12h, 10 mL at 12/10/246 AND sodium chloride 0.9 % flush 10 mL, 10 mL, Intravenous, PRN, Amanda Maddox APRN triamcinolone (Kenalog) 0.1 % cream 1 Application, 1 Application, Topical, BID, Amanda Maddox APRN No current outpatient medications on file. * Consults - Johnnie Stewart DO - 12/10/2024 8:40 PM EDTAssociated Order(s): Inpatient consult to Cardiology Images from the original note were not included. CARDIOLOGY NEW CONSULT NOTE Inpatient consult to Cardiology Consult performed by: Johnnie Stewart DO Consult ordered by: Mariana Cornelius APRN ASSESSMENT / PLAN Yen Perez is a 64 y.o. female with a past medical history of relapsing-remitting multiple sclerosis who initially presented to the [facility] on 12/10/2024 with chief complaint of encephalopathy. 1) Acute NSTEMI type 2 2) Paroxysmal atrial fibrillation 3) Encephalopathy 4) Relapsing-remitting MS Acute non ST-segment elevation myocardial infarction, suspect type 2 Cannot rule out acute myocardial injury unrelated to ischemia, possibly secondary to atrial fibrillation - Presenting ECG as below - Initial troponin 122, uptrended to 134, delta 12, can stop trending troponins - Anticoagulation/DAPT not indicated - Can hold on statin initiation - Beta blockade not indicated - Please obtain echocardiogram - Patient does not require admission to the inpatient cardiology service and no further investigation is indicated Paroxysmal atrial fibrillation without RVR - May be secondary to acute illness (hypothyroidism) - VANESSA?DS?-VASc score: 2 - Rate control: In sinus rhythm at the time of evaluation - Rhythm control: In sinus rhythm at the time of evaluation - Embolic prevention: Start therapeutic enoxaparin - Please obtain a 14 day Holter monitor on discharge to evaluate for Afib burden - Patient to follow up in cardiology fellows clinic - Consider outpatient sleep study to evaluate for underlying sleep apnea Thank you for allowing us to participate in the care of this patient! This consult will be seen and staffed with the following attending physician: Dr. Johnston. Our team will sign off at this time.. Please page the on-call preschool assistant principal ([phone]) with any further questions. I spent 45 minutes performing the following components of the encounter (on the day of the encounter): reviewing History, examining the patient, reviewing imaging and/or labs, counseling the patient and family/caregiver, communicating with other health ambulatory care coordinator, care coordination, and entering clinical information in the EHR. Greater than 50% of the time spent on the encounter was face to face providing direct patient care, counseling for the patient/caregiver, and care coordination. Johnnie Stewart, DO Fellow, PGY-5, Department of Cardiovascular Medicine SUBJECTIVE History Of Present Illness Yen Perez is a 64 y.o. female with a past medical history as [facility] of [facility]. Cardiology is consulted for elevated serum troponins Review of Systems 14 point ROS reviewed and is otherwise negative except that which is mentioned in the HPI. Past Medical History Past Medical History[1] Surgical History Surgical History[2] Family History Family History[3] Social History Social History[4] Allergies Patient has no known allergies. Home Medications Medications Ordered Prior to Encounter[5] OBJECTIVE Physical Exam Physical Exam Constitutional: General: She is awake. She is not in acute distress. Appearance: She is normal weight. She is not ill-appearing or toxic-appearing. HENT: Mouth/Throat: Mouth: Mucous membranes are moist. Eyes: General: No scleral icterus. Conjunctiva/sclera: Right eye: Right conjunctiva is not injected. Left eye: Left conjunctiva is not injected. Neck: Vascular: No JVD. Cardiovascular: Rate and Rhythm: Normal rate and regular rhythm. Pulses: Radial pulses are 2+ on the right side and 2+ on the left side. Heart sounds: No murmur heard. No systolic murmur is present. No diastolic murmur is present. No friction rub. No gallop. No S3 or S4 sounds. Pulmonary: Effort: No tachypnea. Breath sounds: No stridor or decreased air movement. No decreased breath sounds, wheezing, rhonchi or rales. Abdominal: General: Abdomen is flat. There is no distension. Musculoskeletal: Right lower le+ Edema present. Left lower le+ Edema present. Skin: General: Skin is warm and dry. Neurological: General: No focal deficit present. Mental Status: She is alert. Psychiatric: Attention and Perception: Attention normal. She perceives visual hallucinations. Mood and Affect: Affect normal. Mood is anxious. Behavior: Behavior is agitated and actively hallucinating. Behavior is cooperative. Intake / Output No intake or output data in the 24 hours ending 12/10/242039 Lab Review I personally reviewed the pertinent labs Primary Study Review I personally reviewed the the images/tracings of the following studies: ECG Most recent Echocardiogram (N/A) No echocardiogram results found for the past 12 months ECG/Telemetry The following cardiovascular risk factors and co-morbidities complicates the management of these conditions: none [1] No past medical history on file. [2] No past surgical history on file. [3] No family history on file. [4] [5] No current facility-administered medications for this encounter. No current outpatient medications on file. Cosigned by Yasmany Johnston MD at 12/11/2024 1:11 PM EDT Associated attestation - Yasmany Johnston MD - 12/11/2024 1:11 PM EDT I saw and evaluated the patient with the resident/fellow. I discussed the case with the resident/fellow and agree with the findings and plan as documented. Yen Perez is a 64 y.o F with a history of relapsing-remitting multiple sclerosis and breast cancer status post mastectomy, who presented with acute confusion and irritability. Evaluation revealed significant hyperthyroidism and atrial fibrillation with rapid ventricular response. Clinical presentation is most consistent with thyrotoxicosis leading to neuropsychiatric symptoms and new- onset AF withRVR, with subsequent spontaneous conversion to normal sinus rhythm. She is asymptomatic and denies any palpitations or chest pain. We recommend initiating beta blockerfor rate control. Propranolol is preferred in her case, as it also decreases peripheral conversion of T4 to T3. Her VANESSA?DS?-VASc score is 2 (age and female sex). Anticoagulation is reasonable and generally recommended, particularly if AF persists beyond the acute thyrotoxic phase. Recommend starting apixaban (Eliquis) 5 mg BID, provided there are no contraindications. Reassess the need for long-term anticoagulation as an outpatient once euthyroid status is achieved and cardiac rhythm has stabilized. * Care Plan - Cristel Pope - 12/10/2024 3:51 PM EDT Problem: Adult Inpatient Plan of Care Goal: Plan of Care Review Outcome: Ongoing, Progressing Flowsheets (Taken 12/11/2024 0306) Progress: no change Plan of Care Reviewed With: patient Goal: Patient-Specific Goal (Individualized) 12/11/2024 0307 by Cristel Pope Flowsheets (Taken 12/11/2024 0307) Patient/Family-Specific Goals (Include Timeframe): Patient will be free of falls by using bed exit alarm this shift. 12/11/2024 0306 by Cristel Pope Outcome: Ongoing, Progressing Goal: Absence of Hospital-Acquired Illness or Injury Outcome: Ongoing, Progressing Goal: Optimal Comfort and Wellbeing Outcome: Ongoing, Progressing Goal: Readiness for Transition of Care Outcome: Ongoing, Progressing Problem: Mobility Impairment Goal: Optimal Mobility Outcome: Ongoing, Progressing * Care Plan - Elana Ruiz RN - 12/10/2024 3:51 PM EDT Problem: Adult Inpatient Plan of Care Goal: Plan of Care Review Outcome: Ongoing, Progressing Goal: Patient-Specific Goal (Individualized) Outcome: Ongoing, Not Progressing Goal: Absence of Hospital-Acquired Illness or Injury Outcome: Ongoing, Not Progressing Goal: Optimal Comfort and Wellbeing Outcome: Ongoing, Not Progressing Goal: Readiness for Transition of Care Outcome: Ongoing, Not Progressing * Care Plan - Lucila Milian RN - 12/10/2024 3:51 PM EDT Problem: Adult Inpatient Plan of Care Goal: Plan of Care Review Outcome: Ongoing, Not Progressing Flowsheets (Taken 12/11/20242107) Progress: no change Plan of Care Reviewed With: patient Goal: Patient-Specific Goal (Individualized) Outcome: Ongoing, Progressing Flowsheets (Taken 12/11/2024 0307 by Cristel Pope) Patient/Family-Specific Goals (Include Timeframe): Patient will be free of falls by using bed exit alarm this shift. Goal: Absence of Hospital-Acquired Illness or Injury Outcome: Ongoing, Progressing Intervention: Identify and Manage Fall Risk Flowsheets (Taken 12/11/20242107) Safety Promotion/Fall Prevention: assistive device/personal items within reach clutter-free environment maintained fall prevention program maintained mobility aid in reach nonskid shoes/slippers when out of bed Intervention: Prevent Infection Flowsheets (Taken 12/11/20242107) Infection Prevention: hand hygiene promoted rest/sleep promoted single patient room provided Goal: Optimal Comfort and Wellbeing Outcome: Ongoing, Progressing Intervention: Monitor Pain and Promote Comfort Flowsheets (Taken 12/10/2024 181 by Christine Land, RN) Pain Management Interventions: rest Intervention: Provide Person-Centered Care Flowsheets (Taken 12/11/20242107) Trust Relationship/Rapport: care explained choices provided emotional support provided questions answered questions encouraged Goal: Readiness for Transition of Care Outcome: Ongoing, Progressing Intervention: Mutually Develop Transition Plan Flowsheets (Taken 12/11/20242107) Equipment Currently Used at Home: walker, rollator Problem: Mobility Impairment Goal: Optimal Mobility Outcome: Ongoing, Progressing Intervention: Optimize Mobility Flowsheets (Taken 12/11/20242107) Activity Management: activity encouraged ambulated in room ambulated to bathroom up in chair * ED Provider Notes - Omero Harman PA - 12/10/2024 3:51 PM EDT - HPI Chief Complaint Patient presents with Altered Mental Status Patient is a 64-year-old female sent here from [facility] for evaluation for concern atrial fibrillation on EKG. The patient was taken to [facility] hospital last night for reported confusion while at a gas station. Patient does admit history of AFib as well as multiple sclerosis both ofwhich she isn't being medicated for. The patient states that she has previously medication NS she experience significant side effects from medication resulting in multiple falls. Denies any recent falls. Denies blood thinner use. Denies illicit drug use. Denies headache, dizziness, chest pain, shortness of breath extremity, nausea, vomiting, dysuria, diarrhea, constipation. Patient History Past Medical History[1] Surgical History[2] Family History[3] Social History[4] Allergies: Allergies[5] Physical Exam ED Triage Vitals [12/10/24 1601] Temp Heart Rate Resp BP 37 ??C (98.6 ??F) 94 14 123/65 SpO2 Temp Source Heart Rate Source Patient Position 99 % Oral Monitor -- BP Location FiO2 (%) -- -- Physical Exam HENT: Head: Normocephalic. Nose: Nose normal. Mouth/Throat: Mouth: Mucous membranes are moist. Eyes: General: No scleral icterus. Extraocular Movements: Extraocular movements intact. Conjunctiva/sclera: Conjunctivae normal. Pupils: Pupils are equal, round, and reactive to light. Cardiovascular: Rate and Rhythm: Normal rate. Pulmonary: Effort: Pulmonary effort is normal. Breath sounds: Normal breath sounds. Abdominal: Palpations: Abdomen is soft. Tenderness: There is no abdominal tenderness. Musculoskeletal: General: Normal range of motion. Skin: General: Skin is warm and dry. Neurological: General: No focal deficit present. Mental Status: She is alert and oriented to person, place, and time. [place] Coma Scale Score: 14 NIH Stroke Scale: 0 ED Course & MDM - Assessment: 64 y.o. female presents to ED with complaint of confusion, transferred here from OSH concerns of AFib. Vital signs stable. Differential Diagnosis: AMS, dug induced psychosis, UTI, pneumonia, TIA, cranial lesion, viral encephalopathy, among others. On exam patient was alert and oriented x4, however did exhibit some related mood abnormalities. Differentials above drove my decision-making for this patient. Patient's lab workup was significant forhyperthyroidism a free T4 3.8, depressed TSH less than 0.01. No leukocytosis or anemia on CBC, no significant CMP findings. Magnesium normal. BNP normal. No metabolic acidosis/alkalosis on VBG. COVID/flu/RSV negative. Urinalysis sliced indicative of UTI. No acute findings on chest x-ray. CT of the head without contrast which ventricular enlargement with possibility of normal pressure hydrocephalus. Initial troponin was elevated at 122. Multiple EKGs did not show ST elevations, did show premature atrial complexes. Patient did not relate any changes in symptoms as it pertains to possible arrhythmia induced symptomatology. Ultimately I do feel the patient warrants admission giving her change in mental status with the findings hyperthyroidism it is a possibility of etiology. However patient was signed out to oncoming provider pending delta troponin as this could change her management of thepatient. In order to fully explore the differential diagnosis the following treatments and tests were ordered: ED Medication Administration from 12/10/2024 1448 to 12/10/2024 1927 Date/Time Order Dose Route Action 12/10/2024 1801 EDT iohexol (OMNIPaque) 350 MG/ML injection 100 mL 60 mL Intravenous Given All Other Orders Ordered Status Ordering Provider 12/10/24 1756 Troponin T, High Sensitivity, 2 Hour, Plasma PROCEDURE ONCE Collected GARRETOMERO GARCIA Suni 12/10/24 1817 EKG now - STAT (adult) Once Final result GARRETOMERO GARCIA Suni 12/10/24 1754 Urinalysis Microscopic Examination Once Final result GHAZALOMERO N 12/10/24 1654 BNP STAT Final result OMERO HARMAN Suni 12/10/24 1654 Initiate contact isolation Continuous Comments: Added via Instant Order OPA Acknowledged BPA, INSTANT ORDERS 12/10/24 1654 Initiate N95 isolation Continuous Comments: Added via Instant Order OPA Acknowledged BPA, INSTANT ORDERS 12/10/24 1654 Initiate eye protection Continuous Comments: Added via Instant Order OPA Acknowledged BPA, INSTANT ORDERS 12/10/[address] Head wo IV Contrast Once Final result OMERO HARMAN N 12/10/[address] Angio Head Once Final result OMERO HARMAN N 12/10/[address] Angio Neck Once Final result OMERO HARMAN N 12/10/24 1643 Drug Screen, Research Purposes - ED Only STAT Collected OMERO HARMAN N 12/10/24 1643 CBC w/diff STAT Final result OMERO HARMAN N 12/10/24 1643 SARS-CoV-2, Flu A, Flu B, and RSV - Rapid STAT Final result OMERO HARMAN N 12/10/24 1643 XR Chest 1 View One time imaging Final result OMERO HARMAN N 12/10/24 1643 CMP STAT Final result OMERO HARMAN N 12/10/24 1643 Magnesium STAT Final result OMERO HARMAN N 12/10/24 1643 Troponin now and 120 min STAT Final result OMERO HARMAN N 12/10/24 1643 Thyroid Stimulating Hormone, Plasma STAT Final result OMERO HARMAN N 12/10/24 1643 Free T4, Plasma STAT Final result OMERO HARMAN N 12/10/24 1643 Blood gas panel, venous STAT Final result OMERO HARMAN N 12/10/24 1643 Ethyl Alcohol Plasma STAT Final result OMERO HARMAN N 12/10/24 1643 Urinalysis with reflex microscopic AND reflex culture (IF UTI SUSPECTED) STAT In process OMERO HARMAN N 12/10/24 1643 Urinalysis with reflex microscopic (Culture NOT Included) PROCEDURE ONCE Final result OMERO HARMAN N 12/10/24 1643 Urine Montes Panel PROCEDURE ONCE In process OMERO HARMAN N 12/10/24 1604 EKG now - STAT (adult) Once Final result OMERO HARMAN N ED Course as of 12/10/241926Dec 10, 2024 1743 CBC w/diff NL [MB] 1743 Ethanol Plasma: <10 NL [MB] 1743 Blood gas panel, venous(!) No metabolic acidosis/alkalosis [MB] 1801 N-Terminal, PROBNP, Plasma: 370 NL [MB] 1801 Free T4(!): 3.8 Hyperthyroid with low TSH [MB] 1809 Troponin T, High Sensitivity, 0 Hour(!): 122 [MB] 1832 SARS-CoV-2, Flu A, Flu B, and RSV - Rapid Non detected [MB] 1833 CT Head wo IV Contrast IMPRESSION: 1. Enlarged ventricles including lateral, third, and fourth ventricles. There is also prominence ofthe sulci. Enlarged ventricles may be due to volume loss. Cannot exclude the possibility of normal pressure hydrocephalus. 2. Normal CTA of the head and neck without evidence of vascular injury. [MB] 1837 Urinalysis with reflex microscopic AND reflex culture (IF UTI SUSPECTED)(!) 0-5 WBC, no Leuks. Less likely UTI [MB] 1913 XR Chest 1 View IMPRESSION: No acute findings. No focal airspace consolidation. [MB] ED Course User Index [MB] Omero Harman PA Social Determinates of Health Risks (including Economic Stability, Education and level of understanding, Healthcare access and quality and concerning social factors): None identified on this visit Ultimately, this patient was was signed out to the oncoming provider (Signed Out) Patient care assumed by oncoming provider, Mariana Cornelius APRN, at shift change, tentative plan at the time of sign-out was 1926 ED Prescriptions None - [1] No past medical history on file. [2] No past surgical history on file. [3] No family history on file. [4] [5] No Known Allergies Omero Harman PA 12/10/241926 Cosigned by Desi Kent MD at 12/13/2024 7:18 PM EDT Associated attestation - Desi Kent MD - 12/13/2024 7:18 PM EDT I attest to being involved in providing substantive part of the medical decision making in patient care. * ED Triage Notes - Christine Land RN - 12/10/2024 3:51 PM EDT Pt came from [facility] after she was [place] a [place] station confused and brought straight to [facility]. Patienthas had periods of confusion starting a 1030 this morning ECG at OSH showed pt in afib-- pt has had afib dx with no medication [id number] per EMS. OSH concernedfor a stroke Patient is on a 72 hour hold at [facility], patient is not having any SI or HI GCS15 NIH 0 on arrival to [facility] * Progress Notes - Mariana Cornelius, [employer] REPAIRER - 12/10/2024 3:51 PM EDT ED TRANSFER OF CARE NOTE Transferring provider: Omero Harman Transferring attending: Desi Kent ROBERT Time: 7:20 PM I received sign-out and accepted care of this patient from the previous ED providers caring for this patient. I reviewed the patient's history, exam, work- up, and treatment plan up to this point. Please see the primary ED Provider Note for complete elements of the history, physical exam, and ED course. PERTINENT HISTORY: In brief, Yen Perez is a 64 y.o. female with relevant PMH afib, MS who presented to the ED for evaluation of AMS and EKG changes. Coming from [facility]. PENDING: I accepted care of this patient from the previous provider pending lab results. Ultimately, labs demonstrated: Elevated troponin with significant delta of 12 ED Medication Administration from 12/10/2024 1448 to 12/10/2024 1914 Date/Time Order Dose Route Action 12/10/2024 1801 EDT iohexol (OMNIPaque) 350 MG/ML injection 100 mL 60 mL Intravenous Given ED COURSE: ED Course as of 12/11/24 0404 Tue Dec 10, 2024 1743 CBC w/diff NL [MB] 1743 Ethanol Plasma: <10 NL [MB] 1743 Blood gas panel, venous(!) No metabolic acidosis/alkalosis [MB] 1801 N-Terminal, PROBNP, Plasma: 370 NL [MB] 1801 Free T4(!): 3.8 Hyperthyroid with low TSH [MB] 1809 Troponin T, High Sensitivity, 0 Hour(!): 122 [MB] 1832 SARS-CoV-2, Flu A, Flu B, and RSV - Rapid Non detected [MB] 1833 CT Head wo IV Contrast IMPRESSION: 1. Enlarged ventricles including lateral, third, and fourth ventricles. There is also prominence ofthe sulci. Enlarged ventricles may be due to volume loss. Cannot exclude the possibility of normal pressure hydrocephalus. 2. Normal CTA of the head and neck without evidence of vascular injury. [MB] 1837 Urinalysis with reflex microscopic AND reflex culture (IF UTI SUSPECTED)(!) 0-5 WBC, no Leuks. Less likely UTI [MB] 1913 XR Chest 1 View IMPRESSION: No acute findings. No focal airspace consolidation. [MB] 2016 Troponin T, High Sensitivity, 2 Hour(!): 134 Elevated with significant delta [KM] 2018 RBC, Urine(!): 4 - 10 [KM] 2019 WBC, Urine: 0 - 5 [KM] 2019 Squamous Epithelial Cells(!): 6 - 10 [KM] 2019 Hyaline Casts: 0 - 2 [KM] 2019 Bacteria, Urine: Present Appears contaminated with elevated squamous cells. No pyuria with bacteria so antibiotic treatment not indicated at this time [KM] 2028 Paged Cardiology for consult [KM] 2037 Had an interactive discussion with Cardiology who agrees to evaluate patient [KM] 2054 Paged hosp med for admission. Recommended consulting neuro for evaluation for RRMS [KM] 2055 Paged neuro [KM] 2101 Had an interactive discussion with Neurology who agrees to evaluate patient [KM] 2106 Updated patient on results and plan of care. Patient agreeable to admission at this time. [KM] 2106 Hospital medicine agrees to admission [KM] 2221 Patient is stable at time of admission [KM] ED Course User Index [KM] Mariana Cornelius, [employer] REPAIRER [MB] Omero Harman, MILLIE Clinical Impressions as of 12/11/24 0404 Altered mental status, unspecified altered mental status type Hyperthyroidism Elevated troponin Consulted Cardiology for evaluation of elevated troponin and significant delta 12. Consulted Hospital Medicine for admission for acute altered mental status, acute hyperthyroidism and possibility of normal pressure hydrocephalus seen on CT. Hospital medicine requested neuro consult. Consulted Neurology who agree to evaluate patient. Hospital Medicine accepted admission. Patient is stable at time of admission. Ultimately, this patient Was admitted (Admission) The primary encounter diagnosis was Altered mental status, unspecified altered mental status type. Diagnoses of Hyperthyroidism and Elevated troponin were also pertinent to this visit.. Patient believed to require admission for the listed diagnoses. The Internal Medicine service was consulted for admission and was agreeable to admit to Acute Floor (Med/Surg). ED Prescriptions None - Mariana Cornelius APRN Cosigned by TheDesi MD at 12/13/2024 5:28 PM EDT Associated attestation - Desi Kent MD - 12/13/2024 5:28 PM EDT I attest to being involved in providing substantive part of the medical decision making in patient care. documented in this encounter Plan of Treatment Upcoming Encounters Date Type Department Care Team (Late st Contact Info) Description 04/24/2025 9:00 AM EST Consult [place] [facility] [address] [place] [address] Lucretia Molina, DO [address] [place] [address] Scheduled Referrals Name Type Priority Associated Diagnoses Orde r Schedule Discharge Ambulatory referral to Neurology Outpatient Referral Routine Cerebral ventriculomegaly Expected: 03/13/2025, Expires: 06/13/2026 Ambulatory referral to Endocrinology Outpatient Referral Routine Hyperthyroidism Expected: 12/15/2024 (Approximate), Expires: 06/18/2026 Ambulatory referral for Follow Up Care (NO PCP on File) Outpatient Referral Routine MS (multiple sclerosis) ([facility]) 1 Occurrences starting 12/27/2024 until 06/30/2026 Discharge Ambulatory referral to Neurology Outpatient Referral Routine Altered mental status, unspecified altered mental status type Cerebral ventriculomegaly MS (multiple sclerosis) (CMS/HCC) 1 Occurrences starting 12/27/2024 until 06/30/2026 Discharge Ambulatory referral to Cardiology Outpatient Referral Routine Paroxysmal atrial fibrillation (CMS/[facility]) Expected: 12/27/2024 (Approximate), Expires: 06/30/2026 Ambulatory Referral to High Risk Care Management (HRCM) Outpatient Referral Routine Hyperthyroidism 1 Occurrences starting 12/27/2024 until 06/30/2026 documented as of this encounter Procedures Procedure Name Priority Date/Time Associated Diagnosis Comments MR HEAD W AND WO IV CONTRAST Routine 12/21/2024 10:52 AM EDT IMAGING MRI PROCEDURE NOT PERFORMED Routine 12/20/2024 8:04 PM EDT XR HIP RIGHT 1 VIEW Routine 12/19/2024 3 :16 PM EDT XR PELVIS 1 OR 2 VIEWS Routine 11:[address] HEAD WO IV CONTRAST Routine 4:30 PM EDT CBC WITH AUTO DIFFERENTIAL Routine 12/18/2024 2:16 AM EDT BASIC METABOLIC PANEL, PLASMA Routine 12/18/2024 2:16 AM EDT XR ABDOMEN 1 VIEW Routine 12/17/2024 8:2 7 PM EDT CBC WITH AUTO DIFFERENTIAL Routine 12/14/2024 3:34 AM EDT BASIC METABOLIC PANEL, PLASMA Routine 12/14/2024 3:34 AM EDT DRUG ABUSE SCREEN, URINE Routine 12/13/2024 10:01 PM EDT CBC WITH AUTO DIFFERENTIAL Routine 12/13/2024 1:28 AM EDT BASIC METABOLIC PANEL, PLASMA Routine 12/13/2024 1:28 AM EDT CBC WITH AUTO DIFFERENTIAL Routine 12/12/2024 3:27 AM EDT BASIC METABOLIC PANEL, PLASMA Routine 12/12/2024 3:27 AM EDT THYROID STIMULATING HORMONE RECEPTOR ANTIBODY (TRAB)(SO) Routine 12/11/2024 1:11 PM EDT THYROID STIMULATING IMMUNOGLOBULIN (SO) Routine 12/11/2024 1:11 PM EDT ECHO, ADULT TRANSTHORACIC COMPLETE Routine 12/11/2024 9:23 AM EDT T3 Add-On 12/11/2024 3:24 AM EDT CBC WITH AUTO DIFFERENTIAL Routine 12/11/2024 3:24 AM EDT PTH INTACT TOTAL Routine 12/11/2024 3:24 AM EDT BASIC METABOLIC PANEL, PLASMA Routine 12/11/2024 3:24 AM EDT THYROID PEROXIDASE ANTIBODY Add-On 12/10/2024 11:08 PM EDT SEDIMENTATION RATE, AUTOMATED Routine 12/10/2024 11:08 PM EDT VITAMIN B1 (THIAMINE), WHOLE BLOOD (SO) Routine 12/10/2024 11:08 PM EDT FOLATE, SERUM Routine 12/10/2024 11:08 PM EDT CORTISOL Routine 12/10/2024 11:08 PM EDT TROPONIN T, HIGH SENSITIVITY, 2 HOUR, PLASMA Timed 12/10/2024 7:23 PM EDT XR CHEST 1 VIEW STAT 12/10/2024 6:44 PM EDT ECG ADULT STAT 12/10/2024 6:[address] ANGIO NECK STAT 12/10/2024 6:[address] HEAD WO IV CONTRAST STAT 6:[address] ANGIO HEAD STAT 12/10/2024 6:14 PM EDT URINALYSIS WITH REFLEX MICROSCOPIC AND CULTURE STAT 12/10/2024 5:40 PM EDT URINE MONTES PANEL STAT 12/10/2024 5:40 PM EDT URINALYSIS MICROSCOPIC FOR UA REFLEX STAT 12/10/2024 5:40 PM EDT URINALYSIS WITH REFLEX MICROSCOPIC STAT 12/10/2024 5:40 PM EDT SARS-COV-2, FLU A, FLU B, AND RSV - RAPID STAT 12/10/2024 5:09 PM EDT TROPONIN T, HIGH SENSITIVITY, 0 HOUR, PLASMA, REFLEX TO 2 HOUR STAT 12/10/2024 5:09 PM EDT ETHYL ALCOHOL PLASMA STAT 12/10/2024 5:09 PM EDT PROCALCITONIN, PLASMA Add-On 12/10/2024 5:09 PM EDT N-TERMINAL PROBNP, PLASMA STAT 12/10/2024 5:09 PM EDT CBC WITH AUTO DIFFERENTIAL STAT 12/10/2024 5:09 PM EDT C-REACTIVE PROTEIN, PLASMA Add-On 12/10/2024 5:09 PM EDT TSH STAT 12/10/2024 5:09 PM EDT FREE T4, PLASMA STAT 12/10/2024 5:09 PM EDT MAGNESIUM, PLASMA STAT 12/10/2024 5:0 9 PM EDT BLOOD GAS PANEL, VENOUS STAT 12/11/19 5:09 PM EDT COMPREHENSIVE METABOLIC PANEL, PLASMA STAT 12/10/2024 5:09 PM EDT ECG ADULT STAT 12/10/2024 4:11 PM EDT documented in this encounter Results * MR Head w and wo IV Contrast (12/21/2024 10:52 AM EDT) Anatomical Region Laterality Modality Head Magnetic Resonan ce Impressions 12/21/2024 6:49 PM EDT 1. No definite acute ischemic or hemorrhagic changes. No definite areas of abnormal enhancement. 2. Moderate brain atrophy. Out of proportion prominence of the lateral ventricles might represent a component of normal pressure hydrocephalus. Correlate clinically. 3. Mild to moderate white matter disease, nonspecific but likely representing chronic small vessel ischemia. CRITICAL RESULT: No. COMMUNICATION: Per this written report. Drafted by Kendall Barber MD on 12/21/2024 6:43 PM Final report signed by Kendall Barber MD on 12/21/2024 6:49 PM Narrative 12/21/2024 6:49 PM EDT CLINICAL INDICATION: Mental status change, unknown cause TECHNIQUE: Multiplanar multiecho sequences were performed through the brain utilizing T1 and T2 weighting, as well as either axial susceptibility weighted or gradient echo sequences, and axial diffusion weighted images. Imaging was performed with and without contrast administration: 6 mL of Gadavist. COMPARISON: CT head from 12/18/2024 FINDINGS: Diagnostic Quality: Mildly limited by motion.. No definite acute areas of ischemia on diffusion-weighted images or areas of hemorrhage on susceptibility-weighted images. The montes-white matter differentiation is within normal limits. Moderate prominence of the cerebral sulci and moderate to severe enlargement of the lateral ventricles is redemonstrated, no significantly changed. Patchy and other confluent areas of hyperintense T2 signal in the subcortical and periventricular white matter are noted and patchy signal within the barb is also demonstrated, nonspecific but likely chronic small vessel ischemia. The intracranial flow voids appear within normal limits. No definite extra-axial lesions are seen. There are no definite areas of abnormal enhancement. The orbits appear unremarkable except for prior lens surgery, note that evaluation is limited by motion. Procedure Note Kendall Rain MD - 12/21/2024 CLINICAL INDICATION: Mental status change, unknown cause TECHNIQUE: Multiplanar multiecho sequences were performed through the brain utilizingT1 and T2 weighting, as well as either axial susceptibility weighted orgradient echo sequences, and axial diffusion weighted images. Imaging wasperformed with and without contrast administration: 6 mL of Gadavist. COMPARISON: CT head from 12/18/2024 FINDINGS: Diagnostic Quality: Mildly limited by motion.. No definite acute areas of ischemia on diffusion-weighted images or areasof hemorrhage on susceptibility-weighted images. The montes-white matter differentiation is within normal limits. Moderateprominence of the cerebral sulci and moderate to severe enlargement of thelateral ventricles is redemonstrated, no significantly changed. Patchy and other confluent areas of hyperintense T2 signal in thesubcortical and periventricular white matter are noted and patchy signalwithin the barb is also demonstrated, nonspecific but likely chronic smallvessel ischemia. The intracranial flow voids appear within normal limits. No definiteextra-axial lesions are seen. There are no definite areas of abnormalenhancement. The orbits appear unremarkable except for prior lens surgery, note thatevaluation is limited by motion. IMPRESSION: 1. No definite acute ischemic or hemorrhagic changes. No definite areas ofabnormal enhancement. 2. Moderate brain atrophy. Out of proportion prominence of the lateralventricles might represent a component of normal pressure hydrocephalus.Correlate clinically. 3. Mild to moderate white matter disease, nonspecific but likelyrepresenting chronic small vessel ischemia. CRITICAL RESULT: No. COMMUNICATION: Per this written report. Drafted by Kendall Barber MD on 12/21/2024 6:43 PM Final report signed by Kendall Barber MD on 12/21/2024 6:49 PM Loi Guzman MD [facility]ED[place] Keila l Result * Imaging MRI Procedure Not Performed (12/20/2024 8:04 PM EDT) Narrative IMAGING - 12/20/2024 8:04 PM EDT This procedure was not performed. Procedure: MR HEAD W AND WO IV CONTRAST Reason: Other Patient needs to be A&O for MRI due to FB in abd/pelvis. Wu Newby MD [facility] [place]ED[place] Final Result IMAGING * XR Hip Right 1 View (12/19/2024 3:16 PM EDT) Anatomical Region Laterality Modality Lower Extremities, Hip Right Digital R adiography Impressions 12/19/2024 3:58 PM EDT Linear radiopaque density with central fracture appears to be located overlying the posterior subcutaneous tissues. Correlate with visual inspection to assess for foreign body. CRITICAL RESULT: No. COMMUNICATION: Per this written report. Drafted by Paolo Lovelace on 12/19/2024 3:56 PM Final report signed by Paolo Lovelace on 12/19/2024 3:58 PM Narrative 12/19/2024 3:58 PM EDT CLINICAL INDICATION: FOREIGN BODY TECHNIQUE: XR HIP RIGHT 1 VIEW COMPARISON: None. FINDINGS: Single crosstable view of the right hip. Linear radiopaque density appears to be located overlying the posterior subcutaneous tissues. Procedure Note Paolo Lovelace MD - 12/19/2024 CLINICAL INDICATION: FOREIGN BODY TECHNIQUE: XR HIP RIGHT 1 VIEW COMPARISON: None. FINDINGS: Single crosstable view of the right hip. Linear radiopaque density appearsto be located overlying the posterior subcutaneous tissues. IMPRESSION: Linear radiopaque density with central fracture appears to be locatedoverlying the posterior subcutaneous tissues. Correlate with visualinspection to assess for foreign body. CRITICAL RESULT: No. COMMUNICATION: Per this written report. Drafted by Paolo Lovelace on 12/19/2024 3:56 PM Final report signed by Paolo Lovelace on 12/19/2024 3:58 PM Loi Guzman MD IMG XR PROCEDURES Final Result * XR Pelvis 1 or 2 Views (12/19/2024 11:39 AM EDT) Anatomical Region Laterality Modality Body, Pelvis Digital Radiogra phy Impressions 12/19/2024 12:03 PM EDT Radiopaque metallic appearing density overlying the right obturator ring with subtle central break could represent foreign body such as broken needle. CRITICAL RESULT: No. COMMUNICATION: Per this written report. Drafted by Paolo Lovelace on 12/19/2024 12:02 PM Final report signed by Paolo Lovelace on 12/19/2024 12:03 PM Narrative 12/19/2024 12:03 PM EDT CLINICAL INDICATION: mri clearance. concern for metal needle on previous scan. non palpable on exam TECHNIQUE: XR PELVIS 1 OR 2 VIEWS COMPARISON: None. FINDINGS: Linear radiopaque density overlying the right obturator ring with subtle break centrally. Moderate osteoarthrosis of the bilateral hips. Pelvic ring appears grossly intact. Femoral heads are well-seated within the acetabulum. Procedure Note Paolo Lovelace MD - 12/19/2024 CLINICAL INDICATION: mri clearance. concern for metal needle on previous scan. non palpable onexam TECHNIQUE: XR PELVIS 1 OR 2 VIEWS COMPARISON: None. FINDINGS: Linear radiopaque density overlying the right obturator ring with subtlebreak centrally. Moderate osteoarthrosis of the bilateral hips. Pelvicring appears grossly intact. Femoral heads are well-seated within theacetabulum. IMPRESSION: Radiopaque metallic appearing density overlying the right obturator ringwith subtle central break could represent foreign body such as brokenneedle. CRITICAL RESULT: No. COMMUNICATION: Per this written report. Drafted by Paolo Lovelace on 12/19/2024 12:02 PM Final report signed by Paolo Lovelace on 12/19/2024 12:03 PM Loi Guzman MD IMG XR PROCEDURES Final Result * CT Head wo IV Contrast (12/18/2024 4:30 PM EDT) Anatomical Region Laterality Modality Head Computed Tomogra phy Impressions 12/18/2024 7:24 PM EDT No acute intracranial findings. Similar appearance of the enlarged ventricles most apparent in the bilateral lateral ventricles and third ventricle. In the correct clinical setting this could represent normal pressure hydrocephalus, although there may be a degree of central predominant brain volume loss as well. CRITICAL RESULT: No. COMMUNICATION: Per this written report. Preliminary report signed by Flash Schultz D.O. on 12/18/2024 4:44 PM By electronically signing this report, I, the attending physician, attest that I have personally reviewed the images/data for the above examination(s) and agree with the final edited report. Drafted by Flash Schultz D.O. on 12/18/2024 4:41 PM Final report signed by Kevin Banuelos MD on 12/18/2024 7:24 PM Narrative 12/18/2024 7:24 PM EDT CLINICAL INDICATION: Mental status change, unknown cause TECHNIQUE: Spiral axial CT images of the head were obtained without contrast administration. Total DLP (Dose-Length Product): 658.40 mGy.cm. Please note: The reported value represents the total of one or more individual components during the CT acquisition on this date and at this time, and as such, the same value may appear in more than one CT report depending on the interpreting/reporting physicians. COMPARISON: CT head December 10, 2024 FINDINGS: Diagnostic Quality: Adequate. Similar appearance of the enlarged ventricles most apparent in the bilateral lateral ventricles as well as the third ventricle. Patent basal cisterns. No significant midline shift. There is no acute large cortical infarct, intracranial hemorrhage or large mass on this noncontrast study. There is a mild amount of non-specific but likely ischemic white matter lesions. Soft Tissues: No significant soft tissue swelling is present. Skull: There are no calvarial destructive lesions or fractures. Sinuses and Mastoids: Trace fluid layering dependently in the sphenoid sinus. The mastoid air cells are clear. Procedure Note Kevin Baneulos MD - 12/18/2024 CLINICAL INDICATION: Mental status change, unknown cause TECHNIQUE: Spiral axial CT images of the head were obtained without contrastadministration. Total DLP (Dose-Length Product): 658.40 mGy.cm. Please note: The reportedvalue represents the total of one or more individual components during theCT acquisition on this date and at this time, and as such, the same valuemay appear in more than one CT report depending on theinterpreting/reporting physicians. COMPARISON: CT head December 10, 2024 FINDINGS: Diagnostic Quality: Adequate. Similar appearance of the enlarged ventricles most apparent in thebilateral lateral ventricles as well as the third ventricle. Patent basalcisterns. No significant midline shift. There is no acute large cortical infarct, intracranial hemorrhage or largemass on this noncontrast study. There is a mild amount of non-specific butlikely ischemic white matter lesions. Soft Tissues: No significant soft tissue swelling is present. Skull: There are no calvarial destructive lesions or fractures. Sinuses and Mastoids: Trace fluid layering dependently in the sphenoidsinus. The mastoid air cells are clear. IMPRESSION: No acute intracranial findings. Similar appearance of the enlarged ventricles most apparent in thebilateral lateral ventricles and third ventricle. In the correct clinicalsetting this could represent normal pressure hydrocephalus, although theremay be a degree of central predominant brain volume loss as well. CRITICAL RESULT: No. COMMUNICATION: Per this written report. Preliminary report signed by Flash Schultz D.O. on 12/18/2024 4:44 PM By electronically signing this report, I, the attending physician, attestthat I have personally reviewed the images/data for the aboveexamination(s) and agree with the final edited report. Drafted by Flash Schultz D.O. on 12/18/2024 4:41 PM Final report signed by Kevin Banuelos MD on 12/18/2024 7:24 PM Loi Guzman MD IMG CT PROCEDURES Final Result * CBC and Differential (12/18/2024 2:16 AM EDT) WBC Count 5.67 3.70 - 10.30 10*3/uL LAB HEMATOLOGY METHOD 12/18/2024 2:36 AM EDT [facility] RBC Count 4.32 3.90 - 5.20 10*6/uL LAB HEMATOLOGY METHOD 12/18/2024 2:36 AM EDT [facility] HGB 12.0 11.2 - 15.7 g/dL LAB HEMATOLOGY METHOD 12/18/2024 2:36 AM EDT [facility] HCT 36.1 34.0 - 45.0 % LAB HEMATOLOGY METHOD 12/18/2024 2:36 AM EDT [facility] Platelet Count 224 155 - 369 10*3/uL LAB HEMATOLOGY METHOD 12/18/2024 2:36 AM EDT [facility] MCV 84 79 - 98 fL LAB HEMATOLOGY METHOD 12/18/2024 2:36 AM EDT [facility] MCH 27.8 26.0 - 32.0 pg LAB HEMATOLOGY METHOD 12/18/2024 2:36 AM EDT [facility] MCHC 33.2 30.7 - 35.5 g/dL LAB HEMATOLOGY METHOD 12/18/2024 2:36 AM EDT [facility] RDW 12.8 11.5 - 14.5 % LAB HEMATOLOGY METHOD 12/18/2024 2:36 AM EDT [facility] MPV 12.4 8.8 - 12.5 fL LAB HEMATOLOGY METHOD 12/18/2024 2:36 AM EDT [facility] nRBC 0.0 <=0.0 per 100 WBCs LAB HEMATOLOGY METHOD 12/18/2024 2:36 AM EDT [facility] Differential Type Automated LAB HEMATOLOGY METHOD 12/18/2024 2:36 AM EDT [facility] Neutrophils % 40 % LAB HEMATOLOGY METHOD 12/18/2024 2:36 AM EDT [facility] Lymphocytes % 45 % LAB HEMATOLOGY METHOD 12/18/2024 2:36 AM EDT [facility] Monocytes % 11 % LAB HEMATOLOGY METHOD 12/18/2024 2:36 AM EDT [facility] Eosinophils % 3 % LAB HEMATOLOGY METHOD 12/18/2024 2:36 AM EDT [facility] Basophils % 1 % LAB HEMATOLOGY METHOD 12/18/2024 2:36 AM EDT [facility] Immature Granulocytes % 0 % LAB HEMATOLOGY METHOD 12/18/2024 2:36 AM EDT [facility] Neutrophils Absolute 2.28 1.60 - 6.10 10*3/uL LAB HEMATOLOGY METHOD 12/18/2024 2:36 AM EDT [facility] Lymphocytes Absolute 2.54 1.20 - 3.90 10*3/uL LAB HEMATOLOGY METHOD 12/18/2024 2:36 AM EDT [facility] Monocytes Absolute 0.62 0.30 - 0.90 10*3/uL LAB HEMATOLOGY METHOD 12/18/2024 2:36 AM EDT [facility] Eosinophils Absolute 0.19 0.00 - 0.50 10*3/uL LAB HEMATOLOGY METHOD 12/18/2024 2:36 AM EDT [facility] Basophils Absolute 0.03 0.00 - 0.10 10*3/uL LAB HEMATOLOGY METHOD 12/18/2024 2:36 AM EDT [facility] Immature Granulocytes Absolute 0.01 0.00 - 0.06 10*3/uL LAB HEMATOLOGY METHOD 12/18/2024 2:36 AM EDT [facility] Blood Venous blood specimen / Unknown Venipuncture / Unknown 12/18/2024 2:16 AM EDT 12/18/2024 2:28 AM EDT Narrative [facility] - 12/18/2024 2:36 AM EDT Therapeutic decision making should be based on absolute values, rather than percentages. us Wu Newby MD LAB BLOOD ORDERABLES Final Resu lt [facility] [address] [place] [address] * (ABNORMAL) Basic metabolic panel (12/18/2024 2:16 AM EDT) Glucose, Plasma 129(H) 74 - 99 mg/dL 12/18/2024 2:58 AM EDT [facility] BUN, Plasma 21 8 - 23 mg/dL 12/18/2024 2:58 AM EDT [facility] Creatinine, Plasma 0.74 0.60 - 1.10 mg/dL 12/18/2024 2:58 AM EDT [facility] BUN/Creatinine Ratio 28 12/18/2024 2:58 AM EDT [facility] Sodium, Plasma 140 136 - 145 mmol/L 12/18/2024 2:58 AM EDT [facility] Potassium, Plasma 3.9 3.6 - 4.9 mmol/L 12/18/2024 2:58 AM EDT [facility] Chloride, Plasma 105 97 - 107 mmol/L 12/18/2024 2:58 AM EDT [facility] CO2, Plasma 26 22 - 29 mmol/L 12/18/2024 2:58 AM EDT [facility] Anion Gap 9 6 - 16 mmol/L 12/18/2024 2:58 AM EDT [facility] Total Calcium, Plasma 9.2 8.9 - 10.2 mg/dL 12/18/2024 2:58 AM EDT [facility] eGFRcr 89.4 mL/min/1.7 3m*2 12/18/2024 2:58 AM EDT [facility] Comment:Reported eGFRcr in m L/min/1.73m2 is based the CKD-EPI 2020 equation that does not use a race coefficient. Blood Venous blood specimen / Unknown Venipuncture / Unknown 12/18/2024 2:16 AM EDT 12/18/2024 2:29 AM EDT us Wu Newby MD LAB BLOOD ORDERABLES Final Resu lt [facility] [address] [place] [address] * XR Abdomen 1 View (12/17/2024 8:27 PM EDT) Anatomical Region Laterality Modality Body Digital Radiogra phy Impressions 12/17/2024 9:02 PM EDT A 2.8 cm linear radiodensity overlying the right inguinal region concerning for retained needle or wire. CRITICAL RESULT: No. COMMUNICATION: Per this written report. Drafted by Maribell Ibarra MD on 12/17/2024 9:01 PM Final report signed by Maribell Ibarra MD on 12/17/2024 9:02 PM Narrative 12/17/2024 9:02 PM EDT CLINICAL INDICATION: MRI clearance TECHNIQUE: Supine radiograph of the abdomen. COMPARISON: None. FINDINGS: Large retained stool throughout the colon. The bowel gas pattern is nonobstructive. There is a linear radiodensity measuring about 2.8 cm overlying the right femoral region concerning for retained needle or catheter. Procedure Note Maribell Ibarra MD - 12/17/2024 CLINICAL INDICATION: MRI clearance TECHNIQUE: Supine radiograph of the abdomen. COMPARISON: None. FINDINGS: Large retained stool throughout the colon. The bowel gas pattern isnonobstructive. There is a linear radiodensity measuring about 2.8 cmoverlying the right femoral region concerning for retained needle orcatheter. IMPRESSION: A 2.8 cm linear radiodensity overlying the right inguinal regionconcerning for retained needle or wire. CRITICAL RESULT: No. COMMUNICATION: Per this written report. Drafted by Maribell Ibarra MD on 12/17/2024 9:01 PM Final report signed by Maribell Ibarra MD on 12/17/2024 9:02 PM us Gris Pride MD IMG XR PROCEDURES Final Result * (ABNORMAL) Basic metabolic panel (12/14/2024 3:34 AM EDT) Glucose, Plasma 96 74 - 99 mg/dL 12/14/2024 4:27 AM EDT [facility] BUN, Plasma 13 8 - 23 mg/dL 12/14/2024 4:27 AM EDT [facility] Creatinine, Plasma 0.66 0.60 - 1.10 mg/dL 12/14/2024 4:27 AM EDT [facility] BUN/Creatinine Ratio 20 12/14/2024 4:27 AM EDT [facility] Sodium, Plasma 140 136 - 145 mmol/L 12/14/2024 4:27 AM EDT [facility] Potassium, Plasma 4.3 3.6 - 4.9 mmol/L 12/14/2024 4:27 AM EDT [facility] Chloride, Plasma 108(H) 97 - 107 mmol/L 12/14/2024 4:27 AM EDT [facility] CO2, Plasma 23 22 - 29 mmol/L 12/14/2024 4:27 AM EDT [facility] Anion Gap 9 6 - 16 mmol/L 12/14/2024 4:27 AM EDT [facility] Total Calcium, Plasma 9.4 8.9 - 10.2 mg/dL 12/14/2024 4:27 AM EDT [facility] eGFRcr 96.9 mL/min/1.7 3m*2 12/14/2024 4:27 AM EDT [facility] Comment:Reported eGFRcr in m L/min/1.73m2 is based the CKD-EPI 2020 equation that does not use a race coefficient. Blood Venous blood specimen / Unknown Venipuncture / Unknown 12/14/2024 3:34 AM EDT 12/14/2024 3:58 AM EDT us Wu Newby MD LAB BLOOD ORDERABLES Final Resu lt [facility] [address] [place] [address] * CBC and Differential (12/14/2024 3:34 AM EDT) WBC Count 6.01 3.70 - 10.30 10*3/uL LAB HEMATOLOGY METHOD 12/14/2024 4:07 AM EDT [facility] RBC Count 4.59 3.90 - 5.20 10*6/uL LAB HEMATOLOGY METHOD 12/14/2024 4:07 AM EDT [facility] HGB 12.7 11.2 - 15.7 g/dL LAB HEMATOLOGY METHOD 12/14/2024 4:07 AM EDT [facility] HCT 39.1 34.0 - 45.0 % LAB HEMATOLOGY METHOD 12/14/2024 4:07 AM EDT [facility] Platelet Count 222 155 - 369 10*3/uL LAB HEMATOLOGY METHOD 12/14/2024 4:07 AM EDT [facility] MCV 85 79 - 98 fL LAB HEMATOLOGY METHOD 12/14/2024 4:07 AM EDT [facility] MCH 27.7 26.0 - 32.0 pg LAB HEMATOLOGY METHOD 12/14/2024 4:07 AM EDT [facility] MCHC 32.5 30.7 - 35.5 g/dL LAB HEMATOLOGY METHOD 12/14/2024 4:07 AM EDT [facility] RDW 12.9 11.5 - 14.5 % LAB HEMATOLOGY METHOD 12/14/2024 4:07 AM EDT [facility] MPV 12.3 8.8 - 12.5 fL LAB HEMATOLOGY METHOD 12/14/2024 4:07 AM EDT [facility] nRBC 0.0 <=0.0 per 100 WBCs LAB HEMATOLOGY METHOD 12/14/2024 4:07 AM EDT [facility] Differential Type Automated LAB HEMATOLOGY METHOD 12/14/2024 4:07 AM EDT [facility] Neutrophils % 38 % LAB HEMATOLOGY METHOD 12/14/2024 4:07 AM EDT [facility] Lymphocytes % 46 % LAB HEMATOLOGY METHOD 12/14/2024 4:07 AM EDT [facility] Monocytes % 12 % LAB HEMATOLOGY METHOD 12/14/2024 4:07 AM EDT [facility] Eosinophils % 3 % LAB HEMATOLOGY METHOD 12/14/2024 4:07 AM EDT [facility] Basophils % 1 % LAB HEMATOLOGY METHOD 12/14/2024 4:07 AM EDT [facility] Immature Granulocytes % 0 % LAB HEMATOLOGY METHOD 12/14/2024 4:07 AM EDT [facility] Neutrophils Absolute 2.31 1.60 - 6.10 10*3/uL LAB HEMATOLOGY METHOD 12/14/2024 4:07 AM EDT [facility] Lymphocytes Absolute 2.77 1.20 - 3.90 10*3/uL LAB HEMATOLOGY METHOD 12/14/2024 4:07 AM EDT [facility] Monocytes Absolute 0.70 0.30 - 0.90 10*3/uL LAB HEMATOLOGY METHOD 12/14/2024 4:07 AM EDT [facility] Eosinophils Absolute 0.19 0.00 - 0.50 10*3/uL LAB HEMATOLOGY METHOD 12/14/2024 4:07 AM EDT [facility] Basophils Absolute 0.03 0.00 - 0.10 10*3/uL LAB HEMATOLOGY METHOD 12/14/2024 4:07 AM EDT [facility] Immature Granulocytes Absolute 0.01 0.00 - 0.06 10*3/uL LAB HEMATOLOGY METHOD 12/14/2024 4:07 AM EDT [facility] Blood Venous blood specimen / Unknown Venipuncture / Unknown 12/14/2024 3:34 AM EDT 12/14/2024 3:59 AM EDT Narrative [facility] - 12/14/2024 4:07 AM EDT Therapeutic decision making should be based on absolute values, rather than percentages. us Wu Newby MD LAB BLOOD ORDERABLES Final Resu lt [facility] [address] [place] [address] * Drug Abuse Screen Urine (12/13/2024 10:01 PM EDT) Amphetamine Screen Urine Negative Cutoff: 500 ng/mL 12/13/2024 10:41 PM EDT [facility] Benzodiazepines Screen Urine Negative Cutoff: 200 ng/mL 12/13/2024 10:41 PM EDT [facility] Cannabinoid Screen Urine Negative Cutoff: 50 ng/mL 12/13/2024 10:41 PM EDT [facility] Cocaine Screen Urine Negative Cutoff: 300 ng/mL 12/13/2024 10:41 PM EDT [facility] Barbiturate Screen Urine Negative Cutoff: 200 ng/mL 12/13/2024 10:41 PM EDT [facility] Opiate Screen Urine Negative Cutoff: 300 ng/mL 12/13/2024 10:41 PM EDT [facility] Methadone Screen Urine Negative Cutoff: 300 ng/mL 12/13/2024 10:41 PM EDT [facility] Buprenorphine Screen Urine Negative Cutoff: 10 ng/mL 12/13/2024 10:41 PM EDT [facility] Fentanyl Screen Urine Negative Cutoff: 1 ng/mL 12/13/2024 10:41 PM EDT [facility] Oxycodone Screen Urine Negative Cutoff: 100 ng/mL 12/13/2024 10:41 PM EDT [facility] Urine Urine specimen obtained by clean catch procedure / Unknown Non-blood Collection / Unknown 12/13/2024 10:01 PM EDT 12/13/2024 10:11 PM EDT us Wu Newby MD LAB URINE ORDERABLES Final Resu lt [facility] [address] [place] [address] * (ABNORMAL) Basic metabolic panel (12/13/2024 1:28 AM EDT) Glucose, Plasma 94 74 - 99 mg/dL 12/13/2024 2:22 AM EDT [facility] BUN, Plasma 17 8 - 23 mg/dL 12/13/2024 2:22 AM EDT [facility] Creatinine, Plasma 0.65 0.60 - 1.10 mg/dL 12/13/2024 2:22 AM EDT [facility] BUN/Creatinine Ratio 26 12/13/2024 2:22 AM EDT [facility] Sodium, Plasma 140 136 - 145 mmol/L 12/13/2024 2:22 AM EDT [facility] Potassium, Plasma 3.5(L) 3.6 - 4.9 mmol/L 12/13/2024 2:22 AM EDT [facility] Chloride, Plasma 104 97 - 107 mmol/L 12/13/2024 2:22 AM EDT [facility] CO2, Plasma 24 22 - 29 mmol/L 12/13/2024 2:22 AM EDT [facility] Anion Gap 12 6 - 16 mmol/L 12/13/2024 2:22 AM EDT [facility] Total Calcium, Plasma 9.4 8.9 - 10.2 mg/dL 12/13/2024 2:22 AM EDT [facility] eGFRcr 97.2 mL/min/1.7 3m*2 12/13/2024 2:22 AM EDT [facility] Comment:Reported eGFRcr in m L/min/1.73m2 is based the CKD-EPI 2020 equation that does not use a race coefficient. Blood Venous blood specimen / Unknown Venipuncture / Unknown 12/13/2024 1:28 AM EDT 12/13/2024 1:44 AM EDT us Wu Newby MD LAB BLOOD ORDERABLES Final Resu lt [facility] [address] [place] [address] * CBC and Differential (12/13/2024 1:28 AM EDT) WBC Count 5.32 3.70 - 10.30 10*3/uL LAB HEMATOLOGY METHOD 12/13/2024 1:59 AM EDT [facility] RBC Count 4.16 3.90 - 5.20 10*6/uL LAB HEMATOLOGY METHOD 12/13/2024 1:59 AM EDT [facility] HGB 11.7 11.2 - 15.7 g/dL LAB HEMATOLOGY METHOD 12/13/2024 1:59 AM EDT [facility] HCT 35.5 34.0 - 45.0 % LAB HEMATOLOGY METHOD 12/13/2024 1:59 AM EDT [facility] Platelet Count 209 155 - 369 10*3/uL LAB HEMATOLOGY METHOD 12/13/2024 1:59 AM EDT [facility] MCV 85 79 - 98 fL LAB HEMATOLOGY METHOD 12/13/2024 1:59 AM EDT [facility] MCH 28.1 26.0 - 32.0 pg LAB HEMATOLOGY METHOD 12/13/2024 1:59 AM EDT [facility] MCHC 33.0 30.7 - 35.5 g/dL LAB HEMATOLOGY METHOD 12/13/2024 1:59 AM EDT [facility] RDW 12.7 11.5 - 14.5 % LAB HEMATOLOGY METHOD 12/13/2024 1:59 AM EDT [facility] MPV 12.1 8.8 - 12.5 fL LAB HEMATOLOGY METHOD 12/13/2024 1:59 AM EDT [facility] nRBC 0.0 <=0.0 per 100 WBCs LAB HEMATOLOGY METHOD 12/13/2024 1:59 AM EDT [facility] Differential Type Automated LAB HEMATOLOGY METHOD 12/13/2024 1:59 AM EDT [facility] Neutrophils % 42 % LAB HEMATOLOGY METHOD 12/13/2024 1:59 AM EDT [facility] Lymphocytes % 42 % LAB HEMATOLOGY METHOD 12/13/2024 1:59 AM EDT [facility] Monocytes % 13 % LAB HEMATOLOGY METHOD 12/13/2024 1:59 AM EDT [facility] Eosinophils % 2 % LAB HEMATOLOGY METHOD 12/13/2024 1:59 AM EDT [facility] Basophils % 1 % LAB HEMATOLOGY METHOD 12/13/2024 1:59 AM EDT [facility] Immature Granulocytes % 0 % LAB HEMATOLOGY METHOD 12/13/2024 1:59 AM EDT [facility] Neutrophils Absolute 2.25 1.60 - 6.10 10*3/uL LAB HEMATOLOGY METHOD 12/13/2024 1:59 AM EDT [facility] Lymphocytes Absolute 2.25 1.20 - 3.90 10*3/uL LAB HEMATOLOGY METHOD 12/13/2024 1:59 AM EDT [facility] Monocytes Absolute 0.67 0.30 - 0.90 10*3/uL LAB HEMATOLOGY METHOD 12/13/2024 1:59 AM EDT [facility] Eosinophils Absolute 0.11 0.00 - 0.50 10*3/uL LAB HEMATOLOGY METHOD 12/13/2024 1:59 AM EDT [facility] Basophils Absolute 0.03 0.00 - 0.10 10*3/uL LAB HEMATOLOGY METHOD 12/13/2024 1:59 AM EDT [facility] Immature Granulocytes Absolute 0.01 0.00 - 0.06 10*3/uL LAB HEMATOLOGY METHOD 12/13/2024 1:59 AM EDT [facility] Blood Venous blood specimen / Unknown Venipuncture / Unknown 12/13/2024 1:28 AM EDT 12/13/2024 1:44 AM EDT Narrative [facility] - 12/13/2024 1:59 AM EDT Therapeutic decision making should be based on absolute values, rather than percentages. Wu Newby MD LAB BLOOD ORDERABLES Final Resu lt [facility] [address] [place] [address] * Basic metabolic panel (12/12/2024 3:27 AM EDT) Glucose, Plasma 86 74 - 99 mg/dL 12/12/2024 4:06 AM EDT [facility] BUN, Plasma 16 8 - 23 mg/dL 12/12/2024 4:06 AM EDT [facility] Creatinine, Plasma 0.63 0.60 - 1.10 mg/dL 12/12/2024 4:06 AM EDT [facility] BUN/Creatinine Ratio 25 12/12/2024 4:06 AM EDT [facility] Sodium, Plasma 142 136 - 145 mmol/L 12/12/2024 4:06 AM EDT [facility] Potassium, Plasma 3.9 3.6 - 4.9 mmol/L 12/12/2024 4:06 AM EDT [facility] Chloride, Plasma 104 97 - 107 mmol/L 12/12/2024 4:06 AM EDT [facility] CO2, Plasma 26 22 - 29 mmol/L 12/12/2024 4:06 AM EDT [facility] Anion Gap 12 6 - 16 mmol/L 12/12/2024 4:06 AM EDT [facility] Total Calcium, Plasma 9.9 8.9 - 10.2 mg/dL 12/12/2024 4:06 AM EDT [facility] eGFRcr 98.0 mL/min/1.7 3m*2 12/12/2024 4:06 AM EDT [facility] Comment:Reported eGFRcr in m L/min/1.73m2 is based the CKD-EPI 2020 equation that does not use a race coefficient. Blood Venous blood specimen / Unknown Venipuncture / Unknown 12/12/2024 3:27 AM EDT 12/12/2024 3:35 AM EDT us Wu Newby MD LAB BLOOD ORDERABLES Final Resu lt [facility] [address] [place] [address] * CBC and Differential (12/12/2024 3:27 AM EDT) WBC Count 5.20 3.70 - 10.30 10*3/uL LAB HEMATOLOGY METHOD 12/12/2024 3:43 AM EDT [facility] RBC Count 4.58 3.90 - 5.20 10*6/uL LAB HEMATOLOGY METHOD 12/12/2024 3:43 AM EDT [facility] HGB 12.7 11.2 - 15.7 g/dL LAB HEMATOLOGY METHOD 12/12/2024 3:43 AM EDT [facility] HCT 38.8 34.0 - 45.0 % LAB HEMATOLOGY METHOD 12/12/2024 3:43 AM EDT [facility] Platelet Count 232 155 - 369 10*3/uL LAB HEMATOLOGY METHOD 12/12/2024 3:43 AM EDT [facility] MCV 85 79 - 98 fL LAB HEMATOLOGY METHOD 12/12/2024 3:43 AM EDT [facility] MCH 27.7 26.0 - 32.0 pg LAB HEMATOLOGY METHOD 12/12/2024 3:43 AM EDT [facility] MCHC 32.7 30.7 - 35.5 g/dL LAB HEMATOLOGY METHOD 12/12/2024 3:43 AM EDT [facility] RDW 12.8 11.5 - 14.5 % LAB HEMATOLOGY METHOD 12/12/2024 3:43 AM EDT [facility] MPV 12.1 8.8 - 12.5 fL LAB HEMATOLOGY METHOD 12/12/2024 3:43 AM EDT [facility] nRBC 0.0 <=0.0 per 100 WBCs LAB HEMATOLOGY METHOD 12/12/2024 3:43 AM EDT [facility] Differential Type Automated LAB HEMATOLOGY METHOD 12/12/2024 3:43 AM EDT [facility] Neutrophils % 45 % LAB HEMATOLOGY METHOD 12/12/2024 3:43 AM EDT [facility] Lymphocytes % 39 % LAB HEMATOLOGY METHOD 12/12/2024 3:43 AM EDT [facility] Monocytes % 13 % LAB HEMATOLOGY METHOD 12/12/2024 3:43 AM EDT [facility] Eosinophils % 2 % LAB HEMATOLOGY METHOD 12/12/2024 3:43 AM EDT [facility] Basophils % 1 % LAB HEMATOLOGY METHOD 12/12/2024 3:43 AM EDT [facility] Immature Granulocytes % 0 % LAB HEMATOLOGY METHOD 12/12/2024 3:43 AM EDT [facility] Neutrophils Absolute 2.36 1.60 - 6.10 10*3/uL LAB HEMATOLOGY METHOD 12/12/2024 3:43 AM EDT [facility] Lymphocytes Absolute 2.04 1.20 - 3.90 10*3/uL LAB HEMATOLOGY METHOD 12/12/2024 3:43 AM EDT [facility] Monocytes Absolute 0.65 0.30 - 0.90 10*3/uL LAB HEMATOLOGY METHOD 12/12/2024 3:43 AM EDT [facility] Eosinophils Absolute 0.11 0.00 - 0.50 10*3/uL LAB HEMATOLOGY METHOD 12/12/2024 3:43 AM EDT [facility] Basophils Absolute 0.03 0.00 - 0.10 10*3/uL LAB HEMATOLOGY METHOD 12/12/2024 3:43 AM EDT [facility] Immature Granulocytes Absolute 0.01 0.00 - 0.06 10*3/uL LAB HEMATOLOGY METHOD 12/12/2024 3:43 AM EDT [facility] Blood Venous blood specimen / Unknown Venipuncture / Unknown 12/12/2024 3:27 AM EDT 12/12/2024 3:35 AM EDT Narrative [facility] - 12/12/2024 3:43 AM EDT Therapeutic decision making should be based on absolute values, rather than percentages. Wu Newby MD LAB BLOOD ORDERABLES Final Resu lt [facility] [address] [place] [address] * (ABNORMAL) Thyroid stimulating immunoglobulin (12/11/2024 1:11 PM EDT) TSI Result 17.60(H) <=0.54 IU/L 12/13/2024 2:19 AM EDT [facility] ([place]) Serum Venous blood specimen / Unknown 12/11/2024 1:11 PM EDT 12/11/2024 1:30 PM EDT Narrative [facility] ([place]) - 12/13/2024 2:19 AM EDT INTERPRETIVE INFORMATION: Thyroid Stimulating Immunoglobulin (TSI) 0.54 IU/L or less.........Consistent with healthy thyroid function or non-Graves thyroid or autoimmune disease. Those with healthy thyroid function typically have results less than 0.1 IU/L. 0.55 IU/L or greater......Consistent with Graves disease (autoimmune hyperthyroidism) This assay specifically detects thyroid stimulating autoantibodies. For diagnostic purposes, the results obtained from this assay should be used in combination with clinical examination, patient medical history, and other findings. Performed By: [facility] [address] [place] [id number] Last Scourer: Antony Sumner MD, PhD CLIA Number: [id number] Wu Newby MD LAB BLOOD ORDERABLES Final Resu lt Performing Organization Address City/[facility]/ZIP Co de Phone Number [facility] ([facility]) [address] [place] [address] * (ABNORMAL) Thyroid Stimulating Hormone Receptor Antibody (12/11/2024 1:11 PM EDT) TSH Receptor Antibody 28.80(H) <=1.75 IU/L 12/12/2024 11:22 PM EDT [facility] ([place]) Serum Venous blood specimen / Unknown 12/11/2024 1:11 PM EDT 12/11/2024 1:30 PM EDT Narrative [facility] ([place]) - 12/12/2024 11:22 PM EDT Performed By: [facility] [address] [place] [address] Last Scourer: Antony Sumner MD, PhD CLIA Number: [id number] Wu Newby MD LAB BLOOD ORDERABLES Final Resu lt [facility] [address] [place] [address] * ECHO, ADULT TRANSTHORACIC COMPLETE (12/11/2024 9:23 AM EDT) Height 167.6 [facility] Weight 64.9 [facility] Ao Root Diam 38 mm [facility] LA dimension 26 mm [facility] IVSd 5 mm [facility] LVIDd 53 mm [facility] LVPWd 8 mm [facility] LV MASS(C)D 115 g [facility] LV RWT 0.25 mm [facility] PA acc time 100 msec [facility] mean PAP 34 mmHg [facility] PA WV(ACCEL) 36.2 mmHg [facility] PA acc slope 755.2 cm/s2 [facility] LV Lat e' Velocity 11.2 cm/s [facility] LV Sept e' Manjit 7.1 cm/s [facility] TAPSE 21 mm [facility] BSA 1.73 m2 [facility] CV ECHO LV MASS INDEX 67 g/m2 [facility] MV A Vmax 61.3 cm/s [facility] MV E Vmax 50.3 cm/s [facility] MV E/A 0.8 cm/s [facility] Lat E/e' 4.5 [facility] Sep E/e' 7.1 [facility] Avg E/e' 5.8 [facility] Anatomical Region Laterality Modality Echocardiography Narrative 12/11/2024 9:40 AM EDT Left Ventricle: The left ventricle is normal size. The left ventricular systolic function is normal. The LVEF is visually estimated at 55 - 60%. The diastolic function is normal. The left ventricular filling pressure is normal. Right Ventricle: The right ventricle is normal in size. The right ventricular systolic function is normal. All cardiac valves were reasonably well interrogated with 2D imaging and/or Doppler assessment and no significant valve regurgitation or stenosis is seen. There is no recent study available for direct [id number] comparison. Left Ventricle The left ventricle is normal size. The left ventricular systolic function is normal. The LVEF is visually estimated at 55 - 60%. The diastolic function is normal. The left ventricular filling pressure is normal. The left ventricular wall motion is normal. Right Ventricle The right ventricle is normal in size. The right ventricular systolic function is normal. The spectral Doppler envelope of TR is not adequate for calculating the right ventricular systolic pressure (RVSP). Based upon other 2D and Doppler features, the RVSP is probably normal or at most mildly elevated. Left Atrium The left atrium not well visualized. The interatrial septum is intact with no evidence for an atrial septal defect. Right Atrium The right atrial size is normal. IVC/SVC The IVC was not well visualized, and an assumed pressure of 8mmHg was used for calculations. Mitral Valve The mitral valve leaflets are normal in appearance with no evidence of mitral valve prolapse. There is no mitral valve vegetation. There is no mitral regurgitation. There is no mitral stenosis. Tricuspid Valve The tricuspid valve is normal in appearance. There is no tricuspid valve vegetation. There is no tricuspid regurgitation. There is no tricuspid stenosis. Aortic Valve The aortic valve appears to be trileaflet. There is no aortic valve vegetation. There is no valvular regurgitation. There is no hemodynamically significant valvular aortic stenosis. Pulmonic Valve The pulmonic valve was not well visualized. There is no pulmonic valve vegetation. There is no pulmonic regurgitation. There is no pulmonic stenosis. Pericardium No pericardial effusion. Great Vessels The aortic root is normal in size. The sinus of Valsalva (aortic root) diameter is 38 mm by leading edge to leading edge method. The main pulmonary artery is normal in size. Study Details A complete transthoracic echocardiogram using two-dimensional (2D), m-mode, color and spectral flow Doppler imaging was performed. During the study the apical, parasternal, subcostal and suprasternal view was captured. Heart rate was normal. Height: 167.6 cm. Weight: 64.9 kg. BSA: 1.73 m2. The heart rhythm during this exam was most suggestive of a sinus rhythm. Study Recommendation All cardiac valves were reasonably well interrogated with 2D imaging and/or Doppler assessment and no significant valve regurgitation or stenosis is seen. There is no recent study available for direct [id number] comparison. us Amanda Maddox APRN CV ECHO PROCEDURES Keila l Result * (ABNORMAL) T3 (12/11/2024 3:24 AM EDT) Pathologist [facility] T3, Serum 264(H) 87 - 187 ng/dL 12/11/2024 1:49 PM EDT [facility] Blood Venous blood specimen / Unknown Venipuncture / Unknown 12/11/2024 3:24 AM EDT 12/11/2024 3:40 AM EDT Wu Newby MD LAB BLOOD ORDERABLES Final Resu lt [facility] [address] [place] [address] * PTH Intact Total (12/11/2024 3:24 AM EDT) [facility] PTH Intact Total 35 9 - 77 pg/mL 12/11/2024 5:44 AM EDT [facility] Blood Venous blood specimen / Unknown Venipuncture / Unknown 12/11/2024 3:24 AM EDT 12/11/2024 3:45 AM EDT Narrative [facility] - 12/11/2024 5:44 AM EDT Assay performed by immunoassay at the [facility]. Performed on [employer] chemiluminescent immunoassay, tractable to the World Health Organization's first international standard for PTH from the NIBSC, Code 79/500. Results obtained from different test methods or kits cannot be used interchangeably. us Amanda Maddox [employer]PA[employer] LAB BLOOD ORDERABLES Fi nal Result [facility] [address] [place] [address] * Basic metabolic panel (12/11/2024 3:24 AM EDT) Glucose, Plasma 95 74 - 99 mg/dL 12/11/2024 4:12 AM EDT [facility] BUN, Plasma 17 8 - 23 mg/dL 12/11/2024 4:12 AM EDT [facility] Creatinine, Plasma 0.62 0.60 - 1.10 mg/dL 12/11/2024 4:12 AM EDT [facility] BUN/Creatinine Ratio 27 12/11/2024 4:12 AM EDT [facility] Sodium, Plasma 143 136 - 145 mmol/L 12/11/2024 4:12 AM EDT [facility] Potassium, Plasma 3.6 3.6 - 4.9 mmol/L 12/11/2024 4:12 AM EDT [facility] Chloride, Plasma 106 97 - 107 mmol/L 12/11/2024 4:12 AM EDT [facility] CO2, Plasma 26 22 - 29 mmol/L 12/11/2024 4:12 AM EDT [facility] Anion Gap 11 6 - 16 mmol/L 12/11/2024 4:12 AM EDT [facility] Total Calcium, Plasma 9.4 8.9 - 10.2 mg/dL 12/11/2024 4:12 AM EDT [facility] eGFRcr 98.4 mL/min/1.7 3m*2 12/11/2024 4:12 AM EDT [facility] Comment:Reported eGFRcr in m L/min/1.73m2 is based the CKD-EPI 2020 equation that does not use a race coefficient. Blood Venous blood specimen / Unknown Venipuncture / Unknown 12/11/2024 3:24 AM EDT 12/11/2024 3:40 AM EDT Amanda Maddox APRN LAB BLOOD ORDERABLES Fi nal Result [facility] [address] [place] [address] * (ABNORMAL) CBC and Differential (12/11/2024 3:24 AM EDT) WBC Count 5.53 3.70 - 10.30 10*3/uL LAB HEMATOLOGY METHOD 12/11/2024 3:43 AM EDT [facility] RBC Count 4.07 3.90 - 5.20 10*6/uL LAB HEMATOLOGY METHOD 12/11/2024 3:43 AM EDT [facility] HGB 11.5 11.2 - 15.7 g/dL LAB HEMATOLOGY METHOD 12/11/2024 3:43 AM EDT [facility] HCT 34.2 34.0 - 45.0 % LAB HEMATOLOGY METHOD 12/11/2024 3:43 AM EDT [facility] Platelet Count 207 155 - 369 10*3/uL LAB HEMATOLOGY METHOD 12/11/2024 3:43 AM EDT [facility] MCV 84 79 - 98 fL LAB HEMATOLOGY METHOD 12/11/2024 3:43 AM EDT [facility] MCH 28.3 26.0 - 32.0 pg LAB HEMATOLOGY METHOD 12/11/2024 3:43 AM EDT [facility] MCHC 33.6 30.7 - 35.5 g/dL LAB HEMATOLOGY METHOD 12/11/2024 3:43 AM EDT [facility] RDW 13.1 11.5 - 14.5 % LAB HEMATOLOGY METHOD 12/11/2024 3:43 AM EDT [facility] MPV 12.6(H) 8.8 - 12.5 fL LAB HEMATOLOGY METHOD 12/11/2024 3:43 AM EDT [facility] nRBC 0.0 <=0.0 per 100 WBCs LAB HEMATOLOGY METHOD 12/11/2024 3:43 AM EDT [facility] Differential Type Automated LAB HEMATOLOGY METHOD 12/11/2024 3:43 AM EDT [facility] Neutrophils % 44 % LAB HEMATOLOGY METHOD 12/11/2024 3:43 AM EDT [facility] Lymphocytes % 42 % LAB HEMATOLOGY METHOD 12/11/2024 3:43 AM EDT [facility] Monocytes % 12 % LAB HEMATOLOGY METHOD 12/11/2024 3:43 AM EDT [facility] Eosinophils % 2 % LAB HEMATOLOGY METHOD 12/11/2024 3:43 AM EDT [facility] Basophils % 0 % LAB HEMATOLOGY METHOD 12/11/2024 3:43 AM EDT [facility] Immature Granulocytes % 0 % LAB HEMATOLOGY METHOD 12/11/2024 3:43 AM EDT [facility] Neutrophils Absolute 2.41 1.60 - 6.10 10*3/uL LAB HEMATOLOGY METHOD 12/11/2024 3:43 AM EDT [facility] Lymphocytes Absolute 2.31 1.20 - 3.90 10*3/uL LAB HEMATOLOGY METHOD 12/11/2024 3:43 AM EDT [facility] Monocytes Absolute 0.68 0.30 - 0.90 10*3/uL LAB HEMATOLOGY METHOD 12/11/2024 3:43 AM EDT [facility] Eosinophils Absolute 0.10 0.00 - 0.50 10*3/uL LAB HEMATOLOGY METHOD 12/11/2024 3:43 AM EDT [facility] Basophils Absolute 0.02 0.00 - 0.10 10*3/uL LAB HEMATOLOGY METHOD 12/11/2024 3:43 AM EDT [facility] Immature Granulocytes Absolute 0.01 0.00 - 0.06 10*3/uL LAB HEMATOLOGY METHOD 12/11/2024 3:43 AM EDT [facility] Blood Venous blood specimen / Unknown Venipuncture / Unknown 12/11/2024 3:24 AM EDT 12/11/2024 3:33 AM EDT [facility] - 12/11/2024 3:43 AM EDT Therapeutic decision making should be based on absolute values, rather than percentages. us Amanda Maddox APRN LAB BLOOD ORDERABLES Fi nal Result [facility] [address] [place] [address] * Thyroid Peroxidase Antibody (12/10/2024 11:08 PM EDT) Thyroid Peroxidase Antibody <5 <=8 IU/mL 12/11/2024 2:12 PM EDT [facility] Blood Venous blood specimen / Unknown Venipuncture / Unknown 12/10/2024 11:08 PM EDT 12/10/2024 11:30 PM EDT Wu Newby MD LAB BLOOD ORDERABLES Final Resu lt Performing Organization Address City/[facility]/ZIP Co [place] [address] * Sedimentation Rate, Automated (12/10/2024 11:08 PM EDT) [facility] Sedimentation Rate 8 <30 mm/hr 2024 11:[address] [facility] Blood Venous blood specimen / Unknown Venipuncture / Unknown 12/10/2024 11:08 PM EDT 12/10/2024 11:30 PM EDT Amanda Maddox APRN LAB BLOOD ORDERABLES Fi nal Result Performing Organization Address [facility] Co [place] [address] * Folate (12/10/2024 11:08 PM EDT) [facility] Folate, Serum 14.0 >4.6 ng/mL 12/11/2024 12:[address] [facility] Blood Venous blood specimen / Unknown Venipuncture / Unknown 12/10/2024 11:08 PM EDT 12/10/2024 11:30 PM EDT Amanda Maddox [employer] LAB BLOOD ORDERABLES Fi nal Result Performing Organization Address City/[facility]/ZIP Co [place] [address] * Vitamin B1, Whole Blood (12/10/2024 11:08 PM EDT) [facility] VITAMIN B1, WHOLE BLOOD 109 70 - 180 nmol/L 12/14/2024 11:29 AM EDT [facility] Blood Venous blood specimen / Unknown Venipuncture / Unknown 12/10/2024 11:08 PM EDT 12/10/2024 11:33 PM EDT Narrative [facility]) - 12/14/2024 11:29 AM EDT INTERPRETIVE INFORMATION: Vitamin B1, Whole Blood This assay measures the concentration of thiamine diphosphate (TDP), the primary active form of vitamin B1. Approximately 90 percent of vitamin B1 present in whole blood is TDP. Thiamine and thiamine monophosphate, which comprise the remaining 10 percent, are not measured. This test was developed and its performance characteristics determined by [facility]. It has not been cleared or approved by the [place] Food and Drug Administration. This test was performed in a CLIA certified laboratory and is intended for clinical purposes. Performed By: [facility] [address] [place] [id number] Last Scourer: Antony Sumner MD, PhD CLIA Number: [id number] Amanda Maddox APRN LAB BLOOD ORDERABLES Fi nal Result Performing Organization Address City/[facility]/ZIP Co de Phone Number [facility] ([place] [address] [place] [address] * Cortisol (12/10/2024 11:08 PM EDT) [facility] Signature Cortisol 4.30 Before 10am: 3.7 - 19.4. After 5pm: 2.9 - 17.3 ug/dL 12/11/2024 12:27 AM EDT [facility] Comment:Testing performed on [place], standardized against MCFP Reference Standard concentration values assigned by LC-MS/MS and verified by BCR 192 and BCR 193 certified reference materials. Blood Venous blood specimen / Unknown Venipuncture / Unknown 12/10/2024 11:08 PM EDT 12/10/2024 11:30 PM EDT Amanda Maddox APRN LAB REF LAB BLOOD AND F LUID ORD Final Result [facility] [address] [address] * (ABNORMAL) Troponin T, High Sensitivity, 2 Hour, Plasma (12/10/2024 7:23 PM EDT) Troponin T, High Sensitivity, 2 Hour 134(H) <14 ng/L 12/10/2024 7:58 PM EDT [facility] Troponin Delta 12(H) <10 ng/L 12/10/2024 7:58 PM EDT [facility] Troponin Delta Interpretation Significant 12/10/2024 7:58 PM EDT [facility] Comment:Significant change i n Troponin observed (from baseline). Troponin values greater than the 99th%ile with a rising or falling pattern (a change of >= 10 ng/L between the baseline and 2 hour samples) highly suggests acute cardiac injury. Acute cardiac injury does not equate to acute myocardial infarction. Additional clinical criteria are necessary for the diagnosis of acute myocardial infarction. Blood Venous blood specimen / Unknown Venipuncture / Unknown 12/10/2024 7:23 PM EDT 12/10/2024 7:30 PM EDT [facility] LAB BLOOD ORDERABLES Final Re sult [facility] [address] [place] [address] * XR Chest 1 View (12/10/2024 6:44 PM EDT) Anatomical Region Laterality Modality Chest Digital Radiogra phy Impressions 12/10/2024 7:03 PM EDT No acute findings. No focal airspace consolidation. CRITICAL RESULT: No. COMMUNICATION: Per this written report. Preliminary report signed by Ryder Peralta MD on 12/10/2024 7:01 PM By electronically signing this report, I, the attending physician, attest that I have personally reviewed the images/data for the above examination(s) and agree with the final edited report. Drafted by Ryder Peralta MD on 12/10/2024 6:59 PM Final report signed by Lavon Petty MD on 12/10/2024 7:03 PM Narrative 12/10/2024 7:03 PM EDT CLINICAL INDICATION: AMS TECHNIQUE: XR CHEST 1 VIEW COMPARISON: Same day CTA neck FINDINGS: No focal airspace consolidation, pneumothorax, or pleural effusion. The cardiac size is within normal limits for technique. The aorta is ectatic. No acute fracture. Procedure Note Lavon Petty MD - 12/10/2024 CLINICAL INDICATION: AMS TECHNIQUE: XR CHEST 1 VIEW COMPARISON: Same day CTA neck FINDINGS: No focal airspace consolidation, pneumothorax, or pleural effusion. Thecardiac size is within normal limits for technique. The aorta is ectatic.No acute fracture. IMPRESSION: No acute findings. No focal airspace consolidation. CRITICAL RESULT: No. COMMUNICATION: Per this written report. Preliminary report signed by Ryder Peralta MD on 12/10/2024 7:01 PM By electronically signing this report, I, the attending physician, attestthat I have personally reviewed the images/data for the aboveexamination(s) and agree with the final edited report. Drafted by Ryder Peralta MD on 12/10/2024 6:59 PM Final report signed by Lavon Petty MD on 12/10/2024 7:03 PM us [facility] IMG XR PROCEDURES Final Resul t * EKG now - STAT (adult) (12/10/2024 6:27 PM EDT) EKG DIAGNOSIS CLASS Abnormal MUSE ECG Ventricular Rate 94 BPM MUSE ECG Atrial Rate 94 BPM MUSE ECG WV Interval 162 ms MUSE ECG QRSD Interval 90 ms MUSE ECG QT Interval 372 ms MUSE ECG QTC Interval 465 ms MUSE ECG P Woodruff 24 degrees MUSE ECG R Woodruff 13 degrees MUSE ECG T Wave Woodruff 61 degrees MUSE ECG Diagnosis Sinus rhythm with premature atrial complexes MUSE ECG Diagnosis Cannot rule out Septal infarct , age undetermined MUSE ECG Diagnosis Abnormal ECG MUSE ECG Diagnosis MUSE ECG Diagnosis Confirmed by Adalid Betancourt ([id number]) on 12/10/2024 6:30:42 PM MUSE ECG 12/10/2024 6:27 PM EDT 12/10/2024 6:30 PM EDT us [facility] ECG ORDERABLES Final Result MUSE ECG * CT Angio Neck (12/10/2024 6:14 PM EDT) Anatomical Region Laterality Modality Carotid Artery Computed Tomogra phy Impressions 12/10/2024 6:31 PM EDT 1. Enlarged ventricles including lateral, third, and fourth ventricles. There is also prominence of the sulci. Enlarged ventricles may be due to volume loss. Cannot exclude the possibility of normal pressure hydrocephalus. 2. Normal CTA of the head and neck without evidence of vascular injury. CRITICAL RESULT: No. COMMUNICATION: Per this written report. Drafted by Lavon Petty MD on 12/10/2024 6:22 PM Final report signed by Lavon Petty MD on 12/10/2024 6:31 PM Narrative 12/10/2024 6:31 PM EDT CLINICAL INDICATION: AMS TECHNIQUE: Routine contiguous axial CT images of the head were obtained without contrast administration. Contrast-enhanced CT angiogram of the head and neck was obtained after administration of intravenous iodinated contrast using 0.6 mm axial slice thickness with multiplanar reformations and maximum intensity projections. In addition, 3D images were created and reviewed. Total DLP (Dose-Length Product): 1117.18 mGy.cm (accession [id number]), 1117.18 mGy.cm (accession [id number]), 1117.18 mGy.cm (accession [id number]). Please note: The reported value represents the total of one or more individual components during the CT acquisition on this date and at this time, and as such, the same value may appear in more than one CT report depending on the interpreting/reporting physicians. COMPARISON: None. FINDINGS: CT Head without: Motion artifact obscures fine detail. No large areas of acute intracranial hemorrhage evident. Ventricles are enlarged. There is prominence of the sulci. No midline shift or mass effect. Low-density changes are present in periventricular region which may represent ischemic gliotic change.. No displaced or depressed calvarial fractures. The visualized paranasal sinuses and mastoid air cells are clear. CTA Head: There is normal vascular anatomy. Scattered atheromatous changes of the cavernous portion of the carotid arteries. There is no evidence of vascular injury, specifically no arterial stenosis, occlusion, dissection, or pseudoaneurysm. The intracranial venous structures are also fairly well opacified and appear unremarkable. CTA Neck: There is normal vascular anatomy. Scattered atheromatous changes. There is no evidence of vascular injury, specifically no arterial stenosis, occlusion, dissection, or pseudoaneurysm. There is no significant stenosis of the ICA origins by NASCET criteria. Procedure Note Lavon Petty MD - 12/10/2024 CLINICAL INDICATION: AMS TECHNIQUE: Routine contiguous axial CT images of the head were obtained withoutcontrast administration. Contrast-enhanced CT angiogram of the head and neck was obtained afteradministration of intravenous iodinated contrast using 0.6 mm axial slicethickness with multiplanar reformations and maximum intensity projections.In addition, 3D images were created and reviewed. Total DLP (Dose-Length Product): 1117.18 mGy.cm (accession [id number]),1117.18 mGy.cm (accession [id number]), 1117.18 mGy.cm (accession [id number]).Please note: The reported value represents the total of one or moreindividual components during the CT acquisition on this date and at thistime, and as such, the same value may appear in more than one CT reportdepending on the interpreting/reporting physicians. COMPARISON: None. FINDINGS: CT Head without: Motion artifact obscures fine detail. No large areas of acute intracranialhemorrhage evident. Ventricles are enlarged. There is prominence of thesulci. No midline shift or mass effect. Low-density changes are present inperiventricular region which may represent ischemic gliotic change.. No displaced or depressed calvarial fractures. The visualized paranasalsinuses and mastoid air cells are clear. CTA Head: There is normal vascular anatomy. Scattered atheromatous changes of thecavernous portion of the carotid arteries. There is no evidence ofvascular injury, specifically no arterial stenosis, occlusion, dissection,or pseudoaneurysm. The intracranial venous structures are also fairly wellopacified and appear unremarkable. CTA Neck: There is normal vascular anatomy. Scattered atheromatous changes. There isno evidence of vascular injury, specifically no arterial stenosis,occlusion, dissection, or pseudoaneurysm. There is no significant stenosisof the ICA origins by NASCET criteria. IMPRESSION: 1. Enlarged ventricles including lateral, third, and fourth ventricles.There is also prominence of the sulci. Enlarged ventricles may be due tovolume loss. Cannot exclude the possibility of normal pressurehydrocephalus. 2. Normal CTA of the head and neck without evidence of vascular injury. CRITICAL RESULT: No. COMMUNICATION: Per this written report. Drafted by Lavon Petty MD on 12/10/2024 6:22 PM Final report signed by Lavon Petty MD on 12/10/2024 6:31 PM us [facility] Jacieljasson [facility] IMG CT PROCEDURES Final Resul t * CT Angio Head (12/10/2024 6:14 PM EDT) Anatomical Region Laterality Modality [place] Computed Tomogr aphy Impressions 12/10/2024 6:31 PM EDT 1. Enlarged ventricles including lateral, third, and fourth ventricles. There is also prominence of the sulci. Enlarged ventricles may be due to volume loss. Cannot exclude the possibility of normal pressure hydrocephalus. 2. Normal CTA of the head and neck without evidence of vascular injury. CRITICAL RESULT: No. COMMUNICATION: Per this written report. Drafted by Lavon Petty MD on 12/10/2024 6:22 PM Final report signed by Lavon Petty MD on 12/10/2024 6:31 PM Narrative 12/10/2024 6:31 PM EDT CLINICAL INDICATION: AMS TECHNIQUE: Routine contiguous axial CT images of the head were obtained without contrast administration. Contrast-enhanced CT angiogram of the head and neck was obtained after administration of intravenous iodinated contrast using 0.6 mm axial slice thickness with multiplanar reformations and maximum intensity projections. In addition, 3D images were created and reviewed. Total DLP (Dose-Length Product): 1117.18 mGy.cm (accession [id number]), 1117.18 mGy.cm (accession [id number]), 1117.18 mGy.cm (accession [id number]). Please note: The reported value represents the total of one or more individual components during the CT acquisition on this date and at this time, and as such, the same value may appear in more than one CT report depending on the interpreting/reporting physicians. COMPARISON: None. FINDINGS: CT Head without: Motion artifact obscures fine detail. No large areas of acute intracranial hemorrhage evident. Ventricles are enlarged. There is prominence of the sulci. No midline shift or mass effect. Low-density changes are present in periventricular region which may represent ischemic gliotic change.. No displaced or depressed calvarial fractures. The visualized paranasal sinuses and mastoid air cells are clear. CTA Head: There is normal vascular anatomy. Scattered atheromatous changes of the cavernous portion of the carotid arteries. There is no evidence of vascular injury, specifically no arterial stenosis, occlusion, dissection, or pseudoaneurysm. The intracranial venous structures are also fairly well opacified and appear unremarkable. CTA Neck: There is normal vascular anatomy. Scattered atheromatous changes. There is no evidence of vascular injury, specifically no arterial stenosis, occlusion, dissection, or pseudoaneurysm. There is no significant stenosis of the ICA origins by NASCET criteria. Procedure Note Lavon Petty MD - 12/10/2024 CLINICAL INDICATION: AMS TECHNIQUE: Routine contiguous axial CT images of the head were obtained withoutcontrast administration. Contrast-enhanced CT angiogram of the head and neck was obtained afteradministration of intravenous iodinated contrast using 0.6 mm axial slicethickness with multiplanar reformations and maximum intensity projections.In addition, 3D images were created and reviewed. Total DLP (Dose-Length Product): 1117.18 mGy.cm (accession [id number]),1117.18 mGy.cm (accession [id number]), 1117.18 mGy.cm (accession [id number]).Please note: The reported value represents the total of one or moreindividual components during the CT acquisition on this date and at thistime, and as such, the same value may appear in more than one CT reportdepending on the interpreting/reporting physicians. COMPARISON: None. FINDINGS: CT Head without: Motion artifact obscures fine detail. No large areas of acute intracranialhemorrhage evident. Ventricles are enlarged. There is prominence of thesulci. No midline shift or mass effect. Low-density changes are present inperiventricular region which may represent ischemic gliotic change.. No displaced or depressed calvarial fractures. The visualized paranasalsinuses and mastoid air cells are clear. CTA Head: There is normal vascular anatomy. Scattered atheromatous changes of thecavernous portion of the carotid arteries. There is no evidence ofvascular injury, specifically no arterial stenosis, occlusion, dissection,or pseudoaneurysm. The intracranial venous structures are also fairly wellopacified and appear unremarkable. CTA Neck: There is normal vascular anatomy. Scattered atheromatous changes. There isno evidence of vascular injury, specifically no arterial stenosis,occlusion, dissection, or pseudoaneurysm. There is no significant stenosisof the ICA origins by NASCET criteria. IMPRESSION: 1. Enlarged ventricles including lateral, third, and fourth ventricles.There is also prominence of the sulci. Enlarged ventricles may be due tovolume loss. Cannot exclude the possibility of normal pressurehydrocephalus. 2. Normal CTA of the head and neck without evidence of vascular injury. CRITICAL RESULT: No. COMMUNICATION: Per this written report. Drafted by Lavon Petty MD on 12/10/2024 6:22 PM Final report signed by Lavon Petty MD on 12/10/2024 6:31 PM us [facility] PINTO IM CT PROCEDURES Final Resul t * CT Head wo IV Contrast (12/10/2024 6:14 PM EDT) Anatomical Region Laterality Modality Head Computed Tomogra phy Impressions 12/10/2024 6:31 PM EDT 1. Enlarged ventricles including lateral, third, and fourth ventricles. There is also prominence of the sulci. Enlarged ventricles may be due to volume loss. Cannot exclude the possibility of normal pressure hydrocephalus. 2. Normal CTA of the head and neck without evidence of vascular injury. CRITICAL RESULT: No. COMMUNICATION: Per this written report. Drafted by Laovn Petty MD on 12/10/2024 6:22 PM Final report signed by Lavon Petty MD on 12/10/2024 6:31 PM Narrative 12/10/2024 6:31 PM EDT CLINICAL INDICATION: AMS TECHNIQUE: Routine contiguous axial CT images of the head were obtained without contrast administration. Contrast-enhanced CT angiogram of the head and neck was obtained after administration of intravenous iodinated contrast using 0.6 mm axial slice thickness with multiplanar reformations and maximum intensity projections. In addition, 3D images were created and reviewed. Total DLP (Dose-Length Product): 1117.18 mGy.cm (accession [id number]), 1117.18 mGy.cm (accession [id number]), 1117.18 mGy.cm (accession [id number]). Please note: The reported value represents the total of one or more individual components during the CT acquisition on this date and at this time, and as such, the same value may appear in more than one CT report depending on the interpreting/reporting physicians. COMPARISON: None. FINDINGS: CT Head without: Motion artifact obscures fine detail. No large areas of acute intracranial hemorrhage evident. Ventricles are enlarged. There is prominence of the sulci. No midline shift or mass effect. Low-density changes are present in periventricular region which may represent ischemic gliotic change.. No displaced or depressed calvarial fractures. The visualized paranasal sinuses and mastoid air cells are clear. CTA Head: There is normal vascular anatomy. Scattered atheromatous changes of the cavernous portion of the carotid arteries. There is no evidence of vascular injury, specifically no arterial stenosis, occlusion, dissection, or pseudoaneurysm. The intracranial venous structures are also fairly well opacified and appear unremarkable. CTA Neck: There is normal vascular anatomy. Scattered atheromatous changes. There is no evidence of vascular injury, specifically no arterial stenosis, occlusion, dissection, or pseudoaneurysm. There is no significant stenosis of the ICA origins by NASCET criteria. Procedure Note Lavon Petty MD - 12/10/2024 CLINICAL INDICATION: AMS TECHNIQUE: Routine contiguous axial CT images of the head were obtained withoutcontrast administration. Contrast-enhanced CT angiogram of the head and neck was obtained afteradministration of intravenous iodinated contrast using 0.6 mm axial slicethickness with multiplanar reformations and maximum intensity projections.In addition, 3D images were created and reviewed. Total DLP (Dose-Length Product): 1117.18 mGy.cm (accession [id number]),1117.18 mGy.cm (accession [id number]), 1117.18 mGy.cm (accession [id number]).Please note: The reported value represents the total of one or moreindividual components during the CT acquisition on this date and at thistime, and as such, the same value may appear in more than one CT reportdepending on the interpreting/reporting physicians. COMPARISON: None. FINDINGS: CT Head without: Motion artifact obscures fine detail. No large areas of acute intracranialhemorrhage evident. Ventricles are enlarged. There is prominence of thesulci. No midline shift or mass effect. Low-density changes are present inperiventricular region which may represent ischemic gliotic change.. No displaced or depressed calvarial fractures. The visualized paranasalsinuses and mastoid air cells are clear. CTA Head: There is normal vascular anatomy. Scattered atheromatous changes of thecavernous portion of the carotid arteries. There is no evidence ofvascular injury, specifically no arterial stenosis, occlusion, dissection,or pseudoaneurysm. The intracranial venous structures are also fairly wellopacified and appear unremarkable. CTA Neck: There is normal vascular anatomy. Scattered atheromatous changes. There isno evidence of vascular injury, specifically no arterial stenosis,occlusion, dissection, or pseudoaneurysm. There is no significant stenosisof the ICA origins by NASCET criteria. IMPRESSION: 1. Enlarged ventricles including lateral, third, and fourth ventricles.There is also prominence of the sulci. Enlarged ventricles may be due tovolume loss. Cannot exclude the possibility of normal pressurehydrocephalus. 2. Normal CTA of the head and neck without evidence of vascular injury. CRITICAL RESULT: No. COMMUNICATION: Per this written report. Drafted by Lavon Petty MD on 12/10/2024 6:22 PM Final report signed by Lavon Petty MD on 12/10/2024 6:31 [address] [address] [address] CT PROCEDURES Final Resul t * Urinalysis Microscopic Examination (12/10/2024 5:40 PM EDT) Urine Urine specimen obtained by clean catch procedure / Unknown Non-blood Collection / Unknown 12/10/2024 5:40 PM EDT 12/10/2024 5:51 PM EDT us Omero PINTO LAB URINE ORDERABLES Final Re sult [facility] [address] [place] [address] * Urine Montes Panel (12/10/2024 5:40 PM EDT) Extra Reflex urine culture not indicated 12/10/2024 8:01 PM EDT [facility] Urine Urine specimen obtained by clean catch procedure / Unknown Non-blood Collection / Unknown 12/10/2024 5:40 PM EDT 12/10/2024 6:16 PM EDT us Omero PINTO LAB URINE ORDERABLES Final Re sult [facility] [address] [place] [address] * (ABNORMAL) Urinalysis with reflex microscopic (Culture NOT Included) (12/10/2024 5:40 PM EDT) Color, Urine Yellow LAB URINALYSIS - AUTOMATED METHOD 12/10/2024 6:35 PM EDT [facility] Clarity, Urine Cloudy 12/10/2024 6:35 PM EDT [facility] Spec Dodge, Urine 1.026 1.005 - 1.030 LAB URINALYSIS - AUTOMATED METHOD 12/10/2024 6:35 PM EDT [facility] pH, Urine 5.5 5.0 - 8.0 LAB URINALYSIS - AUTOMATED METHOD 12/10/2024 6:35 PM EDT [facility] Protein, Urine Trace(A) Negative mg/dL LAB URINALYSIS - AUTOMATED METHOD 12/10/2024 6:35 PM EDT [facility] Glucose, Urine Negative Negative mg/dL LAB URINALYSIS - AUTOMATED METHOD 12/10/2024 6:35 PM EDT [facility] Ketones, Urine Trace(A) Negative mg/dL LAB URINALYSIS - AUTOMATED METHOD 12/10/2024 6:35 PM EDT [facility] Blood, Urine Negative Negative LAB URINALYSIS - AUTOMATED METHOD 12/10/2024 6:35 PM EDT [facility] Bilirubin, Urine Negative Negative LAB URINALYSIS - AUTOMATED METHOD 12/10/2024 6:35 PM EDT [facility] Urobilinogen, Urine 1.0 0.2 to 1.0 mg/dL LAB URINALYSIS - AUTOMATED METHOD 12/10/2024 6:35 PM EDT [facility] Leukocytes, Urine Negative Negative LAB URINALYSIS - AUTOMATED METHOD 12/10/2024 6:35 PM EDT [facility] Nitrite, Urine Positive(A) Negative LAB URINALYSIS - AUTOMATED METHOD 12/10/2024 6:35 PM EDT [facility] RBC, Urine 4 - 10(A) 0 to 3 /HPF LAB URINALYSIS - AUTOMATED METHOD 12/10/2024 6:35 PM EDT [facility] WBC, Urine 0 - 5 0 to 5 /HPF LAB URINALYSIS - AUTOMATED METHOD 12/10/2024 6:35 PM EDT [facility] Squamous Epithelial Cells 6 - 10(A) 0 to 5 /HPF LAB URINALYSIS - AUTOMATED METHOD 12/10/2024 6:35 PM EDT [facility] Hyaline Casts 0 - 2 0 to 5 /LPF LAB URINALYSIS - AUTOMATED METHOD 12/10/2024 6:35 PM EDT [facility] Bacteria, Urine Present Negative LAB URINALYSIS - AUTOMATED METHOD 12/10/2024 6:35 PM EDT [facility] Renal Tubular Cells Present Absent LAB URINALYSIS - AUTOMATED METHOD 12/10/2024 6:35 PM EDT [facility] Urine Urine specimen obtained by clean catch procedure / Unknown Non-blood Collection / Unknown 12/10/2024 5:40 PM EDT 12/10/2024 5:51 PM EDT us Omero PINTO LAB URINE ORDERABLES Final Re sult [facility] [address] [place] [address] * Procalcitonin (12/10/2024 5:09 PM EDT) Procalcitonin, Plasma <0.06 <0.09 ng/mL 12/11/2024 12:20 AM EDT [facility] Blood Venous blood specimen / Unknown Venipuncture / Unknown 12/10/2024 5:09 PM EDT 12/10/2024 5:15 PM EDT Narrative [facility] - 12/11/2024 12:20 AM EDT Procalcitonin concentrations in healthy individuals are <0.09 ng/mL. Published data support the following interpretive risk assessment: An elevated procalcitonin result does not always indicate sepsis. Various non-infectious conditions are known to increase procalcitonin. Results should be considered in the context of clinical symptoms and other laboratory tests. Procalcitonin >2.0 ng/mL: Concentrations >2.0 ng/mL on the first day of ICU admission are associated with a higher risk of progression to severe sepsis and/or septic shock. The change in PCT over time may help predict 28 day mortality risk. Please consult [email or web address] for more information. Test performed at [facility]. Amanda Maddox APRN LAB BLOOD ORDERABLES Fi nal Result Performing Organization Address [facility] Co de Phone Number [facility] [address] [place] [address] * C-reactive protein (12/10/2024 5:09 PM EDT) CRP, Plasma <3.0 <=8.0 mg/L 12/11/2024 12:20 AM EDT [facility] Blood Venous blood specimen / Unknown Venipuncture / Unknown 12/10/2024 5:09 PM EDT 12/10/2024 5:15 PM EDT Narrative [facility] - 12/11/2024 12:20 AM EDT This CRP test is appropriate for assessment of infection, systemic inflammation and/or tissue injury. To assess cardiovascular disease risk order high sensitivity CRP (CRPH). Amanda Maddox APRN LAB BLOOD ORDERABLES Fi nal Result Performing Organization Address [facility] Co de Phone Number [facility] [address] [place] [address] * BNP (12/10/2024 5:09 PM EDT) N-Terminal, PROBNP, Plasma 370 0 - 899 pg/mL 12/10/2024 5:56 PM EDT [facility] Blood Venous blood specimen / Unknown Venipuncture / Unknown 12/10/2024 5:09 PM EDT 12/10/2024 5:15 PM EDT Omero PINTO LAB BLOOD ORDERABLES Final Re sult Performing Organization Address [facility]/ZIP Co de Phone Number [facility] [address] [place] [address] * SARS-CoV-2, Flu A, Flu B, and RSV - Rapid (12/10/2024 5:09 PM EDT) [facility] SARS CoV-2/COVID-19 RNA PCR Result Not Detected Not Detected 12/10/2024 6:23 PM EDT [facility] Influenza A Virus PCR Result Not Detected Not Detected 12/10/2024 6:23 PM EDT [facility] Influenza B Virus PCR Result Not Detected Not Detected 12/10/2024 6:23 PM EDT [facility] Respiratory Syncytial Virus (RSV) PCR Result Not Detected Not Detected 12/10/2024 6:23 PM EDT [facility] Swab Nasopharyngeal structure / Unknown Non-blood Collection / Unknown 12/10/2024 5:09 PM EDT 12/10/2024 5:23 PM EDT Narrative [facility] - 12/10/2024 6:23 PM EDT This test is FDA approved for use with nasopharyngeal specimens in [employer] (VTM). This test is used for clinical purposes. It should not be regarded as investigational or for research. This laboratory is certified under the Clinical Laboratory improvement Amendments of 1988 (CLIA-88 as qualified to perform high complexity clinical laboratory testing. This test was performed on the Xpert Xpress SARS CoV-2 Plus assay test, a PCR- based method. Negative results should be considered presumptive and do not preclude current or future infection obtained through community transmission or other exposures. Negative results must be considered in the context of an individual's recent exposures, history, presence of clinical signs and symptoms consistent with COVID-19. us Omero PINTO LAB MICROBIOLOGY - GENERAL OR DERABLES Final Result Performing Organization Address City/[facility]/ZIP Co de Phone Number [facility] [address] [place] [address] * CBC w/diff (12/10/2024 5:09 PM EDT) [facility] WBC Count 6.64 3.70 - 10.30 10*3/uL LAB HEMATOLOGY METHOD 12/10/2024 5:17 PM EDT [facility] RBC Count 4.41 3.90 - 5.20 10*6/uL LAB HEMATOLOGY METHOD 12/10/2024 5:17 PM EDT [facility] HGB 12.2 11.2 - 15.7 g/dL LAB HEMATOLOGY METHOD 12/10/2024 5:17 PM EDT [facility] HCT 37.3 34.0 - 45.0 % LAB HEMATOLOGY METHOD 12/10/2024 5:17 PM EDT [facility] Platelet Count 229 155 - 369 10*3/uL LAB HEMATOLOGY METHOD 12/10/2024 5:17 PM EDT [facility] MCV 85 79 - 98 fL LAB HEMATOLOGY METHOD 12/10/2024 5:17 PM EDT [facility] MCH 27.7 26.0 - 32.0 pg LAB HEMATOLOGY METHOD 12/10/2024 5:17 PM EDT [facility] MCHC 32.7 30.7 - 35.5 g/dL LAB HEMATOLOGY METHOD 12/10/2024 5:17 PM EDT [facility] RDW 13.2 11.5 - 14.5 % LAB HEMATOLOGY METHOD 12/10/2024 5:17 PM EDT [facility] MPV 12.2 8.8 - 12.5 fL LAB HEMATOLOGY METHOD 12/10/2024 5:17 PM EDT [facility] nRBC 0.0 <=0.0 per 100 WBCs LAB HEMATOLOGY METHOD 12/10/2024 5:17 PM EDT [facility] Differential Type Automated LAB HEMATOLOGY METHOD 12/10/2024 5:17 PM EDT [facility] Neutrophils % 55 % LAB HEMATOLOGY METHOD 12/10/2024 5:17 PM EDT [facility] Lymphocytes % 31 % LAB HEMATOLOGY METHOD 12/10/2024 5:17 PM EDT [facility] Monocytes % 12 % LAB HEMATOLOGY METHOD 12/10/2024 5:17 PM EDT [facility] Eosinophils % 1 % LAB HEMATOLOGY METHOD 12/10/2024 5:17 PM EDT [facility] Basophils % 1 % LAB HEMATOLOGY METHOD 12/10/2024 5:17 PM EDT [facility] Immature Granulocytes % 0 % LAB HEMATOLOGY METHOD 12/10/2024 5:17 PM EDT [facility] Neutrophils Absolute 3.64 1.60 - 6.10 10*3/uL LAB HEMATOLOGY METHOD 12/10/2024 5:17 PM EDT [facility] Lymphocytes Absolute 2.08 1.20 - 3.90 10*3/uL LAB HEMATOLOGY METHOD 12/10/2024 5:17 PM EDT [facility] Monocytes Absolute 0.81 0.30 - 0.90 10*3/uL LAB HEMATOLOGY METHOD 12/10/2024 5:17 PM EDT [facility] Eosinophils Absolute 0.07 0.00 - 0.50 10*3/uL LAB HEMATOLOGY METHOD 12/10/2024 5:17 PM EDT [facility] Basophils Absolute 0.03 0.00 - 0.10 10*3/uL LAB HEMATOLOGY METHOD 12/10/2024 5:17 PM EDT [facility] Immature Granulocytes Absolute 0.01 0.00 - 0.06 10*3/uL LAB HEMATOLOGY METHOD 12/10/2024 5:17 PM EDT [facility] Blood Venous blood specimen / Unknown Venipuncture / Unknown 12/10/2024 5:09 PM EDT 12/10/2024 5:14 PM EDT Narrative [facility] - 12/10/2024 5:17 PM EDT Therapeutic decision making should be based on absolute values, rather than percentages. us Omero PINTO LAB BLOOD ORDERABLES Final Re sult [facility] [address] [place] [address] * Ethyl Alcohol Plasma (12/10/2024 5:09 PM EDT) Ethanol Plasma <10 <10 mg/dL 12/10/2024 5:40 PM EDT [facility] Blood Venous blood specimen / Unknown Venipuncture / Unknown 12/10/2024 5:09 PM EDT 12/10/2024 5:15 PM EDT Narrative [facility] - 12/10/2024 5:40 PM EDT Enzymatic Assay: Performed on Mely Grover. us Omero PINTO LAB BLOOD ORDERABLES Final Re sult [facility] [address] [place] [address] * (ABNORMAL) Blood gas panel, venous (12/10/2024 5:09 PM EDT) pH, Venous 7.38 7.32 - 7.43 LAB HEMATOLOGY METHOD 12/10/2024 5:15 PM EDT [facility] pCO2, Venous 52 37 - 52 mmHg LAB HEMATOLOGY METHOD 12/10/2024 5:15 PM EDT [facility] pO2, Venous 23(L) 25 - 40 mmHg LAB HEMATOLOGY METHOD 12/10/2024 5:15 PM EDT [facility] SO2, Measured, Venous 36(L) 65 - 80 % LAB HEMATOLOGY METHOD 12/10/2024 5:15 PM EDT [facility] Base Excess, Venous 4.3(H) -2.0 - 3.0 mmol/L LAB HEMATOLOGY METHOD 12/10/2024 5:15 PM EDT [facility] Bicarbonate, Calculated, Venous 31(H) 22 - 26 mmol/L LAB HEMATOLOGY METHOD 12/10/2024 5:15 PM EDT [facility] Hematocrit, Whole Blood 37.9 34.0 - 45.0 % LAB HEMATOLOGY METHOD 12/10/2024 5:15 PM EDT [facility] Sodium, Whole Blood 141 136 - 145 mmol/L LAB HEMATOLOGY METHOD 12/10/2024 5:15 PM EDT [facility] Potassium, Whole Blood 3.5(L) 3.6 - 4.9 mmol/L LAB HEMATOLOGY METHOD 12/10/2024 5:15 PM EDT [facility] Chloride, Whole Blood 102 97 - 107 mmol/L LAB HEMATOLOGY METHOD 12/10/2024 5:15 PM EDT [facility] Glucose, Whole Blood 103(H) 74 - 99 mg/dL LAB HEMATOLOGY METHOD 12/10/2024 5:15 PM EDT [facility] Lactate, Venous, Whole Blood 0.6 0.5 - 2.2 mmol/L LAB HEMATOLOGY METHOD 12/10/2024 5:15 PM EDT [facility] Ionized Calcium, Whole Blood 4.9 4.6 - 5.1 mg/dL LAB HEMATOLOGY METHOD 12/10/2024 5:15 PM EDT [facility] Blood Venous blood specimen / Unknown Venipuncture / Unknown 12/10/2024 5:09 PM EDT 12/10/2024 5:14 PM EDT Omero N Ghazal PA LAB BLOOD ORDERABLES Final Re sult Performing Organization Address [facility]/ZIP Co de Phone Number [facility] [address] [place] [address] * (ABNORMAL) Free T4, Plasma (12/10/2024 5:09 PM EDT) Free T4, Plasma 3.8(H) 0.8 - 1.7 ng/dL 12/10/2024 5:50 PM EDT [facility] Blood Venous blood specimen / Unknown Venipuncture / Unknown 12/10/2024 5:09 PM EDT 12/10/2024 5:15 PM EDT Omero Harman PA LAB BLOOD ORDERABLES Final Re sult Performing Organization Address [facility] Co de Phone Number [facility] [address] [place] [address] * (ABNORMAL) Thyroid Stimulating Hormone, Plasma (12/10/2024 5:09 PM EDT) Thyroid Stimulating Hormone, Plasma <0.01(L) 0.40 - 4.20 uIU/mL 12/10/2024 5:56 PM EDT [facility] Blood Venous blood specimen / Unknown Venipuncture / Unknown 12/10/2024 5:09 PM EDT 12/10/2024 5:15 PM EDT Omero N Pearlfectionflipon PA LAB BLOOD ORDERABLES Final Re sult Performing Organization Address [facility]/ZIP Co de Phone Number [facility] [address] [place] [address] * (ABNORMAL) Troponin now and 120 min (12/10/2024 5:09 PM EDT) Troponin T, High Sensitivity, 0 Hour 122(H) <14 ng/L 12/10/2024 5:56 PM EDT [facility] Blood Venous blood specimen / Unknown Venipuncture / Unknown 12/10/2024 5:09 PM EDT 12/10/2024 5:15 PM EDT Omero PINTO LAB BLOOD ORDERABLES Final Re sult Performing Organization Address City/[facility]/ZIP Co de Phone Number [facility] [address] [place] [address] * Magnesium (12/10/2024 5:09 PM EDT) Magnesium, Plasma 2.0 1.9 - 2.4 mg/dL 12/10/2024 5:56 PM EDT [facility] Blood Venous blood specimen / Unknown Venipuncture / Unknown 12/10/2024 5:09 PM EDT 12/10/2024 5:15 PM EDT Omero PINTO LAB BLOOD ORDERABLES Final Re sult Performing Organization Address City/[facility]/ZIP Co de Phone Number [facility] [address] [place] [address] * (ABNORMAL) CMP (12/10/2024 5:09 PM EDT) Glucose, Plasma 105(H) 74 - 99 mg/dL 12/10/2024 5:56 PM EDT [facility] BUN, Plasma 22 8 - 23 mg/dL 12/10/2024 5:56 PM EDT [facility] Creatinine, Plasma 0.72 0.60 - 1.10 mg/dL 12/10/2024 5:56 PM EDT [facility] BUN/Creatinine Ratio 31 12/10/2024 5:56 PM EDT [facility] Sodium, Plasma 140 136 - 145 mmol/L 12/10/2024 5:56 PM EDT [facility] Potassium, Plasma 3.7 3.6 - 4.9 mmol/L 12/10/2024 5:56 PM EDT [facility] Chloride, Plasma 103 97 - 107 mmol/L 12/10/2024 5:56 PM EDT [facility] CO2, Plasma 26 22 - 29 mmol/L 12/10/2024 5:56 PM EDT [facility] Anion Gap 11 6 - 16 mmol/L 12/10/2024 5:56 PM EDT [facility] Total Calcium, Plasma 9.7 8.9 - 10.2 mg/dL 12/10/2024 5:56 PM EDT [facility] Total Protein 6.3 6.3 - 7.9 g/dL 12/10/2024 5:56 PM EDT [facility] Albumin, Plasma 4.0 3.5 - 5.2 g/dL 12/10/2024 5:56 PM EDT [facility] AST, Plasma 20 10 - 35 U/L 12/10/2024 5:56 PM EDT [facility] ALT, Plasma 17 10 - 35 U/L 12/10/2024 5:56 PM EDT [facility] Alkaline Phosphatase, Plasma 79 46 - 142 U/L 12/10/2024 5:56 PM EDT [facility] Total Bilirubin, Plasma 0.3 0.2 - 1.1 mg/dL 12/10/2024 5:56 PM EDT [facility] eGFRcr 92.3 mL/min/1.7 3m*2 12/10/2024 5:56 PM EDT [facility] Comment:Reported eGFRcr in m L/min/1.73m2 is based the CKD-EPI 2020 equation that does not use a race coefficient. Blood Venous blood specimen / Unknown Venipuncture / Unknown 12/10/2024 5:09 PM EDT 12/10/2024 5:15 PM EDT us Omero PINTO LAB BLOOD ORDERABLES Final Re sult [facility] [address] [place] [address] * EKG now - STAT (adult) (12/10/2024 4:11 PM EDT) EKG DIAGNOSIS CLASS Abnormal MUSE ECG Ventricular Rate 95 BPM MUSE ECG Atrial Rate 95 BPM MUSE ECG WV Interval 158 ms MUSE ECG QRSD Interval 84 ms MUSE ECG QT Interval 348 ms MUSE ECG QTC Interval 437 ms MUSE ECG P Woodruff 52 degrees MUSE ECG R Woodruff -5 degrees MUSE ECG T Wave Woodruff 61 degrees MUSE ECG Diagnosis Sinus rhythm with premature atrial complexes MUSE ECG Diagnosis Abnormal ECG MUSE ECG Diagnosis MUSE ECG Diagnosis Confirmed by Nate Box ([id number]) on 12/10/2024 4:26:57 PM MUSE ECG 12/10/2024 4:11 PM EDT 12/10/2024 4:26 PM EDT us Omero PINTO ECG ORDERABLES Final Result MUSE ECG documented in this encounter Visit Diagnoses Diagnosis Altered mental status, unspecified altered mental status type Hyperthyroidism Thyrotoxicosis without mention of goiter or other cause, without mention of thyrotoxic crisis or storm Elevated troponin Other abnormal blood chemistry Cerebral ventriculomegaly Other conditions of brain MS (multiple sclerosis) Multiple sclerosis Paroxysmal atrial fibrillation (CMS/HCC) Atrial fibrillation Altered mental status, unspecified altered mental status type MS (multiple sclerosis) Multiple sclerosis Abnormal finding on urinalysis Hyperthyroidism Thyrotoxicosis without mention of goiter or other cause, without mention of thyrotoxic crisis or storm Eczema Contact dermatitis and other eczema, due to unspecified cause documented in this encounter Admitting Diagnoses Diagnosis Acute encephalopathy Altered mental status, unspecified altered mental status type documented in this encounter Administered Medications Inactive Administered Medications - up to 3 most recent administrations Medication Order MAR Action Action Date Dose Rate Site acetaminophen (Tylenol) tablet 650 mg 650 mg, Oral, Every 8 hours, First dose on Mon12/10/24 at 2220, Until Discontinued, Routine Given 12/12/2024 8:22 PM EDT 650 mg Given 12/12/2024 6:21 AM EDT 650 mg Given 12/11/2024 2:17 PM EDT 650 mg acetaminophen (Tylenol) tablet 650 mg 650 mg, Oral, Every 8 hours PRN, Starting on 12/21/24 at 1715, Until 12/28/24 at 1640, Routine, mild pain apixaban (Eliquis) tablet 5 mg 5 mg, Oral, 2 times daily, First dose on Mon12/11/24 at 1305, Until Discontinued, Routine Given 12/28/2024 9:52 AM EDT 5 mg Given 12/27/2024 8:19 AM EDT 5 mg Given 12/26/2024 7:58 PM EDT 5 mg cefTRIAXone (Rocephin) 1 g in sodium chloride 0.9% 100 mL IVPB (vial adapter required) 1 g, Intravenous, Once, 1 dose, On Mon12/10/24 at 2245, Routine New 12/10/2024 11:08 PM EDT 1 g 220 mL/hr cefTRIAXone (Rocephin) 1 g in sodium chloride 0.9% 100 mL IVPB (vial adapter required) 1 g, Intravenous, Every 24 hours, 2 doses, First dose on Mon12/11/24 at 1450, Last dose on Mon12/12/24 at 1450, Routine New 12/11/2024 3:25 PM EDT 1 g 220 mL/hr cefTRIAXone (Rocephin) 1 g in sodium chloride 0.9% 100 mL IVPB (vial adapter required) 1 g, Intravenous, Every 24 hours, 2 doses, First dose on Mon12/12/24 at 0900, Last dose on Mon12/13/24 at 0900, Routine New 12/12/2024 8:43 AM EDT 1 g 220 mL/hr diphenhydrAMINE (Benadryl) injection 50 mg 50 mg, Intramuscular, Once as needed, Starting on Mon12/12/24 at 1501, Until Mon12/13/24 at 0300, Routine, agitation (if PO refused) Given 12/12/2024 7:57 PM EDT 50 mg Left Deltoid gadobutrol (Gadavist) injection 6 mL 6 mL (rounded from 5.97 mL = 0.1 mL/kg 59.7 kg), Intravenous, Once in imaging, 1 dose, Starting on Mon12/21/24 at 1032, Until Mon12/21/24 at 1040, Routine, Imaging Protocol Orders Given 12/21/2024 10:40 AM EDT 6 mL heparin (porcine) injection 5,000 Units 5,000 Units, Subcutaneous, Every 8 hours scheduled, First dose on Mon12/10/24 at 2220, Until Discontinued, Routine Given 12/10/2024 10:35 PM EDT 5,000 Units Right Lower Abdomen iohexol (OMNIPaque) 350 MG/ML injection 100 mL 100 mL, Intravenous, Once in imaging, 1 dose, Starting on Mon12/10/24 at 1711, Until Mon12/10/24 at 1801, Routine, Imaging Protocol Orders Given 12/10/2024 6:01 PM EDT 60 mL LORazepam (Ativan) tablet 1 mg 1 mg, Oral, Every 4 hours PRN, 1 dose, Starting on 12/21/24 at 0004, Until 12/21/24 at 0947, Routine, sedation, PRE MRI Given 12/21/2024 9:47 AM EDT 1 mg melatonin tablet 6 mg 6 mg, Oral, Nightly, First dose on Mon12/17/24 at 2100, Until Discontinued, Routine Given 12/27/2024 8:08 PM EDT 6 mg Given 12/26/2024 7:57 PM EDT 6 mg Given 12/25/2024 8:14 PM EDT 6 mg methIMAzole (Tapazole) tablet 10 mg 10 mg, Oral, 2 times daily, First dose on Mon12/13/24 at 1200, Until Discontinued, Routine Given 12/28/2024 9:52 AM EDT 10 mg Given 12/27/2024 8:19 AM EDT 10 mg Given 12/26/2024 8:08 PM EDT 10 mg midazolam (Versed) injection 0.5 mg 0.5 mg, Intravenous, Once, 1 dose, On Mon12/12/24 at 1600, Routine Given 12/12/2024 3:42 PM EDT 0.5 mg OLANZapine (ZyPREXA) tablet 5 mg 5 mg, Oral, Once, 1 dose, On Mon12/16/24 at 0230, Routine Given 12/16/2024 2:01 AM EDT 5 mg OLANZapine (ZyPREXA) tablet 5 mg 5 mg, Oral, Every 8 hours PRN, Starting on 12/21/24 at 0004, Until 12/21/24 at 1702, Routine, PRE MRI if agitated Given 12/21/2024 9:47 AM EDT 5 mg propranolol (Inderal) tablet 10 mg 10 mg, Oral, 2 times daily, First dose on Mon12/11/24 at 1305, Until Discontinued, Routine Given 12/28/2024 9:52 AM EDT 10 mg Given 12/27/2024 8:19 AM EDT 10 mg Given 12/26/2024 7:58 PM EDT 10 mg senna (Senokot) tablet 8.6 mg 8.6 mg, Oral, Nightly, First dose on Mon12/11/24 at 2100, Until Discontinued, Routine Given 12/26/2024 7:58 PM EDT 8.6 mg Given 12/25/2024 8:14 PM EDT 8.6 mg Given 12/23/2024 8:32 PM EDT 8.6 mg sodium chloride 0.9 % flush 10 mL 10 mL, Intravenous, Every 12 hours, First dose on Mon12/10/24 at 2220, Until Discontinued, Routine Given 12/22/2024 10:44 AM EDT 10 mL Given 12/21/2024 9:49 AM EDT 10 mL Given 12/20/2024 9:20 PM EDT 10 mL sodium chloride 0.9 % flush 10 mL 10 mL, Intravenous, As needed, Starting on Mon12/10/24 at 2214, Until Mon12/26/24 at 1635, Routine, line care Given 12/13/2024 8:38 AM EDT 10 mL traZODone (Desyrel) tablet 50 mg 50 mg, Oral, Nightly PRN, Starting on Mon12/24/24 at 1557, Until 12/28/24 at 1640, Routine, sleep Given 12/26/2024 7:58 PM EDT 50 mg Given 12/25/2024 8:14 PM EDT 50 mg Given 12/24/2024 8:20 PM EDT 50 mg triamcinolone (Kenalog) 0.1 % cream 1 Application Topical, 2 times daily, First dose on Mon12/10/24 at 2305, Until Discontinued, Routine Given 12/28/2024 9:53 AM EDT 1 Application Given 12/27/2024 8:21 AM EDT 1 Application Given 12/26/2024 9:00 AM EDT 1 Application documented in this encounter Active and Recently Administered Medications Times are shown in EDT. Scheduled Medication Order 12/26/2024 12/27/2024 12/28/2024 apixaban (Eliquis) tablet 5 mg 5 mg, Oral, 2 times daily, First dose on Mon12/11/24 at 1305, Until Discontinued, Routine 0858 (Given - Provider: Gabriel Sadler RN)1957 (Given - Provider: Radha Serrano RN)2003 (Canceled Entry - Provider: Radha Serrano RN) 818 (Given - Provider: Gabriel Sadler RN)2008 (Not Given - Provider: Radha Serrano RN - Reason: Patient/family refused) 0952 (Given - Provider: Cathleen Bonilla, OG) melatonin tablet 6 mg 6 mg, Oral, Nightly, First dose on Mon12/17/24 at 2100, Until Discontinued, Routine 1956 (Given - Provider: Radha Serrano RN)2004 (Canceled Entry - Provider: Radha Serrano RN) 2007 (Given - Provider: Radha Serrano RN) methIMAzole (Tapazole) tablet 10 mg 10 mg, Oral, 2 times daily, First dose on Mon12/13/24 at 1200, Until Discontinued, Routine 0859 (Given - Provider: Gabriel Sadler RN)2007 (Given - Provider: Radha Serrano RN) 08 (Given - Provider: Gabriel Sadler RN)2008 (Not Given - Provider: Radha Serrano RN - Reason: Patient/family refused) 0952 (Given - Provider: Cathleen Bonilla RN) propranolol (Inderal) tablet 10 mg 10 mg, Oral, 2 times daily, First dose on Mon12/11/24 at 1305, Until Discontinued, Routine 0858 (Given - Provider: Gabriel Sadler RN)1957 (Given - Provider: Radha Serrano RN)2004 (Canceled Entry - Provider: Radha Serrano RN) 818 (Given - Provider: Gabriel Sadler RN)2008 (Not Given - Provider: Radha Serrano RN - Reason: Patient/family refused) 0952 (Given - Provider: Cathleen Bonilla RN) senna (Senokot) tablet 8.6 mg 8.6 mg, Oral, Nightly, First dose on Mon12/11/24 at 2100, Until Discontinued, Routine 1957 (Given - Provider: Radha Serrano RN)2004 (Canceled Entry - Provider: Radha Serrano RN) 2008 (Not Given - Provider: Radha Serrano RN - Reason: Patient/family refused) triamcinolone (Kenalog) 0.1 % cream 1 Application Topical, 2 times daily, First dose on Mon12/10/24 at 2305, Until Discontinued, Routine 0900 (Given - Provider: Gabriel Sadler, RN)2007 (Not Given - Provider: Radha Serrano RN - Reason: Patient/family refused) 0821 (Given - Provider: Gabriel Sadler RN)2008 (Not Given - Provider: Radha Serrano RN - Reason: Patient/family refused - Comment: Patient took own supply of all night meds) 0953 (Given - Provider: Cathleen Bonilla RN) PRN Medication Order 12/26/2024 12/27/2024 12/28/2024 acetaminophen (Tylenol) tablet 650 mg 650 mg, Oral, Every 8 hours PRN, Starting on 12/21/24 at 1715, Until 12/28/24 at 1640, Routine, mild pain bisacodyl (Dulcolax) EC tablet 10 mg 10 mg, Oral, Daily PRN, Starting on Mon12/10/24 at 2218, Until 12/28/24 at 1640, Routine, constipation traZODone (Desyrel) tablet 50 mg 50 mg, Oral, Nightly PRN, Starting on Mon12/24/24 at 1557, Until 12/28/24 at 1640, Routine, sleep 1957 (Given - Provider: Radha Serrano, OG) documented in this encounter Additional Health Concerns Infection Onset Date Last Indicated Resolved Time COVID-19 Rule-Out 12/10/2024 12/10/2024 12/10/2024 6:23 PM EDT Assessment Noted Time A Body Mass Index follow-up plan has been documented for the patient 12/28/2024 10:38 AM EDT documented as of this encounter Care Teams Hot Mill Tin Roller Relationship Specialty Start Date End Date Pcp, [place] [address] PCP - General Family Medicine 12/10/24 documented as of this encounter
--- OUTSIDE RECORDS SUMMARY | 2025-01-10 10:00 | XMS_ITS | Encounter Summary ---
Author Organization Healthcare Address [address] [place] [address] Care Team Providers Care Supervisor Machining Name Role Phone Pcp, No Primary Care Provider Unavailabl e Reason for Visit * Consultation (Routine) - Closed Specialty Diagnoses / Procedures Referred By Sabrina loera Referred To Contact Neurology Diagnoses Altered mental status, unspecified altered mental status type Cerebral ventriculomegaly MS (multiple sclerosis) Elham Cruz, [facility] [address] [place] [address] Phone: tel: fax: Referral ID Status Reason Start Date Expiration Date V isits Requested Visits Authorized [id number] Closed Specialty Services Required 12/27/2024 06/28/2026 1 1 Encounter Details Date Type Department Care Team (Late st Contact Info) Description 01/10/2025 10:00 AM EDT [facility] [address] [place] [address] Diane Neely MD [address] [place] [address] NPH (normal pressure hydrocephalus) (CMS/HCC) (Primary Dx) Social History Tobacco Use Types Packs/Day Years Used Date Smoking Tobacco: Former Cigarettes Smokeless Tobacco: Never Alcohol Use Standard Drinks/Week Comments Yes 0 [...] drink first t silvina in the morning (EYE-MACHINE DEICER ELEMENT WINDER) to steady your nerves or to get [...] Sign Reading Time Taken Comments Blood Pressure 108/68 01/10/2025 9:45 AM EDT Pulse 71 01/10/2025 9:45 AM EDT Temperature - - Respiratory Rate - - Oxygen Saturation 98% 01/10/2025 9:45 AM EDT Inhaled Oxygen Concentration - - Weight 64.8 kg (142 lb 13.7 oz) 01/10/2025 9:45 AM EDT Height 167.6 cm (5' 6 ) 01/10/2025 9:45 AM EDT Body Mass Index 23.06 01/10/2025 9:45 AM EDT documented in this encounter Miscellaneous Notes * Progress Notes - Diane Neely MD - 01/10/2025 10:00 AM EDT Consult Date: 01/10/46 Referring Physician: This patient was seen In consult at the request of Anthony Lizarraga APRN. Reason for Consult : History of Present Illness ( History of Present Illness The patient is a 64-year-old female who presents for evaluation of AMS. She is accompanied by her friend. She was diagnosed with multiple sclerosis in 2002 while residing in [place]. Her treatment initially involved injections, which were later replaced with Tecfidera pills. She discontinued this medication until two years ago as per her doctor's advice. She has been using a walker for several years due to balance issues, which cause her to stumble if she shifts her gaze. She does not recall her recent hospital admission. Her friend reports that she is currently acting much better than before. She was recently hospitalized from 12/10/2024 to 12/28/2024 due to an acute change in mental status. During her hospital stay, she was diagnosed with hyperthyroidism and a urinary tract infection (UTI). An MRI of her brain suggested possible normal pressure hydrocephalus (NPH). Her mental status imp roved significantly by 12/27/2024, allowing her to return home. PAST MEDICAL HISTORY: History of multiple sclerosis diagnosed in 2002, bilateral breast cancer withmastectomy in 2006, atrial fibrillation, hyperthyroidism, and urinary tract infection. PAST SURGICAL HISTORY: Bilateral mastectomy in 2006 MEDICATIONS PREVIOUS MEDS: Tecfidera Oral Start Date: 2002 End Date: 12/2022 Reason for Discontinuation: Doctor's advice Injection Start Date: 2002 Reason for Discontinuation: Switched to pills PERSONAL REVIEW OF PRIOR DATA (MRIs, LABS) Severe atrophy of brain Large, voluminous ventricles Communicating hydrocephalus Past Medical History[1] Surgical History[2] MEDICATIONS FOR CURRENT ENCOUNTER: Encounter Medications[3] Allergies Allergies[4] Social History Social History[5] Family History Family History[6] REVIEW OF SYSTEMS: A ten system review of constitutional, cardiovascular, respiratory, musculoskeletal, endocrine, skin, SHEENT, genitourinary, psychiatric and neurologic systems was obtained and is unremarkable except as noted in the HPI. Visit Vitals BP 108/68 Pulse 71 Ht 1.676 m (5' 6 ) Wt 64.8 kg (142 lb 13.7 oz) LMP (LMP Unknown) SpO2 98% BMI 23.06 kg/m?? OB Status Hysterectomy Smoking Status Former BSA 1.74 m?? General appearance: well developed, in no distress Cardiovascular: Heart regular rate and rhythm. Carotids no bruits. Neurological Examination: The patient is alert, attentive, and oriented to person, place, and time. Speech is fluent. Cranial nerve examination reveals no EOM abnormalities. Severe truncal and appendicular ataxia Cannot stand up without assistance Uses a walker for ambulation. Refused any NSGY referral. A/P Assessment & Plan 1. Multiple Sclerosis. She was diagnosed with multiple sclerosis in 2002 and was on medication until two years ago. She has been off MS medications since then and is not experiencing any current symptoms related to MS. No new MS medications will be started at this time. She has no requirement for DMTs. 2. Acute Mental Status Change. She was recently hospitalized from 12/10/2024 to 12/28/2024 due to an acute mental status change, which was attributed to a urinary tract infection (UTI) and hyperthyroidism. Her mental status has improved significantly since then. She is advised to document any issues related to her hospital stay,such as missing personal items, and report them to the hospital administration. Her MS is back to baseline. 3 NPH This is her current problem but she refused any Rx or NSGY intervention. 4 No f/u in my clinic. 5 Time: 56 min [1] Past Medical History: Diagnosis Date Eczema Multiple sclerosis (CMS/HCC) [2] History reviewed. No pertinent surgical history. [3] Outpatient Encounter Medications as of 01/10/2025 Medication Sig Dispense Refill acetaminophen (Tylenol) 325 MG tablet Take 2 tablets by mouth every 8 hours as needed for pain. Under [place] law, monthly prescriptions (30 days) can be refilled at 25 days and three-month prescriptions (90 days) at 80 days. Please contact the insurance company with questions if refills are denied. apixaban (Eliquis) 5 MG tablet Take 1 tablet by mouth 2 times a day. 60 tablet 0 melatonin tablet Take 2 tablets by mouth at night as needed for sleep. methIMAzole (Tapazole) 10 MG tablet Take 1 tablet by mouth 2 times a day. 120 tablet 0 propranolol (Inderal) 10 MG tablet Take 1 tablet by mouth 2 times a day. 60 tablet 0 senna (Senokot) 8.6 MG tablet Take 1 tablet by mouth nightly. 30 tablet 0 traZODone (Desyrel) 50 MG tablet Take 1 tablet by mouth at night as needed for sleep. 14 tablet 0 triamcinolone (Kenalog) 0.1 % cream No facility-administered encounter medications on file as of 01/10/2025. [4] No Known Allergies [5] Social History Tobacco Use Smoking status: Former Types: Cigarettes Smokeless tobacco: Never Substance Use Topics Alcohol use: Yes Comment: rarely on social occasions Drug use: Never [6] Family History Family history unknown: Yes documented in this encounter Plan of Treatment Upcoming Encounters Date Type Department Care Team (Late st Contact Info) Description 04/24/2025 9:00 AM EST Consult [place] [facility] [address] [place] [address] Lucretia Molina, DO [address] [place] [address] documented as of this encounter Visit Diagnoses Diagnosis NPH (normal pressure hydrocephalus)- Primary Idiopathic normal pressure hydrocephalus (INPH) documented in this encounter Additional Health Concerns Assessment Noted Time A fall risk assessment has been complete d for the patient 01/10/2025 9:44 AM EDT A Body Mass Index follow-up plan has been documented for the patient 01/10/2025 10:55 AM EDT documented as of this encounter Care Teams Supervisor Machining Relationship Specialty Start Date End Date Pcp, Yen [address] [place] [address] PCP - General Family Medicine 12/10/24 documented as of this encounter
[2025-02-11 18:46] LABS: Thyroid Stimulating Hormone < 0.02 uIU/mL (0.465-4.68)
--- OUTSIDE RECORDS SUMMARY | 2025-02-12 10:28 | XMS_ITS | Encounter Summary ---
[facility] Address [address] [place] [id number] Care Team Providers Care Restaurant Hourly Team Member Name Role Phone Zan Jackson MD Primary Care Provider [phone] Reason for Visit * Reason Onset Date Comments Med Refill 03/17/2021 Encounter Details Date Type Department Care Team (Late st Contact Info) Description 03/17/2021 Refill [facility] [address] [address] Johnnie Jones MD [address] [facility] [address] [place] [address] Social History Tobacco Use Types Packs/Day Years Used Date Smoking Tobacco: Former Cigarettes Smokeless Tobacco: Never Alcohol Use Standard Drinks/Week Comments Yes 0 (1 standard drink = 0.6 oz pur e alcohol) 1-2/mo Comments No Sex and Gender Information Value Date Recorded Sex Assigned at Not on file Legal Sex Female 3:54 PM EST Gender Identity Not on file Sexual Orientation Not on file documented as of this encounter Miscellaneous Notes * Telephone Encounter - Violeta Tate RegSched Rep - 03/18/2021 2:00 PM EDT [facility] REQUEST 03-12. [facility] PA SHOWS PENDING . PHONE # TO COMPLETE PA IS [phone] * Telephone Encounter - Helen Cm RegSched Rep - 03/17/2021 3:13 PM EDT Caller: KD Tsai Relationship: Emergency Contact Medication requested (name and dosage): Requested Prescriptions: Requested Prescriptions Pending Prescriptions Disp Refills ??? Diroximel Fumarate (Vumerity) 231 MG capsule delayed-release 120 capsule 11 Sig: Take 2 capsules by mouth. Pharmacy where request should be sent: [facility] Additional details provided by patient: PT IS STATING THAT DR JONES NEEDS TO SUBMIT THE RX REQUEST TO HER INSURANCE COMPANY ON FILE AND THEY WILL FORWARD [facility] Best call back number: [phone] Does the patient have less than a 3 day supply: [] Yes [x] No Ryan Klein Rep 03/17/21 15:15 EDT documented in this encounter Plan of Treatment Not on file documented as of this encounter Visit Diagnoses Not on filedocumented in this encounter Care Teams Restaurant Hourly Team Member Relationship Specialty Start Date End Date Zan Jackson MD [address] [facility] [address] [place] [address] PCP - General Internal Medicine 07/15/19 documented as of this encounter
--- OUTSIDE RECORDS SUMMARY | 2025-02-12 10:30 | XMS_ITS | Encounter Summary ---
Author Organization Healthcare Address [address] [place] [address] Care Team Providers Care E Commerce Developer Name Role Phone Pcp, No Primary Care Provider Unavailabl e Encounter Details Date Type Department Care Team (Latest Contact Info) Description 12/21/2024 Travel Social History Tobacco Use Types Packs/Day Years [...] drink first t silvina in the morning (EYE-SENIOR APPLICATION PROGRAMMER) to steady your nerves or to get rid of a hangover? 0 12/10/2024 CAGE Questionnaire Score 0 025 Comments No Sex and Gender Information Value Date Recorded Sex Assigned at Not on file Legal Sex Female 5:41 AM EDT Gender Identity Not on file Sexual Orientation Not on file documented as of this encounter Functional Status * Calculated C-SSRS Risk Score (Lifetime/Recent) Answer Date of Assessment Author No Risk Indicated 12/21/2024 8:00 PM Delano Ann, RN * Question Answer Date of Assessment Author 1. Wish to be (Past 1 Month) No 025 8:00 PM Delano Ann, RN 2. Non-Specific Active Suici niurka Thoughts (Past 1 Month) No 12/21/2024 8:00 PM EDT Carlos Enrique Nash, RN 6. Suicidal Behavior (Lifetime) No 8:00 PM EDT Delano Nash, RN documented as of this encounter Plan of Treatment Upcoming Encounters Date Type Department Care Team (Late st Contact Info) Description 04/24/2025 9:00 AM EST Consult [place] [facility] [address] [place] [address] Lucretia Molina, DO [address] [place] [address] documented as of this encounter Visit Diagnoses Not on filedocumented in this encounter Additional Health Concerns Assessment Noted Time A Body Mass Index follow-up plan has been documented for the patient 12/28/2024 10:38 AM EDT documented as of this encounter Care Teams E Commerce Developer Relationship Specialty Start Date End Date Pcp, No [address] [place] [address] PCP - General Family Medicine 12/10/24 documented as of this encounter
--- OUTSIDE RECORDS SUMMARY | 2025-02-12 10:30 | XMS_ITS | Encounter Summary ---
Author Organization Healthcare Address [address] [place] [address] Care Team Providers Care Chief Technology Officer Name Role Phone Pcp, No Primary Care Provider Unavailabl e Encounter Details Date Type Department Care Team (Latest Contact Info) Description 12/20/2024 Travel Social History Tobacco Use Types Packs/Day [...] drink first t silvina in the morning (EYE-PHARMACY STUDENT) to steady your nerves or to get [...] Date of Assessment Author No Risk Indicated 12/20/2024 8:00 PM EDT Elham Tineo, RN * Question Answer Date of Assessment Author 1. Wish to be (Past 1 Month) No 025 8:00 PM EDT Elham Tineo, RN 2. Non-Specific Active Suici niurka Thoughts (Past 1 Month) No 12/20/2024 8:00 PM EDT Neetu Tineo, RN 6. Suicidal Behavior (Lifetime) No 8:00 PM EDT Elham Tineo, RN documented as of this encounter Plan of Treatment Upcoming Encounters Date Type Department Care Team (Late st Contact Info) Description 04/24/2025 9:00 AM EST Consult [place] [facility] [address] [place] [address] Lucretia Molina, DO [address] [place] [address] documented as of this encounter Visit Diagnoses Not on filedocumented in this encounter Additional Health Concerns Assessment Noted Time A Body Mass Index follow-up plan has been documented for the patient 12/28/2024 10:38 AM EDT documented as of this encounter Care Teams Chief Technology Officer Relationship Specialty Start Date End Date Pcp, No [address] [place] [address] PCP - General Family Medicine 12/10/24 documented as of this encounter
--- OUTSIDE RECORDS SUMMARY | 2025-02-12 10:30 | XMS_ITS | Data Portability ---
Author Organization [facility] Neeraj c, [place] CLOSED Address [address] [place] [address] Assessment Encounter Date Assessment Date Assessment LastModified by Organization Details LastModified Time 12/21/2021 12/21/2021 1.Multiple sclerosis, diagnosis made in 2002 ([place]), moved to [place] in 2011 2. Followed by Dr. Milton Jones, [facility], last visit in 2020, had MRI 2020 [...] need for appointment here in our clinic [email or web address] Not available 04/03/2022 12:20:44 Plan of Treatment [...] By Organization Details Last Modified Time 12/21/2021 [id number] CATEGORY DESCRIPTION MINUTES Prepare to see the patient (e.g. review of tests) Obtain/review separately obtained history Perform medically appropriate exam/evaluation 20 Order medications, tests, or procedures Meals On Wheels Driver/educate the patient/family/car egiver 20 Refer/communicate w/other healthcare professionals Document clinical information into health record 10 Non-billable independent interp of results Non-billable care coordination TOTAL TIME 50 47648 (15-29) 76429 (30-44) 39926 (45-59) 58220 (60-74) 09639 (10-19) 11337 (20-29) 43562 (30-39) 62168 (40-54) [email or web address] Not available 04/03/2022 12:21:41 Reason for Referral None Reported. Problems No Known Problems Procedures Surgical History Date Name Laterality Status Provider Name and Address Organization Details Recorded Time 05/15/19 10 Nipple/areola reconstruction [place] [facility] [place]/21/2021 10:03:23 05/15/19 09 Nipple/areola reconstruction [place] [facility] 12/21/2021 10:03:18 05/15/19 08 Bilateral mastectomy [place] [facility] 12/21/2021 10:02:56 05/15/19 07 Total Hysterectomy completed [facility] 12/21/2021 10:02:45 05/15/18 63 Tonsillectomy [place] [facility] 12/21/2021 10:02:33 Imaging Results None recorded. Procedure [...] Address Organization Details Last Updated DateTime 12/21/2021 48810.11 g 27.3 kg/m2 167.64 cm [facility] 12/21/2021 09:54:56 Social History Question Answer Notes LastModified by Organizat ion Details LastModified Time Tobacco Smoking Status Never Smoker Flori Terrazas [facility] 12/21/2021 10:02:20 What Was The Date Of Your Most Recent Tobacco Screening? 12/21/2021 Information not available 12/21/2021 Has Tobacco Cessation Counseling Been Provided? No Information not available 12/21/2021 Sex: Unknown Functional Status Question Answer Note LastModified by Organizat ion Details LastModified Time Do you use any illicit or recreational drugs? No Information not available 12/21/2021 Do you or have you ever used any other forms of tobacco or nicotine? No Information not available 12/21/2021 What is your level of alcohol consumption? None Information not available 12/21/2021 Mental Status None recorded. Family History Relationship [...] SARS-COV-2 (COVID-19) vaccine, UNSPECIFIED 07/22/2020 completed Flori Terrazas [facility] 12/21/2021 10:01:03 SARS-COV-2 (COVID-19) vaccine, UNSPECIFIED 03/19/2021 completed Flori Nini [facility] 12/21/2021 10:01:08 Past Encounters Encounter ID Performer Location Encounter Start Date Encounter Closed Date Diagnosis/Indication Diagnosis SNOMED-CT Code Diagnosis ICD10 Code Diagnosis IMO Codes Diagnosis Note [id number] SUSANNAH DELUNA MD NEUROLOGY [facility] [address] [place] [address] 12/21/2021 09:32:40 12/21/2021 10:47:26 Multiple sclerosis 88909076 G35 Health Concerns Section Related Observation LastModified by Organization Detai ls LastModified Time None Recorded Concern Status LastModified by Organization Details LastModified Time None Recorded Advance Directives Directive None Recorded Payers Insurance Date Sequence Insurance Name Policy Number Policy Mccloud Covered Member ID Mccloud Member ID Guarantor Name 01/11/2022 1 [place] [id number] Yen Perez [id number] Yen Perez 12/22/2021 1 [place] [id number] Yen Perez [id number] Yen Perez Notes Date Note Type Note Provider Name and Address Organization Details Recorded Time 12/21/2021 text/html initial [id number] year old womanseen at the request of Dr. Zan Jackson cc: multiple sclerosis dx in 2002, diagnosis made in [place] moved [place] in [place] some time followed with Dr. Madison Jones follows with Dr. 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
--- OUTSIDE RECORDS SUMMARY | 2025-02-12 10:31 | XMS_ITS | Encounter Summary ---
Author Organization Healthcare Address [address] [place] [address] Care Team Providers Care Detail Manager Name Role Phone Pcp, No Primary Care Provider Unavailabl e Encounter Details Date Type Department Care Team (Late st Contact Info) Description 12/10/2024 Lab Requisition [facility] [address] [place] [address] Routine general medical examination at a health care facility Social History Tobacco Use Types Packs/Day Years [...] drink first t silvina in the morning (EYE-TANK WELDER) to steady your nerves or to get rid of a hangover? 0 12/10/2024 CAGE Questionnaire Score 0 025 Comments Unknown Sex and Gender Information Value Date Recorded Sex Assigned at Not on file Legal Sex Female 5:41 AM EDT Gender Identity Not on file Sexual Orientation Not on file documented as of this encounter Functional Status * Calculated C-SSRS Risk Score (Lifetime/Recent) Answer Date of Assessment Author No Risk Indicated 12/13/2024 7:55 PM EDT Michelle Junior, RN * Question Answer Date of Assessment Author 1. Wish to be (Past 1 Month) No 025 7:55 PM EDT Michelle Junior, RN 2. Non-Specific Active Suici niurka Thoughts (Past 1 Month) No 12/13/2024 7:55 PM EDT Michelle Junior , RN 6. Suicidal Behavior (Lifetime) No 7:55 PM EDT Michelle Junior, RN documented as of this encounter Plan of Treatment Upcoming Encounters Date Type Department Care Team (Late st Contact Info) Description 04/24/2025 9:00 AM EST Consult [place] [facility] [address] [place] [address] Lucretia Molina, DO [address] [place] [address] documented as of this encounter Visit Diagnoses Diagnosis Routine general medical examination at a health care facility documented in this encounter Additional Health Concerns Infection Onset Date Last Indicated Resolved Time COVID-19 Rule-Out 12/10/2024 12/10/2024 12/10/2024 6:23 PM EDT Assessment Noted Time A Body Mass Index follow-up plan has been documented for the patient 12/28/2024 10:38 AM EDT documented as of this encounter Care Teams Detail Manager Relationship Specialty Start Date End Date Pcp, No [address] [place] [address] PCP - General Family Medicine 12/10/24 documented as of this encounter
--- OUTSIDE RECORDS SUMMARY | 2025-02-12 10:31 | XMS_ITS | Encounter Summary ---
Author Organization Healthcare Address [address] [place] [address] Care Team Providers Care Clothes Model Name Role Phone Pcp, No Primary Care Provider Unavailabl e Encounter Details Date Type Department Care Team (Latest Contact Info) Description 12/19/2024 Travel Social History Tobacco Use Types Packs/Day [...] drink first t silvina in the morning (EYE-TRAIN STATION AGENT) to steady your nerves or to get [...] Date of Assessment Author No Risk Indicated 12/19/2024 7:00 PM EDT Marilee Brunson, RN * Question Answer Date of Assessment Author 1. Wish to be (Past 1 Month) No 025 7:00 PM EDT Marilee Brunson, RN 2. Non-Specific Active Suici niurka Thoughts (Past 1 Month) No 12/19/2024 7:00 PM EDT Ana Brunson RN 6. Suicidal Behavior (Lifetime) No 7:00 PM EDT Marilee Brunson, RN documented as of this encounter Plan of Treatment Upcoming Encounters Date Type Department Care Team (Late st Contact Info) Description 04/24/2025 9:00 AM EST Consult [place] [facility] [address] [place] [address] Lucretia Molina, DO [address] [place] [address] documented as of this encounter Visit Diagnoses Not on filedocumented in this encounter Additional Health Concerns Assessment Noted Time A Body Mass Index follow-up plan has been documented for the patient 12/28/2024 10:38 AM EDT documented as of this encounter Care Teams Clothes Model Relationship Specialty Start Date End Date Pcp, No [address] [place] [address] PCP - General Family Medicine 12/10/24 documented as of this encounter
--- OUTSIDE RECORDS SUMMARY | 2025-02-12 10:31 | XMS_ITS | Encounter Summary ---
Author Organization Healthcare Address [address] [place] [address] Care Team Providers Care Platen Press Operator Name Role Phone Pcp, No Primary Care Provider Unavailabl e Encounter Details Date Type Department Care Team (Late st Contact Info) Description 12/10/2024 Lab Requisition Formerly [facility] [address] [place] [address] Evens Cox PA [address] [place] [address] Routine general medical examination at [...] drink first t silvina in the morning (EYE-TURNAROUND ENGINEER) to steady your nerves or to get [...] Risk Indicated 12/13/2024 7:55 PM EDT Michelle Junior RN * Question Answer Date of Assessment Author 1. Wish to be (Past 1 Month) No 025 7:55 PM EDT Michelle Junior, OG 2. Non-Specific Active Suici niurka Thoughts (Past 1 Month) No 12/13/2024 7:55 PM EDT Michelle Junior , OG 6. Suicidal Behavior (Lifetime) No 7:55 PM EDT Michelle Junior, OG documented as of this encounter Plan of Treatment Upcoming Encounters Date Type Department Care Team (Late st Contact Info) Description 04/24/2025 9:00 AM EST Consult [place] [facility] [address] [place] [address] Lucretia Molina, DO [address] [place] [address] documented as of this encounter Procedures Procedure Name Priority Date/Time Associated Diagnosis Comments HEPATITIS B SURFACE ANTIGEN - ES Routine 12/10/2024 9:10 AM EDT Routine general medical examination at a health care facility HEPATITIS C ANTIBODY WITH REFLEX TO HCV QUANT PCR - [facility] Routine 12/10/2024 9:10 AM EDT Routine general medical examination at a health care facility HIV 1/2 ANTIBODY/ANTIGEN SCREEN W/REFLEX TO HIV 1/2 ANTIBODY DIFFERENTIATION Routine 12/10/2024 9:10 AM EDT Routine general medical examination at a health care facility HIV 1/2 ANTIBODY/ANTIGEN SCREEN WITH REFLEX TO HIV I/II DIFFERENTIATION Routine 12/10/2024 9:10 AM EDT Routine general medical examination at a health care facility SERUM DRUG SCREEN Routine 12/10/2024 9:1 0 AM EDT Routine general medical examination at a health care facility CBC WITH AUTO DIFFERENTIAL Routine 12/10/2024 9:10 AM EDT Routine general medical examination at a health care facility TSH Routine 12/10/2024 9:10 AM EDT Routine general medical examination at a [facility] care facility FREE T4, PLASMA Routine 12/10/2024 9:10 AM EDT Routine general medical examination at a [facility] care facility HEMOGLOBIN A1C Routine 12/10/2024 9:10 AM EDT Routine general medical examination at a [facility] care facility VITAMIN B12, SERUM Routine 12/10/2024 9: 10 AM EDT Routine general medical examination at a [facility] facility LIPID PROFILE, PLASMA Routine 12/10/2024 9:10 AM EDT Routine general medical examination at a [facility] facility COMPREHENSIVE METABOLIC PANEL, PLASMA Routine 12/10/2024 9:10 AM EDT Routine general medical examination at a [facility] care facility documented in this encounter Results * Vitamin B12 (12/10/2024 9:10 AM EDT) Pathologist [facility] Vitamin B12, Serum 267 210 - 1,033 pg/mL 12/10/2024 6:[address] [facility] Blood Venous blood specimen / Unknown Venipuncture / Unknown 12/10/2024 9:10 AM EDT 12/10/2024 9:18 AM EDT us [facility] BLOOD ORDERABLES Final Re sult [facility] [address] [place] [address] * HIV 1 & 2 Antibody/Antigen Screen (12/10/2024 9:10 AM EDT) Pathologist [facility] HIV 1 & 2 Antibody/Antigen Screen Non Reactive Non Reactive 12/10/2024 4:[address] [facility] Comment:Screening for HIV 1 & 2 antibodies, and P24 antigen is NONREACTIVE. No confirmatory testing is required. Blood Venous blood specimen / Unknown Venipuncture / Unknown 12/10/2024 9:10 AM EDT 12/10/2024 9:13 AM EDT us Evens [facility] BLOOD ORDERABLES Final Re sult Performing Organization Address [facility]/[place] [address] * (ABNORMAL) TSH (12/10/2024 9:10 AM EDT) Thyroid Stimulating Hormone, Plasma <0.01(L) 0.40 - 4.20 uIU/mL 12/10/2024 4:27 PM EDT [facility] Blood Venous blood specimen / Unknown Venipuncture / Unknown 12/10/2024 9:10 AM EDT 12/10/2024 9:13 AM EDT [facility] BLOOD ORDERABLES Final Re sult Performing Organization Address [facility] [place] [address] * (ABNORMAL) T4, free (12/10/2024 9:10 AM EDT) Free T4, Plasma 3.8(H) 0.8 - 1.7 ng/dL 12/10/2024 4:27 PM EDT [facility] Blood Venous blood specimen / Unknown Venipuncture / Unknown 12/10/2024 9:10 AM EDT 12/10/2024 9:13 AM EDT us [facility] BLOOD ORDERABLES Final Re sult Performing Organization Address City/[facility] [place] [address] * (ABNORMAL) Hemoglobin A1c (12/10/2024 9:10 AM EDT) Hemoglobin A1c 5.9(H) <5.7 % 12/10/2024 4:[address] [facility] Blood Venous blood specimen / Unknown Venipuncture / Unknown 12/10/2024 9:10 AM EDT 12/10/2024 9:[address] [facility] - 12/10/2024 4:45 PM EDT HA1C Interpretive Data: Diagnosis of Diabetes: Diabetic > or = 6.5% Pre-diabetic 5.7 to 6.4% Non-diabetic < or = 5.6% Glycemic Targets for Type I and Type II Diabetics: Non- Adults <7.0% Adults <6.0% Children and Adolescents <7.5% Source: [place] [employer]. Standards of medical care in diabetes,2017. Diabetes Care.2017:40 (suppl 1):S1-S135. us [facility] BLOOD ORDERABLES Final Re sult [facility] [address] [place] [address] * Lipid panel (12/10/2024 9:10 AM EDT) Cholesterol, Plasma 169 <200 mg/dL 12/10/2024 4:[address] [facility] Comment: Cholesterol Reference Range (age >17 years): Desirable <200 mg/dL Borderline 200 to 239 mg/dL Undesirable >239 mg/dL HDL 56 >=50 mg/dL 12/10/2024 4:[address] [facility] Comment: HDL Cholesterol Reference Ranges (age >17 years): Female, acceptable > or = 50 mg/dL Male, acceptable > or = 40 mg/dL Triglycerides, Plasma 107 <150 mg/dL 12/10/2024 4:[address] [facility] Comment: Triglyceride Reference Range (age >17 years): Desirable: <150 mg/dL Borderline high: 150 to 199 mg/dL High: 200 to 499 mg/dL Very high: >499 mg/dL Increased risk of pancreatitis: >1000 mg/dL Cholesterol/HDL Ratio 3 12/10/2024 4:[address] [facility] LDL, Calculated 94 <100 mg/dL 07/29/202 5 4:[address] [facility] Comment: LDL Cholesterol Reference Range (age >17 years): Optimal: <100 mg/dL Near or above optimal: 100 - 129 mg/dL Borderline high: 130 - 159 mg/dL High: 160 - 189 mg/dL Very high: >189 mg/dL LDL Cholesterol Reference Range (age <18 years): Desirable: <110 mg/dL Borderline: 110 - 129 mg/dL Undesirable: >130 mg/dL LDL Cholesterol is calculated using the Rai/NIH equation. Fasting greater than or equal to 12 hours? Unknown 12/10/2024 4:[address] [facility] Blood Venous blood specimen / Unknown Venipuncture / Unknown 12/10/2024 9:10 AM EDT 12/10/2024 9:13 AM EDT us [facility] BLOOD ORDERABLES Final Re sult [facility] [address] [place] [address] * (ABNORMAL) Comprehensive metabolic panel (12/10/2024 9:10 AM EDT) Glucose, Plasma 104(H) 74 - 99 mg/dL 12/10/2024 4:[address] [facility] BUN, Plasma 19 8 - 23 mg/dL 12/10/2024 4:[address] [facility] Creatinine, Plasma 0.62 0.60 - 1.10 mg/dL 12/10/2024 4:[address] [facility] BUN/Creatinine Ratio 31 12/10/2024 4:[address] [facility] Sodium, Plasma 143 136 - 145 mmol/L 12/10/2024 4:[address] [facility] Potassium, Plasma 4.0 3.6 - 4.9 mmol/L 12/10/2024 4:[address] [facility] Chloride, Plasma 106 97 - 107 mmol/L 12/10/2024 4:[address] [facility] CO2, Plasma 23 22 - 29 mmol/L 12/10/2024 4:[address] [facility] Anion Gap 14 6 - 16 mmol/L 12/10/2024 4:[address] [facility] Total Calcium, Plasma 9.8 8.9 - 10.2 mg/dL 12/10/2024 4:[address] [facility] Total Protein 6.4 6.3 - 7.9 g/dL 12/10/2024 4:[address] [facility] Albumin, Plasma 4.0 3.5 - 5.2 g/dL 12/10/2024 4:[address] [facility] AST, Plasma 26 10 - 35 U/L 12/10/2024 4:[address] [facility] ALT, Plasma 17 10 - 35 U/L 12/10/2024 4:[address] [facility] Alkaline Phosphatase, Plasma 82 46 - 142 U/L 12/10/2024 4:[address] [facility] Total Bilirubin, Plasma 0.4 0.2 - 1.1 mg/dL 12/10/2024 4:[address] [facility] eGFRcr 98.4 mL/min/1.7 3m*2 12/10/2024 4:[address] [facility] Comment:Reported eGFRcr in m L/min/1.73m2 is based the CKD-EPI 2020 equation that does not use a race coefficient. Blood Venous blood specimen / Unknown Venipuncture / Unknown 12/10/2024 9:10 AM EDT 12/10/2024 9:13 AM EDT us [facility] BLOOD ORDERABLES Final Re sult [facility] [address] [place] [address] * Serum Drug Screen (12/10/2024 9:10 AM EDT) 9 Carboxy THC <5 <5 ng/mL 12/12/2024 11:[address] [facility] Alprazolam <5 <5 ng/mL 12/12/2024 11:[address] [facility] Amphetamine <10 <10 ng/mL 12/12/2024 11:[address] [facility] Benzolyecgonine <20 <20 ng/mL 11:[address] [facility] Buprenorphine <1.0 <1.0 ng/mL 12/12/2024 11:[address] [facility] Butalbital <50 <50 ng/mL 12/12/2024 11:[address] [facility] Clonazepam <5 <5 ng/mL 12/12/2024 11:[address] [facility] Codeine <5 <5 ng/mL 12/12/2024 11:[address] [facility] Diazepam <5 <5 ng/mL 12/12/2024 11:[address] [facility] Fentanyl <1 <1 ng/mL 12/12/2024 11:[address] [facility] Hydrocodone <2 <2 ng/mL 12/12/2024 11:[address] [facility] Hydromorphone <5 <5 ng/mL 12/12/2024 11:[address] [facility] Lorazepam <5 <5 ng/mL 12/12/2024 11:[address] [facility] MDA <10 <10 ng/mL 12/12/2024 11:[address] [facility] MDMA <10 <10 ng/mL 12/12/2024 11:[address] [facility] Meperidine <5 <5 ng/mL 12/12/2024 11:[address] [facility] Methadone <10 <10 ng/mL 12/12/2024 11:[address] [facility] Methadone Metabolite <10 <10 ng/mL 11/14 11:[address] [facility] Methamphetamine <10 <10 ng/mL 11:[address] [facility] Midazolam <5 <5 ng/mL 12/12/2024 11:[address] [facility] Morphine <2 <2 ng/mL 12/12/2024 11:[address] [facility] Norbuprenorphine <5 <5 ng/mL 12/13/19 11:[address] [facility] Nordiazepam <10 <10 ng/mL 12/12/2024 11:[address] [facility] Oxazepam <5 <5 ng/mL 12/12/2024 11:[address] [facility] Oxycodone <2 <2 ng/mL 12/12/2024 11:[address] [facility] Oxymorphone <2 <2 ng/mL 12/12/2024 11:[address] [facility] Phenobarbital <50 <50 ng/mL 12/12/2024 11:[address] [facility] Temazepam <5 <5 ng/mL 12/12/2024 11:[address] [facility] Tramadol <20 <20 ng/mL 12/12/2024 11:[address] [facility] Blood Venous blood specimen / Unknown Venipuncture / Unknown 12/10/2024 9:10 AM EDT 12/10/2024 9:[address] [facility] - 12/12/2024 11:00 PM EDT Test performed by LC-MS/MS at the [facility]. This test was developed and its performance characteristics determined by [facility]. It has not been cleared or approved by the FDA. The laboratory is regulated under CLIA as qualified to perform high-complexity testing. This test is used for clinical purposes. us Ev[facility] BLOOD ORDERABLES Final Re sult [facility] [address] [place] [address] * (ABNORMAL) CBC and Differential (12/10/2024 9:10 AM EDT) WBC Count 6.02 3.70 - 10.30 10*3/uL LAB HEMATOLOGY METHOD 12/10/2024 4:[address] [facility] RBC Count 4.78 3.90 - 5.20 10*6/uL LAB HEMATOLOGY METHOD 12/10/2024 4:[address] [facility] HGB 13.4 11.2 - 15.7 g/dL LAB HEMATOLOGY METHOD 12/10/2024 4:[address] [facility] HCT 41.6 34.0 - 45.0 % LAB HEMATOLOGY METHOD 12/10/2024 4:[address] [facility] Platelet Count 230 155 - 369 10*3/uL LAB HEMATOLOGY METHOD 12/10/2024 4:[address] [facility] MCV 87 79 - 98 fL LAB HEMATOLOGY METHOD 12/10/2024 4:[address] [facility] MCH 28.0 26.0 - 32.0 pg LAB HEMATOLOGY METHOD 12/10/2024 4:[address] [facility] MCHC 32.2 30.7 - 35.5 g/dL LAB HEMATOLOGY METHOD 12/10/2024 4:[address] [facility] RDW 13.4 11.5 - 14.5 % LAB HEMATOLOGY METHOD 12/10/2024 4:[address] [facility] MPV 12.9(H) 8.8 - 12.5 fL LAB HEMATOLOGY METHOD 12/10/2024 4:[address] [facility] nRBC 0.0 <=0.0 per 100 WBCs LAB HEMATOLOGY METHOD 12/10/2024 4:[address] [facility] Differential Type Automated LAB HEMATOLOGY METHOD 12/10/2024 4:[address] [facility] Neutrophils % 49 % LAB HEMATOLOGY METHOD 12/10/2024 4:[address] [facility] Lymphocytes % 39 % LAB HEMATOLOGY METHOD 12/10/2024 4:[address] [facility] Monocytes % 11 % LAB HEMATOLOGY METHOD 12/10/2024 4:[address] [facility] Eosinophils % 1 % LAB HEMATOLOGY METHOD 12/10/2024 4:[address] [facility] Basophils % 0 % LAB HEMATOLOGY METHOD 12/10/2024 4:[address] [facility] Immature Granulocytes % 0 % LAB HEMATOLOGY METHOD 12/10/2024 4:[address] [facility] Neutrophils Absolute 2.96 1.60 - 6.10 10*3/uL LAB HEMATOLOGY METHOD 12/10/2024 4:[address] [facility] Lymphocytes Absolute 2.32 1.20 - 3.90 10*3/uL LAB HEMATOLOGY METHOD 12/10/2024 4:[address] [facility] Monocytes Absolute 0.65 0.30 - 0.90 10*3/uL LAB HEMATOLOGY METHOD 12/10/2024 4:[address] [facility] Eosinophils Absolute 0.06 0.00 - 0.50 10*3/uL LAB HEMATOLOGY METHOD 12/10/2024 4:[address] [facility] Basophils Absolute 0.02 0.00 - 0.10 10*3/uL LAB HEMATOLOGY METHOD 12/10/2024 4:[address] [facility] Immature Granulocytes Absolute 0.01 0.00 - 0.06 10*3/uL LAB HEMATOLOGY METHOD 12/10/2024 4:[address] [facility] Blood Venous blood specimen / Unknown Venipuncture / Unknown 12/10/2024 9:10 AM EDT 12/10/2024 9:[address] [facility] - 12/10/2024 4:11 PM EDT Therapeutic decision making should be based on absolute values, rather than percentages. [facility] BLOOD ORDERABLES Final Re sult Performing Organization Address City/[facility]/ZIP Co de Phone Number [facility] [address] [place] [address] * Hepatitis C Antibody with Reflex to HCV Quant PCR - [facility] (12/10/2024 9:10 AM EDT) Hepatitis C Antibody Negative Negative 12/10/2024 4:[address] [facility] Blood Venous blood specimen / Unknown Venipuncture / Unknown 12/10/2024 9:10 AM EDT 12/10/2024 9:13 AM EDT [facility] BLOOD ORDERABLES Final Re sult [facility] [address] [place] [address] * Hepatitis B Surface Antigen - [facility] (12/10/2024 9:10 AM EDT) Hepatitis B Surf Antigen Negative Negative 12/10/2024 5:[address] [facility] Blood Venous blood specimen / Unknown Venipuncture / Unknown 12/10/2024 9:10 AM EDT 12/10/2024 9:13 AM EDT us [facility] BLOOD ORDERABLES Final Re sult [facility] [address] [place] [address] documented in this encounter Visit Diagnoses Diagnosis Routine general medical examination at a health care facility documented in this encounter Additional Health Concerns Infection Onset Date Last Indicated Resolved Time COVID-19 Rule-Out 12/10/2024 12/10/2024 12/10/2024 6:23 PM EDT Assessment Noted Time A Body Mass Index follow-up plan has been documented for the patient 12/28/2024 10:38 AM EDT documented as of this encounter Care Teams Platen Press Operator Relationship Specialty Start Date End Date Pcp, Yen [address] [place] [address] PCP - General Family Medicine 12/10/24 documented as of this encounter
--- OUTSIDE RECORDS SUMMARY | 2025-02-12 10:31 | XMS_ITS | Encounter Summary ---
Author Organization Healthcare Address [address] [place] [address] Care Team Providers Care Knitting Machine Fixer Head Name Role Phone Pcp, No Primary Care Provider Unavailabl e Encounter Details Date Type Department Care Team (Latest Contact Info) Description 12/18/2024 Travel Social History Tobacco Use Types Packs/Day [...] drink first t silvina in the morning (EYE-SECURITIES ADVISER) to steady your nerves or to get rid of a hangover? 0 12/10/2024 CAGE Questionnaire Score 0 025 Comments No Sex and Gender Information Value Date Recorded Sex Assigned at Not on file Legal Sex Female 5:41 AM EDT Gender Identity Not on file Sexual Orientation Not on file documented as of this encounter Plan of Treatment Upcoming Encounters Date Type Department Care Team (Late st Contact Info) Description 04/24/2025 9:00 AM EST Consult [place] [facility] [address], [address] [place] [address] Lucretia Molina, DO [address] [place] [address] documented as of this encounter Visit Diagnoses Not on filedocumented in this encounter Additional Health Concerns Assessment Noted Time A Body Mass Index follow-up plan has been documented for the patient 12/28/2024 10:38 AM EDT documented as of this encounter Care Teams Knitting Machine Fixer Head Relationship Specialty Start Date End Date Pcp, [place] [address] PCP - General Family Medicine 12/10/24 documented as of this encounter
--- OUTSIDE RECORDS SUMMARY | 2025-02-12 10:31 | XMS_ITS | Encounter Summary ---
Author Organization Healthcare Address [address] [place] [address] Care Team Providers Care Call Worker Name Role Phone Pcp, No Primary Care Provider Unavailabl e Encounter Details Date Type Department Care Team (Late st Contact Info) Description 12/10/2024 Lab Requisition [facility] [address] [place] [address] Routine general medical examination at [...] drink first t silvina in the morning (EYE-BLACKING WHEEL TENDER) to steady your nerves or to get [...] Consult [place] [facility] [address] [place] [address] Lucretia Molina, DO [address] [place] [address] documented as of this encounter [...] documented as of this encounter Care Teams Call Worker Relationship Specialty Start Date End Date Pcp, No [address] [place] [address] PCP - General Family Medicine 12/10/24 documented as of this encounter
--- OUTSIDE RECORDS SUMMARY | 2025-02-12 10:31 | XMS_ITS | Encounter Summary ---
Author Organization Healthcare Address [address] [place] [address] Care Team Providers Care Paper Cone Drying Machine Operator Name Role Phone Pcp, No Primary Care Provider Unavailabl e Encounter Details Date Type Department Care Team (Latest Contact Info) Description 12/17/2024 Travel Social History Tobacco Use Types Packs/Day [...] drink first t silvina in the morning (EYE-REAGENT TENDER HELPER) to steady your nerves or to get [...] Date of Assessment Author No Risk Indicated 12/17/2024 8:00 PM EDT Kaelyn Canales * Question Answer Date of Assessment Author 1. Wish to be (Past 1 Month) No 025 8:00 PM EDT Parker, Kaelyn S 2. Non-Specific Active Suici niurka Thoughts (Past 1 Month) No 12/17/2024 8:00 PM EDT Sol Canales S 6. Suicidal Behavior (Lifetime) No 8:00 PM EDT Kaelyn Canales S documented as of this encounter Plan of Treatment Upcoming Encounters Date Type Department Care Team (Late st Contact Info) Description 04/24/2025 9:00 AM EST Consult [place] [facility] [address] [place] [address] Lucretia Molina, DO [address] [place] [address] documented as of this encounter Visit Diagnoses Not on filedocumented in this encounter Additional Health Concerns Assessment Noted Time A Body Mass Index follow-up plan has been documented for the patient 12/28/2024 10:38 AM EDT documented as of this encounter Care Teams Paper Cone Drying Machine Operator Relationship Specialty Start Date End Date Pcp, No [address] [place] [address] PCP - General Family Medicine 12/10/24 documented as of this encounter
--- OUTSIDE RECORDS SUMMARY | 2025-02-12 10:31 | XMS_ITS | Clinical Summary ---
Author Organization [facility] Address [address] [place] [address] Care Team Providers Care Mini Lab Operator Name Role Phone Pcp, No Primary Care Provider Unavailabl e Allergies No known active allergies Medications apixaban (Eliquis) 5 MG tablet Take 1 tablet by mouth 2 times a day. 60 tablet 5 Active acetaminophen (Tylenol) 325 MG tablet Take 2 tablets by mouth every 8 hours as needed for pain. Under [place] law, monthly prescriptions (30 days) can be refilled at 25 days and three-month prescriptions (90 days) at 80 days. Please contact the insurance company with questions if refills are denied. 5 Active melatonin tablet Take 2 tablets by mouth at night as needed for sleep. 5 Active methIMAzole (Tapazole) 10 MG tablet Take 1 tablet by mouth 2 times a day. 120 tablet 5 02/26/20 25 Active propranolol (Inderal) 10 MG tablet Take 1 tablet by mouth 2 times a day. 60 tablet 5 Active senna (Senokot) 8.6 MG tablet Take 1 tablet by mouth nightly. 30 tablet 5 Active traZODone (Desyrel) 50 MG tablet Take 1 tablet by mouth at night as needed for sleep. 14 tablet 5 Active triamcinolone (Kenalog) 0.1 % cream 4 Active Active Problems Problem Noted Date Diagnosed Date MS (multiple sclerosis) 12/10/2024 Hyperthyroidism 12/10/2024 Eczema 12/10/2024 Resolved Problems Problem Noted Date Diagnosed Date Resolved Date Altered mental status, unspe cified altered mental status type 12/12/2024 12/27/2024 Altered mental status 12/10/20242024 Abnormal finding on urinalysis 12/10/2024 12/27/2024 Encounters Date Type Department Care Team Description 01/10/2025 10:00 AM EDT Office Visit [facility] [address], [address] [place] [address] Diane Neely MD NPH (normal pressure hydrocephalus) (CMS/HCC) (Primary Dx) 01/10/2025 Travel 12/21/2024 Travel 12/20/2024 Travel 12/19/2024 Travel 12/18/2024 Travel 12/17/2024 Travel 12/11/2024 Travel 12/10/2024 3:51 PM EDT - 12/28/2024 2:40 PM EDT Hospital Encounter [facility] [address] [place] [address] Desi Kent MD Saari, Haleigh D, DO Javid, Haleema, MD Khalid, MD Iban Duke Reema, MD Andika, Reynold, MD Altered mental status, unspecified altered mental status type (Primary Dx); Hyperthyroidism; Elevated troponin; Cerebral ventriculomegaly; MS (multiple sclerosis) (CMS/HCC); Paroxysmal atrial fibrillation (CMS/HCC) Discharge Disposition: Home or Self Care 12/10/2024 Travel 12/10/2024 Lab Requisition [place] [address] [place] [address] Routine general medical examination at a health care facility 12/10/2024 Lab Requisition [facility] [address] [place] [address] Routine general medical examination at a health care facility 12/10/2024 Lab Requisition [facility] [address] [place] [address] Evens Cox PA Routine general medical examination at a health care facility from Last 3 Months Social History Tobacco Use Types Packs/Day Years [...] drink first t silvina in the morning (EYE-SURVEY[employer] OIL [employer] DIRECTIONAL) to steady your nerves or to get rid of a hangover? 0 12/10/2024 CAGE Questionnaire Score 0 025 Comments No Sex and Gender Information Value Date Recorded Sex Assigned at Not on file Legal Sex Female 5:41 AM EDT Gender Identity Not on file Sexual Orientation Not on file Last Filed Vital Signs Vital Sign Reading Time Taken Comments Blood Pressure 108/68 01/10/2025 9:45 AM EDT Pulse 71 01/10/2025 9:45 AM EDT Temperature 36.7 C (98.1 F) 12/28/2024 12:10 PM EDT Respiratory Rate 15 12/28/2024 12:1 0 PM EDT Oxygen Saturation 98% 01/10/2025 9:45 AM EDT Inhaled Oxygen Concentration - - Weight 64.8 kg (142 lb 13.7 oz) 01/10/2025 9:45 AM EDT Height 167.6 cm (5' 6 ) 01/10/2025 9:4 5 AM EDT Body Mass Index 23.06 01/10/2025 9:45 AM EDT Plan of Treatment Upcoming Encounters Date Type Department Care Team (Late st Contact Info) Description 04/24/2025 9:00 AM EST Consult [place] [facility] [address], [address] [place] [address] Lucretia Molina, DO [address] [place] [address] Health Maintenance Due Date Last Done Comments [facility]-Bone Density Scan 1958 [facility]-Depression Screening 1958 [facility]-Hepatitis C Screening 1958 [facility]-Medicare Annual Wellness (AWV) 1958 [facility]-/Child/Adol SDOH Screenings 1958 [facility]- SDOH Screenings 1976 [facility]-Adult SDOH Screenings 1976 CT Colonography 2003 Colonoscopy 2003 FIT-DNA 2003 FIT 2003 FOBT 2003 Sigmoidoscopy 2003 [facility]-Colorectal Cancer Screening 2003 [facility]-Breast Cancer Screening 2008 [facility]-Pneumococcal Vaccine: 50 + Years (1 of 1 - PCV) 2008 [facility]-Zoster Vaccines (1 of 2) 2008 [id number] Vaccine (2 - 20 25- season) 2025 07/22/2020 [facility]-Influenza Vaccine (#1) 2025 [facility]-Diabetes: Hemoglobin A1C 12/10/2025 12/10/2024 [facility]-DTaP,Tdap,and Td Vaccine s (2 - Td or Tdap) 03/22/2028 03/22/2018 [facility]-RSV Vaccine: 60+ Years o r (1 - 1-dose 75+ series) 2033 HPV Vaccines Aged Out No longer eligi ble based on patient's age to complete this topic [facility]-HIB Vaccines Aged Out No longer e ligible based on patient's age to complete this topic [facility]-Hepatitis A Vaccines Aged Out No longer eligible based on patient's age to complete this topic [facility]-IPV Vaccines Aged Out No longer e ligible based on patient's age to complete this topic [facility]-Rotavirus Vaccines Aged Out No lo nger eligible based on patient's age to complete this topic Procedures Procedure Name Priority Date/Time Associated Diagnosis [...] VIEW Routine 12/17/2024 8:2 7 PM EDT BASIC METABOLIC PANEL, PLASMA Routine 12/14/2024 3:34 AM EDT CBC WITH AUTO DIFFERENTIAL Routine 12/14/2024 3:34 AM EDT DRUG ABUSE SCREEN, URINE Routine 12/13/2024 10:01 PM EDT BASIC METABOLIC PANEL, PLASMA Routine 12/13/2024 1:28 AM EDT CBC WITH AUTO DIFFERENTIAL Routine 12/13/2024 1:28 AM EDT BASIC METABOLIC PANEL, PLASMA Routine 12/12/2024 3:27 AM EDT CBC WITH AUTO DIFFERENTIAL Routine 12/12/2024 3:27 AM EDT THYROID STIMULATING IMMUNOGLOBULIN (SO) Routine 12/11/2024 1:11 PM EDT THYROID STIMULATING HORMONE RECEPTOR ANTIBODY (TRAB)(SO) Routine 12/11/2024 1:11 PM EDT ECHO, ADULT TRANSTHORACIC COMPLETE Routine 12/11/2024 9:23 AM EDT T3 Add-On 12/11/2024 3:24 AM EDT PTH INTACT TOTAL Routine 12/11/2024 3:24 AM EDT BASIC METABOLIC PANEL, PLASMA Routine 12/11/2024 3:24 AM EDT CBC WITH AUTO DIFFERENTIAL Routine 12/11/2024 3:24 AM EDT THYROID PEROXIDASE ANTIBODY Add-On 12/10/2024 11:08 PM EDT SEDIMENTATION RATE, AUTOMATED Routine 12/10/2024 11:08 PM EDT FOLATE, SERUM Routine 12/10/2024 11:08 PM EDT VITAMIN B1 (THIAMINE), WHOLE BLOOD (SO) Routine 12/10/2024 11:08 PM EDT CORTISOL Routine 12/10/2024 11:08 PM EDT TROPONIN T, HIGH SENSITIVITY, 2 HOUR, PLASMA Timed 12/10/2024 7:23 PM EDT XR CHEST 1 VIEW STAT 12/10/2024 6:44 PM EDT ECG ADULT STAT 12/10/2024 6:[address] ANGIO NECK STAT 12/10/2024 6:[address] ANGIO HEAD STAT 12/10/2024 6:[address] HEAD WO IV CONTRAST STAT 6:14 PM EDT URINALYSIS MICROSCOPIC FOR UA REFLEX STAT 12/10/2024 5:40 PM EDT URINE MONTES PANEL STAT 12/10/2024 5:40 PM EDT URINALYSIS WITH REFLEX MICROSCOPIC STAT 12/10/2024 5:40 PM EDT URINALYSIS WITH REFLEX MICROSCOPIC AND CULTURE STAT 12/10/2024 5:40 PM EDT PROCALCITONIN, PLASMA Add-On 12/10/2024 5:09 PM EDT C-REACTIVE PROTEIN, PLASMA Add-On 12/10/2024 5:09 PM EDT N-TERMINAL PROBNP, PLASMA STAT 12/10/2024 5:09 PM EDT CBC WITH AUTO DIFFERENTIAL STAT 12/10/2024 5:09 PM EDT ETHYL ALCOHOL PLASMA STAT 12/10/2024 5:09 PM EDT BLOOD GAS PANEL, VENOUS STAT 12/11/19 5:09 PM EDT FREE T4, PLASMA STAT 12/10/2024 5:09 PM EDT TSH STAT 12/10/2024 5:09 PM EDT TROPONIN T, HIGH SENSITIVITY, 0 HOUR, PLASMA, REFLEX TO 2 HOUR STAT 12/10/2024 5:09 PM EDT MAGNESIUM, PLASMA STAT 12/10/2024 5:0 9 PM EDT COMPREHENSIVE METABOLIC PANEL, PLASMA STAT 12/10/2024 5:09 PM EDT SARS-COV-2, FLU A, FLU B, AND RSV - RAPID STAT 12/10/2024 5:09 PM EDT ECG ADULT STAT 12/10/2024 4:11 PM EDT ECG ADULT Routine 12/10/2024 10:12 AM EDT Therapeutic drug monitoring VITAMIN B12, SERUM Routine 12/10/2024 9: 10 AM EDT Routine general medical examination at a [facility] care facility HIV 1/2 ANTIBODY/ANTIGEN SCREEN WITH REFLEX TO HIV I/II DIFFERENTIATION Routine 12/10/2024 9:10 AM EDT Routine general medical examination at a health care facility TSH Routine 12/10/2024 9:10 AM EDT Routine general medical examination at a [facility] care facility FREE T4, PLASMA Routine 12/10/2024 9:10 AM EDT Routine general medical examination at a [facility] care facility HEMOGLOBIN A1C Routine 12/10/2024 9:10 AM EDT Routine general medical examination at a [facility] facility LIPID PROFILE, PLASMA Routine 12/10/2024 9:10 AM EDT Routine general medical examination at a [facility] facility COMPREHENSIVE METABOLIC PANEL, PLASMA Routine 12/10/2024 9:10 AM EDT Routine general medical examination at a [facility] facility SERUM DRUG SCREEN Routine 12/10/2024 9:1 0 AM EDT Routine general medical examination at a [facility] care facility CBC WITH AUTO DIFFERENTIAL Routine 12/10/2024 9:10 AM EDT Routine general medical examination at a [facility] facility HIV 1/2 ANTIBODY/ANTIGEN SCREEN W/REFLEX TO HIV 1/2 ANTIBODY DIFFERENTIATION Routine 12/10/2024 9:10 AM EDT Routine general medical examination at a [facility] care facility HEPATITIS C ANTIBODY WITH REFLEX TO HCV QUANT PCR - [facility] Routine 12/10/2024 9:10 AM EDT Routine general medical examination at a [facility] care facility HEPATITIS B SURFACE ANTIGEN - [facility] Routine 12/10/2024 9:10 AM EDT Routine general medical examination at a [facility] care facility from Last 3 Months Results * MR Head w and wo [...] on 12/21/2024 6:49 PM Loi Guzman MD [facility] [place] PROCEDURES Keila l Result * Imaging MRI Procedure Not Performed (12/20/2024 8:04 PM EDT) Narrative IMAGING - 12/20/2024 8:04 PM EDT This procedure was not performed. Procedure: MR HEAD W AND WO IV CONTRAST Reason: Other Patient needs to be A&O for MRI due to FB in abd/pelvis. Wu Newby MD [facility] [place] PROCEDURES Final Result IMAGING * XR [...] wo IV Contrast (12/18/2024 4:30 PM EDT) Only the most recent of2 resultswithin the time period is included. Anatomical Region Laterality Modality Head Computed Tomogra [...] air cells are clear. Procedure Note Kevin Banuelos MD - 12/18/2024 CLINICAL INDICATION: Mental status [...] signing this report, I, the attending physician, atttrishthat I have personally reviewed the images/data for the aboveexamination(s) and agree with the final edited report. Drafted by Flash Schultz D.O. on 12/18/2024 4:41 PM Final report signed by Kevin Banuelos MD on 12/18/2024 7:24 PM Loi Guzman MD IMG CT PROCEDURES Final Result * CBC and Differential (12/18/2024 2:16 AM EDT) Only the most recent of7 resultswithin the time period is included. WBC Count 5.67 3.70 - 10.30 10*3/uL LAB HEMATOLOGY METHOD 12/18/2024 2:36 AM EDT [facility] RBC Count 4.32 3.90 - 5.20 10*6/uL LAB HEMATOLOGY METHOD 12/18/2024 2:36 AM EDT [facility] HGB 12.0 11.2 - 15.7 g/dL LAB HEMATOLOGY METHOD 12/18/2024 2:36 AM EDT [facility] HCT 36.1 34.0 - 45.0 % LAB HEMATOLOGY METHOD 12/18/2024 2:36 AM EDT [facility] Platelet Count 224 155 - 369 10*3/uL LAB HEMATOLOGY METHOD 12/18/2024 2:36 AM EDT [facility] MCV 84 79 - 98 fL LAB HEMATOLOGY METHOD 12/18/2024 2:36 AM EDT [facility] MCH 27.8 26.0 - 32.0 pg LAB HEMATOLOGY METHOD 12/18/2024 2:36 AM EDT [facility] MCHC 33.2 30.7 - 35.5 g/dL LAB HEMATOLOGY METHOD 12/18/2024 2:36 AM EDT [facility] RDW 12.8 11.5 - 14.5 % LAB HEMATOLOGY METHOD 12/18/2024 2:36 AM EDT [facility] MPV 12.4 8.8 - 12.5 fL LAB HEMATOLOGY METHOD 12/18/2024 2:36 AM EDT [facility] nRBC 0.0 <=0.0 per 100 WBCs LAB HEMATOLOGY METHOD 12/18/2024 2:36 AM EDT [facility] Differential Type Automated LAB HEMATOLOGY METHOD 12/18/2024 2:36 AM EDT [facility] Neutrophils % 40 % LAB HEMATOLOGY METHOD 12/18/2024 2:36 AM EDT [facility] Lymphocytes % 45 % LAB HEMATOLOGY METHOD 12/18/2024 2:36 AM EDT [facility] Monocytes % 11 % LAB HEMATOLOGY METHOD 12/18/2024 2:36 AM EDT [facility] Eosinophils % 3 % LAB HEMATOLOGY METHOD 12/18/2024 2:36 AM EDT [facility] Basophils % 1 % LAB HEMATOLOGY METHOD 12/18/2024 2:36 AM EDT [facility] Immature Granulocytes % 0 % LAB HEMATOLOGY METHOD 12/18/2024 2:36 AM EDT [facility] Neutrophils Absolute 2.28 1.60 - 6.10 10*3/uL LAB HEMATOLOGY METHOD 12/18/2024 2:36 AM EDT [facility] Lymphocytes Absolute 2.54 1.20 - 3.90 10*3/uL LAB HEMATOLOGY METHOD 12/18/2024 2:36 AM EDT [facility] Monocytes Absolute 0.62 0.30 - 0.90 10*3/uL LAB HEMATOLOGY METHOD 12/18/2024 2:36 AM EDT [facility] Eosinophils Absolute 0.19 0.00 - 0.50 10*3/uL LAB HEMATOLOGY METHOD 12/18/2024 2:36 AM EDT [facility] Basophils Absolute 0.03 0.00 - 0.10 10*3/uL LAB HEMATOLOGY METHOD 12/18/2024 2:36 AM EDT [facility] Immature Granulocytes Absolute 0.01 0.00 - 0.06 10*3/uL LAB HEMATOLOGY METHOD 12/18/2024 2:36 AM EDT [facility] Blood Venous blood specimen / Unknown Venipuncture / Unknown 12/18/2024 2:16 AM EDT 12/18/2024 2:28 AM EDT Narrative [facility] - 12/18/2024 2:36 AM EDT Therapeutic decision making should be based on absolute values, rather than percentages. Wu Newby MD LAB BLOOD ORDERABLES Final Resu lt [facility] [address] [place] [address] * (ABNORMAL) Basic metabolic panel (12/18/2024 2:16 AM EDT) Only the most recent of5 resultswithin the time period is included. Glucose, Plasma 129(H) 74 - 99 mg/dL 12/18/2024 2:58 AM EDT [facility] BUN, Plasma 21 8 - 23 mg/dL 12/18/2024 2:58 AM EDT [facility] Creatinine, Plasma 0.74 0.60 - 1.10 mg/dL 12/18/2024 2:58 AM EDT [facility] BUN/Creatinine Ratio 28 12/18/2024 2:58 AM EDT [facility] Sodium, Plasma 140 136 - 145 mmol/L 12/18/2024 2:58 AM EDT [facility] Potassium, Plasma 3.9 3.6 - 4.9 mmol/L 12/18/2024 2:58 AM EDT [facility] Chloride, Plasma 105 97 - 107 mmol/L 12/18/2024 2:58 AM EDT [facility] CO2, Plasma 26 22 - 29 mmol/L 12/18/2024 2:58 AM EDT [facility] Anion Gap 9 6 - 16 mmol/L 12/18/2024 2:58 AM EDT [facility] Total Calcium, Plasma 9.2 8.9 - 10.2 mg/dL 12/18/2024 2:58 AM EDT [facility] eGFRcr 89.4 mL/min/1.7 3m*2 12/18/2024 2:58 AM EDT [facility] Comment:Reported eGFRcr in m L/min/1.73m2 is based the CKD-EPI 2020 equation that does not use a race coefficient. Blood Venous blood specimen / Unknown Venipuncture / Unknown 12/18/2024 2:16 AM EDT 12/18/2024 2:29 AM EDT Wu Newby MD LAB BLOOD ORDERABLES Final Resu lt [facility] [address] [place] [address] * XR Abdomen 1 View (12/17/2024 8:27 [...] Ibarra MD on 12/17/2024 9:02 PM us Girs Pride MD IMG XR PROCEDURES Final Result * Drug Abuse Screen Urine (12/13/2024 10:01 PM EDT) Amphetamine Screen Urine Negative Cutoff: 500 ng/mL 12/13/2024 10:41 PM EDT [facility] Benzodiazepines Screen Urine Negative Cutoff: 200 ng/mL 12/13/2024 10:41 PM EDT [facility] Cannabinoid Screen Urine Negative Cutoff: 50 ng/mL 12/13/2024 10:41 PM EDT [facility] Cocaine Screen Urine Negative Cutoff: 300 ng/mL 12/13/2024 10:41 PM EDT [facility] Barbiturate Screen Urine Negative Cutoff: 200 ng/mL 12/13/2024 10:41 PM EDT [facility] Opiate Screen Urine Negative Cutoff: 300 ng/mL 12/13/2024 10:41 PM EDT [facility] Methadone Screen Urine Negative Cutoff: 300 ng/mL 12/13/2024 10:41 PM EDT [facility] Buprenorphine Screen Urine Negative Cutoff: 10 ng/mL 12/13/2024 10:41 PM EDT [facility] Fentanyl Screen Urine Negative Cutoff: 1 ng/mL 12/13/2024 10:41 PM EDT [facility] Oxycodone Screen Urine Negative Cutoff: 100 ng/mL 12/13/2024 10:41 PM EDT [facility] Urine Urine specimen obtained by clean catch procedure / Unknown Non-blood Collection / Unknown 12/13/2024 10:01 PM EDT 12/13/2024 10:11 PM EDT us Wu Newby MD LAB URINE ORDERABLES Final Resu lt [facility] [address] [place] [address] * (ABNORMAL) Thyroid Stimulating Hormone Receptor Antibody (12/11/2024 1:11 PM EDT) TSH Receptor Antibody 28.80(H) <=1.75 IU/L 12/12/2024 11:22 PM EDT [facility]) Serum Venous blood specimen / Unknown 12/11/2024 1:11 PM EDT 12/11/2024 1:30 PM EDT Narrative [facility]) - 12/12/2024 11:22 PM EDT Performed By: [employer] [address] [place] [address] Chief Steward/Stewardess: Antony Sumner MD, PhD CLIA Number: [id number] Wu Newby MD LAB BLOOD ORDERABLES Final Resu lt Performing Organization Address [facility] de Phone Number [facility] [employer]) [address] [place] [address] * (ABNORMAL) Thyroid stimulating immunoglobulin (12/11/2024 1:11 PM EDT) TSI Result 17.60(H) <=0.54 IU/L 12/13/2024 2:19 AM EDT [facility]) Serum Venous blood specimen / Unknown 12/11/2024 1:11 PM EDT 12/11/2024 1:30 PM EDT Narrative [facility]) - 12/13/2024 2:19 AM EDT INTERPRETIVE INFORMATION: [...] medical history, and other findings. Performed By: [employer] [address] [place] [address] Chief Steward/Stewardess: Antony Sumner MD, PhD CLIA Number: [id number] Wu Newby MD LAB BLOOD ORDERABLES Final Resu lt Performing Organization Address City/[facility]/ZIP Co de Phone Number [facility]UR[facility]) [facility] [place] [address] * ECHO, ADULT TRANSTHORACIC COMPLETE (12/11/2024 9:23 [...] mean PAP 34 mmHg SMITA ISCV PA CO(ACCEL) 36.2 mmHg [facility] ISCV PA acc slope 755.2 cm/s2 [facility] ISCV LV Lat e' Velocity 11.2 cm/s [facility] ISCV LV Sept e' Manjit 7.1 cm/s [facility] ISCV TAPSE 21 mm [facility] ISCV BSA 1.73 m2 [facility] ISCV [facility] CV ECHO LV MASS INDEX 67 g/m2 [facility] ISCV MV A Vmax 61.3 cm/s SMITA ISCV MV E Vmax 50.3 cm/s SIMTA ISCV MV E/A 0.8 cm/s SMITA ISCV [...] is no recent study available for direct [id number] comparison. Left Ventricle The left ventricle is [...] is no recent study available for direct [id number]-[id number] comparison. Amanda Maddox APRN CV ECHO PROCEDURES Keila carlson Result * (ABNORMAL) T3 (12/11/2024 3:24 AM EDT) T3, Serum 264(H) 87 - 187 ng/dL 12/11/2024 1:49 PM EDT [facility] Blood Venous blood specimen / Unknown Venipuncture / Unknown 12/11/2024 3:24 AM EDT 12/11/2024 3:40 AM EDT Wu Newby MD LAB BLOOD ORDERABLES Final Resu lt Performing Organization Address [facility] Co de Phone Number [facility] [address] [place] [address] * PTH Intact Total (12/11/2024 3:24 AM EDT) PTH Intact Total 35 9 - 77 pg/mL 12/11/2024 5:44 AM EDT [facility] Blood Venous blood specimen / Unknown Venipuncture / Unknown 12/11/2024 3:24 AM EDT 12/11/2024 3:45 AM EDT Narrative [facility] - 12/11/2024 5:44 AM EDT Assay performed by immunoassay at the [facility]. Performed on [employer] chemiluminescent immunoassay, tractable to the World Health Organization's first international standard for PTH from the [facility], Code 79/500. Results obtained from different test methods or kits cannot be used interchangeably. Amanda Maddox APRN LAB BLOOD ORDERABLES Fi nal Result Performing Organization Address [facility] Co de Phone Number [facility] [address] [place] [address] * Thyroid Peroxidase Antibody (12/10/2024 11:08 PM EDT) Thyroid Peroxidase Antibody <5 <=8 IU/mL 12/11/2024 2:12 PM EDT [facility] Blood Venous blood specimen / Unknown Venipuncture / Unknown 12/10/2024 11:08 PM EDT 12/10/2024 11:30 PM EDT Wu Newby MD LAB BLOOD ORDERABLES Final Resu lt Performing Organization Address City/[facility] Co de Phone Number [facility] [address] [place] [address] * Sedimentation Rate, Automated (12/10/2024 11:08 PM EDT) Sedimentation Rate 8 <30 mm/hr 2024 11:37 PM EDT [facility] Blood Venous blood specimen / Unknown Venipuncture / Unknown 12/10/2024 11:08 PM EDT 12/10/2024 11:30 PM EDT [facility] [employer] LAB BLOOD ORDERABLES Fi nal Result [facility] [address] [place] [address] * Vitamin B1, Whole Blood (12/10/2024 11:08 PM EDT) Pathologist [facility] VITAMIN B1, WHOLE BLOOD 109 70 - 180 nmol/L 12/14/2024 11:29 AM EDT [facility] ([facility]) Blood Venous blood specimen / Unknown Venipuncture / Unknown 12/10/2024 11:08 PM EDT 12/10/2024 11:33 PM EDT Narrative [facility] ([facility]) - 12/14/2024 11:29 AM EDT INTERPRETIVE INFORMATION: Vitamin B1, Whole Blood This assay measures the concentration of thiamine diphosphate (TDP), the primary active form of vitamin B1. Approximately 90 percent of vitamin B1 present in whole blood is TDP. Thiamine and thiamine monophosphate, which comprise the remaining 10 percent, are not measured. This test was developed and its performance characteristics determined by [employer]. It has not been cleared or approved by the [place] Food and Drug Administration. This test was performed in a CLIA certified laboratory and is intended for clinical purposes. Performed By: [employer] [address] [place] [id number] Chief Steward/Stewardess: Antony Sumner MD, PhD CLIA Number: [id number] Amanda Maddox APRN LAB BLOOD ORDERABLES Fi nal Result Performing Organization Address City/[facility]/ZIP Co de Phone Number [facility] ([employer]) [address] [place] [address] * Folate (12/10/2024 11:08 PM EDT) [facility] Folate, Serum 14.0 >4.6 ng/mL 12/11/2024 12:15 AM EDT [facility] Blood Venous blood specimen / Unknown Venipuncture / Unknown 12/10/2024 11:08 PM EDT 12/10/2024 11:30 PM EDT Amanda Maddox APRN LAB BLOOD ORDERABLES Fi nal Result Performing Organization Address [facility]/ZIP Co de Phone Number [facility] [address] [place] [address] * Cortisol (12/10/2024 11:08 PM EDT) [facility] Cortisol 4.30 Before 10am: 3.7 - 19.4. After 5pm: 2.9 - 17.3 ug/dL 12/11/2024 12:27 AM EDT [facility] Comment:Testing performed on [employer], standardized against FPC Reference Standard concentration values assigned by LC-MS/MS and verified by BCR 192 and BCR 193 certified reference materials. Blood Venous blood specimen / Unknown Venipuncture / Unknown 12/10/2024 11:08 PM EDT 12/10/2024 11:30 PM EDT Amanda Maddox APRN LAB REF LAB BLOOD AND F LUID ORD Final Result Performing Organization Address [facility] Co de Phone Number [facility] [address] [place] [address] * (ABNORMAL) Troponin T, High Sensitivity, 2 Hour, Plasma (12/10/2024 7:23 PM EDT) [facility] T[facility] T, High Sensitivity, 2 Hour 134(H) <14 ng/L 12/10/2024 7:58 PM EDT [facility] Troponin Delta 12(H) <10 ng/L 12/10/2024 7:58 PM EDT [facility] Troponin Delta Interpretation Significant 12/10/2024 7:58 PM EDT [facility] Comment:Significant change i n Troponin observed [...] 7:23 PM EDT 12/10/2024 7:30 PM EDT us Omero PINTO LAB BLOOD ORDERABLES Final Re sult [facility] [address] [place] [address] * XR Chest 1 View (12/10/2024 6:44 [...] Lavon Petty MD on 12/10/2024 7:03 PM Omero PINTO IMG XR PROCEDURES Final Resul t * EKG now - STAT (adult) (12/10/2024 6:27 PM EDT) Only the most recent of3 resultswithin the time period is included. EKG DIAGNOSIS CLASS Abnormal MUSE ECG Ventricular Rate 94 BPM MUSE ECG Atrial Rate 94 BPM MUSE ECG CO Interval 162 ms MUSE ECG QRSD Interval 90 ms MUSE ECG QT Interval 372 ms MUSE ECG QTC Interval 465 ms MUSE ECG P [place] 24 degrees MUSE ECG R [place] 13 degrees MUSE ECG T Wave [place] 61 degrees MUSE ECG Diagnosis Sinus rhythm with premature atrial complexes MUSE ECG Diagnosis Cannot rule out Septal infarct , age undetermined MUSE ECG Diagnosis Abnormal ECG MUSE ECG Diagnosis MUSE ECG Diagnosis Confirmed by Adalid Betancourt ([id number]) on 12/10/2024 6:30:42 PM MUSE ECG 12/10/2024 [...] Total DLP (Dose-Length Product): 1117.18 mGy.cm (accession [id number]), 1117.18 mGy.cm (accession [id number]), 1117.18 mGy.cm (accession [id number]). Please note: The reported value represents the [...] Total DLP (Dose-Length Product): 1117.18 mGy.cm (accession [id number]),1117.18 mGy.cm (accession [id number]), 1117.18 mGy.cm (accession [id number]).Please note: The reported value represents the total [...] on 12/10/2024 6:31 PM us Omero PINTO Jan CT PROCEDURES Final Resul t * CT Angio Head (12/10/2024 6:14 PM EDT) Anatomical Region Laterality Modality [place] Computed Tomogr aphy Impressions 12/10/2024 [...] Total DLP (Dose-Length Product): 1117.18 mGy.cm (accession [id number]), 1117.18 mGy.cm (accession [id number]), 1117.18 mGy.cm (accession [id number]). Please note: The reported value represents the [...] Total DLP (Dose-Length Product): 1117.18 mGy.cm (accession [id number]),1117.18 mGy.cm (accession [id number]), 1117.18 mGy.cm (accession [id number]).Please note: The reported value represents the total [...] on 12/10/2024 6:31 PM us Omero PINTO IMG CT PROCEDURES Final Resul t * Urine Montes Panel (12/10/2024 5:40 PM EDT) Extra Reflex urine culture not indicated 12/10/2024 8:01 PM EDT [facility] Urine Urine specimen obtained by clean catch procedure / Unknown Non-blood Collection / Unknown 12/10/2024 5:40 PM EDT 12/10/2024 6:16 PM EDT Omero PINTO LAB URINE ORDERABLES Final Re sult Performing Organization Address City/[facility]/ZIP Co de Phone Number [facility] [address] [place] [address] * Urinalysis Microscopic Examination (12/10/2024 5:40 PM EDT) Urine Urine specimen obtained by clean catch procedure / Unknown Non-blood Collection / Unknown 12/10/2024 5:40 PM EDT 12/10/2024 5:51 PM EDT Omero PINTO LAB URINE ORDERABLES Final Re sult Performing Organization Address City/[facility]/ZIP Co de Phone Number [facility] [address] [place] [address] * (ABNORMAL) Urinalysis with reflex microscopic (Culture NOT Included) (12/10/2024 5:40 PM EDT) Color, Urine Yellow LAB URINALYSIS - AUTOMATED METHOD 12/10/2024 6:35 PM EDT [facility] Clarity, Urine Cloudy 12/10/2024 6:35 PM EDT [facility] Spec [place], Urine 1.026 1.005 - 1.030 LAB URINALYSIS - AUTOMATED METHOD 12/10/2024 6:35 PM EDT [facility] pH, Urine 5.5 5.0 - 8.0 LAB URINALYSIS - AUTOMATED METHOD 12/10/2024 6:35 PM EDT [facility] Protein, Urine Trace(A) Negative mg/dL LAB URINALYSIS - AUTOMATED METHOD 12/10/2024 6:35 PM EDT [facility] Glucose, Urine Negative Negative mg/dL LAB URINALYSIS - AUTOMATED METHOD 12/10/2024 6:35 PM EDT [facility] Ketones, Urine Trace(A) Negative mg/dL LAB URINALYSIS - AUTOMATED METHOD 12/10/2024 6:35 PM EDT [facility] Blood, Urine Negative Negative LAB URINALYSIS - AUTOMATED METHOD 12/10/2024 6:35 PM EDT [facility] Bilirubin, Urine Negative Negative LAB URINALYSIS - AUTOMATED METHOD 12/10/2024 6:35 PM EDT [facility] Urobilinogen, Urine 1.0 0.2 to 1.0 mg/dL LAB URINALYSIS - AUTOMATED METHOD 12/10/2024 6:35 PM EDT [facility] Leukocytes, Urine Negative Negative LAB URINALYSIS - AUTOMATED METHOD 12/10/2024 6:35 PM EDT [facility] Nitrite, Urine Positive(A) Negative LAB URINALYSIS - AUTOMATED METHOD 12/10/2024 6:35 PM EDT [facility] RBC, Urine 4 - 10(A) 0 to 3 /HPF LAB URINALYSIS - AUTOMATED METHOD 12/10/2024 6:35 PM EDT [facility] WBC, Urine 0 - 5 0 to 5 /HPF LAB URINALYSIS - AUTOMATED METHOD 12/10/2024 6:35 PM EDT [facility] Squamous Epithelial Cells 6 - 10(A) 0 to 5 /HPF LAB URINALYSIS - AUTOMATED METHOD 12/10/2024 6:35 PM EDT [facility] Hyaline Casts 0 - 2 0 to 5 /LPF LAB URINALYSIS - AUTOMATED METHOD 12/10/2024 6:35 PM EDT [facility] Bacteria, Urine Present Negative LAB URINALYSIS - AUTOMATED METHOD 12/10/2024 6:35 PM EDT [facility] Renal Tubular Cells Present Absent LAB URINALYSIS - AUTOMATED METHOD 12/10/2024 6:35 PM EDT [facility] Urine Urine specimen obtained by clean catch procedure / Unknown Non-blood Collection / Unknown 12/10/2024 5:40 PM EDT 12/10/2024 5:51 PM EDT Omero PINTO LAB URINE ORDERABLES Final Re sult [facility] [address] [place] [address] * SARS-CoV-2, Flu A, Flu B, and RSV - Rapid (12/10/2024 5:09 PM EDT) SARS CoV-2/COVID-19 RNA PCR Result Not Detected Not Detected 12/10/2024 6:23 PM EDT [facility] Influenza A Virus PCR Result Not Detected Not Detected 12/10/2024 6:23 PM EDT [facility] Influenza B Virus PCR Result Not Detected Not Detected 12/10/2024 6:23 PM EDT [facility] Respiratory Syncytial Virus (RSV) PCR Result Not Detected Not Detected 12/10/2024 6:23 PM EDT [facility] Swab Nasopharyngeal structure / Unknown Non-blood Collection / Unknown 12/10/2024 5:09 PM EDT 12/10/2024 5:23 PM EDT Narrative [facility] - 12/10/2024 6:23 PM EDT This [...] clinical signs and symptoms consistent with COVID-19. Omero PINTO LAB MICROBIOLOGY - GENERAL OR DERABLES Final Result Performing Organization Address [facility] Co de Phone Number [facility] [address] [place] [address] * (ABNORMAL) Troponin now and 120 min (12/10/2024 5:09 PM EDT) Troponin T, High Sensitivity, 0 Hour 122(H) <14 ng/L 12/10/2024 5:56 PM EDT [facility] Blood Venous blood specimen / Unknown Venipuncture / Unknown 12/10/2024 5:09 PM EDT 12/10/2024 5:15 PM EDT Omero PINTO LAB BLOOD ORDERABLES Final Re sult Performing Organization Address [facility] Co de Phone Number [facility] [address] [place] [address] * Ethyl Alcohol Plasma (12/10/2024 5:09 PM EDT) Ethanol Plasma <10 <10 mg/dL 12/10/2024 5:40 PM EDT [facility] Blood Venous blood specimen / Unknown Venipuncture / Unknown 12/10/2024 5:09 PM EDT 12/10/2024 5:15 PM EDT Narrative [facility] - 12/10/2024 5:40 PM EDT Enzymatic Assay: Performed on Mely Grover. Omero PINTO LAB BLOOD ORDERABLES Final Re sult Performing Organization Address City/[facility] Co de Phone Number [facility] [address] [place] [address] * Procalcitonin (12/10/2024 5:09 PM EDT) Procalcitonin, Plasma <0.06 <0.09 ng/mL 12/11/2024 12:20 AM EDT [facility] Blood Venous blood specimen / Unknown Venipuncture / Unknown 12/10/2024 5:09 PM EDT 12/10/2024 5:15 PM EDT Narrative [facility] - 12/11/2024 12:20 AM EDT Procalcitonin [...] predict 28 day mortality risk. Please consult [email or web address] for more information. Test performed at [facility]. us Amanda Maddox APRN LAB BLOOD ORDERABLES Fi nal Result Performing Organization Address City/[facility]/ZIP Co de Phone Number [facility] [address] [place] [address] * BNP (12/10/2024 5:09 PM EDT) N-Terminal, PROBNP, Plasma 370 0 - 899 pg/mL 12/10/2024 5:56 PM EDT [facility] Blood Venous blood specimen / Unknown Venipuncture / Unknown 12/10/2024 5:09 PM EDT 12/10/2024 5:15 PM EDT us Omero PINTO LAB BLOOD ORDERABLES Final Re sult [facility] [address] [place] [address] * C-reactive protein (12/10/2024 5:09 PM EDT) CRP, Plasma <3.0 <=8.0 mg/L 12/11/2024 12:20 AM EDT [facility] Blood Venous blood specimen / Unknown Venipuncture / Unknown 12/10/2024 5:09 PM EDT 12/10/2024 5:15 PM EDT Narrative [facility] - 12/11/2024 12:20 AM EDT This CRP test is appropriate for assessment of infection, systemic inflammation and/or tissue injury. To assess cardiovascular disease risk order high sensitivity CRP (CRPH). Amanda Maddox APRN LAB BLOOD ORDERABLES Fi nal Result Performing Organization Address City/[facility]/ZIP Co de Phone Number [facility] [address] [place] [address] * (ABNORMAL) Thyroid Stimulating Hormone, Plasma (12/10/2024 5:09 PM EDT) Only the most recent of2 resultswithin the time period is included. Thyroid Stimulating Hormone, Plasma <0.01(L) 0.40 - 4.20 uIU/mL 12/10/2024 5:56 PM EDT [facility] Blood Venous blood specimen / Unknown Venipuncture / Unknown 12/10/2024 5:09 PM EDT 12/10/2024 5:15 PM EDT Omero PINTO LAB BLOOD ORDERABLES Final Re sult Performing Organization Address [facility] Co de Phone Number [facility] [address] [place] [address] * (ABNORMAL) Free T4, Plasma (12/10/2024 5:09 PM EDT) Only the most recent of2 resultswithin the time period is included. Free T4, Plasma 3.8(H) 0.8 - 1.7 ng/dL 12/10/2024 5:50 PM EDT [facility] Blood Venous blood specimen / Unknown Venipuncture / Unknown 12/10/2024 5:09 PM EDT 12/10/2024 5:15 PM EDT Omero Suni Garcia PA LAB BLOOD ORDERABLES Final Re sult Performing Organization Address City/[facility]/ZIP Co de Phone Number [facility] [address] [place] [address] * Magnesium (12/10/2024 5:09 PM EDT) Pathologist [facility] Magnesium, Plasma 2.0 1.9 - 2.4 mg/dL 12/10/2024 5:56 PM EDT [facility] Blood Venous blood specimen / Unknown Venipuncture / Unknown 12/10/2024 5:09 PM EDT 12/10/2024 5:15 PM EDT us Omero PINTO LAB BLOOD ORDERABLES Final Re sult [facility] [address] [place] [address] * (ABNORMAL) Blood gas panel, venous (12/10/2024 5:09 PM EDT) [facility] pH, Venous 7.38 7.32 - 7.43 LAB HEMATOLOGY METHOD 12/10/2024 5:15 PM EDT [facility] pCO2, Venous 52 37 - 52 mmHg LAB HEMATOLOGY METHOD 12/10/2024 5:15 PM EDT [facility] pO2, Venous 23(L) 25 - 40 mmHg LAB HEMATOLOGY METHOD 12/10/2024 5:15 PM EDT [facility] SO2, Measured, Venous 36(L) 65 - 80 % LAB HEMATOLOGY METHOD 12/10/2024 5:15 PM EDT [facility] Base Excess, Venous 4.3(H) -2.0 - 3.0 mmol/L LAB HEMATOLOGY METHOD 12/10/2024 5:15 PM EDT [facility] Bicarbonate, Calculated, Venous 31(H) 22 - 26 mmol/L LAB HEMATOLOGY METHOD 12/10/2024 5:15 PM EDT [facility] Hematocrit, Whole Blood 37.9 34.0 - 45.0 % LAB HEMATOLOGY METHOD 12/10/2024 5:15 PM EDT [facility] Sodium, Whole Blood 141 136 - 145 mmol/L LAB HEMATOLOGY METHOD 12/10/2024 5:15 PM EDT [facility] Potassium, Whole Blood 3.5(L) 3.6 - 4.9 mmol/L LAB HEMATOLOGY METHOD 12/10/2024 5:15 PM EDT [facility] Chloride, Whole Blood 102 97 - 107 mmol/L LAB HEMATOLOGY METHOD 12/10/2024 5:15 PM EDT [facility] Glucose, Whole Blood 103(H) 74 - 99 mg/dL LAB HEMATOLOGY METHOD 12/10/2024 5:15 PM EDT [facility] Lactate, Venous, Whole Blood 0.6 0.5 - 2.2 mmol/L LAB HEMATOLOGY METHOD 12/10/2024 5:15 PM EDT [facility] Ionized Calcium, Whole Blood 4.9 4.6 - 5.1 mg/dL LAB HEMATOLOGY METHOD 12/10/2024 5:15 PM EDT [facility] Blood Venous blood specimen / Unknown Venipuncture / Unknown 12/10/2024 5:09 PM EDT 12/10/2024 5:14 PM EDT us Omero PINTO LAB BLOOD ORDERABLES Final Re sult [facility] [address] [place] [address] * (ABNORMAL) CMP (12/10/2024 5:09 PM EDT) Only the most recent of2 resultswithin the time period is included. Glucose, Plasma 105(H) 74 - 99 mg/dL 12/10/2024 5:56 PM EDT [facility] BUN, Plasma 22 8 - 23 mg/dL 12/10/2024 5:56 PM EDT [facility] Creatinine, Plasma 0.72 0.60 - 1.10 mg/dL 12/10/2024 5:56 PM EDT [facility] BUN/Creatinine Ratio 31 12/10/2024 5:56 PM EDT [facility] Sodium, Plasma 140 136 - 145 mmol/L 12/10/2024 5:56 PM EDT [facility] Potassium, Plasma 3.7 3.6 - 4.9 mmol/L 12/10/2024 5:56 PM EDT [facility] Chloride, Plasma 103 97 - 107 mmol/L 12/10/2024 5:56 PM EDT [facility] CO2, Plasma 26 22 - 29 mmol/L 12/10/2024 5:56 PM EDT [facility] Anion Gap 11 6 - 16 mmol/L 12/10/2024 5:56 PM EDT [facility] Total Calcium, Plasma 9.7 8.9 - 10.2 mg/dL 12/10/2024 5:56 PM EDT [facility] Total Protein 6.3 6.3 - 7.9 g/dL 12/10/2024 5:56 PM EDT [facility] Albumin, Plasma 4.0 3.5 - 5.2 g/dL 12/10/2024 5:56 PM EDT [facility] AST, Plasma 20 10 - 35 U/L 12/10/2024 5:56 PM EDT [facility] ALT, Plasma 17 10 - 35 U/L 12/10/2024 5:56 PM EDT [facility] Alkaline Phosphatase, Plasma 79 46 - 142 U/L 12/10/2024 5:56 PM EDT [facility] Total Bilirubin, Plasma 0.3 0.2 - 1.1 mg/dL 12/10/2024 5:56 PM EDT [facility] eGFRcr 92.3 mL/min/1.7 3m*2 12/10/2024 5:56 PM EDT [facility] Comment:Reported eGFRcr in m L/min/1.73m2 is based the CKD-EPI 2020 equation that does not use a race coefficient. Blood Venous blood specimen / Unknown Venipuncture / Unknown 12/10/2024 5:09 PM EDT 12/10/2024 5:15 PM EDT us Omero PINTO LAB BLOOD ORDERABLES Final Re sult [facility] [address] [place] [address] * Hepatitis B Surface Antigen - [facility] (12/10/2024 9:10 AM EDT) Hepatitis B Surf Antigen Negative Negative 12/10/2024 5:10 PM EDT [facility] Blood Venous blood specimen / Unknown Venipuncture / Unknown 12/10/2024 9:10 AM EDT 12/10/2024 9:13 AM EDT us Evens PINTO LAB BLOOD ORDERABLES Final Re sult Performing Organization Address [facility]/ZIP Co de Phone Number [facility] [address] [place] [address] * Hepatitis C Antibody with Reflex to HCV Quant PCR - [facility] (12/10/2024 9:10 AM EDT) Pathologist [facility] Hepatitis C Antibody Negative Negative 12/10/2024 4:26 PM EDT [facility] Blood Venous blood specimen / Unknown Venipuncture / Unknown 12/10/2024 9:10 AM EDT 12/10/2024 9:13 AM EDT us Evens PINTO LAB BLOOD ORDERABLES Final Re sult Performing Organization Address [facility] Co de Phone Number [facility] [address] [place] [address] * HIV 1 & 2 Antibody/Antigen Screen (12/10/2024 9:10 AM EDT) [facility] HIV 1 & 2 Antibody/Antigen Screen Non Reactive Non Reactive 12/10/2024 4:26 PM EDT [facility] Comment:Screening for HIV 1 & 2 antibodies, and P24 antigen is NONREACTIVE. No confirmatory testing is required. Blood Venous blood specimen / Unknown Venipuncture / Unknown 12/10/2024 9:10 AM EDT 12/10/2024 9:13 AM EDT us Evens PINTO LAB BLOOD ORDERABLES Final Re sult Performing Organization Address [facility]/ZIP Co de Phone Number [facility] [address] [place] [address] * Serum Drug Screen (12/10/2024 9:10 AM EDT) Pathologist [facility] 9 Carboxy THC <5 <5 ng/mL 12/12/2024 11:00 PM EDT [facility] Alprazolam <5 <5 ng/mL 12/12/2024 11:00 PM EDT [facility] Amphetamine <10 <10 ng/mL 12/12/2024 11:00 PM EDT [facility] Benzolyecgonine <20 <20 ng/mL 11:00 PM EDT [facility] Buprenorphine <1.0 <1.0 ng/mL 12/12/2024 11:00 PM EDT [facility] Butalbital <50 <50 ng/mL 12/12/2024 11:00 PM EDT [facility] Clonazepam <5 <5 ng/mL 12/12/2024 11:00 PM EDT [facility] Codeine <5 <5 ng/mL 12/12/2024 11:00 PM EDT [facility] Diazepam <5 <5 ng/mL 12/12/2024 11:00 PM EDT [facility] Fentanyl <1 <1 ng/mL 12/12/2024 11:00 PM EDT [facility] Hydrocodone <2 <2 ng/mL 12/12/2024 11:00 PM EDT [facility] Hydromorphone <5 <5 ng/mL 12/12/2024 11:00 PM EDT [facility] Lorazepam <5 <5 ng/mL 12/12/2024 11:00 PM EDT [facility] MDA <10 <10 ng/mL 12/12/2024 11:00 PM EDT [facility] MDMA <10 <10 ng/mL 12/12/2024 11:00 PM EDT [facility] Meperidine <5 <5 ng/mL 12/12/2024 11:00 PM EDT [facility] Methadone <10 <10 ng/mL 12/12/2024 11:00 PM EDT [facility] Methadone Metabolite <10 <10 ng/mL 11/14 11:00 PM EDT [facility] Methamphetamine <10 <10 ng/mL 11:00 PM EDT [facility] Midazolam <5 <5 ng/mL 12/12/2024 11:00 PM EDT [facility] Morphine <2 <2 ng/mL 12/12/2024 11:00 PM EDT [facility] Norbuprenorphine <5 <5 ng/mL 12/13/19 25 11:00 PM EDT [facility] Nordiazepam <10 <10 ng/mL 12/12/2024 11:00 PM EDT [facility] Oxazepam <5 <5 ng/mL 12/12/2024 11:00 PM EDT [facility] Oxycodone <2 <2 ng/mL 12/12/2024 11:00 PM EDT [facility] Oxymorphone <2 <2 ng/mL 12/12/2024 11:00 PM EDT [facility] Phenobarbital <50 <50 ng/mL 12/12/2024 11:00 PM EDT [facility] Temazepam <5 <5 ng/mL 12/12/2024 11:00 PM EDT [facility] Tramadol <20 <20 ng/mL 12/12/2024 11:00 PM EDT [facility] Blood Venous blood specimen / Unknown Venipuncture / Unknown 12/10/2024 9:10 AM EDT 12/10/2024 9:13 AM EDT Narrative [facility] - 12/12/2024 11:00 PM EDT Test performed by LC-MS/MS at the [facility]. This test was developed and its performance characteristics determined by [facility]. It has not been cleared or approved by the FDA. The laboratory is regulated under CLIA as qualified to perform high-complexity testing. This test is used for clinical purposes. us Evens PINTO LAB BLOOD ORDERABLES Final Re sult [facility] [address] [place] [address] * (ABNORMAL) Hemoglobin A1c (12/10/2024 9:10 AM EDT) Hemoglobin A1c 5.9(H) <5.7 % 12/10/2024 4:45 PM EDT [facility] Blood Venous blood specimen / Unknown Venipuncture / Unknown 12/10/2024 9:10 AM EDT 12/10/2024 9:13 AM EDT Narrative [facility] - 12/10/2024 4:45 PM EDT HA1C Interpretive Data: Diagnosis of Diabetes: Diabetic > or = 6.5% Pre-diabetic 5.7 to 6.4% Non-diabetic < or = 5.6% Glycemic Targets for Type I and Type II Diabetics: Non- Adults <7.0% Adults <6.0% Children and Adolescents <7.5% Source: [place] [employer]. Standards of medical care in diabetes,2017. Diabetes Care.2017:40 (suppl 1):S1-S135. Evens PINTO LAB BLOOD ORDERABLES Final Re sult Performing Organization Address [facility]/ZIP Co de Phone Number [facility] [address] [place] [address] * Vitamin B12 (12/10/2024 9:10 AM EDT) Vitamin B12, Serum 267 210 - 1,033 pg/mL 12/10/2024 6:38 PM EDT [facility] Blood Venous blood specimen / Unknown Venipuncture / Unknown 12/10/2024 9:10 AM EDT 12/10/2024 9:18 AM EDT Evens PINTO LAB BLOOD ORDERABLES Final Re sult Performing Organization Address City/[facility]/ZIP Co de Phone Number [facility] [address] [place] [address] * Lipid panel (12/10/2024 9:10 AM EDT) Cholesterol, Plasma 169 <200 mg/dL 12/10/2024 4:27 PM EDT [facility] Comment: Cholesterol Reference Range (age >17 years): Desirable <200 mg/dL Borderline 200 to 239 mg/dL Undesirable >239 mg/dL HDL 56 >=50 mg/dL 12/10/2024 4:27 PM EDT [facility] Comment: HDL Cholesterol Reference Ranges (age >17 years): Female, acceptable > or = 50 mg/dL Male, acceptable > or = 40 mg/dL Triglycerides, Plasma 107 <150 mg/dL 12/10/2024 4:27 PM EDT [facility] Comment: Triglyceride Reference Range (age >17 years): Desirable: <150 mg/dL Borderline high: 150 to 199 mg/dL High: 200 to 499 mg/dL Very high: >499 mg/dL Increased risk of pancreatitis: >1000 mg/dL Cholesterol/HDL Ratio 3 12/10/2024 4:27 PM EDT [facility] LDL, Calculated 94 <100 mg/dL 4:27 PM EDT [facility] Comment: LDL Cholesterol Reference Range [...] 12 hours? Unknown 12/10/2024 4:27 PM EDT [facility] Blood Venous blood specimen / Unknown Venipuncture / Unknown 12/10/2024 9:10 AM EDT 12/10/2024 9:13 AM EDT [facility] BLOOD ORDERABLES Final Re sult [facility] [address] [place] [address] from Last 3 Months Insurance MEDICARE Advance Directives * Full Code (Latest Code Status on File) Date Activated Date Inactivated Comments 12/10/2024 10:19 PM 12/28/2024 4:45 PM Question Answer Comments I have reviewed the capacity from the link above and, if needed, have updated to appropriate status: Yes Care Teams Mini Lab Operator Relationship Specialty Start Date End Date Pcp, No [address] [place] [address] PCP - General Family Medicine 12/10/24
--- OUTSIDE RECORDS SUMMARY | 2025-02-12 10:31 | XMS_ITS | Encounter Summary ---
Author Organization Healthcare Address [address] [place] [address] Care Team Providers Care Business Law Professor Name Role Phone Pcp, No Primary Care Provider Unavailabl e Encounter Details Date Type Department Care Team (Latest Contact Info) Description 01/10/2025 Travel Social History Tobacco Use Types Packs/Day [...] drink first t silvina in the morning (EYE-STRAP BUCKLER MACHINE) to steady your nerves or to get [...] Consult [place] [facility] [address] [place] [address] Lucretia Molina, DO [address] [place] [address] documented as of this encounter Visit Diagnoses Not on filedocumented in this encounter Additional Health Concerns Assessment Noted Time A fall risk assessment has been complete d for the patient 01/10/2025 9:44 AM EDT A Body Mass Index follow-up plan has been documented for the patient 01/10/2025 10:55 AM EDT documented as of this encounter Care Teams Business Law Professor Relationship Specialty Start Date End Date Pcp, [place] [address] PCP - General Family Medicine 12/10/24 documented as of this encounter
--- OUTSIDE RECORDS SUMMARY | 2025-02-12 10:31 | XMS_ITS | Clinical Summary ---
Author Organization [facility] Address [address] [place] [address] Care Team Providers Care Equipment Mechanic Name Role Phone Zan Jackson MD Primary Care Provider [phone] Allergies No known active allergies Medications triamterene-hyd rochlorothiazid e (DYAZIDE) 37.5-25 MG per capsule 08/05/2019 Active nitrofurantoin, macrocrystal-mo nohydrate, (Macrobid) 100 MG capsuleIndicati ons:Cystitis Take 1 capsule by mouth 2 (Two) Times a Day. 10 capsule 04/28/2021 Active Vumerity 231 MG capsule delayed-release TAKE 2 CAPSULES BY MOUTH 2 TIMES A DAY. 120 capsule 11 05/10/2021 Active Active Problems Problem Noted Date Diagnosed Date New daily persistent headache 04/28/2021 Assessment & Plan (04/28/2021 10:43 AM EST): Headaches are worsening. Counseled regarding lifestyle modifications. Discussed preventative treatments for frequent headaches, however patient wishes not to start new medications at this time. Multiple sclerosis 08/13/2019 Assessment & Plan (04/28/2021 10:41 AM EST): Continuing on Vumerity Ordered labs Will test for UTI due to worsening of symptoms, as it could be pseudorelapse. If + will send in antibiotics. If MS symptoms do not improve she will schedule sooner follow up to discuss medication change. We did discuss switching back to Tecfidera, however she states it won't matter due to copay being $150 per month. I recommend patient complete PT/OT, sent orders to [facility] in [place] F/U in 6 months or sooner if needed Assessment & Plan (10/22/2020 11:29 AM EDT): No new or worsening on Vumerity Labs are normal Assessment & Plan (04/23/2020 11:46 AM EST): Changed to Vumerity CBC,CMP NCS Assessment & Plan (08/13/2019 9:33 AM EDT): EDSS 4.0 MRI Brain/cervical Continue Tecfidera CBC,CMP PT/OT/TEXTILE CHEMIST when available. Gait abnormality 08/13/2019 Assessment & Plan (04/28/2021 10:42 AM EST): Ordered PT Assessment & Plan (10/22/2020 11:29 AM EDT): Recommended PT/OT but pt defers Assessment & Plan (04/23/2020 11:47 AM EST): Recommended PT/OT Assessment & Plan (08/13/2019 9:32 AM EDT): Start Ampstephena T25FW 9.7 Family History Medical History Relation Name Comments Diabetes Father Heart disease Father Hypertension Father Diabetes Maternal Grandfather Diabetes Maternal Grandmother Diabetes Mother Hyperlipidemia Mother Hypertension Mother Kidney disease Mother Neuropathy Mother Relation Name Status Comments Father Maternal Grandfather Maternal Grandmother Mother Social History Tobacco Use Types Packs/Day Years Used Date Smoking Tobacco: Former Cigarettes Smokeless Tobacco: Never Alcohol Use Standard Drinks/Week Comments Yes 0 (1 standard drink = 0.6 oz pur e alcohol) 1-2/mo Abuse Screen Answer Date Recorded Unsafe at Home or Work/School Not on file Feels Threatened by Someone? Not on file 04/2023 Does Anyone Keep You from Co ntacting Others or Doint Things Outside the Home? Not on file 02/23/2023 Physical Sign of Abuse Present Not on file 1 Housing Stability Answer Date Recorded Current Living Arrangements Not on file 02/12 Potentially Unsafe Housing Conditions Not on pooja e 02/23/2023 Family and Community Support Answer Roc e Recorded Help with Day-to-Day Activities Not on file 02/23/2023 Lonely or Isolated Not on file 02/23/2023 Employment Answer Date Recorded Do you want help finding or keeping work or a jeanette b? Not on file 02/23/2023 Disabilities Answer Date Recorded Concentrating, Remembering, or Making Decisions Difficulty Not on file 02/23/2023 Doing Errands Independently Difficulty Not on fi le 02/23/2023 Education Answer Date Recorded Help with school or training? Not on file Preferred Language Not on file 02/23/2023 Comments No Sex and Gender Information Value Date Recorded Sex Assigned at Not on file Legal Sex Female 3:54 PM EST Gender Identity Not on file Sexual Orientation Not on file Last Filed Vital Signs Vital Sign Reading Time Taken Comments Blood Pressure 130/89 04/27/2021 3:11 PM EST Pulse 122 04/27/2021 3:11 PM EST Temperature 35.9 C (96.7 F) 04/27/2021 3:11 PM EST Respiratory Rate - - Oxygen Saturation 98% 04/27/2021 3:11 PM EST Inhaled Oxygen Concentration - - Weight 75.3 kg (166 lb) 04/27/2021 3:11 PM EST Height 170.2 cm (5' 7.01 ) 04/27/2021 3:11 PM ES T Body Mass Index 25.99 04/27/2021 3:11 PM EST Plan of Treatment Health Maintenance Due Date Last Done Comments DXA SCAN 1958 MAMMOGRAM 1998 COLOGUARD 2003 COLON CANCER SCREENING 5 YEAR SIGMOIDOSCOPY 2003 COLONOSCOPY 2003 [address] CANCER SCREENING 2003 CT COLONOGRAPHY 2003 FECAL OCCULT BLOOD TEST 2003 FIT Testing (1 year) 2003 Pneumococcal Vaccine 50+ (1 of 1 - PCV) 2008 ZOSTER VACCINE (1 of 2) 2008 ANNUAL PHYSICAL 08/13/2019 HEPATITIS C SCREENING 08/13/2019 INFLUENZA VACCINE 12/13/2024 COVID-19 Vaccine (2 - season) 01/13/202502/2021 TDAP/TD VACCINES (2 - Td or Tdap) 03/22/2028 018 Insurance [facility] PPO Care Teams Equipment Mechanic Relationship Specialty Start Date End Date Zan Jackson MD [address] [facility] [address] [address] PCP - General Internal Medicine 07/15/19
[2025-02-12 12:54] LABS: Free T4 (Free Thyroxine) 1.82 ng/dl (0.78-2.19)
== END 2025-02-11 23:59 | disposition home or self-care (01) ==
LOC: LAB.DROPOF 02-12 09:55
PROVIDERS: PCP Internal Medicine; Visit Provider Internal Medicine
DX: E05.90 Thyrotoxicosis, unspecified without thyrotoxic crisis or storm (principal); Z13.29 Encounter for screening for other suspected endocrine disorder
CPT/HCPCS: 84439; 84443

== ENCOUNTER 2025-05-12 10:53 | Emergency (ER) | payer MEDICARE, SELFPAY ==
--- NOTE | 2025-05-12 11:06 | XR_ITS ---
FINAL REPORT CLINICAL HISTORY: fall/pain/swelling FINDINGS: AP and lateral views of the left forearm are obtained. There is no prior exam for comparison. There is no acute osseous abnormality of the proximal portions of the radius or ulna. Distal radial fracture is noted. There is soft tissue edema at the wrist. IMPRESSION: Fracture of the distal radius. Please see wrist report. Reviewed, Interpreted and Dictated by Mari Vanegas MD Transcribed by Rosina Romeo Authenticated and [facility]
--- NOTE | 2025-05-12 11:06 | XR_ITS ---
FINAL REPORT CLINICAL HISTORY: fall/pain/swelling FINDINGS: AP, oblique, and lateral views of the left elbow were obtained. There is no prior exam for comparison. There is no acute fracture or dislocation. Mild degenerative disease is noted. There is no joint effusion or other soft tissue abnormality. IMPRESSION: No acute osseous abnormality of the left elbow. Reviewed, Interpreted and Dictated by Mari Vanegas MD Transcribed by Rosina Romeo Authenticated and [facility]
--- NOTE | 2025-05-12 11:06 | XR_ITS ---
FINAL REPORT CLINICAL HISTORY: fall/pain/swelling FINDINGS: AP, oblique, and lateral views of the left wrist were obtained. There is no prior exam for comparison. There is a comminuted, likely intra-articular, fracture of the distal radius. Fracture is nondisplaced. The joint spaces are preserved. Soft tissue edema is noted. IMPRESSION: Comminuted fracture distal radius with soft tissue edema. Reviewed, Interpreted and Dictated by Mari Vanegas MD Transcribed by Rosina Romeo Authenticated and . [facility]
--- NOTE | 2025-05-12 11:06 | XR_ITS ---
FINAL REPORT CLINICAL HISTORY: fall/pain/swelling FINDINGS: AP, oblique, and lateral views of the left hand were obtained. There is no prior exam for comparison. Distal radial fracture again seen. No acute osseous abnormality noted of the hand. The joint spaces are preserved. There is prominent dorsal soft tissue edema. IMPRESSION: No acute osseous abnormality of the left hand. Soft tissue edema. Distal radial fracture. Reviewed, Interpreted and Dictated by Mari Vanegas MD Transcribed by Rosina Romeo Authenticated and [facility]
--- OUTSIDE RECORDS SUMMARY | 2025-05-12 11:08 | XMS_ITS | Encounter Summary ---
Author Organization Healthcare Address [address] [place] [address] Care Team Providers Care Director Of Student Affairs Name Role Phone Pcp, No Primary Care Provider Unavailabl e Reason for Visit * Reason Onset Date Comments HCN - Patient Message 03/20/2025 Cxl Encounter Details Date Type Department Care Team (Late st Contact Info) Description 03/20/2025 Telephone [place] [facility] [address] [place] [address] Yanique Martinez, MILLIE [address] [place] [address] HCN - Patient Message (Cxl ) Social History Tobacco Use Types Packs/Day Years [...] drink first t silvina in the morning (EYE-SYSTEMS INTEGRATION ANALYST) to steady your nerves or to get rid of a hangover? 0 12/10/2024 CAGE Questionnaire Score 0 025 Comments No Sex and Gender Information Value Date Recorded Sex Assigned at Not on file Legal Sex Female 5:41 AM EDT Gender Identity Not on file Sexual Orientation Not on file documented as of this encounter Miscellaneous Notes * Telephone Encounter - Joy Jacobsen - 03/20/2025 2:12 PM EST Patient Phone Message Reason for Call: Cxl 04/24 No reschedule Best contact number and optimal time of day to reach caller: Pt / [phone] Note: Please do not reply to this message. Follow-up communication and further actions as a result of this message need to be communicated with the patient directly, if the patient is not active onMyChart. If the patient is active on MyChart, they will receive notification of the communication/outcome via [employer]. documented in this encounter Plan of Treatment [...] documented as of this encounter Care Teams Director Of Student Affairs Relationship Specialty Start Date End Date Pcp, [place] [address] PCP - General Family Medicine 12/10/24 documented as of this encounter
--- OUTSIDE RECORDS SUMMARY | 2025-05-12 11:08 | XMS_ITS | Encounter Summary ---
Author Organization [facility] Address [address] [place] [id number] Care Team Providers Care Instrument Sterilizer Name Role Phone Zan Jackson MD Primary Care Provider [phone] Reason for Visit * Reason Onset Date Comments Med Refill 03/17/2021 Encounter Details Date Type Department Care Team (Late st Contact Info) Description 03/17/2021 Refill [facility] [address] [address] Johnnie Jones MD [address] [facility] [address] [place] [address] Social History Tobacco Use Types [...] . PHONE # TO COMPLETE PA IS [phone] * Telephone Encounter - Helen Cm RegSched [...] [facility] Best call back number: [phone] Does the patient have less than a 3 day supply: [] Yes [x] No Ryan Klein Rep 03/17/21 15:15 EDT documented in this encounter Plan of Treatment Not on file documented as of this encounter Visit Diagnoses Not on filedocumented in this encounter Care Teams Instrument Sterilizer Relationship Specialty Start Date End Date Zan Jackson MD [address] [facility] [address] [place] [address] PCP - General Internal Medicine 07/15/19 documented as of this encounter
--- OUTSIDE RECORDS SUMMARY | 2025-05-12 11:08 | XMS_ITS | Clinical Summary ---
Author Organization [facility] Address [address] [place] [address] Care Team Providers Care Woods Warden Name Role Phone Pcp, No Primary Care Provider Unavailabl e Allergies No known active allergies Medications apixaban (Eliquis) 5 MG tablet Take 1 tablet by mouth 2 times a day. 60 tablet 5 Active acetaminophen (Tylenol) 325 MG tablet Take 2 tablets by mouth every 8 hours as needed for pain. Under [place] law, monthly prescriptions (30 days) can be [...] 2 times a day. 120 tablet 5 Active propranolol (Inderal) 10 MG tablet Take [...] Encounters Date Type Department Care Team Description 03/20/2025 Telephone [place] [facility] [address] [place] [address] Yanique Martinez PA HCN - Patient Message (Cxl ) from Last 3 Months Social History Tobacco [...] drink first t silvina in the morning (EYE-SPORTS MARKETING INTERNSHIP) to steady your nerves or to get [...] 01/10/2025 9:45 AM EDT Plan of Treatment Health Maintenance Due Date Last Done Comments [facility]-Bone Density Scan 1958 [facility]-Depression Screening 1958 [facility]-Hepatitis C Screening 1958 [facility]-Medicare Annual Wellness (AWV) 1958 [facility]-Infant/Child/Adol SDOH Screenings 1958 [facility]- SDOH Screenings 1976 [facility]-Adult SDOH Screenings 1976 CT Colonography 2003 Colonoscopy 2003 FIT-DNA 2003 FIT 2003 FOBT 2003 Sigmoidoscopy 2003 [facility]-Colorectal Cancer Screening 2003 [facility]-Breast Cancer Screening 2008 [facility]-Pneumococcal Vaccine: 50 + Years (1 of 1 - PCV) 2008 [facility]-Zoster Vaccines (1 of 2) 2008 [id number] Vaccine (2 - 20 25-26 season) 2025 07/22/2020 [facility]-Influenza Vaccine (#1) 2025 [facility]-Diabetes: Hemoglobin A1C 12/10/2025 12/10/2024 [facility]-DTaP,Tdap,and Td Vaccine s (2 - Td or Tdap) 03/22/2028 03/22/2018 [facility]-RSV Vaccine: 60+ Years o r (1 - 1-dose 75+ series) 2033 HPV Vaccines (No Doses Required) Completed [facility]-HIB Vaccines Aged Out No longer e [...] Procedure Name Priority Date/Time Associated Diagnosis Comments HEMOGLOBIN A1C Routine 12/10/2024 9:10 AM EDT Routine general medical examination at a health care facility from Last 3 Months or Most Recently Relevant to Health Maintenance Results * (ABNORMAL) Hemoglobin A1c (12/10/2024 9:10 AM EDT) Hemoglobin A1c 5.9(H) <5.7 % 12/10/2024 4:45 PM EDT [facility] Blood Venous blood specimen / Unknown Venipuncture / Unknown 12/10/2024 9:10 AM EDT 12/10/2024 9:13 AM EDT Narrative [facility] - 12/10/2024 4:45 PM EDT HA1C Interpretive Data: Diagnosis of Diabetes: Diabetic > or = 6.5% Pre-diabetic 5.7 to 6.4% Non-diabetic < or = 5.6% Glycemic Targets for Type I and Type II Diabetics: Non- Adults <7.0% Adults <6.0% Children and Adolescents <7.5% Source: [place] [employer]. Standards of medical care in diabetes,2017. Diabetes Care.2017:40 (suppl 1):S1-S135. [facility] BLOOD ORDERABLES Final Re sult [facility] [address] [place] [address] from Last 3 Months or Most Recently Relevant to Health Maintenance Insurance MEDICARE Advance Directives * Full Code (Latest Code Status on File) Date Activated Date Inactivated Comments 12/10/2024 10:19 PM 12/28/2024 4:45 PM Question Answer Comments I have reviewed the capacity from the link above and, if needed, have updated to appropriate status: Yes Care Teams Woods Warden Relationship Specialty Start Date End Date Pcp, No [address] [place] [address] PCP - General Family Medicine 12/10/24
--- OUTSIDE RECORDS SUMMARY | 2025-05-12 11:08 | XMS_ITS | Encounter Summary ---
Author Organization Healthcare Address [address] [place] [address] Care Team Providers Care Veterinary Nurse Name Role Phone Pcp, No Primary Care Provider Unavailabl e Encounter Details Date Type Department Care Team (Late st Contact Info) Description 12/10/2024 Lab Requisition [facility] [address] [place] [address] Routine general medical examination at [...] drink first t silvina in the morning (EYE-LAY OUT INSPECTOR) to steady your nerves or to get rid of a hangover? 0 12/10/2024 CAGE Questionnaire Score 0 025 Comments Unknown Sex and Gender Information Value Date Recorded Sex Assigned at Not on file Legal Sex Female 5:41 AM EDT Gender Identity Not on file Sexual Orientation Not on file documented as of this encounter Plan of Treatment Not on [...] documented as of this encounter Care Teams Veterinary Nurse Relationship Specialty Start Date End Date Pcp, [place] [address] PCP - General Family Medicine 12/10/24 documented as of this encounter
--- OUTSIDE RECORDS SUMMARY | 2025-05-12 11:08 | XMS_ITS | Clinical Summary ---
Author Organization [facility] Address [address] [place] [address] Care Team Providers Care Virtual Recruiter Name Role Phone Zan Jackson MD Primary Care Provider [phone] Allergies No known active allergies Medications triamterene-hyd [...] PT/OT, sent orders to [facility] in [place] F/U in 6 months or sooner if needed Assessment & Plan (10/22/2020 11:29 AM EDT): No new or worsening on Vumerity Labs are normal Assessment & Plan (04/23/2020 11:46 AM EST): Changed to Vumerity CBC,CMP NCS Assessment & Plan (08/13/2019 9:33 AM EDT): EDSS 4.0 MRI Brain/cervical Continue Tecfidera CBC,CMP PT/OT/ANIMAL SHELTER MANAGER when available. Gait abnormality 08/13/2019 Assessment & [...] ANNUAL PHYSICAL 08/13/2019 HEPATITIS C SCREENING 08/13/2019 COVID-19 Vaccine (2 - Odilia risk series) 08/19/2020 07/22/2020 INFLUENZA VACCINE 12/13/2024 TDAP/TD VACCINES (2 - Td or Tdap) 03/22/2028 018 Insurance [facility] PPO Care Teams Virtual Recruiter Relationship Specialty Start Date End Date Zan Jacksno MD [address] [facility] [address] [place] [address] PCP - General Internal Medicine 07/15/19
--- OUTSIDE RECORDS SUMMARY | 2025-05-12 11:08 | XMS_ITS | Encounter Summary ---
Author Organization Healthcare Address [address] [place] [address] Care Team Providers Care Can Filler Name Role Phone Pcp, No Primary Care Provider Unavailabl e Encounter Details Date Type Department Care Team (Late st Contact Info) Description 12/10/2024 Lab Requisition [facility] [address] [place] [address] Evens Cox PA [address] [place] [address] Routine general medical examination at [...] drink first t silvina in the morning (EYE-TECHNICAL INFORMATION SPECIALIST) to steady your nerves or to get [...] on file documented as of this encounter Procedures Procedure Name Priority Date/Time Associated Diagnosis Comments HEPATITIS B SURFACE ANTIGEN - [facility] Routine 12/10/2024 9:10 AM EDT Routine general medical examination at a health care facility HEPATITIS C ANTIBODY WITH REFLEX TO HCV QUANT PCR - [facility] Routine 12/10/2024 9:10 AM EDT Routine general medical examination at a health care facility HIV 1/2 ANTIBODY/ANTIGEN SCREEN W/REFLEX TO HIV 1/2 ANTIBODY DIFFERENTIATION Routine 12/10/2024 9:10 AM EDT Routine general medical examination at [facility] HIV 1/2 ANTIBODY/ANTIGEN SCREEN WITH REFLEX TO HIV I/II DIFFERENTIATION Routine 12/10/2024 9:10 AM EDT Routine general medical examination at a [facility] SERUM DRUG SCREEN Routine 12/10/2024 9:1 0 AM EDT Routine general medical examination at a [facility] CBC WITH AUTO DIFFERENTIAL Routine 12/10/2024 9:10 AM EDT Routine general medical examination at a [facility] TSH Routine 12/10/2024 9:10 AM EDT Routine general medical examination at a [facility] FREE T4, PLASMA Routine 12/10/2024 9:10 AM EDT Routine general medical examination at a health care facility HEMOGLOBIN A1C Routine 12/10/2024 9:10 AM EDT Routine general medical examination at a health care facility VITAMIN B12, SERUM Routine 12/10/2024 9: 10 AM EDT Routine general medical examination at a health care facility LIPID PROFILE, PLASMA Routine 12/10/2024 9:10 AM EDT Routine general medical examination at a [facility] COMPREHENSIVE METABOLIC PANEL, PLASMA Routine 12/10/2024 9:10 AM EDT Routine general medical examination at a health care facility documented in this encounter Results * Vitamin B12 (12/10/2024 9:10 AM EDT) Vitamin B12, Serum 267 210 - 1,033 pg/mL 12/10/2024 6:38 PM EDT [facility] Blood Venous blood specimen / Unknown Venipuncture / Unknown 12/10/2024 9:10 AM EDT 12/10/2024 9:18 AM EDT [facility] BLOOD ORDERABLES Final Re sult Performing Organization Address [facility] Co de Phone Number [facility] [address] [place] [address] * HIV 1 & 2 Antibody/Antigen Screen (12/10/2024 9:10 AM EDT) Pathologist [facility] HIV 1 & 2 Antibody/Antigen Screen Non Reactive Non Reactive 12/10/2024 4:26 PM EDT [facility] Comment:Screening for HIV 1 & 2 antibodies, and P24 antigen is NONREACTIVE. No confirmatory testing is required. Blood Venous blood specimen / Unknown Venipuncture / Unknown 12/10/2024 9:10 AM EDT 12/10/2024 9:13 AM EDT us [facility] BLOOD ORDERABLES Final Re sult Performing Organization Address City/[facility] Co de Phone Number [facility] [address] [place] [address] * (ABNORMAL) TSH (12/10/2024 9:10 AM EDT) Pathologist [facility] Thyroid Stimulating Hormone, Plasma <0.01(L) 0.40 - 4.20 uIU/mL 12/10/2024 4:27 PM EDT [facility] Blood Venous blood specimen / Unknown Venipuncture / Unknown 12/10/2024 9:10 AM EDT 12/10/2024 9:13 AM EDT us [facility] BLOOD ORDERABLES Final Re sult Performing Organization Address City/[facility]/ZIP Co de Phone Number [facility] [address] [place] [address] * (ABNORMAL) T4, free (12/10/2024 9:10 AM EDT) Free T4, Plasma 3.8(H) 0.8 - 1.7 ng/dL 12/10/2024 4:27 PM EDT [facility] Blood Venous blood specimen / Unknown Venipuncture / Unknown 12/10/2024 9:10 AM EDT 12/10/2024 9:13 AM EDT us [facility] BLOOD ORDERABLES Final Re sult Performing Organization Address [facility] Co de Phone Number [facility] [address] [place] [address] * (ABNORMAL) Hemoglobin A1c (12/10/2024 9:10 AM EDT) Hemoglobin A1c 5.9(H) <5.7 % 12/10/2024 4:45 PM EDT [facility] Blood Venous blood specimen / Unknown Venipuncture / Unknown 12/10/2024 9:10 AM EDT 12/10/2024 9:13 AM EDT Narrative [facility] - 12/10/2024 4:45 PM EDT HA1C Interpretive Data: Diagnosis of Diabetes: Diabetic > or = 6.5% Pre-diabetic 5.7 to 6.4% Non-diabetic < or = 5.6% Glycemic Targets for Type I and Type II Diabetics: Non- Adults <7.0% Adults <6.0% Children and Adolescents <7.5% Source: [place] [employer]. Standards of medical care in diabetes,2017. Diabetes Care.2017:40 (suppl 1):S1-S135. us [facility] BLOOD ORDERABLES Final Re sult Performing Organization Address [facility] Co de Phone Number [facility] [address] [place] [address] * Lipid panel (12/10/2024 9:10 AM EDT) Cholesterol, Plasma 169 <200 mg/dL 12/10/2024 4:27 PM EDT [facility] Comment: Cholesterol Reference Range (age >17 years): Desirable <200 mg/dL Borderline 200 to 239 mg/dL Undesirable >239 mg/dL HDL 56 >=50 mg/dL 12/10/2024 4:27 PM EDT [facility] Comment: HDL Cholesterol Reference Ranges (age >17 years): Female, acceptable > or = 50 mg/dL Male, acceptable > or = 40 mg/dL Triglycerides, Plasma 107 <150 mg/dL 12/10/2024 4:27 PM EDT [facility] Comment: Triglyceride Reference Range (age >17 years): Desirable: <150 mg/dL Borderline high: 150 to 199 mg/dL High: 200 to 499 mg/dL Very high: >499 mg/dL Increased risk of pancreatitis: >1000 mg/dL Cholesterol/HDL Ratio 3 12/10/2024 4:27 PM EDT [facility] LDL, Calculated 94 <100 mg/dL 4:27 PM EDT [facility] Comment: LDL Cholesterol Reference Range (age [...] 12 hours? Unknown 12/10/2024 4:27 PM EDT [facility] Blood Venous blood specimen / Unknown Venipuncture / Unknown 12/10/2024 9:10 AM EDT 12/10/2024 9:13 AM EDT us [facility] BLOOD ORDERABLES Final Re sult [facility] [address] [place] [address] * (ABNORMAL) Comprehensive metabolic panel (12/10/2024 9:10 AM EDT) [facility] Glucose, Plasma 104(H) 74 - 99 mg/dL 12/10/2024 4:27 PM EDT [facility] BUN, Plasma 19 8 - 23 mg/dL 12/10/2024 4:27 PM EDT [facility] Creatinine, Plasma 0.62 0.60 - 1.10 mg/dL 12/10/2024 4:27 PM EDT [facility] BUN/Creatinine Ratio 31 12/10/2024 4:27 PM EDT [facility] Sodium, Plasma 143 136 - 145 mmol/L 12/10/2024 4:27 PM EDT [facility] Potassium, Plasma 4.0 3.6 - 4.9 mmol/L 12/10/2024 4:27 PM EDT [facility] Chloride, Plasma 106 97 - 107 mmol/L 12/10/2024 4:27 PM EDT [facility] CO2, Plasma 23 22 - 29 mmol/L 12/10/2024 4:27 PM EDT [facility] Anion Gap 14 6 - 16 mmol/L 12/10/2024 4:27 PM EDT [facility] Total Calcium, Plasma 9.8 8.9 - 10.2 mg/dL 12/10/2024 4:27 PM EDT [facility] Total Protein 6.4 6.3 - 7.9 g/dL 12/10/2024 4:27 PM EDT [facility] Albumin, Plasma 4.0 3.5 - 5.2 g/dL 12/10/2024 4:27 PM EDT [facility] AST, Plasma 26 10 - 35 U/L 12/10/2024 4:27 PM EDT [facility] ALT, Plasma 17 10 - 35 U/L 12/10/2024 4:27 PM EDT [facility] Alkaline Phosphatase, Plasma 82 46 - 142 U/L 12/10/2024 4:27 PM EDT [facility] Total Bilirubin, Plasma 0.4 0.2 - 1.1 mg/dL 12/10/2024 4:27 PM EDT [facility] eGFRcr 98.4 mL/min/1.7 3m*2 12/10/2024 4:27 PM EDT [facility] Comment:Reported eGFRcr in m L/min/1.73m2 is based the CKD-EPI 2020 equation that does not use a race coefficient. Blood Venous blood specimen / Unknown Venipuncture / Unknown 12/10/2024 9:10 AM EDT 12/10/2024 9:13 AM EDT us [facility] BLOOD ORDERABLES Final Re sult [facility] [address] [place] [address] * Serum Drug Screen (12/10/2024 9:10 AM EDT) 9 Carboxy THC <5 <5 ng/mL 12/12/2024 11:00 PM EDT [facility] Alprazolam <5 <5 ng/mL 12/12/2024 11:00 PM EDT [facility] Amphetamine <10 <10 ng/mL 12/12/2024 11:00 PM EDT [facility] Benzolyecgonine <20 <20 ng/mL 11:00 PM EDT [facility] Buprenorphine <1.0 <1.0 ng/mL 12/12/2024 11:00 PM EDT [facility] Butalbital <50 <50 ng/mL 12/12/2024 11:00 PM EDT [facility] Clonazepam <5 <5 ng/mL 12/12/2024 11:00 PM EDT [facility] Codeine <5 <5 ng/mL 12/12/2024 11:00 PM EDT [facility] Diazepam <5 <5 ng/mL 12/12/2024 11:00 PM EDT [facility] Fentanyl <1 <1 ng/mL 12/12/2024 11:00 PM EDT [facility] Hydrocodone <2 <2 ng/mL 12/12/2024 11:00 PM EDT [facility] Hydromorphone <5 <5 ng/mL 12/12/2024 11:00 PM EDT [facility] Lorazepam <5 <5 ng/mL 12/12/2024 11:00 PM EDT [facility] MDA <10 <10 ng/mL 12/12/2024 11:00 PM EDT [facility] MDMA <10 <10 ng/mL 12/12/2024 11:00 PM EDT [facility] Meperidine <5 <5 ng/mL 12/12/2024 11:00 PM EDT [facility] Methadone <10 <10 ng/mL 12/12/2024 11:00 PM EDT [facility] Methadone Metabolite <10 <10 ng/mL 11/14 11:00 PM EDT [facility] Methamphetamine <10 <10 ng/mL 11:00 PM EDT [facility] Midazolam <5 <5 ng/mL 12/12/2024 11:00 PM EDT [facility] Morphine <2 <2 ng/mL 12/12/2024 11:00 PM EDT [facility] Norbuprenorphine <5 <5 ng/mL 12/13/19 11:00 PM EDT [facility] Nordiazepam <10 <10 ng/mL 12/12/2024 11:00 PM EDT [facility] Oxazepam <5 <5 ng/mL 12/12/2024 11:00 PM EDT [facility] Oxycodone <2 <2 ng/mL 12/12/2024 11:00 PM EDT [facility] Oxymorphone <2 <2 ng/mL 12/12/2024 11:00 PM EDT [facility] Phenobarbital <50 <50 ng/mL 12/12/2024 11:00 PM EDT [facility] Temazepam <5 <5 ng/mL 12/12/2024 11:00 PM EDT [facility] Tramadol <20 <20 ng/mL 12/12/2024 11:00 PM EDT [facility] Blood Venous blood specimen / Unknown Venipuncture / Unknown 12/10/2024 9:10 AM EDT 12/10/2024 9:13 AM EDT Narrative [facility] - 12/12/2024 11:00 PM EDT Test performed by LC-MS/MS at the [facility]. This test was developed and its performance characteristics determined by [facility]. It has not been cleared or approved by the FDA. The laboratory is regulated under CLIA as qualified to perform high-complexity testing. This test is used for clinical purposes. us [facility] BLOOD ORDERABLES Final Re sult [facility] [address] [place] [address] * (ABNORMAL) CBC and Differential (12/10/2024 9:10 AM EDT) WBC Count 6.02 3.70 - 10.30 10*3/uL LAB HEMATOLOGY METHOD 12/10/2024 4:11 PM EDT [facility] RBC Count 4.78 3.90 - 5.20 10*6/uL LAB HEMATOLOGY METHOD 12/10/2024 4:11 PM EDT [facility] HGB 13.4 11.2 - 15.7 g/dL LAB HEMATOLOGY METHOD 12/10/2024 4:11 PM EDT [facility] HCT 41.6 34.0 - 45.0 % LAB HEMATOLOGY METHOD 12/10/2024 4:11 PM EDT [facility] Platelet Count 230 155 - 369 10*3/uL LAB HEMATOLOGY METHOD 12/10/2024 4:11 PM EDT [facility] MCV 87 79 - 98 fL LAB HEMATOLOGY METHOD 12/10/2024 4:11 PM EDT [facility] MCH 28.0 26.0 - 32.0 pg LAB HEMATOLOGY METHOD 12/10/2024 4:11 PM EDT [facility] MCHC 32.2 30.7 - 35.5 g/dL LAB HEMATOLOGY METHOD 12/10/2024 4:11 PM EDT [facility] RDW 13.4 11.5 - 14.5 % LAB HEMATOLOGY METHOD 12/10/2024 4:11 PM EDT [facility] MPV 12.9(H) 8.8 - 12.5 fL LAB HEMATOLOGY METHOD 12/10/2024 4:11 PM EDT [facility] nRBC 0.0 <=0.0 per 100 WBCs LAB HEMATOLOGY METHOD 12/10/2024 4:11 PM EDT [facility] Differential Type Automated LAB HEMATOLOGY METHOD 12/10/2024 4:11 PM EDT [facility] Neutrophils % 49 % LAB HEMATOLOGY METHOD 12/10/2024 4:11 PM EDT [facility] Lymphocytes % 39 % LAB HEMATOLOGY METHOD 12/10/2024 4:11 PM EDT [facility] Monocytes % 11 % LAB HEMATOLOGY METHOD 12/10/2024 4:11 PM EDT [facility] Eosinophils % 1 % LAB HEMATOLOGY METHOD 12/10/2024 4:11 PM EDT [facility] Basophils % 0 % LAB HEMATOLOGY METHOD 12/10/2024 4:11 PM EDT [facility] Immature Granulocytes % 0 % LAB HEMATOLOGY METHOD 12/10/2024 4:11 PM EDT [facility] Neutrophils Absolute 2.96 1.60 - 6.10 10*3/uL LAB HEMATOLOGY METHOD 12/10/2024 4:11 PM EDT [facility] Lymphocytes Absolute 2.32 1.20 - 3.90 10*3/uL LAB HEMATOLOGY METHOD 12/10/2024 4:11 PM EDT [facility] Monocytes Absolute 0.65 0.30 - 0.90 10*3/uL LAB HEMATOLOGY METHOD 12/10/2024 4:11 PM EDT [facility] Eosinophils Absolute 0.06 0.00 - 0.50 10*3/uL LAB HEMATOLOGY METHOD 12/10/2024 4:11 PM EDT [facility] Basophils Absolute 0.02 0.00 - 0.10 10*3/uL LAB HEMATOLOGY METHOD 12/10/2024 4:11 PM EDT [facility] Immature Granulocytes Absolute 0.01 0.00 - 0.06 10*3/uL LAB HEMATOLOGY METHOD 12/10/2024 4:11 PM EDT [facility] Blood Venous blood specimen / Unknown Venipuncture / Unknown 12/10/2024 9:10 AM EDT 12/10/2024 9:13 AM EDT Narrative [facility] - 12/10/2024 4:11 PM EDT Therapeutic decision making should be based on absolute values, rather than percentages. us [facility] BLOOD ORDERABLES Final Re sult Performing Organization Address [facility] Co de Phone Number [facility] [address] [place] [address] * Hepatitis C Antibody with Reflex to HCV Quant PCR - [facility] (12/10/2024 9:10 AM EDT) Hepatitis C Antibody Negative Negative 12/10/2024 4:26 PM EDT [facility] Blood Venous blood specimen / Unknown Venipuncture / Unknown 12/10/2024 9:10 AM EDT 12/10/2024 9:13 AM EDT us [facility] BLOOD ORDERABLES Final Re sult Performing Organization Address [facility] Co de Phone Number [facility] [address] [place] [address] * Hepatitis B Surface Antigen - ES (12/10/2024 9:10 AM EDT) Hepatitis B Surf Antigen Negative Negative 12/10/2024 5:10 PM EDT [facility] Blood Venous blood specimen / Unknown Venipuncture / Unknown 12/10/2024 9:10 AM EDT 12/10/2024 9:13 AM EDT us [facility] BLOOD ORDERABLES Final Re sult Performing Organization Address [facility] Co de Phone Number [facility] [address] [place] [address] documented in this encounter Visit Diagnoses Diagnosis [...] documented as of this encounter Care Teams Can Filler Relationship Specialty Start Date End Date Pcp, Yen [address] [place] [address] PCP - General Family Medicine 12/10/24 documented as of this encounter
--- OUTSIDE RECORDS SUMMARY | 2025-05-12 11:08 | XMS_ITS | Data Portability ---
Author Organization [facility] Neeraj c, [facility] [place] [facility] Address [address] [place] [address] Assessment Encounter Date Assessment Date Assessment LastModified by Organization Details LastModified Time 12/21/2021 12/21/2021 1.Multiple sclerosis, diagnosis made in 2002 ([place]), moved [place] 2011 [address]. [address]. Milton Jones, [facility], last visit in 2020, had MRI 2020 [...] need for appointment here in our clinic [email or web address] Not available 04/03/2022 12:20:44 Plan of Treatment [...] By Organization Details Last Modified Time 12/21/2021 [id number] CATEGORY DESCRIPTION MINUTES Prepare to see the patient (e.g. review of tests) Obtain/review separately obtained history Perform medically appropriate exam/evaluation 20 Order medications, tests, or procedures Public Address System Installer/educate the patient/family/car egiver 20 Refer/communicate w/other healthcare professionals Document clinical information into health record 10 Non-billable independent interp of results Non-billable care coordination TOTAL TIME 50 32447 (15-29) 74139 (30-44) 93574 (45-59) 94001 (60-74) 18786 (10-19) 46016 (20-29) 14496 (30-39) 92935 (40-54) [email or web address] Not available 04/03/2022 12:21:41 Reason for Referral None Reported. Problems No Known Problems Procedures Surgical History Date Name Laterality Status Provider Name and Address Organization Details Recorded Time 05/15/19 10 Nipple/areola reconstruction completed [facility] 12/21/2021 10:03:23 05/15/19 09 Nipple/areola reconstruction completed [facility] 12/21/2021 10:03:18 05/15/19 08 Bilateral mastectomy completed [facility] 12/21/2021 10:02:56 05/15/19 07 Total Hysterectomy completed [facility] 12/21/2021 10:02:45 05/15/18 63 Tonsillectomy completed [facility] 12/21/2021 10:02:33 Imaging Results None recorded. Procedure [...] Address Organization Details Last Updated DateTime 12/21/2021 91291.11 g 27.3 kg/m2 167.64 cm [facility] 12/21/2021 09:54:56 Social History Question Answer Notes LastModified by Organizat ion Details LastModified Time Tobacco Smoking Status Never Smoker Flori Terrazas [facility] 12/21/2021 10:02:20 What Was The Date [...] (COVID-19) vaccine, UNSPECIFIED 07/22/2020 completed Flori Terrazas [facility] 12/21/2021 10:01:03 SARS-COV-2 (COVID-19) vaccine, UNSPECIFIED 03/19/2021 completed Flori Nini [facility] 12/21/2021 10:01:08 Past Encounters Encounter ID Performer Location Encounter Start Date Encounter Closed Date Diagnosis/Indication Diagnosis SNOMED-CT Code Diagnosis ICD10 Code Diagnosis IMO Codes Diagnosis Note [id number] SUSANNAH DELUNA MD NEUROLOG[facility] [address] [place] [address] 12/21/2021 09:32:40 12/21/2021 10:47:26 Multiple sclerosis 79784621 G35 Health Concerns Section Related Observation LastModified by Organization Detai ls LastModified Time None Recorded Concern Status LastModified by Organization Details LastModified Time None Recorded Advance Directives Directive None Recorded Payers Insurance Date Sequence Insurance Name Policy Number Policy Mccloud Covered Member ID Mccloud Member ID Guarantor Name 01/11/2022 1 [place] [id number] Yen Perez [id number] Yen Perez 12/22/2021 1 [place] [id number] Yen Perez [id number] Yen Perez Notes Date Note Type Note Provider Name and Address Organization Details Recorded Time 12/21/2021 text/html initial [id number] year old womanseen at the request of Dr. Zan Jackson cc: multiple sclerosis dx in 2002, diagnosis made in [place] in 2011[place] some time followed with Dr. Madison Jones follows with Dr. 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
--- OUTSIDE RECORDS SUMMARY | 2025-05-12 11:08 | XMS_ITS | Encounter Summary ---
Author Organization Healthcare Address [address] [place] [address] Care Team Providers Care Personnel Placement Specialist Name Role Phone Pcp, No Primary Care Provider Unavailabl e Encounter Details Date Type Department Care Team (Late st Contact Info) Description 12/10/2024 Lab Requisition [facility] [address] [place] [address] Routine general medical examination at [...] drink first t silvina in the morning (EYE-PIG STICKER) to steady your nerves or to get [...] documented as of this encounter Care Teams Personnel Placement Specialist Relationship Specialty Start Date End Date Pcp, [place] [address] PCP - General Family Medicine 12/10/24 documented as of this encounter
--- NOTE | 2025-05-12 11:11 | HMH.EDGENADL ---
Discharge Plan Disposition Patient Disposition: Home, Self-Care Prescriptions Prescriptions: New hydrocodone-acetaminophen 5-325 mg tablet 1 tab PO Q6H PRN (Reason: pain) 3 Days Qty: 12 0RF No Action trazodone 50 mg tablet 50 mg PO HS PRN (Reason: insomnia) Qty: 90 1RF propranolol 10 mg tablet 10 mg PO BID Qty: 60 2RF methimazole 10 mg tablet 10 mg PO BID Qty: 60 4RF Referrals Follow up/Referrals: Randy Anne DO [Staff Physician, Orthopedics] - See instructions Woody De Anda DO [Primary Care Provider, Family Practice] - See instructions Activity Restrictions/Add. Instructions Additional Instructions/Restrictions: You had a distal radius fracture minimally displaced of your left forearm please follow-up with our orthopedic surgeon within 1 week. Clinical Impressions Clinical Impression: Distal radius fracture, left, Contusion of forearm, left, Traumatic ecchymosis of left hand, Injury of elbow, left Print Language Print Language: Turkish Discharge ED Provider: Amelia Guzman General Adult HPI General Chief complaint: Extremity Injury, Upper Stated complaint: AO-05/11/25- Pain and swelling Left arm Time Seen by Provider: 05/12/25 11:01 History of Present Illness HPI narrative: Patient is a 65-year-old presenting today after a mechanical fall directly onto her left elbow with subsequent swelling and ecchymosis of the distal forearm and hand. States she has pain from her elbow through her hand. Related Data Previous Rx's ?Medication ?Instructions ?Recorded methimazole 10 mg tablet 10 mg PO BID #60 tabs 02/06/25 propranolol 10 mg tablet 10 mg PO BID #60 tabs 02/11/25 trazodone 50 mg tablet 50 mg PO HS PRN insomnia #90 tabs 02/11/25 hydrocodone 5 mg-acetaminophen 325 1 tab PO Q6H PRN pain 3 days #12 05/12/25 mg tablet tabs Allergies Allergy/AdvReac Type Severity Reaction Status Date / Time No Known Allergies Allergy Verified 04/01/25 14:27 [facility] Disclaimer: The information contained in this section may have been updated after the patient was seen, as this information can be updated by other users. Medical History (Updated 05/12/25 @ 11:30 by Amelia Guzman MD) Breast cancer Multiple sclerosis Surgical History Hx of breast implants, bilateral History of mastectomy, total H/O total hysterectomy Family History Family/Other Diabetes Hypertension Hyperlipidemia Cancer Heart attack Coronary artery disease Kidney disease FHx: mental illness Stroke Social History Smoking Status: Never smoker how long ago did patient quit smokin alcohol intake: former substance use type: denies use current occupational status: disabled Travel in the last 8 weeks?: None Have you lived/traveled outside [place] in past 30 days?: No Contact w/someone who lives/traveled outside [place] past 30 days?: No Exposure to someone with infectious disease in past 14 days?: No Do you have a fever (greater than 100.4 F or 38 C)?: No Have you tested positive for COVID-19?: No Exposed to someone with COVID-19 in past 14 days?: No Do you have a sore throat?: No Do you have a cough?: No Do you have any weakness?: No Do you have any diarrhea?: No Are you experiencing any unusual bleeding?: No Do you have any muscle aches/pain?: No Do you have any abdominal pain?: No Are you experiencing loss of taste or smell?: No Other Medical History Have you received the Pneumonia Vaccine: No ROS Obtained: Yes All systems reviewed & no additional complaints except as documented Physical Exam General General appearance: alert and in no apparent distress Respiratory Respiratory exam: Present normal lung sounds bilaterally Cardiovascular Cardiovascular exam: Present regular rate Extremities Exam Extremities exam: Present other (Patient has tenderness over the left elbow and a well-demarcated area of the mid forearm extending through the dorsal aspect of the hand with ecchymosis and swelling tenderness in that region as well) Neurological Exam Neurological exam: Present alert and oriented X3 Medical Decision Making Medical Records Screening: Per USPSTF and CDC recommendations, given the prevalence of disease in our region, it is our hospital?s policy to screen for HIV and viral Hepatitis for all patients aged 18 and over and those with ongoing risk factors. Eliseo Inquiry Pt receiving controlled substance: No Vital Signs: 05/12/25 11:17 05/12/25 11:43 Temperature 98.1 F 98.1 F Temperature Source Oral Oral Pulse Rate 95 H Pulse Rate [Left Radial] 95 H Respiratory Rate 16 16 Blood Pressure 167/88 H Blood Pressure [Right Arm] 167/88 H Blood Pressure Mean [Right Arm] 114 Blood Pressure Source Automatic Cuff Blood Pressure Source [Right Arm] Automatic Cuff Blood Pressure Position Sitting Blood Pressure Position [Right Arm] Supine 02 Sat by Pulse Oximetry 99 Oxygen Delivery Method Room Air Room Air Orders (Tests/Meds): ED MEDICATIONS Discontinued Medications Generic Name Dose Route Start Last Admin Trade Name Freq PRN Reason Stop Dose Admin Hydrocodone Bitart/Acetaminophen 1 tab 05/12/25 11:27 05/12/25 11:37 Hydrocodone/Apap 5/325 Mg Tablet PO 05/12/25 11:28 1 tab ONCE ONE Administration ORDERS Category Date Time Status Elbow XR left mininum 3 views [XR elbow LT min 3V] Stat Exams 05/12/25 11:06 Taken Forearm XR left 2 views [XR forearm LT 2V] Stat Exams 05/12/25 11:06 Taken Wrist XR left minimum 3 views [XR wrist LT min 3V] Stat Exams 05/12/25 11:06 Taken XR hand LT min 3V Stat Exams 05/12/25 11:06 Taken Medical Decision Narrative: 65-year-old with above history and physical with a direct blow to the left elbow with pain and swelling through the distal forearm and hand. She states majority of the impact was near the elbow as possible she had a superficial venous structure causing the soft tissue dependent swelling. Plain films of the entire region will be ordered. This is not consistent with a more proximal blood clot etc. Reassessment 1148 x-rays performed which I personally interpreted hand forearm and elbow showed no evidence of any fracture however there is a distal radius nondisplaced fracture without any intra-articular involvement. Patient was placed in a sugar-tong splint for definitive management of her distal radius fracture. She will follow-up with orthopedic surgery to ensure proper healing. Pain medicine given in the emergency department and prescription sent to her pharmacy. Procedures Orthopedic Splinting/Casting Injury #1: Side: left Upper Extremity Injury Location: forearm Upper Extremity Immobilizer: sugar tong splint Post Cast/Splinting Neuro Status: intact Post Cast/Splinting Vasc Status: intact Critical Care Critical Care Time Critical Care Time: No
[2025-05-12 11:17] VITALS: BP 167/88; PULSE 95; RESP 16; TEMP 36.7; O2SAT 99; BMI 26.6
--- NOTE | 2025-05-12 11:35 | PC.NURSE ---
Pt noted to have significant swelling to her left hand/wrist, and bruising. Pt denies any decreased sensation. Strong pulse brisk cap refill.
[2025-05-12] MEDS: HYDROCODONE/APAP 5/325 MG TABLET 1 TAB PO (11:37)
--- NOTE | 2025-05-12 11:41 | PC.NURSE ---
Provider to bedside applying sugar tong splint
[2025-05-12 11:43] VITALS: BP 167/88; PULSE 95; RESP 16; TEMP 36.7; O2SAT 99
--- NOTE | 2025-05-12 11:50 | PC.NURSE ---
provider completes sugar tong splint. Pt now being discharged.
== END 2025-05-12 11:52 | disposition home or self-care (01) ==
PROVIDERS: Emergency Provider Student in an Organized Health Care Education/Training Program; PCP Internal Medicine
DX: S52.502A Unspecified fracture of the lower end of left radius, initial encounter for closed fracture (principal); W19.XXXA Unspecified fall, initial encounter
CPT/HCPCS: 29125; 73080; 73090; 73110; 73130; 99283; 99284